=== PATIENT | female | born 1960 | race Caucasian/White ===

== ENCOUNTER 2019-04-18 20:03 | Inpatient (IN) | payer OTHER ==
[2019-04-18 20:14] LABS: Glucose,Whole Blood 218 mg/dL (75-99)
[2019-04-18] MEDS ORDERED: ACETAMINOPHEN TAB 325 MG TAB PO STA (21:00)
[2019-04-18 21:36] LABS: Glucose,Whole Blood 236 mg/dL (75-99)
[2019-04-18 21:50] LABS: HCT 47.8 % (34.0-46.0); HGB 15.2 gm/dL (11.4-16.0); MCH 30.4 pg (25.0-35.0); MCHC 31.9 g/dL (31.0-37.0); MCV 95.2 fL (80.0-100.0); Mean Platelet Volume 7.7; Platelet Count 240 k/uL (150-450); RBC 5.02 m/uL (3.80-5.40); RDW 13.4 % (11.5-15.5); WBC 28.7 k/uL (3.8-10.6)
[2019-04-18 21:57] LABS: Amorphous Sediment,Urine Rare /hpf; Appearance,Urine Cloudy (Clear); Bacteria,Urine Few /hpf; Bilirubin,Urine Negative (Negative); Blood,Urine Trace (Negative); Color,Urine Light Yellow; Glucose,Urine (UA) 4+ (Negative); Hyaline Casts,Urine 1 /lpf (0-2); Leukocyte Esterase,Urine Moderate (Negative); Mucus,Urine Rare /hpf; Nitrite,Urine Negative (Negative); PH, Urine 5.5 (5.0-8.0); Protein,Urine 1+ (Negative); RBC,Urine 5 /hpf (0-5); Specific Gravity,Urine 1.031 (1.001-1.035); Squamous Epithelial Cell,Urine 14 /hpf (0-4); Urobilinogen,Urine <2.0 mg/dL (<2.0); WBC,Urine 71 /hpf (0-5)
[2019-04-18 22:00] LABS: ALT 18 U/L (9-52); AST 14 U/L (14-36); African American GFR (CKD) >90 (>60 ml/min/1.73 sqM); Albumin 3.7 g/dL (3.5-5.0); Alkaline Phosphatase 78 U/L (38-126); Anion Gap 17 mmol/L; Blood Urea Nitrogen 11 mg/dL (7-17); Calcium 8.4 mg/dL (8.4-10.2); Carbon Dioxide 13 mmol/L (22-30); Chloride 105 mmol/L (98-107); Glucose 257 mg/dL (74-99); Magnesium 1.8 mg/dL (1.6-2.3); Potassium 3.7 mmol/L (3.5-5.1); Sodium 135 mmol/L (137-145)
[2019-04-18 22:03] LABS: Ketones,Urine 4+ (Negative)
[2019-04-18 22:04] LABS: Lymphocytes # (M) 19.52 k/uL (1.0-4.8); Monocytes # (M) 0.86 k/uL (0-1.0); Neutrophils % (M) 29 %; Nucleated Red Blood Cells 0 /100 WBC (0-0); Total Cells Counted 200
[2019-04-18 23:03] LABS: Glucose,Whole Blood 267 mg/dL (75-99)
[2019-04-18] MEDS ORDERED: INSULIN REGULAR 100 UNIT in SODIUM CHLORIDE 0.9% 100 ML IV SCH (23:15)
[2019-04-18] MEDS ORDERED: DEXTROSE 5%-0.9% NACL 1,000 ML IV SCH (23:15)
[2019-04-18] MEDS ORDERED: IBUPROFEN 400 MG TAB PO PRN (23:28)
[2019-04-18] MEDS ORDERED: NALOXONE 0.4 MG/ML 1 ML VIAL IV PRN (23:28)
[2019-04-18] MEDS ORDERED: ACETAMINOPHEN TAB 325 MG TAB PO PRN (23:28)
--- NOTE | 2019-04-18 23:28 | ED ---
General Adult HPI - General Chief complaint: Recheck/Abnormal Lab/Rx Stated complaint: NVD Source: patient, EMS Mode of arrival: EMS Limitations: no limitations - History of Present Illness Initial comments: The patient is a 58 showed female who presents to the emergency department as a transfer from [facility]. The patient went in there because she has been vomiting for the past week. She reports that she is generally fatigued. I'll do her primary care doctor today who recommended that she go into the emergency room for evaluation. [facility], the patient was in DKA. She is a new onset diabetic. They did give her 4 L of fluid and initiated an insulin drip at 3 units per hour. She is transferred to our facility for further evaluation. She arrives and states that he has not had any fevers or chills. No sick contacts or recent travel. Denies any chest pain or shortness of breath. No cardiac history. Does not take any prescribed medications. She denies any changes in her urination to include dysuria, hematuria or difficulty voiding. No changes in her bowel habits to include diarrhea, cuts patient, melanotic stools or hematochezia. There are no other alleviating, Perceptin or modifying factors - Related Data Home Medications Medication Instructions Recorded Confirmed Ondansetron Odt [Zofran Odt] 8 mg PO Q8H PRN 04/18/19 04/18/19 Allergies Allergy/AdvReac Type Severity Reaction Status Date / Time Sulfa (Sulfonamide Allergy Rash/Hives Verified 04/18/19 20:40 Antibiotics) Review of Systems ROS Statement: Those systems with pertinent positive or pertinent negative responses have been documented in the HPI. ROS Other: All systems not noted in ROS Statement are negative. Past Medical History Past Medical History: Osteoarthritis (OA), Syncope Additional Past Medical History / Comment(s): kidney stones, lithotrispies. History of Any Multi-Drug Resistant Organisms: None Reported Past Surgical History: Section Past Psychological History: No Psychological Hx Reported Smoking Status: Never smoker Past Alcohol Use History: Occasional Past Drug Use History: Marijuana - Past Family History Father Family Medical History: Congestive Heart Failure (CHF) Sister(s) Family Medical History: Cancer Additional Family Medical History / Comment(s): cervical cancer General Exam Limitations: no limitations Course Vital Signs 04/18/19 04/18/19 04/18/19 20:06 21:30 22:30 Temperature 100.6 F H Pulse Rate 93 97 77 Respiratory 17 16 20 Rate Blood Pressure 154/76 143/70 O2 Sat by Pulse 99 Oximetry 04/18/19 04/19/19 23:30 00:00 Temperature 98.5 F Pulse Rate 79 89 Respiratory 20 20 Rate Blood Pressure 147/71 148/79 O2 Sat by Pulse 100 100 Oximetry Medical Decision Making - Medical Decision Making Upon arrival the patient is placed into room 3. She is hooked up to continuous pulse ox and cardiac monitoring. Her insulin drip is stopped at this time until I'm able to perform laboratory studies. I did review the patient's results. She denies any nausea or pain at this time. I did recommend laboratory studies and a CT the patient's abdomen and pelvis because of her reported vomiting. Upon review of the results patient does have a leukocytosis 28,000. His anion gap of 17. Glucose is 267. CO2 of 12. 4+ ketones in the urine and signs of an acute urinary tract infection. Because this I did initiate the patient's insulin drip at 2 units per hour. She will have every hour Accu-Cheks. I also complete lites every 4 hours. She is placed on D5 half normal saline. I did obtain blood cultures and initiated the patient on Rocephin because of urinary tract infection. I discussed results with the patient. She agreed to the treatment plan. Patient will be admitted to Dr. Ellsworth. She was then transported to the floor in stable condition - Lab Data Result diagrams: 04/18/19 21:20 04/18/19 23:55 Lab Results 04/18/19 04/18/19 04/18/19 Range/Units 20:13 21:20 21:20 WBC 28.7 H (3.8-10.6) k/uL RBC 5.02 (3.80-5.40) m/uL Hgb 15.2 (11.4-16.0) gm/dL Hct 47.8 H (34.0-46.0) % MCV 95.2 (80.0-100.0) fL MCH 30.4 (25.0-35.0) pg MCHC 31.9 (31.0-37.0) g/dL RDW 13.4 (11.5-15.5) % Plt Count 240 (150-450) k/uL Neutrophils % (Manual) 29 % Lymphocytes % (Manual) 68 % Monocytes % (Manual) 3 % Neutrophils # (Manual) 8.32 H (1.3-7.7) k/uL Lymphocytes # (Manual) 19.52 H (1.0-4.8) k/uL Monocytes # (Manual) 0.86 (0-1.0) k/uL Nucleated RBCs 0 (0-0) /100 WBC Manual Slide Review Performed RBC Morphology Normal Sodium 135 L (137-145) mmol/L Potassium 3.7 (3.5-5.1) mmol/L Chloride 105 (98-107) mmol/L Carbon Dioxide 13 L (22-30) mmol/L Anion Gap 17 mmol/L BUN 11 (7-17) mg/dL Creatinine 0.56 (0.52-1.04) mg/dL Est GFR (CKD-EPI)AfAm >90 (>60 ml/min/1.73 sqM) Est GFR (CKD-EPI)NonAf >90 (>60 ml/min/1.73 sqM) Glucose 257 H (74-99) mg/dL POC Glucose (mg/dL) 218 H (75-99) mg/dL POC Glu Soils Technician ID Yennifer Abdullahi Calcium 8.4 (8.4-10.2) mg/dL Magnesium 1.8 (1.6-2.3) mg/dL Total Bilirubin 1.0 (0.2-1.3) mg/dL AST 14 (14-36) U/L ALT 18 (9-52) U/L Alkaline Phosphatase 78 (38-126) U/L Total Protein 6.0 L (6.3-8.2) g/dL Albumin 3.7 (3.5-5.0) g/dL TSH 2.410 (0.465-4.680) mIU/L Urine Color Urine Appearance (Clear) Urine pH (5.0-8.0) Ur Specific Seth (1.001-1.035) Urine Protein (Negative) Urine Glucose (UA) (Negative) Urine Ketones (Negative) Urine Blood (Negative) Urine Nitrite (Negative) Urine Bilirubin (Negative) Urine Urobilinogen (<2.0) mg/dL Ur Leukocyte Esterase (Negative) Urine RBC (0-5) /hpf Urine WBC (0-5) /hpf Ur Squamous Epith Cells (0-4) /hpf Amorphous Sediment (None) /hpf Urine Bacteria (None) /hpf Hyaline Casts (0-2) /lpf Urine Mucus (None) /hpf Acetone, Qual Positive (Negative) 04/18/19 04/18/19 04/18/19 Range/Units 21:20 21:34 23:01 WBC (3.8-10.6) k/uL RBC (3.80-5.40) m/uL Hgb (11.4-16.0) gm/dL Hct (34.0-46.0) % MCV (80.0-100.0) fL MCH (25.0-35.0) pg MCHC (31.0-37.0) g/dL RDW (11.5-15.5) % Plt Count (150-450) k/uL Neutrophils % (Manual) % Lymphocytes % (Manual) % Monocytes % (Manual) % Neutrophils # (Manual) (1.3-7.7) k/uL Lymphocytes # (Manual) (1.0-4.8) k/uL Monocytes # (Manual) (0-1.0) k/uL Nucleated RBCs (0-0) /100 WBC Manual Slide Review RBC Morphology Sodium (137-145) mmol/L Potassium (3.5-5.1) mmol/L Chloride (98-107) mmol/L Carbon Dioxide (22-30) mmol/L Anion Gap mmol/L BUN (7-17) mg/dL Creatinine (0.52-1.04) mg/dL Est GFR (CKD-EPI)AfAm (>60 ml/min/1.73 sqM) Est GFR (CKD-EPI)NonAf (>60 ml/min/1.73 sqM) Glucose (74-99) mg/dL POC Glucose (mg/dL) 236 H 267 H (75-99) mg/dL POC Glu Soils Technician ID Alok Wilburn Calcium (8.4-10.2) mg/dL Magnesium (1.6-2.3) mg/dL Total Bilirubin (0.2-1.3) mg/dL AST (14-36) U/L ALT (9-52) U/L Alkaline Phosphatase (38-126) U/L Total Protein (6.3-8.2) g/dL Albumin (3.5-5.0) g/dL TSH (0.465-4.680) mIU/L Urine Color Light Yellow Urine Appearance Cloudy H (Clear) Urine pH 5.5 (5.0-8.0) Ur Specific Seth 1.031 (1.001-1.035) Urine Protein 1+ H (Negative) Urine Glucose (UA) 4+ H (Negative) Urine Ketones 4+ H (Negative) Urine Blood Trace H (Negative) Urine Nitrite Negative (Negative) Urine Bilirubin Negative (Negative) Urine Urobilinogen <2.0 (<2.0) mg/dL Ur Leukocyte Esterase Moderate H (Negative) Urine RBC 5 (0-5) /hpf Urine WBC 71 H (0-5) /hpf Ur Squamous Epith Cells 14 H (0-4) /hpf Amorphous Sediment Rare H (None) /hpf Urine Bacteria Few H (None) /hpf Hyaline Casts 1 (0-2) /lpf Urine Mucus Rare H (None) /hpf Acetone, Qual (Negative) Disposition Clinical Impression: Diabetic keto-acidosis, Leukocytosis, Acute UTI, Pyrexia Disposition: ADMITTED IP TO THIS [facility] Condition: Serious Is patient prescribed a controlled substance at d/c from ED?: No Decision to Admit Reason: Admit from EC Decision Date: 04/18/19 Decision Time: 23:28
--- NOTE | 2019-04-18 23:36 | CT ---
EXAM: CT Abdomen and Pelvis With Intravenous Contrast CLINICAL HISTORY: Fever and abdominal pain. Reason: Pain TECHNIQUE: Axial computed tomography images of the abdomen and pelvis with intravenous contrast. CTDI is 20.5 mGy and DLP is 1799.4 mGy-cm. This CT exam was performed using one or more of the following dose reduction techniques: automated exposure control, adjustment of the mA and/or kV according to patient size, and/or use of iterative reconstruction technique. COMPARISON: None. FINDINGS: No pulmonary nodules or pleural effusions are noted. Very minimal subsegmental atelectasis at the lung bases is noted. Mild to moderate degenerative disc disease of the spinal column is noted. Mild osteoarthritic changes about the sacroiliac joints are noted. The heart is normal in size. A 1.3 cm probable simple cyst in the lateral segment of the left lobe of the liver is noted. There is abnormal and concentric thickening of the torres of the duodenum extending to involve the proximal small bowel. Moderate hydronephrosis of the right kidney is noted. Moderate to severe right hydroureter is noted, particularly involving the distal right ureter. No discrete filling defect is noted within the right ureter. The left kidney is unremarkable. No retroperitoneal lymphadenopathy. The appendix is best seen on series 202 image 45 and is unremarkable. The bladder is underdistended and suboptimally visualized. IMPRESSION: Hydronephrosis of the right kidney. Marked right hydroureter. No filling defect of the ureter is noted. The findings are equivocal and of uncertain etiology. Retrograde right urethrography is advised for further workup. Marked concentric wall thickening of the duodenum and proximal small bowel loops within the left upper quadrant of uncertain etiology. Inflammatory and infectious etiology should be considered. Clinical correlation is advised. Probable 1.3 cm simple cyst of the left lobe of the liver.
[2019-04-18] MEDS ORDERED: ONDANSETRON ODT 8 MG TAB.RAPDIS PO PRN (23:39)
[2019-04-18 23:41] LABS: Glucose,Whole Blood 274 mg/dL (75-99)
[2019-04-18] MEDS ORDERED: ONDANSETRON ODT 4 MG TAB PO PRN (23:41)
[2019-04-19 00:36] LABS: Glucose,Whole Blood 254 mg/dL (75-99)
[2019-04-19 00:37] LABS: Potassium 3.6 mmol/L (3.5-5.1)
[2019-04-19 01:12] LABS: Glucose,Whole Blood 249 mg/dL (75-99)
[2019-04-19] MEDS: D5-0.45% NACL WITH KCL 20MEQ/L 1,000 ML IV SCH ×4 (01:32→20:15)
[2019-04-19 01:40] VITALS: BMI 34.0
[2019-04-19 02:03] LABS: Glucose,Whole Blood 245 mg/dL (75-99)
[2019-04-19 03:18] LABS: Glucose,Whole Blood 245 mg/dL (75-99)
[2019-04-19 04:19] LABS: Glucose,Whole Blood 241 mg/dL (75-99)
[2019-04-19 04:46] LABS: ALT 6 U/L (9-52); AST 41 U/L (14-36); African American GFR (CKD) >90 (>60 ml/min/1.73 sqM); Albumin 3.7 g/dL (3.5-5.0); Alkaline Phosphatase 68 U/L (38-126); Anion Gap 17 mmol/L; Blood Urea Nitrogen 10 mg/dL (7-17); Calcium 8.4 mg/dL (8.4-10.2); Carbon Dioxide 10 mmol/L (22-30); Chloride 105 mmol/L (98-107); Glucose 260 mg/dL (74-99); Magnesium 1.9 mg/dL (1.6-2.3); Phosphorus 2.3 mg/dL (2.5-4.5); Sodium 132 mmol/L (137-145); Total Bilirubin 1.2 mg/dL (0.2-1.3); Total Protein 6.4 g/dL (6.3-8.2)
[2019-04-19 04:51] LABS: Potassium 4.7 mmol/L (3.5-5.1)
[2019-04-19 05:00] LABS: HCT 50.6 % (34.0-46.0); Hypochromasia Slight; MCH 31.4 pg (25.0-35.0); MCHC 31.6 g/dL (31.0-37.0); MCV 99.4 fL (80.0-100.0); Mean Platelet Volume 8.7; Platelet Count 188 k/uL (150-450); RBC 5.09 m/uL (3.80-5.40); RDW 14.2 % (11.5-15.5); WBC 28.2 k/uL (3.8-10.6)
[2019-04-19] MEDS ORDERED: Magnesium Replacement Protocol 1 EACH MISC MISCELLANE PRN (05:06)
[2019-04-19] MEDS ORDERED: Phosphorus Replacement Protoco 1 EACH MISC MISCELLANE PRN (05:07)
[2019-04-19 05:25] LABS: Glucose,Whole Blood 255 mg/dL (75-99)
[2019-04-19] MEDS: MAGNESIUM SULFATE-D5W PMX 1 GM in DEXTROSE/WATER 1 100ML.BAG IVPB SCH ×2 (05:34→09:00)
[2019-04-19 05:59] LABS: Glucose,Whole Blood 279 mg/dL (75-99)
[2019-04-19] MEDS ORDERED: SODIUM PHOSPHATE 10 MMOL in SODIUM CHLORIDE 0.9% 250 ML IVPB ONE (06:00)
[2019-04-19 07:01] LABS: Glucose,Whole Blood 218 mg/dL (75-99)
[2019-04-19 08:13] LABS: Glucose,Whole Blood 255 mg/dL (75-99)
[2019-04-19 08:54] LABS: African American GFR (CKD) >90 (>60 ml/min/1.73 sqM); Anion Gap 10 mmol/L; Blood Urea Nitrogen 8 mg/dL (7-17); Calcium 8.4 mg/dL (8.4-10.2); Carbon Dioxide 18 mmol/L (22-30); Chloride 103 mmol/L (98-107); Glucose 273 mg/dL (74-99); Magnesium 1.9 mg/dL (1.6-2.3); Phosphorus 2.4 mg/dL (2.5-4.5); Potassium 3.2 mmol/L (3.5-5.1); Sodium 131 mmol/L (137-145)
[2019-04-19 09:03] LABS: Glucose,Whole Blood 252 mg/dL (75-99)
[2019-04-19] MEDS ORDERED: Potassium Replacement Protocol 1 EACH MISC MISCELLANE PRN (09:14)
[2019-04-19] MEDS: POTASSIUM CHLORIDE ER 20 MEQ TAB.ER PO SCH ×6 (09:34→21:29)
[2019-04-19 10:35] LABS: Eosinophils # (M) 0.28 k/uL (0-0.7); Lymphocytes # (M) 20.87 k/uL (1.0-4.8); Monocytes # (M) 0.56 k/uL (0-1.0); Neutrophils % (M) 25 %; Nucleated Red Blood Cells 0 /100 WBC (0-0); Total Cells Counted 200
[2019-04-19 10:35] LABS: Glucose,Whole Blood 232 mg/dL (75-99)
[2019-04-19 10:38] LABS: Anisocytosis (M) Present; Poikilocytosis (M) Present
[2019-04-19 11:07] LABS: Glucose,Whole Blood 228 mg/dL (75-99)
[2019-04-19] MEDS ORDERED: INSULIN DETEMIR (LEVEMIR) 100 UNIT/ML SYR SQ ONE (11:30)
[2019-04-19 12:15] LABS: Glucose,Whole Blood 237 mg/dL (75-99)
[2019-04-19 16:49] LABS: Glucose,Whole Blood 269 mg/dL (75-99)
[2019-04-19] MEDS: INSULIN ASPART (NovoLOG) 100 UNIT/ML VIAL SQ SCH ×2 (17:15→21:30)
--- NOTE | 2019-04-19 17:18 | P.HPIM ---
History of Present Illness H&P Date: 04/19/19 Chief Complaint: Vomiting History of presenting complaint: This is a pleasant 58-year-old patient of Dr. Victoriano Parmar. Patient for about a week has been having multiple episodes of vomiting. She noticed over the course of last few weeks she's been losing weight and she is just discovered she lost about 25 pounds. Patient is having increased thirst and is having increased fluid intake. Also was noticing increased frequency of urination. Including nocturia. No fever no chills. Did feel tired and rundown. Patient presented to [facility] where she was found to be in diabetic ketoacidosis. Patient was transferred here for further management. Patient was started on IV insulin drip and IV fluids. Admitted to the ICU. Saw the patient does morning. Feeling better. Had been on insulin drip overnight. Patient also had a fever of 100.6 on presentation and was found to have her infected appearing urine. Did get a dose of ceftriaxone in the ER. Review of systems: GEN.: Tired EYES: None HEENT: None NECK: None RESPIRATORY: None CARDIOVASCULAR: None GASTROINTESTINAL: None GENITOURINARY: As above MUSCULOSKELETAL: None LYMPHATICS: None HEMATOLOGICAL: None PSYCHIATRY: None NEUROLOGICAL: None Past medical history: Osteoarthritis, kidney stones, Social history: Does not smoke. Alcohol occasionally. Lives with her daughter. Family history: Congestive heart failure, cervical cancer Physical examination: VITAL SIGNS: 100.6, 93, 17, 154/76, 99% room air GENERAL: BMI 34, laying in bed, tired appearing. EYES: Pupils equal. Conjunctiva normal. HEENT: External appearance of nose and ears normal, oral cavity grossly normal. NECK: JVD not raised; masses not palpable. HEART: First and second heart sounds are normal; no edema. LUNGS: Respiratory rate normal; clear to auscultation. ABDOMEN: Soft, nontender, liver spleen not palpable, no masses palpable. PSYCH: Alert and oriented x3; mood and affect normal. NEUROLOGICAL: Cranial nerves grossly intact; no facial asymmetry, power and sensation grossly intact. LYMPHATICS: No lymph nodes palpable in the axilla and neck INVESTIGATIONS, reviewed in the clinical context: White count 28.7, hemoglobin 15.2, platelets 240, neutrophils increased at 8.3, lymphocytes increased at 19.5 to potassium 3.7 creatinine 0.56 UA positive for leukoesterase WBC and 14 squamous epithelial cells -Serum acetone positive Glycosylated hemoglobin 12 Assessment-: -Acute diabetic ketoacidosis, new diagnosis of diabetes -Acute UTI from cystitis in a patient with known kidney stones -Chronic nephrolithiasis -Leukocytosis with predominant neutrophils and lymphocytosis -Hypokalemia -Obesity BMI 34 Plan: Patient started on IV insulin drip and IV fluids upon presentation. This morning and and Was closing well. Down to 10 from 17. I Ji the patient from insulin drip to Levemir 20 units. We'll keep the patient on a sliding scale with her meals. Depending on her sugars with a chest insulin accordingly. Later in the afternoon I was informed by the geriatric case manager that the patient does not have prescription coverage. In view of the same we'll switch the patient over to 7030 insulin. In the morning. Also add LACY inhibitor and Lipitor. Diabetic education was requested. Also metformin will be added. Care was discussed at length with the patient. Questions were answered. Past Medical History Past Medical History: Osteoarthritis (OA), Syncope Additional Past Medical History / Comment(s): kidney stones, lithotrispies. History of Any Multi-Drug Resistant Organisms: None Reported Past Surgical History: Section Past Anesthesia/Blood Transfusion Reactions: No Reported Reaction Past Psychological History: No Psychological Hx Reported Smoking Status: Never smoker Past Alcohol Use History: Occasional Past Drug Use History: Marijuana - Past Family History Father Family Medical History: Congestive Heart Failure (CHF) Sister(s) Family Medical History: Cancer Additional Family Medical History / Comment(s): cervical cancer Medications and Allergies Home Medications Medication Instructions Recorded Confirmed Type Ondansetron Odt [Zofran Odt] 8 mg PO Q8H PRN 04/18/19 04/18/19 History Allergies Allergy/AdvReac Type Severity Reaction Status Date / Time Sulfa (Sulfonamide Allergy Rash/Hives Verified 04/18/19 20:40 Antibiotics) Physical Exam Vitals: Vital Signs Temp Pulse Resp BP Pulse Ox 04/19/19 16:00 98.8 F 67 18 154/84 99 04/19/19 15:00 70 138/70 04/19/19 14:00 86 18 124/63 04/19/19 13:00 86 146/64 04/19/19 12:00 98.5 F 84 16 136/71 96 04/19/19 11:00 70 17 04/19/19 10:00 74 17 04/19/19 09:00 76 16 04/19/19 08:00 98.3 F 76 20 144/66 96 04/19/19 07:00 75 23 04/19/19 06:00 71 17 123/68 04/19/19 05:00 72 15 160/81 04/19/19 04:00 98.3 F 58 L 25 H 160/81 97 04/19/19 03:00 77 15 134/63 04/19/19 02:00 67 18 146/67 04/19/19 01:30 99.4 F 92 14 130/79 96 04/19/19 01:01 82 14 04/19/19 00:00 98.5 F 89 20 148/79 100 04/18/19 23:30 79 20 147/71 100 04/18/19 22:30 77 20 143/70 04/18/19 21:30 97 16 154/76 99 04/18/19 20:06 100.6 F H 93 17 Intake and Output 04/19/19 04/19/19 04/19/19 06:59 14:59 22:59 Intake Total 2065.484 4056.962 Balance 5537.807 4504.962 Intake: IV 1100 1150 D5-0.45% NaCl with KCl 750 1050 20Meq/l 1,000 ml @ 50 mls /hr IV .Q20H [facility] Rx#: [id number] Magnesium Sulfate-D5w Pmx 100 100 1 gm In Dextrose/Water 1 100ml.bag @ 100 mls/hr IVPB Q1H [facility] Rx#: [id number] Sodium Phosphate 10 mmol 250 In Sodium Chloride 0.9% 250 ml @ 125 mls/hr IVPB ONCE ONE Rx#:[id number] Intake, IV Titration 13.568 12.962 Amount Insulin Regular 100 unit 13.568 12.962 In Sodium Chloride 0.9% 100 ml @ Titrate IV .Q0M [facility] Rx#:[id number] Other: Voiding Method Toilet Toilet # Voids 1 3 Weight 104.5 kg 104.5 kg Results CBC & Chem 7: 04/19/19 04:11 04/19/19 12:20 Labs: Abnormal Lab Results - Last 24 Hours (Table) 04/18/19 04/18/19 04/18/19 Range/Units 20:13 21:20 21:20 WBC (3.8-10.6) k/uL Hct (34.0-46.0) % Neutrophils # (Manual) (1.3-7.7) k/uL Lymphocytes # (Manual) (1.0-4.8) k/uL Sodium 135 L (137-145) mmol/L Potassium (3.5-5.1) mmol/L Carbon Dioxide 13 L (22-30) mmol/L Creatinine (0.52-1.04) mg/dL Glucose 257 H (74-99) mg/dL POC Glucose (mg/dL) 218 H (75-99) mg/dL Hemoglobin A1c 12.0 H (4.0-6.0) % Phosphorus (2.5-4.5) mg/dL AST (14-36) U/L ALT (9-52) U/L Total Protein 6.0 L (6.3-8.2) g/dL Urine Appearance (Clear) Urine Protein (Negative) Urine Glucose (UA) (Negative) Urine Ketones (Negative) Urine Blood (Negative) Ur Leukocyte Esterase (Negative) Urine WBC (0-5) /hpf Ur Squamous Epith Cells (0-4) /hpf Amorphous Sediment (None) /hpf Urine Bacteria (None) /hpf Urine Mucus (None) /hpf 04/18/19 04/18/19 04/18/19 Range/Units 21:20 21:20 21:34 WBC 28.7 H (3.8-10.6) k/uL Hct 47.8 H (34.0-46.0) % Neutrophils # (Manual) 8.32 H (1.3-7.7) k/uL Lymphocytes # (Manual) 19.52 H (1.0-4.8) k/uL Sodium (137-145) mmol/L Potassium (3.5-5.1) mmol/L Carbon Dioxide (22-30) mmol/L Creatinine (0.52-1.04) mg/dL Glucose (74-99) mg/dL POC Glucose (mg/dL) 236 H (75-99) mg/dL Hemoglobin A1c (4.0-6.0) % Phosphorus (2.5-4.5) mg/dL AST (14-36) U/L ALT (9-52) U/L Total Protein (6.3-8.2) g/dL Urine Appearance Cloudy H (Clear) Urine Protein 1+ H (Negative) Urine Glucose (UA) 4+ H (Negative) Urine Ketones 4+ H (Negative) Urine Blood Trace H (Negative) Ur Leukocyte Esterase Moderate H (Negative) Urine WBC 71 H (0-5) /hpf Ur Squamous Epith Cells 14 H (0-4) /hpf Amorphous Sediment Rare H (None) /hpf Urine Bacteria Few H (None) /hpf Urine Mucus Rare H (None) /hpf 04/18/19 04/18/19 04/18/19 Range/Units 23:01 23:39 23:55 WBC (3.8-10.6) k/uL Hct (34.0-46.0) % Neutrophils # (Manual) (1.3-7.7) k/uL Lymphocytes # (Manual) (1.0-4.8) k/uL Sodium 133 L (137-145) mmol/L Potassium (3.5-5.1) mmol/L Carbon Dioxide 10 L (22-30) mmol/L Creatinine (0.52-1.04) mg/dL Glucose (74-99) mg/dL POC Glucose (mg/dL) 267 H 274 H (75-99) mg/dL Hemoglobin A1c (4.0-6.0) % Phosphorus (2.5-4.5) mg/dL AST (14-36) U/L ALT (9-52) U/L Total Protein (6.3-8.2) g/dL Urine Appearance (Clear) Urine Protein (Negative) Urine Glucose (UA) (Negative) Urine Ketones (Negative) Urine Blood (Negative) Ur Leukocyte Esterase (Negative) Urine WBC (0-5) /hpf Ur Squamous Epith Cells (0-4) /hpf Amorphous Sediment (None) /hpf Urine Bacteria (None) /hpf Urine Mucus (None) /hpf 04/19/19 04/19/19 04/19/19 Range/Units 00:35 00:59 02:01 WBC (3.8-10.6) k/uL Hct (34.0-46.0) % Neutrophils # (Manual) (1.3-7.7) k/uL Lymphocytes # (Manual) (1.0-4.8) k/uL Sodium (137-145) mmol/L Potassium (3.5-5.1) mmol/L Carbon Dioxide (22-30) mmol/L Creatinine (0.52-1.04) mg/dL Glucose (74-99) mg/dL POC Glucose (mg/dL) 254 H 249 H 245 H (75-99) mg/dL Hemoglobin A1c (4.0-6.0) % Phosphorus (2.5-4.5) mg/dL AST (14-36) U/L ALT (9-52) U/L Total Protein (6.3-8.2) g/dL Urine Appearance (Clear) Urine Protein (Negative) Urine Glucose (UA) (Negative) Urine Ketones (Negative) Urine Blood (Negative) Ur Leukocyte Esterase (Negative) Urine WBC (0-5) /hpf Ur Squamous Epith Cells (0-4) /hpf Amorphous Sediment (None) /hpf Urine Bacteria (None) /hpf Urine Mucus (None) /hpf 04/19/19 04/19/19 04/19/19 Range/Units 03:05 03:54 04:11 WBC 28.2 H (3.8-10.6) k/uL Hct 50.6 H (34.0-46.0) % Neutrophils # (Manual) (1.3-7.7) k/uL Lymphocytes # (Manual) 20.87 H (1.0-4.8) k/uL Sodium (137-145) mmol/L Potassium (3.5-5.1) mmol/L Carbon Dioxide (22-30) mmol/L Creatinine (0.52-1.04) mg/dL Glucose (74-99) mg/dL POC Glucose (mg/dL) 245 H 241 H (75-99) mg/dL Hemoglobin A1c (4.0-6.0) % Phosphorus (2.5-4.5) mg/dL AST (14-36) U/L ALT (9-52) U/L Total Protein (6.3-8.2) g/dL Urine Appearance (Clear) Urine Protein (Negative) Urine Glucose (UA) (Negative) Urine Ketones (Negative) Urine Blood (Negative) Ur Leukocyte Esterase (Negative) Urine WBC (0-5) /hpf Ur Squamous Epith Cells (0-4) /hpf Amorphous Sediment (None) /hpf Urine Bacteria (None) /hpf Urine Mucus (None) /hpf 04/19/19 04/19/19 04/19/19 Range/Units 04:11 05:11 05:57 WBC (3.8-10.6) k/uL Hct (34.0-46.0) % Neutrophils # (Manual) (1.3-7.7) k/uL Lymphocytes # (Manual) (1.0-4.8) k/uL Sodium 132 L (137-145) mmol/L Potassium (3.5-5.1) mmol/L Carbon Dioxide 10 L (22-30) mmol/L Creatinine 0.48 L (0.52-1.04) mg/dL Glucose 260 H (74-99) mg/dL POC Glucose (mg/dL) 255 H 279 H (75-99) mg/dL Hemoglobin A1c (4.0-6.0) % Phosphorus 2.3 L (2.5-4.5) mg/dL AST 41 H (14-36) U/L ALT 6 L (9-52) U/L Total Protein (6.3-8.2) g/dL Urine Appearance (Clear) Urine Protein (Negative) Urine Glucose (UA) (Negative) Urine Ketones (Negative) Urine Blood (Negative) Ur Leukocyte Esterase (Negative) Urine WBC (0-5) /hpf Ur Squamous Epith Cells (0-4) /hpf Amorphous Sediment (None) /hpf Urine Bacteria (None) /hpf Urine Mucus (None) /hpf 04/19/19 04/19/19 04/19/19 Range/Units 06:59 08:00 08:07 WBC (3.8-10.6) k/uL Hct (34.0-46.0) % Neutrophils # (Manual) (1.3-7.7) k/uL Lymphocytes # (Manual) (1.0-4.8) k/uL Sodium 131 L (137-145) mmol/L Potassium 3.2 L (3.5-5.1) mmol/L Carbon Dioxide 18 L (22-30) mmol/L Creatinine 0.42 L (0.52-1.04) mg/dL Glucose 273 H (74-99) mg/dL POC Glucose (mg/dL) 218 H 255 H (75-99) mg/dL Hemoglobin A1c (4.0-6.0) % Phosphorus 2.4 L (2.5-4.5) mg/dL AST (14-36) U/L ALT (9-52) U/L Total Protein (6.3-8.2) g/dL Urine Appearance (Clear) Urine Protein (Negative) Urine Glucose (UA) (Negative) Urine Ketones (Negative) Urine Blood (Negative) Ur Leukocyte Esterase (Negative) Urine WBC (0-5) /hpf Ur Squamous Epith Cells (0-4) /hpf Amorphous Sediment (None) /hpf Urine Bacteria (None) /hpf Urine Mucus (None) /hpf 04/19/19 04/19/19 04/19/19 Range/Units 08:59 10:00 11:04 WBC (3.8-10.6) k/uL Hct (34.0-46.0) % Neutrophils # (Manual) (1.3-7.7) k/uL Lymphocytes # (Manual) (1.0-4.8) k/uL Sodium (137-145) mmol/L Potassium (3.5-5.1) mmol/L Carbon Dioxide (22-30) mmol/L Creatinine (0.52-1.04) mg/dL Glucose (74-99) mg/dL POC Glucose (mg/dL) 252 H 232 H 228 H (75-99) mg/dL Hemoglobin A1c (4.0-6.0) % Phosphorus (2.5-4.5) mg/dL AST (14-36) U/L ALT (9-52) U/L Total Protein (6.3-8.2) g/dL Urine Appearance (Clear) Urine Protein (Negative) Urine Glucose (UA) (Negative) Urine Ketones (Negative) Urine Blood (Negative) Ur Leukocyte Esterase (Negative) Urine WBC (0-5) /hpf Ur Squamous Epith Cells (0-4) /hpf Amorphous Sediment (None) /hpf Urine Bacteria (None) /hpf Urine Mucus (None) /hpf 04/19/19 04/19/19 Range/Units 12:02 16:46 WBC (3.8-10.6) k/uL Hct (34.0-46.0) % Neutrophils # (Manual) (1.3-7.7) k/uL Lymphocytes # (Manual) (1.0-4.8) k/uL Sodium (137-145) mmol/L Potassium (3.5-5.1) mmol/L Carbon Dioxide (22-30) mmol/L Creatinine (0.52-1.04) mg/dL Glucose (74-99) mg/dL POC Glucose (mg/dL) 237 H 269 H (75-99) mg/dL Hemoglobin A1c (4.0-6.0) % Phosphorus (2.5-4.5) mg/dL AST (14-36) U/L ALT (9-52) U/L Total Protein (6.3-8.2) g/dL Urine Appearance (Clear) Urine Protein (Negative) Urine Glucose (UA) (Negative) Urine Ketones (Negative) Urine Blood (Negative) Ur Leukocyte Esterase (Negative) Urine WBC (0-5) /hpf Ur Squamous Epith Cells (0-4) /hpf Amorphous Sediment (None) /hpf Urine Bacteria (None) /hpf Urine Mucus (None) /hpf Microbiology - Last 24 Hours (Table) 04/19/19 10:33 Urine Culture - Preliminary Urine,Voided Thrombosis Risk Factor Assmnt - Choose All That Apply Any of the Below Risk Factors Present?: Yes Each Factor Represents 1 point: Age 41-60 years, Obesity (BMI >25) Other Risk Factors: No Other congenital or acquired thrombophilia - If yes, enter type in comment: No Thrombosis Risk Factor Assessment Total Risk Factor Score: 2 Thrombosis Risk Factor Assessment Level: Low Risk
[2019-04-19] MEDS: metFORMIN 500 MG TAB PO SCH (18:50)
[2019-04-19 19:05] LABS: Potassium 3.5 mmol/L (3.5-5.1)
[2019-04-19] MEDS: LISINOPRIL 5 MG TAB PO SCH (20:09)
[2019-04-19] MEDS ORDERED: ATORVASTATIN 20 MG TAB PO SCH (21:00)
[2019-04-19 21:23] LABS: ALT 24 U/L (9-52); AST 14 U/L (14-36); African American GFR (CKD) >90 (>60 ml/min/1.73 sqM); Albumin 3.3 g/dL (3.5-5.0); Alkaline Phosphatase 78 U/L (38-126); Anion Gap 7 mmol/L; Blood Urea Nitrogen 6 mg/dL (7-17); Calcium 8.8 mg/dL (8.4-10.2); Carbon Dioxide 24 mmol/L (22-30); Chloride 103 mmol/L (98-107); Glucose 248 mg/dL (74-99); Phosphorus 1.4 mg/dL (2.5-4.5); Potassium 3.5 mmol/L (3.5-5.1); Sodium 134 mmol/L (137-145); Total Bilirubin 0.6 mg/dL (0.2-1.3); Total Protein 5.5 g/dL (6.3-8.2)
[2019-04-19 21:23] LABS: Glucose,Whole Blood 237 mg/dL (75-99)
[2019-04-20 01:50] LABS: Glucose,Whole Blood 173 mg/dL (75-99)
[2019-04-20 06:24] VITALS: BP 142/73; PULSE 64; RESP 20; TEMP 97.9
[2019-04-20 07:04] LABS: Glucose,Whole Blood 246 mg/dL (75-99)
[2019-04-20] MEDS ORDERED: INSULN ASP PRT/INSULIN ASPART 100 UNIT/ML 10 ML VIAL SQ SCH ×2 (07:30→12:30)
[2019-04-20 07:45] LABS: Basophils # (A) 0.1 k/uL (0-0.2); Basophils % (A) 1 %; Eosinophils # (A) 0.1 k/uL (0-0.7); Eosinophils % (A) 1 %; HCT 45.9 % (34.0-46.0); HGB 14.8 gm/dL (11.4-16.0); Lymphocytes # (A) 10.7 k/uL (1.0-4.8); Lymphocytes % (A) 66 %; MCH 30.7 pg (25.0-35.0); MCHC 32.3 g/dL (31.0-37.0); Monocytes # (A) 0.5 k/uL (0-1.0); Monocytes % (A) 3 %; Neutrophils # (A) 4.5 k/uL (1.3-7.7); Neutrophils % (A) 28 %; Platelet Count 214 k/uL (150-450); RBC 4.83 m/uL (3.80-5.40); RDW 13.6 % (11.5-15.5); WBC 16.4 k/uL (3.8-10.6)
[2019-04-20] MEDS: INSULIN ASPART (NovoLOG) 100 UNIT/ML VIAL SQ SCH ×2 (07:47→12:28)
[2019-04-20] MEDS: metFORMIN 500 MG TAB PO SCH (07:48)
[2019-04-20] MEDS: LISINOPRIL 5 MG TAB PO SCH (07:48)
[2019-04-20 09:39] LABS: African American GFR (CKD) >90 (>60 ml/min/1.73 sqM); Anion Gap 6 mmol/L; Blood Urea Nitrogen 5 mg/dL (7-17); Carbon Dioxide 25 mmol/L (22-30); Chloride 106 mmol/L (98-107); Glucose 255 mg/dL (74-99); Potassium 4.1 mmol/L (3.5-5.1); Sodium 137 mmol/L (137-145)
[2019-04-20 12:23] LABS: Glucose,Whole Blood 241 mg/dL (75-99)
--- NOTE | 2019-04-21 01:12 | P.DS ---
Providers Date of admission: 04/18/19 23:39 Expected date of discharge: 04/20/19 Attending physician: Elvin Obando Primary care physician: Victoriano Jacob [facility] Course: Hospital course: This is a pleasant 58-year-old patient of Dr. Victoriano Parmar. Patient for about a week has been having multiple episodes of vomiting. She noticed over the course of last few weeks she's been losing weight and she is just discovered she lost about 25 pounds. Patient is having increased thirst and is having increased fluid intake. Also was noticing increased frequency of urination. Including nocturia. No fever no chills. Did feel tired and rundown. Patient presented to [facility] where she was found to be in diabetic ketoacidosis. Patient was transferred here for further management. Patient was started on IV insulin drip and IV fluids. Admitted to the ICU. Saw the patient does morning. Feeling better. Had been on insulin drip overnight. Patient also had a fever of 100.6 on presentation and was found to have her infected appearing urine. Did get a dose of ceftriaxone in the ER. Patient is treated for diabetic ketoacidosis. She was a much better. Patient does not have insurance coverage for prescription. Hence 70/30 insulin prescriptions been done. Care was discussed in detail with the patient. Questions were answered. Including lifestyle changes. Discussion and discharge planning more than 35 minutes Physical examination: VITAL SIGNS: 97.9, 64, 20, 142/73, 100% room air GENERAL: Sitting up, comfortable. EYES: Pupils equal. Conjunctiva normal. HEENT: External appearance of nose and ears normal, oral cavity grossly normal. NECK: JVD not raised; masses not palpable. HEART: First and second heart sounds are normal; no edema. LUNGS: Respiratory rate normal; clear to auscultation. ABDOMEN: Soft, nontender, liver spleen not palpable, no masses palpable. PSYCH: Alert and oriented x3; mood and affect normal. INVESTIGATIONS, reviewed in the clinical context: White count 6.4 creatinine 0.5 UA positive for leukoesterase WBC and 14 squamous epithelial cells -Serum acetone positive Glycosylated hemoglobin 12 -LDL 136 Discharge diagnosis: -Acute diabetic ketoacidosis, new diagnosis of diabetes -Acute UTI from cystitis in a patient with known kidney stones -Chronic nephrolithiasis -Leukocytosis with predominant neutrophils and lymphocytosis -Hypokalemia -Obesity BMI 34 -New diagnosis of diabetes mellitus type 2 -Hyperlipidemia Disposition: Home Patient Condition at Discharge: Stable Plan - Discharge Summary Discharge Rx Participant: No New Discharge Prescriptions: New metFORMIN HCL [Glucophage] 500 mg PO BID-W/MEALS #60 tab Cephalexin [Keflex] 250 mg PO Q6HR #20 cap Atorvastatin [Lipitor] 20 mg PO HS #30 tab Insuln Asp Prt/Insulin Aspart [NovoLOG MIX 70-30 VIAL] 12 unit SQ AC-BID #1 vial Insuln Asp Prt/Insulin Aspart [NovoLOG MIX 70-30 VIAL] 5 unit SQ AC-LUNCH #1 vial Lisinopril [Zestril] 5 mg PO BID #60 tab Continue Ondansetron Odt [Zofran ODT] 8 mg PO Q8H PRN PRN Reason: Nausea Discharge Medication List Ondansetron Odt [Zofran ODT] 8 mg PO Q8H PRN 04/18/19 [History] Atorvastatin [Lipitor] 20 mg PO HS #30 tab 04/20/19 [Rx] Cephalexin [Keflex] 250 mg PO Q6HR #20 cap 04/20/19 [Rx] Insuln Asp Prt/Insulin Aspart [NovoLOG MIX 70-30 VIAL] 5 unit SQ AC-LUNCH #1 vial 04/20/19 [Rx] Insuln Asp Prt/Insulin Aspart [NovoLOG MIX 70-30 VIAL] 12 unit SQ AC-BID #1 vial 04/20/19 [Rx] Lisinopril [Zestril] 5 mg PO BID #60 tab 04/20/19 [Rx] metFORMIN HCL [Glucophage] 500 mg PO BID-W/MEALS #60 tab 04/20/19 [Rx] Follow up Appointment(s)/Referral(s): Victoriano Jacob DO [Primary Care Provider] - 3 Days (office closed, please call to make appointment) Patient Instructions/Handouts: Hypoglycemia in a Person with Diabetes (DC), Type 2 Diabetes in Adults: New Diagnosis (GEN), Basic Carbohydrate Counting (DC), Meal Planning with the Plate Method (DC) Activity/Diet/Wound Care/Special Instructions: [employer] can be reached at , they are supplying your glucometer supplies with . Glucometer for home Accu-Cheks every before meals at bedtime keep a log Discharge Disposition: HOME SELF-CARE
== END 2019-04-20 14:40 | disposition home or self-care (01) | DRG 638 ==
LOC: EC 20:03 → 2SICU 23:39 → 4MS4W 04-20 02:30 → 2SICU 04-20 04:48
PROVIDERS: ADMIT Hospitalist; ATTEND Hospitalist
DX: E11.10 Type 2 diabetes mellitus with ketoacidosis without coma (principal); N30.00 Acute cystitis without hematuria; E66.9 Obesity, unspecified; E78.5 Hyperlipidemia, unspecified; E87.6 Hypokalemia; N20.0 Calculus of kidney; Z68.34 Body mass index [BMI] 34.0-34.9, adult; Z80.49 Family history of malignant neoplasm of other genital organs; Z82.49 Family history of ischemic heart disease and other diseases of the circulatory system; Z87.442 Personal history of urinary calculi; M19.90 Unspecified osteoarthritis, unspecified site; Z88.2 Allergy status to sulfonamides; D72.820 Lymphocytosis (symptomatic)
CPT/HCPCS: 36415; 74177; 80048; 80051; 80053; 80061; 81001; 82009; 83036; 83735; 84100; 84132; 84443; 85025; 87040; 87086; 96360; 96365; 99285

== ENCOUNTER 2019-05-03 13:22 | Inpatient (IN) | payer OTHER ==
[2019-05-03 13:43] LABS: Glucose,Whole Blood 254 mg/dL (75-99)
[2019-05-03] MEDS ORDERED: KETOROLAC 30 MG/ML 1 ML VIAL IVP STA (13:44)
[2019-05-03] MEDS ORDERED: SODIUM CHLORIDE 0.9% 2,000 ML IV STA (13:44)
[2019-05-03] MEDS ORDERED: ONDANSETRON 4 MG/2 ML VIAL IVP STA (13:44)
--- NOTE | 2019-05-03 13:48 | ED ---
Abdominal Pain HPI - General Source: patient, RN notes reviewed Mode of arrival: ambulatory Limitations: no limitations <Francois Bangura - Last Filed: 05/03/19 15:31> <Martinez Alegre - Last Filed: 05/03/19 15:56> - General Chief Complaint: Abdominal Pain Stated Complaint: Vomiting, Diabetic, poss kidney stones Time Seen by Provider: 05/03/19 13:31 - History of Present Illness Initial Comments: This a 58 year old female presents emergency Department chief complaint of nausea vomiting abdominal discomfort. Patient states that she developed she's had some urinary symptoms last couple days but states that she developed nausea vomiting this morning and more right-sided abdominal discomfort. Patient states that she was recently admitted for new-onset diabetes with DKA. Patient states that she has not taken any insulin today. Denies any known fever at home. Denies chest pain or shortness breath. Patient states she had no sick contacts no diarrhea. (Francois Bangura) - Related Data Home Medications Medication Instructions Recorded Confirmed Ondansetron Odt [Zofran ODT] 8 mg PO Q8H PRN 04/18/19 05/03/19 L.acidoph,Paracasei, B.lactis 1 cap PO DAILY 05/03/19 05/03/19 [Probiotic] Previous Rx's Medication Instructions Recorded Atorvastatin [Lipitor] 20 mg PO HS #30 tab 04/20/19 Insuln Asp Prt/Insulin Aspart 5 unit SQ AC-LUNCH #1 vial 04/20/19 [NovoLOG MIX 70-30 VIAL] Insuln Asp Prt/Insulin Aspart 12 unit SQ AC-BID #1 vial 04/20/19 [NovoLOG MIX 70-30 VIAL] Lisinopril [Zestril] 5 mg PO BID #60 tab 04/20/19 metFORMIN HCL [Glucophage] 500 mg PO BID-W/MEALS #60 tab 04/20/19 Allergies Allergy/AdvReac Type Severity Reaction Status Date / Time Sulfa (Sulfonamide Allergy Rash/Hives Verified 05/03/19 13:57 Antibiotics) Review of Systems ROS Other: All systems not noted in ROS Statement are negative. <Francois Bangura - Last Filed: 05/03/19 15:31> ROS Other: All systems not noted in ROS Statement are negative. <Martinez Alegre - Last Filed: 05/03/19 15:56> ROS Statement: Those systems with pertinent positive or pertinent negative responses have been documented in the HPI. Past Medical History Past Medical History: Diabetes Mellitus, Osteoarthritis (OA), Syncope Additional Past Medical History / Comment(s): kidney stones, lithotrispies. History of Any Multi-Drug Resistant Organisms: None Reported Past Surgical History: Section Past Anesthesia/Blood Transfusion Reactions: No Reported Reaction Past Psychological History: No Psychological Hx Reported Smoking Status: Never smoker Past Alcohol Use History: Occasional Past Drug Use History: Marijuana - Past Family History Father Family Medical History: Congestive Heart Failure (CHF) Sister(s) Family Medical History: Cancer Additional Family Medical History / Comment(s): cervical cancer <Francois Bangura - Last Filed: 05/03/19 15:31> General Exam Limitations: no limitations General appearance: alert, in no apparent distress Head exam: Present: atraumatic, normocephalic, normal inspection Eye exam: Present: normal appearance, PERRL, EOMI. Absent: scleral icterus, conjunctival injection, periorbital swelling ENT exam: Present: normal exam, normal oropharynx, mucous membranes moist Neck exam: Present: normal inspection, full ROM. Absent: tenderness, meningismus, lymphadenopathy Respiratory exam: Present: normal lung sounds bilaterally. Absent: respiratory distress, wheezes, rales, rhonchi, stridor Cardiovascular Exam: Present: normal rhythm, tachycardia, normal heart sounds. Absent: systolic murmur, diastolic murmur, rubs, gallop, clicks GI/Abdominal exam: Present: soft, tenderness (Minimal lower abdominal tendernes s), normal bowel sounds. Absent: distended, guarding, rebound, rigid Back exam: Absent: CVA tenderness (R), CVA tenderness (L) Neurological exam: Present: alert Skin exam: Present: warm, dry, intact, normal color. Absent: rash <Francois Bangura - Last Filed: 05/03/19 15:31> Course <Martinez Alegre - Last Filed: 05/03/19 15:56> Vital Signs 05/03/19 05/03/19 13:36 14:52 Temperature 100.3 F H 99.8 F H Pulse Rate 107 H 105 H Respiratory 18 16 Rate Blood Pressure 155/87 152/73 O2 Sat by Pulse 99 96 Oximetry - Consultations Consultation #1: Spoke with Dr. Faria regarding hospital admission and consult (Martinez Alegre) Consultation #2: Spoke with Dr. Topher giang, patient is okay for admission (Michael Alegre) Medical Decision Making - Lab Data Result diagrams: 05/03/19 13:42 05/03/19 13:42 <Francois Bangura - Last Filed: 05/03/19 15:31> - Lab Data Result diagrams: 05/03/19 13:42 05/03/19 13:42 <Martinez Alegre - Last Filed: 05/03/19 15:56> - Medical Decision Making 58 show female presented from it for abdominal pain nausea vomiting. Patient's found to be in DKA, persistent hydroureter hydronephrosis on the right. Patient has evidence of urinary tract infection. Patient will be admitted for further workup including urology, IV antibiotics, insulin drip. (Francois Bangura) - Lab Data Lab Results 05/03/19 05/03/19 05/03/19 Range/Units 13:42 13:42 13:42 WBC 19.5 H (3.8-10.6) k/uL RBC 4.67 (3.80-5.40) m/uL Hgb 15.0 (11.4-16.0) gm/dL Hct 45.1 (34.0-46.0) % MCV 96.4 (80.0-100.0) fL MCH 32.0 (25.0-35.0) pg MCHC 33.2 (31.0-37.0) g/dL RDW 15.3 (11.5-15.5) % Plt Count 199 (150-450) k/uL Neutrophils % 52 % Lymphocytes % 44 % Monocytes % 1 % Eosinophils % 0 % Basophils % 1 % Neutrophils # 10.2 H (1.3-7.7) k/uL Lymphocytes # 8.5 H (1.0-4.8) k/uL Monocytes # 0.2 (0-1.0) k/uL Eosinophils # 0.1 (0-0.7) k/uL Basophils # 0.2 (0-0.2) k/uL Manual Slide Review Performed Toxic Granulation Present RBC Morphology Normal Sodium 142 (137-145) mmol/L Potassium 4.4 (3.5-5.1) mmol/L Chloride 105 (98-107) mmol/L Carbon Dioxide 22 (22-30) mmol/L Anion Gap 15 mmol/L BUN 18 H (7-17) mg/dL Creatinine 0.54 (0.52-1.04) mg/dL Est GFR (CKD-EPI)AfAm >90 (>60 ml/min/1.73 sqM) Est GFR (CKD-EPI)NonAf >90 (>60 ml/min/1.73 sqM) Glucose 284 H (74-99) mg/dL POC Glucose (mg/dL) 254 H (75-99) mg/dL POC Glu Elevator Runner VIN Baughlitzy Chelsie Plasma Lactic Acid Bertram (0.7-2.0) mmol/L Calcium 9.4 (8.4-10.2) mg/dL Total Bilirubin 0.7 (0.2-1.3) mg/dL AST 21 (14-36) U/L ALT 30 (9-52) U/L Alkaline Phosphatase 84 (38-126) U/L Total Protein 6.7 (6.3-8.2) g/dL Albumin 4.3 (3.5-5.0) g/dL Amylase 58 (30-110) U/L Lipase 57 (23-300) U/L Urine Color Urine Appearance (Clear) Urine pH (5.0-8.0) Ur Specific [place] (1.001-1.035) Urine Protein (Negative) Urine Glucose (UA) (Negative) Urine Ketones (Negative) Urine Blood (Negative) Urine Nitrite (Negative) Urine Bilirubin (Negative) Urine Urobilinogen (<2.0) mg/dL Ur Leukocyte Esterase (Negative) Urine RBC (0-5) /hpf Urine WBC (0-5) /hpf Ur Squamous Epith Cells (0-4) /hpf Hyaline Casts (0-2) /lpf Urine Mucus (None) /hpf Acetone, Qual Positive (Negative) 05/03/19 05/03/19 Range/Units 13:42 13:42 WBC (3.8-10.6) k/uL RBC (3.80-5.40) m/uL Hgb (11.4-16.0) gm/dL Hct (34.0-46.0) % MCV (80.0-100.0) fL MCH (25.0-35.0) pg MCHC (31.0-37.0) g/dL RDW (11.5-15.5) % Plt Count (150-450) k/uL Neutrophils % % Lymphocytes % % Monocytes % % Eosinophils % % Basophils % % Neutrophils # (1.3-7.7) k/uL Lymphocytes # (1.0-4.8) k/uL Monocytes # (0-1.0) k/uL Eosinophils # (0-0.7) k/uL Basophils # (0-0.2) k/uL Manual Slide Review Toxic Granulation RBC Morphology Sodium (137-145) mmol/L Potassium (3.5-5.1) mmol/L Chloride (98-107) mmol/L Carbon Dioxide (22-30) mmol/L Anion Gap mmol/L BUN (7-17) mg/dL Creatinine (0.52-1.04) mg/dL Est GFR (CKD-EPI)AfAm (>60 ml/min/1.73 sqM) Est GFR (CKD-EPI)NonAf (>60 ml/min/1.73 sqM) Glucose (74-99) mg/dL POC Glucose (mg/dL) (75-99) mg/dL POC Glu Elevator Runner ID Plasma Lactic Acid Bertram 1.4 (0.7-2.0) mmol/L Calcium (8.4-10.2) mg/dL Total Bilirubin (0.2-1.3) mg/dL AST (14-36) U/L ALT (9-52) U/L Alkaline Phosphatase (38-126) U/L Total Protein (6.3-8.2) g/dL Albumin (3.5-5.0) g/dL Amylase (30-110) U/L Lipase (23-300) U/L Urine Color Light Red Urine Appearance Cloudy H (Clear) Urine pH 5.5 (5.0-8.0) Ur Specific [place] 1.025 (1.001-1.035) Urine Protein 2+ H (Negative) Urine Glucose (UA) 4+ H (Negative) Urine Ketones 4+ H (Negative) Urine Blood Large H (Negative) Urine Nitrite Positive H (Negative) Urine Bilirubin Negative (Negative) Urine Urobilinogen <2.0 (<2.0) mg/dL Ur Leukocyte Esterase Moderate H (Negative) Urine RBC >182 H (0-5) /hpf Urine WBC 58 H (0-5) /hpf Ur Squamous Epith Cells 1 (0-4) /hpf Hyaline Casts 4 H (0-2) /lpf Urine Mucus Rare H (None) /hpf Acetone, Qual (Negative) Critical Care Time Critical Care Time: Yes Total Critical Care Time: 35 <Francois Bangura - Last Filed: 05/03/19 15:31> Critical Care Time: Total 35 minutes of critical care time were used initially evaluated patient, reviewed past medical history, review vitals and ordered labs including CBC, CMP, acetone, lactic acid, urinalysis. Patient did have repeat CT which shows persistent hydro-ureter and hydronephrosis on the right without identified cau se. Patient was given 2 g Rocephin secondary to leukocytosis, fever, or evidence urinary tract infection. Patient was started on insulin drip with no bolus at this time, IV fluids were ordered. Repeat labs, admissions was discussed with of hospitalist. (Francois Bangura) Disposition <Francois Bangura - Last Filed: 05/03/19 15:31> <Martinez Alegre - Last Filed: 05/03/19 15:56> Clinical Impression: Diabetic keto-acidosis, Leukocytosis, Acute UTI, Hydroureter, Hydronephrosis Disposition: ADMITTED IP TO THIS HOSP Condition: Fair Referrals: Victoriano Jacob DO [Primary Care Provider] - 1-2 days
[2019-05-03 13:59] LABS: Basophils # (A) 0.2 k/uL (0-0.2); Basophils % (A) 1 %; Eosinophils # (A) 0.1 k/uL (0-0.7); Eosinophils % (A) 0 %; HCT 45.1 % (34.0-46.0); Lymphocytes # (A) 8.5 k/uL (1.0-4.8); Lymphocytes % (A) 44 %; MCHC 33.2 g/dL (31.0-37.0); MCV 96.4 fL (80.0-100.0); Monocytes # (A) 0.2 k/uL (0-1.0); Monocytes % (A) 1 %; Neutrophils # (A) 10.2 k/uL (1.3-7.7); Neutrophils % (A) 52 %; Platelet Count 199 k/uL (150-450); RBC 4.67 m/uL (3.80-5.40); RDW 15.3 % (11.5-15.5); WBC 19.5 k/uL (3.8-10.6)
[2019-05-03 14:17] LABS: Appearance,Urine Cloudy (Clear); Bilirubin,Urine Negative (Negative); Blood,Urine Large (Negative); Color,Urine Light Red; Glucose,Urine (UA) 4+ (Negative); Hyaline Casts,Urine 4 /lpf (0-2); Leukocyte Esterase,Urine Moderate (Negative); Mucus,Urine Rare /hpf; Nitrite,Urine Positive (Negative); PH, Urine 5.5 (5.0-8.0); Protein,Urine 2+ (Negative); RBC,Urine >182 /hpf (0-5); Specific Gravity,Urine 1.025 (1.001-1.035); Squamous Epithelial Cell,Urine 1 /hpf (0-4); Urobilinogen,Urine <2.0 mg/dL (<2.0)
[2019-05-03 14:35] LABS: ALT 30 U/L (9-52); AST 21 U/L (14-36); African American GFR (CKD) >90 (>60 ml/min/1.73 sqM); Albumin 4.3 g/dL (3.5-5.0); Alkaline Phosphatase 84 U/L (38-126); Amylase 58 U/L (30-110); Anion Gap 15 mmol/L; Blood Urea Nitrogen 18 mg/dL (7-17); Calcium 9.4 mg/dL (8.4-10.2); Carbon Dioxide 22 mmol/L (22-30); Chloride 105 mmol/L (98-107); Glucose 284 mg/dL (74-99); Ketones,Urine 4+ (Negative); Potassium 4.4 mmol/L (3.5-5.1); Sodium 142 mmol/L (137-145); Total Bilirubin 0.7 mg/dL (0.2-1.3); Total Protein 6.7 g/dL (6.3-8.2)
[2019-05-03] MEDS ORDERED: diphenhydrAMINE 50 MG/ML 1 ML VIAL IVP STA (14:42)
[2019-05-03] MEDS ORDERED: METOCLOPRAMIDE 5 MG/ML 2 ML VIAL IVP STA (14:42)
[2019-05-03 14:46] LABS: Toxic Granulation Present
--- NOTE | 2019-05-03 15:30 | CT ---
EXAMINATION TYPE: CT abdomen pelvis wo con DATE OF EXAM: 05/03/2019 HISTORY: Right lower quadrant pain with nausea and vomiting CT DLP: 1199.4 mGycm. Automated Exposure Control for Dose Reduction was Utilized. TECHNIQUE: CT scan of the abdomen and pelvis is performed without oral or IV contrast. COMPARISON: CT abdomen and pelvis 2 weeks ago. FINDINGS: Within the limitations of a non-contrast study, the following observations are made. LUNG BASES: Stable tiny pericardial effusion. Dependent atelectasis. LIVER/GB: Liver diffusely low dense consistent with fatty infiltration. PANCREAS: No significant abnormality is seen. SPLEEN: No significant abnormality is seen. ADRENALS: No significant abnormality is seen. KIDNEYS: Persistent right-sided hydronephrosis and hydroureter without obstructing calculus. No renal calculi identified bilaterally the left-sided hydronephrosis. BOWEL: Appendix within normal limits ascending from cecum. No suspicious small or large bowel dilatat ion. A few scattered colonic diverticula. No CT evidence for acute diverticulitis. GENITAL ORGANS: Anteverted uterus. Scattered pelvic phleboliths. LYMPH NODES: No greater than 1cm abdominal or pelvic lymph nodes are appreciated. OSSEOUS STRUCTURES: Slight levoconvex scoliotic curvature centered at L2 level. Moderate disc space n arrowing L2-L3 level. Mild disc space narrowing L5-S1 level. OTHER: Mild fat stranding right lower quadrant mesentery coronal image 42 noted. Etiology uncertain. IMPRESSION: Persistent right-sided hydronephrosis without source identified. Mild right lower quadrant mesenteric inflammatory change of uncertain etiology. No CT evidence for ac radha appendicitis.
[2019-05-03] MEDS ORDERED: ACETAMINOPHEN TAB 500 MG TAB PO PRN (15:36)
[2019-05-03] MEDS ORDERED: D5-0.45% NACL WITH KCL 20MEQ/L 1,000 ML IV SCH (15:45)
[2019-05-03] MEDS ORDERED: INSULIN REGULAR 100 UNIT in SODIUM CHLORIDE 0.9% 100 ML IV SCH (15:45)
[2019-05-03 16:01] LABS: Glucose,Whole Blood 251 mg/dL (75-99)
[2019-05-03 16:05] LABS: VBG PH 7.35 (7.31-7.41)
[2019-05-03] MEDS: SODIUM CHLORIDE 0.9% 1,000 ML IV SCH ×2 (16:12→22:27)
[2019-05-03 17:13] LABS: Glucose,Whole Blood 263 mg/dL (75-99)
[2019-05-03 17:20] LABS: African American GFR (CKD) >90 (>60 ml/min/1.73 sqM); Anion Gap 11 mmol/L; Blood Urea Nitrogen 19 mg/dL (7-17); Carbon Dioxide 22 mmol/L (22-30); Chloride 108 mmol/L (98-107); Glucose 271 mg/dL (74-99); Sodium 141 mmol/L (137-145)
[2019-05-03 18:09] LABS: Glucose,Whole Blood 294 mg/dL (75-99)
[2019-05-03 19:00] LABS: Glucose,Whole Blood 272 mg/dL (75-99)
[2019-05-03 19:59] LABS: Glucose,Whole Blood 254 mg/dL (75-99)
[2019-05-03 21:01] LABS: Glucose,Whole Blood 256 mg/dL (75-99)
[2019-05-03 21:41] LABS: African American GFR (CKD) >90 (>60 ml/min/1.73 sqM); Anion Gap 8 mmol/L; Blood Urea Nitrogen 20 mg/dL (7-17); Carbon Dioxide 28 mmol/L (22-30); Chloride 103 mmol/L (98-107); Glucose 235 mg/dL (74-99); Potassium 3.6 mmol/L (3.5-5.1); Sodium 139 mmol/L (137-145)
[2019-05-03 22:00] LABS: Glucose,Whole Blood 195 mg/dL (75-99)
--- NOTE | 2019-05-03 22:18 | P.HPIM ---
History of Present Illness H&P Date: 05/03/19 Chief Complaint: Nausea vomiting History of presenting complaint: This is a pleasant 58-year-old patient of Dr. Victoriano Parmar. Patient was just in the hospital from April 18 through April 20. And then presented with a new onset of diabetic ketoacidosis. Patient was discharged on Novolin 70/30. Patient states she she left from patient's sugars are running at about 200s. And she has been traveling. Patient loss admission to have a UTI and cystitis was discharged and antibiotics. Had no further symptoms when she was discharged. Doing well. Patient now presents 1 day of right flank pain. Patient having 2 days of dysuria. Started having some chills and had several bouts of nausea vomiting today. And finally decided to come to the ER. Patient's urine was found to be infected. Patient also did complain of pain in the right flank area. Patient is found to be in diabetic ketoacidosis and r put on insulin drip and admitted for the same.. Review of systems: GEN.: Tired EYES: None HEENT: None NECK: None RESPIRATORY: None CARDIOVASCULAR: None GASTROINTESTINAL: As above GENITOURINARY: As above MUSCULOSKELETAL: None LYMPHATICS: None HEMATOLOGICAL: None PSYCHIATRY: None NEUROLOGICAL: None Past medical history: Osteoarthritis, kidney stones, new diagnosis of diabetes versus type II Social history: Does not smoke. Alcohol occasionally. Lives with her daughter. Family history: Congestive heart failure, cervical cancer Physical examination: VITAL SIGNS: 100.3, 107, 18, 155/87, 99% room air GENERAL: BMI 32, laying in bed, but tired appearing. EYES: Pupils equal. Conjunctiva normal. HEENT: External appearance of nose and ears normal, oral cavity grossly normal. NECK: JVD not raised; masses not palpable. HEART: First and second heart sounds are normal; no edema. LUNGS: Respiratory rate normal; clear to auscultation. ABDOMEN: Soft, minimal right flank tenderness, liver spleen not palpable, no masses palpable. PSYCH: Alert and oriented x3; mood and affect normal. NEUROLOGICAL: Cranial nerves grossly intact; no facial asymmetry, power and sensation grossly intact. LYMPHATICS: No lymph nodes palpable in the axilla and neck INVESTIGATIONS, reviewed in the clinical context: White count 19.5 hemoglobin 15 pressure 4.4 bun 18 creatinine 0.54 blood glucose 284 UA positive Assessment-: -Acute diabetic ketoacidosis, with a recent diagnosis of diabetes mellitus type 2 requiring insulin -Acute UTI from cystitis in a patient with known kidney stones -Chronic nephrolithiasis -Leukocytosis with predominant neutrophils and lymphocytosis -Obesity BMI 32 Plan: Patient is put on insulin drip. IV fluids. Electrolytes will be followed closely. Lovenox for DVT prophylaxis. Related to his evening patient is feeling better. Follow anion gap. We'll set the patient and IV ceftriaxone. Urine cultures pending. We'll get a urology opinion. Past Medical History Past Medical History: Diabetes Mellitus, Osteoarthritis (OA), Syncope Additional Past Medical History / Comment(s): kidney stones, lithotrispies. History of Any Multi-Drug Resistant Organisms: None Reported Past Surgical History: Section Past Anesthesia/Blood Transfusion Reactions: No Reported Reaction Past Psychological History: No Psychological Hx Reported Smoking Status: Never smoker Past Alcohol Use History: Occasional Past Drug Use History: Marijuana - Past Family History Father Family Medical History: Congestive Heart Failure (CHF) Sister(s) Family Medical History: Cancer Additional Family Medical History / Comment(s): cervical cancer Medications and Allergies Home Medications Medication Instructions Recorded Confirmed Type Ondansetron Odt [Zofran ODT] 8 mg PO Q8H PRN 04/18/19 05/03/19 History Atorvastatin [Lipitor] 20 mg PO HS #30 tab 04/20/19 05/03/19 Rx Insuln Asp Prt/Insulin Aspart 5 unit SQ AC-LUNCH #1 vial 04/20/19 05/03/19 Rx [NovoLOG MIX 70-30 VIAL] Insuln Asp Prt/Insulin Aspart 12 unit SQ AC-BID #1 vial 04/20/19 05/03/19 Rx [NovoLOG MIX 70-30 VIAL] Lisinopril [Zestril] 5 mg PO BID #60 tab 04/20/19 05/03/19 Rx metFORMIN HCL [Glucophage] 500 mg PO BID-W/MEALS #60 tab 04/20/19 05/03/19 Rx L.acidoph,Paracasei, B.lactis 1 cap PO DAILY 05/03/19 05/03/19 History [Probiotic] Allergies Allergy/AdvReac Type Severity Reaction Status Date / Time Sulfa (Sulfonamide Allergy Rash/Hives Verified 05/03/19 13:57 Antibiotics) Physical Exam Vitals: Vital Signs Temp Pulse Pulse Resp BP BP Pulse Ox 05/03/19 21:00 98.4 F 95 16 107/52 96 05/03/19 16:35 98.0 F 120 H 18 148/70 96 05/03/19 15:55 100.5 F H 105 H 18 141/62 97 05/03/19 14:52 99.8 F H 105 H 16 152/73 96 05/03/19 13:36 100.3 F H 107 H 18 155/87 99 Intake and Output 05/03/19 05/03/19 05/03/19 06:59 14:59 22:59 Intake Total 274.845 Output Total 400 Balance -125.155 Intake: Intake, IV Titration 34.845 Amount Insulin Regular 100 unit 34.845 In Sodium Chloride 0.9% 100 ml @ 0.05 UNITS/KG/HR 5.039 mls/hr IV .Q20H3M [facility] Rx#:[id number] Oral 240 Output: Urine 200 Emesis 200 Other: Voiding Method Toilet # Voids 1 Weight 99.79 kg Results CBC & Chem 7: 05/03/19 13:42 05/03/19 21:12 Labs: Abnormal Lab Results - Last 24 Hours (Table) 05/03/19 05/03/19 05/03/19 Range/Units 13:42 13:42 13:42 WBC 19.5 H (3.8-10.6) k/uL Neutrophils # 10.2 H (1.3-7.7) k/uL Lymphocytes # 8.5 H (1.0-4.8) k/uL VBG HCO3 (24-28) mmol/L Chloride (98-107) mmol/L BUN 18 H (7-17) mg/dL Creatinine (0.52-1.04) mg/dL Glucose 284 H (74-99) mg/dL POC Glucose (mg/dL) 254 H (75-99) mg/dL Phosphorus (2.5-4.5) mg/dL Urine Appearance (Clear) Urine Protein (Negative) Urine Glucose (UA) (Negative) Urine Ketones (Negative) Urine Blood (Negative) Urine Nitrite (Negative) Ur Leukocyte Esterase (Negative) Urine RBC (0-5) /hpf Urine WBC (0-5) /hpf Hyaline Casts (0-2) /lpf Urine Mucus (None) /hpf 05/03/19 05/03/19 05/03/19 Range/Units 13:42 15:52 15:58 WBC (3.8-10.6) k/uL Neutrophils # (1.3-7.7) k/uL Lymphocytes # (1.0-4.8) k/uL VBG HCO3 22 L (24-28) mmol/L Chloride (98-107) mmol/L BUN (7-17) mg/dL Creatinine (0.52-1.04) mg/dL Glucose (74-99) mg/dL POC Glucose (mg/dL) 251 H (75-99) mg/dL Phosphorus (2.5-4.5) mg/dL Urine Appearance Cloudy H (Clear) Urine Protein 2+ H (Negative) Urine Glucose (UA) 4+ H (Negative) Urine Ketones 4+ H (Negative) Urine Blood Large H (Negative) Urine Nitrite Positive H (Negative) Ur Leukocyte Esterase Moderate H (Negative) Urine RBC >182 H (0-5) /hpf Urine WBC 58 H (0-5) /hpf Hyaline Casts 4 H (0-2) /lpf Urine Mucus Rare H (None) /hpf 05/03/19 05/03/19 05/03/19 Range/Units 16:52 16:52 17:10 WBC (3.8-10.6) k/uL Neutrophils # (1.3-7.7) k/uL Lymphocytes # (1.0-4.8) k/uL VBG HCO3 (24-28) mmol/L Chloride 108 H (98-107) mmol/L BUN 19 H (7-17) mg/dL Creatinine 0.49 L (0.52-1.04) mg/dL Glucose 271 H (74-99) mg/dL POC Glucose (mg/dL) 263 H (75-99) mg/dL Phosphorus 4.6 H (2.5-4.5) mg/dL Urine Appearance (Clear) Urine Protein (Negative) Urine Glucose (UA) (Negative) Urine Ketones (Negative) Urine Blood (Negative) Urine Nitrite (Negative) Ur Leukocyte Esterase (Negative) Urine RBC (0-5) /hpf Urine WBC (0-5) /hpf Hyaline Casts (0-2) /lpf Urine Mucus (None) /hpf 05/03/19 05/03/19 05/03/19 Range/Units 17:59 18:59 19:58 WBC (3.8-10.6) k/uL Neutrophils # (1.3-7.7) k/uL Lymphocytes # (1.0-4.8) k/uL VBG HCO3 (24-28) mmol/L Chloride (98-107) mmol/L BUN (7-17) mg/dL Creatinine (0.52-1.04) mg/dL Glucose (74-99) mg/dL POC Glucose (mg/dL) 294 H 272 H 254 H (75-99) mg/dL Phosphorus (2.5-4.5) mg/dL Urine Appearance (Clear) Urine Protein (Negative) Urine Glucose (UA) (Negative) Urine Ketones (Negative) Urine Blood (Negative) Urine Nitrite (Negative) Ur Leukocyte Esterase (Negative) Urine RBC (0-5) /hpf Urine WBC (0-5) /hpf Hyaline Casts (0-2) /lpf Urine Mucus (None) /hpf 05/03/19 05/03/19 05/03/19 Range/Units 21:00 21:12 21:59 WBC (3.8-10.6) k/uL Neutrophils # (1.3-7.7) k/uL Lymphocytes # (1.0-4.8) k/uL VBG HCO3 (24-28) mmol/L Chloride (98-107) mmol/L BUN 20 H (7-17) mg/dL Creatinine (0.52-1.04) mg/dL Glucose 235 H (74-99) mg/dL POC Glucose (mg/dL) 256 H 195 H (75-99) mg/dL Phosphorus (2.5-4.5) mg/dL Urine Appearance (Clear) Urine Protein (Negative) Urine Glucose (UA) (Negative) Urine Ketones (Negative) Urine Blood (Negative) Urine Nitrite (Negative) Ur Leukocyte Esterase (Negative) Urine RBC (0-5) /hpf Urine WBC (0-5) /hpf Hyaline Casts (0-2) /lpf Urine Mucus (None) /hpf Microbiology - Last 24 Hours (Table) 05/03/19 13:42 Urine Culture - Preliminary Urine,Voided Thrombosis Risk Factor Assmnt - Choose All That Apply Each Factor Represents 1 point: Age 41-60 years, Obesity (BMI >25) Thrombosis Risk Factor Assessment Total Risk Factor Score: 2 Thrombosis Risk Factor Assessment Level: Low Risk
[2019-05-03] MEDS: ENOXAPARIN 40 MG/0.4 ML SYRINGE SQ SCH (22:56)
[2019-05-03] MEDS: ATORVASTATIN 20 MG TAB PO SCH (22:56)
[2019-05-04 06:38] LABS: Glucose,Whole Blood 180 mg/dL (75-99)
[2019-05-04] MEDS: metFORMIN 500 MG TAB PO SCH ×2 (06:58→17:21)
[2019-05-04] MEDS: INSULIN ASPART (NovoLOG) 100 UNIT/ML VIAL SQ SCH ×4 (06:58→20:41)
[2019-05-04] MEDS: INSULN ASP PRT/INSULIN ASPART 100 UNIT/ML 10 ML VIAL SQ SCH ×2 (06:59→17:20)
[2019-05-04] MEDS: LISINOPRIL 5 MG TAB PO SCH ×2 (08:51→20:41)
[2019-05-04 11:05] VITALS: BMI 34.2
--- NOTE | 2019-05-04 11:05 | P.GSCN ---
History of Present Illness Consult date: 05/04/19 History of present illness: The patient is a pleasant 58-year-old female who presented to the hospital yesterday with right flank pain fever or chills nausea and vomiting. She was also found to have her glycemia. The patient was in the hospital recently for a urinary tract infection. Apparently she had a CAT scan at that point time that showed some hydronephrosis. She has a history of a stone having been treated with shockwave lithotripsy several years ago. She has not had any ureteroscopic manipulation. Her only pelvic surgeries out of the CAT scan. She had a computed tomography scan done yesterday that showed right-sided hydronephrosis to the ureterovesical junction but no obvious stone. 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 She had a fever and elevated white count yesterday. She is feeling much better today and looks normal. Her vital signs are stable and she is afebrile. Her white count is pending. Review of Systems All systems: negative Past Medical History Past Medical History: Diabetes Mellitus, Osteoarthritis (OA), Syncope Additional Past Medical History / Comment(s): kidney stones, lithotrispies. History of Any Multi-Drug Resistant Organisms: None Reported Past Surgical History: Section Past Anesthesia/Blood Transfusion Reactions: No Reported Reaction Past Psychological History: No Psychological Hx Reported Smoking Status: Never smoker Past Alcohol Use History: Occasional Past Drug Use History: Marijuana - Past Family History Father Family Medical History: Congestive Heart Failure (CHF) Sister(s) Family Medical History: Cancer Additional Family Medical History / Comment(s): cervical cancer Medications and Allergies Home Medications Medication Instructions Recorded Confirmed Type Ondansetron Odt [Zofran ODT] 8 mg PO Q8H PRN 04/18/19 05/03/19 History Atorvastatin [Lipitor] 20 mg PO HS #30 tab 04/20/19 05/03/19 Rx Insuln Asp Prt/Insulin Aspart 5 unit SQ AC-LUNCH #1 vial 04/20/19 05/03/19 Rx [NovoLOG MIX 70-30 VIAL] Insuln Asp Prt/Insulin Aspart 12 unit SQ AC-BID #1 vial 04/20/19 05/03/19 Rx [NovoLOG MIX 70-30 VIAL] Lisinopril [Zestril] 5 mg PO BID #60 tab 04/20/19 05/03/19 Rx metFORMIN HCL [Glucophage] 500 mg PO BID-W/MEALS #60 tab 04/20/19 05/03/19 Rx L.acidoph,Paracasei, B.lactis 1 cap PO DAILY 05/03/19 05/03/19 History [Probiotic] Allergies Allergy/AdvReac Type Severity Reaction Status Date / Time Sulfa (Sulfonamide Allergy Rash/Hives Verified 05/03/19 13:57 Antibiotics) Surgical - Exam Vital Signs Temp Pulse Resp BP Pulse Ox 100.3 F H 107 H 18 155/87 99 05/03/19 13:36 05/03/19 13:36 05/03/19 13:36 05/03/19 13:36 05/03/19 13:36 - General well developed, no distress - Eyes PERRL - ENT no hearing loss - Neck trachea midline - Respiratory normal expansion, normal respiratory effort - Cardiovascular Rhythm: regular - Abdomen Abdomen: soft, non tender - Integumentary no rash, no growths - Neurologic normal coordination, normal sensation - Musculoskeletal normal gait, normal posture - Psychiatric oriented to time, oriented to place, speech is normal, memory intact Results - Labs 05/03/19 13:42 05/03/19 21:12 Abnormal Lab Results - Last 24 Hours (Table) 05/03/19 05/03/19 05/03/19 Range/Units 13:42 13:42 13:42 WBC 19.5 H (3.8-10.6) k/uL Neutrophils # 10.2 H (1.3-7.7) k/uL Lymphocytes # 8.5 H (1.0-4.8) k/uL VBG HCO3 (24-28) mmol/L Chloride (98-107) mmol/L BUN 18 H (7-17) mg/dL Creatinine (0.52-1.04) mg/dL Glucose 284 H (74-99) mg/dL POC Glucose (mg/dL) 254 H (75-99) mg/dL Phosphorus (2.5-4.5) mg/dL Urine Appearance (Clear) Urine Protein (Negative) Urine Glucose (UA) (Negative) Urine Ketones (Negative) Urine Blood (Negative) Urine Nitrite (Negative) Ur Leukocyte Esterase (Negative) Urine RBC (0-5) /hpf Urine WBC (0-5) /hpf Hyaline Casts (0-2) /lpf Urine Mucus (None) /hpf 05/03/19 05/03/19 05/03/19 Range/Units 13:42 15:52 15:58 WBC (3.8-10.6) k/uL Neutrophils # (1.3-7.7) k/uL Lymphocytes # (1.0-4.8) k/uL VBG HCO3 22 L (24-28) mmol/L Chloride (98-107) mmol/L BUN (7-17) mg/dL Creatinine (0.52-1.04) mg/dL Glucose (74-99) mg/dL POC Glucose (mg/dL) 251 H (75-99) mg/dL Phosphorus (2.5-4.5) mg/dL Urine Appearance Cloudy H (Clear) Urine Protein 2+ H (Negative) Urine Glucose (UA) 4+ H (Negative) Urine Ketones 4+ H (Negative) Urine Blood Large H (Negative) Urine Nitrite Positive H (Negative) Ur Leukocyte Esterase Moderate H (Negative) Urine RBC >182 H (0-5) /hpf Urine WBC 58 H (0-5) /hpf Hyaline Casts 4 H (0-2) /lpf Urine Mucus Rare H (None) /hpf 05/03/19 05/03/19 05/03/19 Range/Units 16:52 16:52 17:10 WBC (3.8-10.6) k/uL Neutrophils # (1.3-7.7) k/uL Lymphocytes # (1.0-4.8) k/uL VBG HCO3 (24-28) mmol/L Chloride 108 H (98-107) mmol/L BUN 19 H (7-17) mg/dL Creatinine 0.49 L (0.52-1.04) mg/dL Glucose 271 H (74-99) mg/dL POC Glucose (mg/dL) 263 H (75-99) mg/dL Phosphorus 4.6 H (2.5-4.5) mg/dL Urine Appearance (Clear) Urine Protein (Negative) Urine Glucose (UA) (Negative) Urine Ketones (Negative) Urine Blood (Negative) Urine Nitrite (Negative) Ur Leukocyte Esterase (Negative) Urine RBC (0-5) /hpf Urine WBC (0-5) /hpf Hyaline Casts (0-2) /lpf Urine Mucus (None) /hpf 05/03/19 05/03/19 05/03/19 Range/Units 17:59 18:59 19:58 WBC (3.8-10.6) k/uL Neutrophils # (1.3-7.7) k/uL Lymphocytes # (1.0-4.8) k/uL VBG HCO3 (24-28) mmol/L Chloride (98-107) mmol/L BUN (7-17) mg/dL Creatinine (0.52-1.04) mg/dL Glucose (74-99) mg/dL POC Glucose (mg/dL) 294 H 272 H 254 H (75-99) mg/dL Phosphorus (2.5-4.5) mg/dL Urine Appearance (Clear) Urine Protein (Negative) Urine Glucose (UA) (Negative) Urine Ketones (Negative) Urine Blood (Negative) Urine Nitrite (Negative) Ur Leukocyte Esterase (Negative) Urine RBC (0-5) /hpf Urine WBC (0-5) /hpf Hyaline Casts (0-2) /lpf Urine Mucus (None) /hpf 05/03/19 05/03/19 05/03/19 Range/Units 21:00 21:12 21:59 WBC (3.8-10.6) k/uL Neutrophils # (1.3-7.7) k/uL Lymphocytes # (1.0-4.8) k/uL VBG HCO3 (24-28) mmol/L Chloride (98-107) mmol/L BUN 20 H (7-17) mg/dL Creatinine (0.52-1.04) mg/dL Glucose 235 H (74-99) mg/dL POC Glucose (mg/dL) 256 H 195 H (75-99) mg/dL Phosphorus (2.5-4.5) mg/dL Urine Appearance (Clear) Urine Protein (Negative) Urine Glucose (UA) (Negative) Urine Ketones (Negative) Urine Blood (Negative) Urine Nitrite (Negative) Ur Leukocyte Esterase (Negative) Urine RBC (0-5) /hpf Urine WBC (0-5) /hpf Hyaline Casts (0-2) /lpf Urine Mucus (None) /hpf 05/04/19 Range/Units 06:37 WBC (3.8-10.6) k/uL Neutrophils # (1.3-7.7) k/uL Lymphocytes # (1.0-4.8) k/uL VBG HCO3 (24-28) mmol/L Chloride (98-107) mmol/L BUN (7-17) mg/dL Creatinine (0.52-1.04) mg/dL Glucose (74-99) mg/dL POC Glucose (mg/dL) 180 H (75-99) mg/dL Phosphorus (2.5-4.5) mg/dL Urine Appearance (Clear) Urine Protein (Negative) Urine Glucose (UA) (Negative) Urine Ketones (Negative) Urine Blood (Negative) Urine Nitrite (Negative) Ur Leukocyte Esterase (Negative) Urine RBC (0-5) /hpf Urine WBC (0-5) /hpf Hyaline Casts (0-2) /lpf Urine Mucus (None) /hpf Microbiology - Last 24 Hours (Table) 05/03/19 13:42 Urine Culture - Preliminary Urine,Voided Diabetes panel 05/03/19 05/03/19 05/03/19 Range/Units 13:42 16:52 21:12 Sodium 142 141 139 (137-145) mmol/L Potassium 4.4 4.0 3.6 (3.5-5.1) mmol/L Chloride 105 108 H 103 (98-107) mmol/L Carbon Dioxide 22 22 28 (22-30) mmol/L BUN 18 H 19 H 20 H (7-17) mg/dL Creatinine 0.54 0.49 L 0.59 (0.52-1.04) mg/dL Glucose 284 H 271 H 235 H (74-99) mg/dL Calcium 9.4 (8.4-10.2) mg/dL AST 21 (14-36) U/L ALT 30 (9-52) U/L Alkaline Phosphatase 84 (38-126) U/L Total Protein 6.7 (6.3-8.2) g/dL Albumin 4.3 (3.5-5.0) g/dL Calcium panel 05/03/19 05/03/19 05/03/19 Range/Units 13:42 16:52 21:12 Calcium 9.4 (8.4-10.2) mg/dL Phosphorus 4.6 H 3.0 (2.5-4.5) mg/dL Albumin 4.3 (3.5-5.0) g/dL Pituitary panel 05/03/19 05/03/19 05/03/19 Range/Units 13:42 16:52 21:12 Sodium 142 141 139 (137-145) mmol/L Potassium 4.4 4.0 3.6 (3.5-5.1) mmol/L Chloride 105 108 H 103 (98-107) mmol/L Carbon Dioxide 22 22 28 (22-30) mmol/L BUN 18 H 19 H 20 H (7-17) mg/dL Creatinine 0.54 0.49 L 0.59 (0.52-1.04) mg/dL Glucose 284 H 271 H 235 H (74-99) mg/dL Calcium 9.4 (8.4-10.2) mg/dL Adrenal panel 05/03/19 05/03/19 05/03/19 Range/Units 13:42 16:52 21:12 Sodium 142 141 139 (137-145) mmol/L Potassium 4.4 4.0 3.6 (3.5-5.1) mmol/L Chloride 105 108 H 103 (98-107) mmol/L Carbon Dioxide 22 22 28 (22-30) mmol/L BUN 18 H 19 H 20 H (7-17) mg/dL Creatinine 0.54 0.49 L 0.59 (0.52-1.04) mg/dL Glucose 284 H 271 H 235 H (74-99) mg/dL Calcium 9.4 (8.4-10.2) mg/dL Total Bilirubin 0.7 (0.2-1.3) mg/dL AST 21 (14-36) U/L ALT 30 (9-52) U/L Alkaline Phosphatase 84 (38-126) U/L Total Protein 6.7 (6.3-8.2) g/dL Albumin 4.3 (3.5-5.0) g/dL - Imaging CT scan - abdomen: report reviewed, image reviewed CT scan - pelvis: report reviewed, image reviewed Assessment and Plan Assessment: Impression: Febrile urinary tract infection with sepsis. Right-sided hydronephrosis indeterminate etiology, possible chronic. History kidney stones. Recommendations since the patient is feeling much better, her vital signs are stable and she is afebrile I will hold off and doing any manipulation of this point in time. At some point in time she'll need a cystoscopy and retrograde pyelogram probably as an outpatient in the future to see if we can assess why she has hydronephrotic chronically on the right side. Whether this is congenital or scarring due to stone is indeterminate. Follow this patient with you.
[2019-05-04 11:55] LABS: Glucose,Whole Blood 198 mg/dL (75-99)
[2019-05-04] MEDS ORDERED: INSULN ASP PRT/INSULIN ASPART 100 UNIT/ML 10 ML VIAL SQ SCH (12:30)
[2019-05-04 16:39] LABS: Glucose,Whole Blood 179 mg/dL (75-99)
[2019-05-04 20:37] LABS: Glucose,Whole Blood 226 mg/dL (75-99)
[2019-05-04] MEDS: ATORVASTATIN 20 MG TAB PO SCH (20:41)
[2019-05-04] MEDS: ENOXAPARIN 40 MG/0.4 ML SYRINGE SQ SCH (20:41)
--- NOTE | 2019-05-04 22:02 | P.PN ---
Progress Note - Text Progress Note Date: 05/04/19 History of presenting complaint: This is a pleasant 58-year-old patient of Dr. Victoriano Parmar. Patient was just in the hospital from April 18 through April 20. And then presented with a new onset of diabetic ketoacidosis. Patient was discharged on Novolin 70/30. Patient states she she left from patient's sugars are running at about 200s. And she has been traveling. Patient loss admission to have a UTI and cystitis was discharged and antibiotics. Had no further symptoms when she was dis charged. Doing well. Patient now presents 1 day of right flank pain. Patient having 2 days of dysuria. Started having some chills and had several bouts of nausea vomiting today. And finally decided to come to the ER. Patient's urine was found to be infected. Patient also did complain of pain in the right flank area. Patient is found to be in diabetic ketoacidosis and r put on insulin drip and admitted for the same.. Today-feeling much better. Sugars are running about 200s eating better. Has been out of bed. No abdominal pain. Eating better Review of systems: Was done for constitutional, cardiovascular, GI, pulmonary. relevant finding as above Active Medications Acetaminophen (Tylenol Tab) 500 mg PO Q6HR PRN PRN Reason: Fever and/ or Pain Last Admin: 05/03/19 16:01 Dose: 500 mg Documented by: Atorvastatin Calcium (Lipitor) 20 mg PO HS [facility] Last Admin: 05/04/19 20:41 Dose: 20 mg Documented by: Enoxaparin Sodium (Lovenox) 40 mg SQ Q24H [facility] Last Admin: 05/04/19 20:41 Dose: 40 mg Documented by: Ceftriaxone Sodium 1 gm/ (Sodium Chloride) 50 mls @ 100 mls/hr IVPB Q24HR [facility] Last Admin: 05/04/19 08:51 Dose: 100 mls/hr Documented by: Insulin Aspart (Novolog) 0 unit SQ ACHS [facility]; Protocol Last Admin: 05/04/19 20:41 Dose: 3 unit Documented by: Insulin Aspart (Novolog Mix 70-30 Vial) 22 unit SQ AC-BID [facility] Insulin Aspart (Novolog Mix 70-30 Vial) 8 unit SQ AC-LUNCH [facility] Lisinopril (Zestril) 5 mg PO BID [facility] Last Admin: 05/04/19 20:41 Dose: 5 mg Documented by: Metformin HCl (Glucophage) 500 mg PO BID-W/MEALS [facility] Last Admin: 05/04/19 17:21 Dose: 500 mg Documented by: Ondansetron HCl (Zofran) 4 mg IVP Q6HR PRN PRN Reason: Nausea And Vomiting Physical examination: VITAL SIGNS: 98.4, 86, 16, 125-74, 96% room air GENERAL: Sitting up in the bed. Appearing better. EYES: Pupils equal. Conjunctiva normal. HEENT: External appearance of nose and ears normal, oral cavity grossly normal. NECK: JVD not raised; masses not palpable. HEART: First and second heart sounds are normal; no edema. LUNGS: Respiratory rate normal; clear to auscultation. ABDOMEN: Soft, minimal right flank tenderness, liver spleen not palpable, no masses palpable. PSYCH: Alert and oriented x3; mood and affect normal. INVESTIGATIONS, reviewed in the clinical context: Accu-Cheks 198, 179, 226 Urine culture pending Admission testing White count 19.5 hemoglobin 15 pressure 4.4 bun 18 creatinine 0.54 blood glucose 284 UA positive Assessment-: -Acute diabetic ketoacidosis, with a recent diagnosis of diabetes mellitus type 2 requiring insulin, improved -Acute UTI from cystitis in a patient with known kidney stones -Chronic nephrolithiasis -Leukocytosis with predominant neutrophils and lymphocytosis -Obesity BMI 32 Plan: We will increase patient is insulin to 22 units before breakfast and supper and 8 units before lunch starting tomorrow morning. Also waiting for culture results to come back. Hopefully patient will be discharged tomorrow.
[2019-05-05 06:38] LABS: Glucose,Whole Blood 138 mg/dL (75-99)
--- NOTE | 2019-05-05 06:38 | P.PN ---
Subjective Progress Note Date: 05/05/19 The patient remained stable clinically. She is feeling well this morning. She did have a little pain last night. Her vital signs are stable. She is growing a gram-negative fely in the urine. From a urologic standpoint she can be discharged at any time once the culture is back. I would like to see her in the office in one week. We'll need to do something to assess the cause of the ureteral obstruction which appears to be chronic on the right side. This has been discussed with the patient. Objective - Vital Signs Vital signs: Vital Signs Temp 98.6 F 05/05/19 06:01 Pulse 82 05/05/19 06:01 Resp 16 05/05/19 06:01 BP 143/77 05/05/19 06:01 Pulse Ox 97 05/05/19 06:01 Intake & Output 05/04/19 05/04/19 05/05/19 06:59 18:59 06:59 Intake Total 24.472 862 600 Output Total 700 775 600 Balance -675.528 87 0 Weight 106.6 kg 106.6 kg Intake: Intake, IV Titration 24.472 100 Amount Insulin Regular 100 unit 24.472 In Sodium Chloride 0.9% 100 ml @ 0.05 UNITS/KG/HR 5.039 mls/hr IV .Q20H3M [facility] Rx#:[id number] cefTRIAXone 1 gm In 100 Sodium Chloride 0.9% 50 ml @ 100 mls/hr IVPB Q24HR [facility] Rx#:[id number] Oral 762 600 Output: Urine 700 775 600 Other: Voiding Method Toilet Toilet # Voids 2 3 1 - Labs CBC & Chem 7: 05/03/19 13:42 05/03/19 21:12 Labs: Abnormal Lab Results - Last 24 Hours (Table) 05/04/19 05/04/19 05/04/19 Range/Units 06:37 11:54 16:38 POC Glucose (mg/dL) 180 H 198 H 179 H (75-99) mg/dL 05/04/19 Range/Units 20:35 POC Glucose (mg/dL) 226 H (75-99) mg/dL Microbiology - Last 24 Hours (Table) 05/03/19 13:42 Urine Culture - Preliminary Urine,Voided Gram Neg Bacilli 09/10/19 14:34 Blood Culture - Preliminary Blood No Growth after 24 hours
[2019-05-05] MEDS: INSULIN ASPART (NovoLOG) 100 UNIT/ML VIAL SQ SCH ×4 (06:55→21:58)
[2019-05-05] MEDS: metFORMIN 500 MG TAB PO SCH ×2 (06:55→17:40)
[2019-05-05] MEDS: INSULN ASP PRT/INSULIN ASPART 100 UNIT/ML 10 ML VIAL SQ SCH ×3 (06:56→17:40)
[2019-05-05 07:28] LABS: Glucose,Whole Blood 165 mg/dL (75-99)
[2019-05-05] MEDS: ONDANSETRON 4 MG/2 ML VIAL IVP PRN ×2 (08:18→15:18)
[2019-05-05] MEDS: LISINOPRIL 5 MG TAB PO SCH ×2 (08:19→21:49)
[2019-05-05 11:41] LABS: Glucose,Whole Blood 182 mg/dL (75-99)
[2019-05-05] MEDS: METOCLOPRAMIDE 10 MG TAB PO SCH ×2 (12:22→18:11)
[2019-05-05] MEDS ORDERED: METOCLOPRAMIDE 5 MG/ML 2 ML VIAL IVP PRN (12:36)
[2019-05-05 17:21] LABS: Glucose,Whole Blood 192 mg/dL (75-99)
--- NOTE | 2019-05-05 19:40 | P.PN ---
Progress Note - Text Progress Note Date: 05/05/19 Interval history: This is a pleasant 58-year-old patient of Dr. Victoriano Parmar. Patient was just in the hospital from April 18 through April 20. And then presented with a new onset of diabetic ketoacidosis. Patient was discharged on Novolin 70/30. Patient states she she left from patient's sugars are running at about 200s. And she has been traveling. Patient loss admission to have a UTI and cystitis was discharged and antibiotics. Had no further symptoms when she was discharged. Doing well. Patient now presents 1 day of right flank pain. Patient having 2 days of dysuria. Started having some chills and had several bouts of nausea vomiting today. And finally decided to come to the ER. Patient's urine was found to be infected. Patient also did complain of pain in the right flank area. Patient is found to be in diabetic ketoacidosis and r put on insulin drip and admitted for the same.. Today-patient had done well overnight. This morning patient vomited twice. Still nauseous when I see was this morning. Reglan was ordered. Discharge is been held. Her nausea vomiting. No doll pain. Review of systems: Was done for constitutional, cardiovascular, GI, pulmonary. relevant finding as above Active Medications Acetaminophen (Tylenol Tab) 500 mg PO Q6HR PRN PRN Reason: Fever and/ or Pain Last Admin: 05/03/19 16:01 Dose: 500 mg Documented by: Atorvastatin Calcium (Lipitor) 20 mg PO HS [facility] Last Admin: 05/04/19 20:41 Dose: 20 mg Documented by: Enoxaparin Sodium (Lovenox) 40 mg SQ Q24H [facility] Last Admin: 05/04/19 20:41 Dose: 40 mg Documented by: Ceftriaxone Sodium 1 gm/ (Sodium Chloride) 50 mls @ 100 mls/hr IVPB Q24HR [facility] Last Admin: 05/05/19 08:19 Dose: 100 mls/hr Documented by: Insulin Aspart (Novolog) 0 unit SQ ACHS [facility]; Protocol Last Admin: 05/05/19 17:36 Dose: 2 unit Documented by: Insulin Aspart (Novolog Mix 70-30 Vial) 22 unit SQ AC-BID [facility] Last Admin: 05/05/19 17:40 Dose: 22 unit Documented by: Insulin Aspart (Novolog Mix 70-30 Vial) 8 unit SQ AC-LUNCH [facility] Last Admin: 05/05/19 12:22 Dose: 8 unit Documented by: Lisinopril (Zestril) 5 mg PO BID [facility] Last Admin: 05/05/19 08:19 Dose: 5 mg Documented by: Metformin HCl (Glucophage) 500 mg PO BID-W/MEALS [facility] Last Admin: 05/05/19 17:40 Dose: 500 mg Documented by: Metoclopramide HCl (Reglan) 10 mg PO AC-TID [facility] Last Admin: 05/05/19 18:11 Dose: 10 mg Documented by: Metoclopramide HCl (Reglan) 10 mg IVP Q6HR PRN PRN Reason: Vomiting Ondansetron HCl (Zofran) 4 mg IVP Q6HR PRN PRN Reason: Nausea And Vomiting Last Admin: 05/05/19 15:18 Dose: 4 mg Documented by: Physical examination: VITAL SIGNS: 98.9, 82, 16, 168/84, 96% room air GENERAL: Sitting up in the bed. Tired appearing EYES: Pupils equal. Conjunctiva normal. HEENT: External appearance of nose and ears normal, oral cavity grossly normal. NECK: JVD not raised; masses not palpable. HEART: First and second heart sounds are normal; no edema. LUNGS: Respiratory rate normal; clear to auscultation. ABDOMEN: Soft, minimal right flank tenderness, liver spleen not palpable, no masses palpable. PSYCH: Alert and oriented x3; mood and affect normal. INVESTIGATIONS, reviewed in the clinical context: Accu-Cheks 165, 182, 192 Urine culture-E. coli Admission testing White count 19.5 hemoglobin 15 pressure 4.4 bun 18 creatinine 0.54 blood glucose 284 UA positive Assessment-: -Acute diabetic ketoacidosis, with a recent diagnosis of diabetes mellitus type 2 requiring insulin, improved -2 episodes of vomiting this morning. No fever no chills. -acute UTI from cystitis in a patient with known kidney stones -Chronic nephrolithiasis -Leukocytosis with predominant neutrophils and lymphocytosis -Obesity BMI 32 Plan: Patient discharge was held. Put on some Reglan. Keep a close and the sugars. We will switch the ceftriaxone over to Keflex.
[2019-05-05 20:33] LABS: Glucose,Whole Blood 201 mg/dL (75-99)
[2019-05-05] MEDS: CEPHALEXIN 250 MG CAP PO SCH (21:49)
[2019-05-05] MEDS: ENOXAPARIN 40 MG/0.4 ML SYRINGE SQ SCH (21:49)
[2019-05-05] MEDS: ATORVASTATIN 20 MG TAB PO SCH (21:49)
[2019-05-06 02:31] VITALS: RESP 20
[2019-05-06 05:33] VITALS: BP 108/65; PULSE 64; TEMP 98.1
[2019-05-06 07:34] LABS: Glucose,Whole Blood 120 mg/dL (75-99)
[2019-05-06] MEDS: INSULIN ASPART (NovoLOG) 100 UNIT/ML VIAL SQ SCH ×2 (07:34→12:17)
[2019-05-06] MEDS: CEPHALEXIN 250 MG CAP PO SCH (07:41)
[2019-05-06] MEDS: METOCLOPRAMIDE 10 MG TAB PO SCH ×2 (07:42→12:18)
[2019-05-06] MEDS: LISINOPRIL 5 MG TAB PO SCH (07:42)
[2019-05-06] MEDS: metFORMIN 500 MG TAB PO SCH (07:42)
[2019-05-06] MEDS: INSULN ASP PRT/INSULIN ASPART 100 UNIT/ML 10 ML VIAL SQ SCH ×2 (07:43→12:17)
[2019-05-06 08:13] LABS: HCT 37.5 % (34.0-46.0); HGB 12.6 gm/dL (11.4-16.0); MCH 31.6 pg (25.0-35.0); MCHC 33.5 g/dL (31.0-37.0); MCV 94.5 fL (80.0-100.0); Mean Platelet Volume 7.7; Platelet Count 193 k/uL (150-450); RBC 3.97 m/uL (3.80-5.40); RDW 15.1 % (11.5-15.5); WBC 10.9 k/uL (3.8-10.6)
[2019-05-06 08:26] LABS: African American GFR (CKD) >90 (>60 ml/min/1.73 sqM); Anion Gap 4 mmol/L; Blood Urea Nitrogen 9 mg/dL (7-17); Calcium 8.8 mg/dL (8.4-10.2); Carbon Dioxide 32 mmol/L (22-30); Chloride 105 mmol/L (98-107); Glucose 133 mg/dL (74-99); Potassium 3.6 mmol/L (3.5-5.1); Sodium 141 mmol/L (137-145)
[2019-05-06 10:30] LABS: Lymphocytes # (M) 6.32 k/uL (1.0-4.8); Monocytes # (M) 0.65 k/uL (0-1.0); Neutrophils % (M) 36 %; Nucleated Red Blood Cells 0 /100 WBC (0-0); Total Cells Counted 100
[2019-05-06 12:03] LABS: Glucose,Whole Blood 160 mg/dL (75-99)
--- NOTE | 2019-05-06 21:02 | P.DS ---
Providers Date of admission: 05/03/19 15:16 Attending physician: Elvin Obando Consults: 05/03/19 15:55 Consult Physician Routine Consulting Provider: Glen Nguyen Consult Reason/Comments: uti,ho stones Do you want consulting provider notified?: Yes Primary care physician: Victoriano Jacob [facility] Course: Diagnoses: -Acute urinary tract infections with E. coli, sensitive to many antibiotics -Right sided hydronephrosis and hydroureter with no obvious obstructive lesion. Patient is aware patient has been evaluated by urology with plan to follow up as an outpatient -History of kidney stones -diabetes mellitus -Primary osteoarthritis Hospital course: This is a pleasant 58 years old female with no medical problems presents with signs and symptoms of UTI and imaging with CT of the abdomen and pelvis showed right hydronephrosis and hydroureter without obstructing calculus identified. Patient has been treated with antibiotics and she showed interval improvement. Patient has been seen by Dr. Webster the urologist found her clinically stable and cleared her for discharge and follow-up in his office in one week to try to assess the cause of her ureteral obstruction which appears to be chronic on the right side. Patient herself she has minimal occasional discomfort on the right flank area, patient currently with no pain. No nausea vomiting. No urinary symptoms and patient is back to her baseline. Patient is going to be discharged on antibiotics based on her culture results. Her leukocytosis on admission at 19.5 came back close to normal at 10.9 K. Fever subsiding. pt is discharged on keflex for 7 days , based on culture sensitivity . Patient was taken insulin 70:30 at 12 units twice a day and 5 units at lunch, this was increased during hospitalization to 22 units twice a day and 8 units at lunch, mostly related to her sepsis stress. Patient was instructed to recheck her glucose 4 times a days and at bedtime and to call 911 on come to emergency room of her sugars less than 70 or more than 350 and she agrees. pt was cleared by urology team for discharge Pt was instructed about the problems and management plan and Pt verbalized understanding and acceptance Pt is found stable and can be discharged to the community but needs follow up as outpt. pt was instructed to follow up with her PCP in one week and pt agrees pt agrees with appointment with PCP and its timing and stated he will follow up. pt told me she is going to call and make appointment with urologist " he gave me his card" Discharge exam Gen.: Patient alert awake and oriented X 3, NOT IN DISTRESS CVS: s1-s2, RRR, no murmur CHEST:bilateral CTA, no wheezing or crepitation Abdomen: Soft, no tenderness, no distention, positive bowel sounds Extremities: No leg edema or induration time spent : more than 35 min Patient Condition at Discharge: Fair Plan - Discharge Summary Discharge Rx Participant: No New Discharge Prescriptions: New Cephalexin [Keflex] 500 mg PO Q8HR 7 Days #21 cap Insuln Asp Prt/Insulin Aspart [NovoLOG MIX 70-30 VIAL] 8 unit SQ AC-LUNCH #1 vial Insuln Asp Prt/Insulin Aspart [NovoLOG MIX 70-30 VIAL] 22 unit SQ AC-BID #1 vial Acetaminophen Tab [Tylenol] 500 mg PO Q6HR PRN #20 tab PRN Reason: Fever And/ Or Pain Continue Ondansetron Odt [Zofran ODT] 8 mg PO Q8H PRN PRN Reason: Nausea metFORMIN HCL [Glucophage] 500 mg PO BID-W/MEALS #60 tab Atorvastatin [Lipitor] 20 mg PO HS #30 tab Lisinopril [Zestril] 5 mg PO BID #60 tab L.acidoph,Paracasei, B.lactis [Probiotic] 1 cap PO DAILY Discontinued Insuln Asp Prt/Insulin Aspart [NovoLOG MIX 70-30 VIAL] 12 unit SQ AC-BID #1 vial Insuln Asp Prt/Insulin Aspart [NovoLOG MIX 70-30 VIAL] 5 unit SQ AC-LUNCH #1 vial Discharge Medication List Ondansetron Odt [Zofran ODT] 8 mg PO Q8H PRN 04/18/19 [History] Atorvastatin [Lipitor] 20 mg PO HS #30 tab 04/20/19 [Rx] Lisinopril [Zestril] 5 mg PO BID #60 tab 04/20/19 [Rx] metFORMIN HCL [Glucophage] 500 mg PO BID-W/MEALS #60 tab 04/20/19 [Rx] L.acidoph,Paracasei, B.lactis [Probiotic] 1 cap PO DAILY 05/03/19 [History] Acetaminophen Tab [Tylenol] 500 mg PO Q6HR PRN #20 tab 05/06/19 [Rx] Cephalexin [Keflex] 500 mg PO Q8HR 7 Days #21 cap 05/06/19 [Rx] Insuln Asp Prt/Insulin Aspart [NovoLOG MIX 70-30 VIAL] 8 unit SQ AC-LUNCH #1 vial 05/06/19 [Rx] Insuln Asp Prt/Insulin Aspart [NovoLOG MIX 70-30 VIAL] 22 unit SQ AC-BID #1 vial 05/06/19 [Rx] Follow up Appointment(s)/Referral(s): Victoriano Jacob DO [Primary Care Provider] - 05/10/19 3:00 pm David Webster MD [STAFF PHYSICIAN] - 1 Week (office to call you with appt. time and date.) Patient Instructions/Handouts: Urinary Tract Infection in Children (DC), Hydronephrosis (DC) Activity/Diet/Wound Care/Special Instructions: Diabetic diet Activity is limited till you see your doctor We recommend to recheck her glucose 4 times a days and at bedtime. call 911 and come to emergency room of her sugars less than 70 or more than 350 Discharge Disposition: HOME SELF-CARE
--- NOTE | 2019-05-09 17:50 | CDI ---
Documentation Clarification Form Date: 05/09/2019 5:31:24 PM From: JIMMIE Nelson; Jenise Saenz [employer] Installation Technician Phone: If you have a question about this query, please contact Jenise Saenz [employer] Installation Technician, at [phone] between 8 am and 5 pm. Admit Date: 05/03/2019 3:16:00 PM Patient Name: Amarilis Chaidez Visit Number: [id number] Discharge Date: 05/06/2019 1:41:00 PM ATTENTION: The Clinical Documentation Specialists (CDI) and [facility] Coding Staff appreciate your assistance in clarifying documentation. Please respond to the clarification below the line at the bottom and electronically sign. The CDI & [facility] Coding staff will review the response and follow-up if needed. Please note: Queries are made part of the Legal Health Record. If you have any questions, please contact the author of this message via ITS. Dr. Richardson Sheet The patient presented with DKA, nausea, vomiting and right flank pain. History/Risk Factors: DM, past admission for cystitis and hydronephrosis. Clinical Indicators: abdominal pain, persistent hydroureter, hydronephrosis and UTI WBC 19.5 Vitals signs on admission: Temp 100.3, pulse 107, resp 18 BP 155/87 Treatment: Rocephin, Keflex and insulin. ID Consult: Urology consultation states UTI with sepsis right sided hydronephrosis In your professional opinion, please clarify if these findings signify one of the following conditions, whether the condition is POA, and cause, if known: Condition Sepsis ruled out SIRS, without underlying infectious process Sepsis Severe Sepsis Septic Shock Other, please specify Unable to determine Present on Admission Yes No Identify the (suspected) organism Link or clarify if there is associated (due to/with): Organ failure Shock SIRS Criteria (2 or more of the following may indicate SIRS): -Temperature < 96.8F (36C) or > 101.0F (38.3C) -Heart Rate > 90 bpm -Respiratory Rate > 20 breaths/min or PaCO2 < 32 mmHg -White Blood Cell Count > 12,000 or < 4,000 cells/mm3 or > 10% bands -Lactate >2.0 mmol/L (>4.0 is equivalent to septic shock) pt sirs with leukocytosis and fever. also had sepsis present on admission MTDD
== END 2019-05-06 13:41 | disposition home or self-care (01) | DRG 871 ==
LOC: EC 13:22 → 3SCARD 15:16 → 4MS4W 05-05 14:38
PROVIDERS: ADMIT Hospitalist; ATTEND Hospitalist
DX: A41.9 Sepsis, unspecified organism (principal); E11.10 Type 2 diabetes mellitus with ketoacidosis without coma; N13.30 Unspecified hydronephrosis; N30.90 Cystitis, unspecified without hematuria; B96.20 Unspecified Escherichia coli [E. coli] as the cause of diseases classified elsewhere; M19.91 Primary osteoarthritis, unspecified site; Z79.4 Long term (current) use of insulin; Z79.899 Other long term (current) drug therapy; Z80.49 Family history of malignant neoplasm of other genital organs; Z82.49 Family history of ischemic heart disease and other diseases of the circulatory system; Z87.442 Personal history of urinary calculi; Z88.2 Allergy status to sulfonamides; E66.9 Obesity, unspecified; Z68.32 Body mass index [BMI] 32.0-32.9, adult
CPT/HCPCS: 36415; 74176; 80048; 80051; 80053; 81001; 82009; 82150; 82565; 82803; 82947; 83605; 83690; 84100; 84520; 85025; 87040; 87077; 87086; 87186; 96361; 96365; 96375; 99285

== ENCOUNTER 2019-05-16 12:08 | Inpatient (IN) | payer OTHER ==
[2019-05-16 12:54] LABS: Glucose,Whole Blood 248 mg/dL (75-99)
[2019-05-16 13:12] LABS: Appearance,Urine Turbid (Clear); Bacteria,Urine Rare /hpf; Bilirubin,Urine Negative (Negative); Blood,Urine Large (Negative); Color,Urine Light Red; Glucose,Urine (UA) 4+ (Negative); Leukocyte Esterase,Urine Large (Negative); Mucus,Urine Occasional /hpf; Nitrite,Urine Positive (Negative); Protein,Urine 2+ (Negative); RBC,Urine >182 /hpf (0-5); Specific Gravity,Urine 1.017 (1.001-1.035); Urobilinogen,Urine <2.0 mg/dL (<2.0); WBC,Urine >182 /hpf (0-5)
[2019-05-16 13:24] LABS: Ketones,Urine 4+ (Negative)
[2019-05-16] MEDS ORDERED: SODIUM CHLORIDE 0.9% 2,000 ML IV STA (13:31)
[2019-05-16] MEDS ORDERED: KETOROLAC 30 MG/ML 1 ML VIAL IVP STA (13:31)
[2019-05-16] MEDS ORDERED: MORPHINE SULFATE 4 MG/ML SYRINGE IV STA (13:31)
[2019-05-16] MEDS ORDERED: ONDANSETRON 4 MG/2 ML VIAL IVP STA (13:31)
[2019-05-16 13:47] LABS: Basophils # (A) 0.1 k/uL (0-0.2); Basophils % (A) 1 %; Eosinophils % (A) 0 %; HGB 14.9 gm/dL (11.4-16.0); Lymphocytes # (A) 10.6 k/uL (1.0-4.8); Lymphocytes % (A) 37 %; MCH 30.8 pg (25.0-35.0); MCHC 31.8 g/dL (31.0-37.0); MCV 96.9 fL (80.0-100.0); Mean Platelet Volume 7.9; Monocytes # (A) 0.5 k/uL (0-1.0); Monocytes % (A) 2 %; Neutrophils % (A) 59 %; Platelet Count 296 k/uL (150-450); RBC 4.84 m/uL (3.80-5.40); RDW 13.8 % (11.5-15.5); WBC 28.8 k/uL (3.8-10.6)
[2019-05-16] MEDS ORDERED: SODIUM CHLORIDE 0.9% 1,000 ML IV ONE (14:03)
[2019-05-16 14:04] LABS: ALT 30 U/L (9-52); AST 22 U/L (14-36); African American GFR (CKD) >90 (>60 ml/min/1.73 sqM); Albumin 4.7 g/dL (3.5-5.0); Alkaline Phosphatase 76 U/L (38-126); Amylase 39 U/L (30-110); Anion Gap 16 mmol/L; Blood Urea Nitrogen 15 mg/dL (7-17); Calcium 9.6 mg/dL (8.4-10.2); Carbon Dioxide 21 mmol/L (22-30); Chloride 103 mmol/L (98-107); Glucose 286 mg/dL (74-99); Potassium 4.4 mmol/L (3.5-5.1); Sodium 140 mmol/L (137-145); Total Protein 7.4 g/dL (6.3-8.2)
[2019-05-16] MEDS ORDERED: cefTRIAXone IN SWFI 1,000 MG/10 ML SYRINGE IVP STA (14:05)
--- NOTE | 2019-05-16 14:30 | ED ---
Back Pain HPI <Boo Jackson - Last Filed: 05/16/19 15:05> - General Source: patient, RN notes reviewed, old records reviewed Limitations: no limitations <Janeen Faria - Last Filed: 05/16/19 15:52> - General Chief Complaint: Back Pain/Injury Stated Complaint: vomiting/chills/kidney stones Time Seen by Provider: 05/16/19 13:31 - History of Present Illness Initial Comments: Patient is a 38 rolled female presents emergency department today for evaluation for right flank pain. She reports that she's been having a history of right flank pain off-and-on for the past 2 weeks. Patient reports she was discharged on 913 with similar complaints. At that time she is in DKA and diagnosed with urosepsis. Patient's last urine culture grew E. coli. She continues to report that over the past 24 hours she started having increased right flank pain and her blood sugars have been out of control. Patient states that she's had chills but denies a specific fever at this time. Patient reports less and she was here she was seen by Dr. Faria for urology. (Janeen Faria) - Related Data Home Medications Medication Instructions Recorded Confirmed Ondansetron Odt [Zofran ODT] 8 mg PO Q8H PRN 04/18/19 05/16/19 L.acidoph,Paracasei, B.lactis 1 cap PO DAILY 05/03/19 05/16/19 [Probiotic] Previous Rx's Medication Instructions Recorded Atorvastatin [Lipitor] 20 mg PO HS #30 tab 04/20/19 Lisinopril [Zestril] 5 mg PO BID #60 tab 04/20/19 metFORMIN HCL [Glucophage] 500 mg PO BID-W/MEALS #60 tab 04/20/19 Acetaminophen Tab [Tylenol] 500 mg PO Q6HR PRN #20 tab 05/06/19 Insuln Asp Prt/Insulin Aspart 8 unit SQ AC-LUNCH #1 vial 05/06/19 [NovoLOG MIX 70-30 VIAL] Insuln Asp Prt/Insulin Aspart 22 unit SQ AC-BID #1 vial 05/06/19 [NovoLOG MIX 70-30 VIAL] Allergies Allergy/AdvReac Type Severity Reaction Status Date / Time Sulfa (Sulfonamide Allergy Rash/Hives Verified 05/16/19 14:18 Antibiotics) Review of Systems ROS Other: All systems not noted in ROS Statement are negative. <Boo Jackson - Last Filed: 05/16/19 15:05> ROS Other: All systems not noted in ROS Statement are negative. <Janeen Faria - Last Filed: 05/16/19 15:52> ROS Statement: Those systems with pertinent positive or pertinent negative responses have been documented in the HPI. Past Medical History Past Medical History: Diabetes Mellitus, Osteoarthritis (OA), Syncope Additional Past Medical History / Comment(s): kidney stones, lithotrispies. History of Any Multi-Drug Resistant Organisms: None Reported Past Surgical History: Section Past Anesthesia/Blood Transfusion Reactions: No Reported Reaction Past Psychological History: No Psychological Hx Reported Smoking Status: Never smoker Past Alcohol Use History: Occasional Past Drug Use History: Marijuana - Past Family History Father Family Medical History: Congestive Heart Failure (CHF) Sister(s) Family Medical History: Cancer Additional Family Medical History / Comment(s): cervical cancer <Janeen Faria - Last Filed: 05/16/19 15:52> General Exam Limitations: no limitations Head exam: Present: atraumatic, normocephalic, normal inspection Eye exam: Present: normal appearance, PERRL, EOMI. Absent: scleral icterus, conjunctival injection, periorbital swelling ENT exam: Present: normal exam, mucous membranes moist Neck exam: Present: normal inspection. Absent: tenderness, meningismus, lymphadenopathy Respiratory exam: Present: normal lung sounds bilaterally. Absent: respiratory distress, wheezes, rales, rhonchi, stridor Cardiovascular Exam: Present: regular rate GI/Abdominal exam: Present: soft, tenderness (RLQ and R cva tenderness), normal bowel sounds. Absent: distended, guarding, rebound, rigid Back exam: Present: normal inspection Neurological exam: Present: alert, oriented X3, CN II-XII intact <Janeen Faria - Last Filed: 05/16/19 15:52> - General Exam Comments Initial Comments: 58-year-old female. Alert and oriented 3. Moderate distress. (Janeen Faria) Course <Boo Jackson - Last Filed: 05/16/19 15:05> Vital Signs 05/16/19 12:47 Temperature 98.9 F Pulse Rate 107 H Respiratory 18 Rate Blood Pressure 165/88 O2 Sat by Pulse 97 Oximetry - Reevaluation(s) Reevaluation #1: 05/16/19 15:01 Patient reevaluated by myself, Dr. Jackson. Patient resting comfortably in bed. Patient states she has been having some nausea vomiting and abdominal disc omfort. Abdomen soft and nontender at this time. Patient had recent admission with UTI and sepsis. Culture report reviewed. Case was discussed in detail with Dr. Padgett, covering with urology, who agrees with Rocephin and will consult. (Boo Jackson) Medical Decision Making - Lab Data Result diagrams: 05/16/19 13:25 05/16/19 13:25 <Boo Jackson - Last Filed: 05/16/19 15:05> - Lab Data Result diagrams: 05/16/19 13:25 05/16/19 13:25 - Radiology Data Radiology results: report reviewed <Janeen Faria - Last Filed: 05/16/19 15:52> - Medical Decision Making Case was discussed in detail with Dr. Obando, who will admit covering for Dr. Parmar. (Boo Jackson) 58-year-old female with recurrent urosepsis. An history of diabetes presents emergency department today with nausea vomiting and really current right flank pain. She's had multiple CT scans which shows no stones but persistent hydronephrosis on the right side. Patient was given IV fluids, pain medicine and lab work was reviewed. She is evidence of sepsis with white blood cell count of 28,000. Lactic acid blood culture obtained. Urine samples positive for infection, ketones. Patient is found the acetone positive in DKA. Patient's case was discussed with Dr. Jackson. With recent CTs and no stones I discussed that we can just do an ultrasound and patiently. Patient was started on IV Rocephin. She did have a sensitivity or step-off her last urine culture for E. coli. And she did finish Keflex on Thursday. I discussed the case with Dr. Jackson from discussed the case with Dr. Archer as well as Urologist. (Janeen Faria) - Lab Data Lab Results 05/16/19 05/16/19 05/16/19 Range/Units 12:53 12:53 13:25 WBC (3.8-10.6) k/uL RBC (3.80-5.40) m/uL Hgb (11.4-16.0) gm/dL Hct (34.0-46.0) % MCV (80.0-100.0) fL MCH (25.0-35.0) pg MCHC (31.0-37.0) g/dL RDW (11.5-15.5) % Plt Count (150-450) k/uL Neutrophils % % Lymphocytes % % Monocytes % % Eosinophils % % Basophils % % Neutrophils # (1.3-7.7) k/uL Lymphocytes # (1.0-4.8) k/uL Monocytes # (0-1.0) k/uL Eosinophils # (0-0.7) k/uL Basophils # (0-0.2) k/uL Manual Slide Review Sodium 140 (137-145) mmol/L Potassium 4.4 (3.5-5.1) mmol/L Chloride 103 (98-107) mmol/L Carbon Dioxide 21 L (22-30) mmol/L Anion Gap 16 mmol/L BUN 15 (7-17) mg/dL Creatinine 0.54 (0.52-1.04) mg/dL Est GFR (CKD-EPI)AfAm >90 (>60 ml/min/1.73 sqM) Est GFR (CKD-EPI)NonAf >90 (>60 ml/min/1.73 sqM) Glucose 286 H (74-99) mg/dL POC Glucose (mg/dL) 248 H (75-99) mg/dL POC Glu Assistant Brand Manager ID Enrique, Neelima Plasma Lactic Acid Bertram (0.7-2.0) mmol/L Calcium 9.6 (8.4-10.2) mg/dL Total Bilirubin 1.0 (0.2-1.3) mg/dL AST 22 (14-36) U/L ALT 30 (9-52) U/L Alkaline Phosphatase 76 (38-126) U/L Total Protein 7.4 (6.3-8.2) g/dL Albumin 4.7 (3.5-5.0) g/dL Amylase 39 (30-110) U/L Lipase 22 L (23-300) U/L Urine Color Light Red Urine Appearance Turbid H (Clear) Urine pH 6.0 (5.0-8.0) Ur Specific [place] 1.017 (1.001-1.035) Urine Protein 2+ H (Negative) Urine Glucose (UA) 4+ H (Negative) Urine Ketones 4+ H (Negative) Urine Blood Large H (Negative) Urine Nitrite Positive H (Negative) Urine Bilirubin Negative (Negative) Urine Urobilinogen <2.0 (<2.0) mg/dL Ur Leukocyte Esterase Large H (Negative) Urine RBC >182 H (0-5) /hpf Urine WBC >182 H (0-5) /hpf Urine WBC Clumps Few H (None) /hpf Urine Bacteria Rare H (None) /hpf Urine Mucus Occasional H (None) /hpf Acetone, Qual (Negative) 05/16/19 05/16/19 05/16/19 Range/Units 13:25 14:30 14:55 WBC 28.8 H (3.8-10.6) k/uL RBC 4.84 (3.80-5.40) m/uL Hgb 14.9 (11.4-16.0) gm/dL Hct 47.0 H (34.0-46.0) % MCV 96.9 (80.0-100.0) fL MCH 30.8 (25.0-35.0) pg MCHC 31.8 (31.0-37.0) g/dL RDW 13.8 (11.5-15.5) % Plt Count 296 (150-450) k/uL Neutrophils % 59 % Lymphocytes % 37 % Monocytes % 2 % Eosinophils % 0 % Basophils % 1 % Neutrophils # 17.0 H (1.3-7.7) k/uL Lymphocytes # 10.6 H (1.0-4.8) k/uL Monocytes # 0.5 (0-1.0) k/uL Eosinophils # 0.0 (0-0.7) k/uL Basophils # 0.1 (0-0.2) k/uL Manual Slide Review Performed Sodium (137-145) mmol/L Potassium (3.5-5.1) mmol/L Chloride (98-107) mmol/L Carbon Dioxide (22-30) mmol/L Anion Gap mmol/L BUN (7-17) mg/dL Creatinine (0.52-1.04) mg/dL Est GFR (CKD-EPI)AfAm (>60 ml/min/1.73 sqM) Est GFR (CKD-EPI)NonAf (>60 ml/min/1.73 sqM) Glucose (74-99) mg/dL POC Glucose (mg/dL) (75-99) mg/dL POC Glu Assistant Brand Manager ID Plasma Lactic Acid Bertram 1.2 (0.7-2.0) mmol/L Calcium (8.4-10.2) mg/dL Total Bilirubin (0.2-1.3) mg/dL AST (14-36) U/L ALT (9-52) U/L Alkaline Phosphatase (38-126) U/L Total Protein (6.3-8.2) g/dL Albumin (3.5-5.0) g/dL Amylase (30-110) U/L Lipase (23-300) U/L Urine Color Urine Appearance (Clear) Urine pH (5.0-8.0) Ur Specific [place] (1.001-1.035) Urine Protein (Negative) Urine Glucose (UA) (Negative) Urine Ketones (Negative) Urine Blood (Negative) Urine Nitrite (Negative) Urine Bilirubin (Negative) Urine Urobilinogen (<2.0) mg/dL Ur Leukocyte Esterase (Negative) Urine RBC (0-5) /hpf Urine WBC (0-5) /hpf Urine WBC Clumps (None) /hpf Urine Bacteria (None) /hpf Urine Mucus (None) /hpf Acetone, Qual Positive (Negative) Critical Care Time Critical Care Time: Yes Total Critical Care Time: 30 <Janeen Faria - Last Filed: 05/16/19 15:52> Critical Care Time: 30 minutes of care time was completed with reviewed patient's previous studies, and labs. Critical care was use with managing patient's diagnosis of DKA, and urosepsis with consults to urologist. (Janeen Faria) Disposition <Boo Jackson - Last Filed: 05/16/19 15:05> Is patient prescribed a controlled substance at d/c from ED?: No Time of Disposition: 15:52 <Janeen Faria - Last Filed: 05/16/19 15:52> Clinical Impression: DKA (diabetic ketoacidoses), Sepsis, Pyrexia Disposition: ADMITTED IP TO THIS HOSP Condition: Stable Referrals: Vitcoriano Jacob DO [Primary Care Provider] - 1-2 days
[2019-05-16] MEDS ORDERED: INSULIN REGULAR BOLUS (FROM DRIP BAG) IV ONE (15:12)
[2019-05-16] MEDS ORDERED: MORPHINE SULFATE 4 MG/ML SYRINGE IV PRN (15:53)
[2019-05-16] MEDS ORDERED: IBUPROFEN 400 MG TAB PO PRN (15:53)
[2019-05-16] MEDS ORDERED: NALOXONE 0.4 MG/ML 1 ML VIAL IV PRN (15:53)
[2019-05-16] MEDS: INSULIN REGULAR 100 UNIT in SODIUM CHLORIDE 0.9% 100 ML IV SCH ×2 (15:53→17:46)
[2019-05-16] MEDS ORDERED: ONDANSETRON ODT 8 MG TAB.RAPDIS PO PRN (15:54)
[2019-05-16] MEDS ORDERED: ACETAMINOPHEN TAB 500 MG TAB PO PRN (15:54)
[2019-05-16] MEDS: SODIUM CHLORIDE 0.9% 1,000 ML IV SCH ×2 (17:16→21:59)
[2019-05-16 17:25] LABS: Glucose,Whole Blood 188 mg/dL (75-99)
[2019-05-16] MEDS: D5-0.45% NACL WITH KCL 20MEQ/L 1,000 ML IV SCH ×2 (17:47→20:27)
[2019-05-16] MEDS: metFORMIN 500 MG TAB PO SCH (17:48)
[2019-05-16 18:13] LABS: African American GFR (CKD) >90 (>60 ml/min/1.73 sqM); Anion Gap 10 mmol/L; Blood Urea Nitrogen 14 mg/dL (7-17); Carbon Dioxide 26 mmol/L (22-30); Chloride 108 mmol/L (98-107); Glucose 181 mg/dL (74-99); Phosphorus 3.8 mg/dL (2.5-4.5); Potassium 3.8 mmol/L (3.5-5.1); Sodium 144 mmol/L (137-145)
[2019-05-16 19:31] LABS: Glucose,Whole Blood 204 mg/dL (75-99)
[2019-05-16] MEDS: ATORVASTATIN 20 MG TAB PO SCH (20:27)
[2019-05-16] MEDS: LISINOPRIL 5 MG TAB PO SCH (20:27)
[2019-05-16 20:36] LABS: Glucose,Whole Blood 186 mg/dL (75-99)
[2019-05-16 21:12] LABS: African American GFR (CKD) >90 (>60 ml/min/1.73 sqM); Anion Gap 7 mmol/L; Blood Urea Nitrogen 15 mg/dL (7-17); Carbon Dioxide 25 mmol/L (22-30); Chloride 108 mmol/L (98-107); Glucose 180 mg/dL (74-99); Phosphorus 3.2 mg/dL (2.5-4.5); Potassium 3.7 mmol/L (3.5-5.1); Sodium 140 mmol/L (137-145)
[2019-05-16 21:37] LABS: Glucose,Whole Blood 152 mg/dL (75-99)
[2019-05-16] MEDS ORDERED: INSULIN NPH 300 UNIT/3 ML VIAL SQ STA (21:53)
--- NOTE | 2019-05-16 21:59 | P.GSCN ---
History of Present Illness Consult date: 05/16/19 Reason for Consult: Right hydronephrosis Requesting physician: Elvin Obando History of present illness: The patient is a pleasant 58-year-old female who presented to the hospital earlier this month with right flank pain, fever, nausea and vomiting. She was also found to have hyperglycemia. She had been recently hospitalized for a urinary tract infection. She has a history of a urolithiasis, having undergone right ESWL twice several years ago. A CT scan showed right hydroureteronephrosis to the ureterovesical junction but no obvious stone. 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 She was scheduled to undergo cystoscopy, right retrograde pyelogram, possible ureteroscopy by Dr. Webster. However, she presented back today with persistent right flank pain associated with nausea and vomiting. She was found to have leukocytosis and was subsequently admitted. Urinalysis is consistent with a UTI. A urine culture earlier this month showed an E. coli UTI, sensitive to ceftriaxone. Review of Systems - Constitutional Reports chills, Reports fever - Gastrointestinal Reports nausea, Reports vomiting - Genitourinary Genitourinary: Reports dysuria, Reports flank pain, Reports hematuria Past Medical History Past Medical History: Diabetes Mellitus, Osteoarthritis (OA), Syncope Additional Past Medical History / Comment(s): kidney stones, lithotrispies. History of Any Multi-Drug Resistant Organisms: None Reported Past Surgical History: Section Past Anesthesia/Blood Transfusion Reactions: No Reported Reaction Past Psychological History: No Psychological Hx Reported Smoking Status: Never smoker Past Alcohol Use History: Occasional Past Drug Use History: Marijuana - Past Family History Father Family Medical History: Congestive Heart Failure (CHF) Sister(s) Family Medical History: Cancer Additional Family Medical History / Comment(s): cervical cancer Medications and Allergies Home Medications Medication Instructions Recorded Confirmed Type Ondansetron Odt [Zofran ODT] 8 mg PO Q8H PRN 04/18/19 05/16/19 History Atorvastatin [Lipitor] 20 mg PO HS #30 tab 04/20/19 05/16/19 Rx Lisinopril [Zestril] 5 mg PO BID #60 tab 04/20/19 05/16/19 Rx metFORMIN HCL [Glucophage] 500 mg PO BID-W/MEALS #60 tab 04/20/19 05/16/19 Rx L.acidoph,Paracasei, B.lactis 1 cap PO DAILY 05/03/19 05/16/19 History [Probiotic] Acetaminophen Tab [Tylenol] 500 mg PO Q6HR PRN #20 tab 05/06/19 05/16/19 Rx Insuln Asp Prt/Insulin Aspart 8 unit SQ AC-LUNCH #1 vial 05/06/19 05/16/19 Rx [NovoLOG MIX 70-30 VIAL] Insuln Asp Prt/Insulin Aspart 22 unit SQ AC-BID #1 vial 05/06/19 05/16/19 Rx [NovoLOG MIX 70-30 VIAL] Allergies Allergy/AdvReac Type Severity Reaction Status Date / Time Sulfa (Sulfonamide Allergy Rash/Hives Verified 05/16/19 14:18 Antibiotics) Surgical - Exam Vital Signs Temp Pulse Resp BP Pulse Ox 98.9 F 107 H 18 165/88 97 05/16/19 12:47 05/16/19 12:47 05/16/19 12:47 05/16/19 12:47 05/16/19 12:47 - General well developed, well nourished, no distress - Respiratory normal respiratory effort - Abdomen Abdomen: soft, non tender, no guarding, no rigid, no rebound - Psychiatric oriented to time, oriented to person, oriented to place, speech is normal, memory intact Results - Labs 05/16/19 13:25 05/16/19 20:48 Abnormal Lab Results - Last 24 Hours (Table) 05/16/19 05/16/19 05/16/19 Range/Units 12:53 12:53 13:25 WBC (3.8-10.6) k/uL Hct (34.0-46.0) % Neutrophils # (1.3-7.7) k/uL Lymphocytes # (1.0-4.8) k/uL Chloride (98-107) mmol/L Carbon Dioxide 21 L (22-30) mmol/L Glucose 286 H (74-99) mg/dL POC Glucose (mg/dL) 248 H (75-99) mg/dL Lipase 22 L (23-300) U/L Urine Appearance Turbid H (Clear) Urine Protein 2+ H (Negative) Urine Glucose (UA) 4+ H (Negative) Urine Ketones 4+ H (Negative) Urine Blood Large H (Negative) Urine Nitrite Positive H (Negative) Ur Leukocyte Esterase Large H (Negative) Urine RBC >182 H (0-5) /hpf Urine WBC >182 H (0-5) /hpf Urine WBC Clumps Few H (None) /hpf Urine Bacteria Rare H (None) /hpf Urine Mucus Occasional H (None) /hpf 05/16/19 05/16/19 05/16/19 Range/Units 13:25 17:22 17:47 WBC 28.8 H (3.8-10.6) k/uL Hct 47.0 H (34.0-46.0) % Neutrophils # 17.0 H (1.3-7.7) k/uL Lymphocytes # 10.6 H (1.0-4.8) k/uL Chloride 108 H (98-107) mmol/L Carbon Dioxide (22-30) mmol/L Glucose 181 H (74-99) mg/dL POC Glucose (mg/dL) 188 H (75-99) mg/dL Lipase (23-300) U/L Urine Appearance (Clear) Urine Protein (Negative) Urine Glucose (UA) (Negative) Urine Ketones (Negative) Urine Blood (Negative) Urine Nitrite (Negative) Ur Leukocyte Esterase (Negative) Urine RBC (0-5) /hpf Urine WBC (0-5) /hpf Urine WBC Clumps (None) /hpf Urine Bacteria (None) /hpf Urine Mucus (None) /hpf 05/16/19 05/16/19 05/16/19 Range/Units 19:30 20:35 20:48 WBC (3.8-10.6) k/uL Hct (34.0-46.0) % Neutrophils # (1.3-7.7) k/uL Lymphocytes # (1.0-4.8) k/uL Chloride 108 H (98-107) mmol/L Carbon Dioxide (22-30) mmol/L Glucose 180 H (74-99) mg/dL POC Glucose (mg/dL) 204 H 186 H (75-99) mg/dL Lipase (23-300) U/L Urine Appearance (Clear) Urine Protein (Negative) Urine Glucose (UA) (Negative) Urine Ketones (Negative) Urine Blood (Negative) Urine Nitrite (Negative) Ur Leukocyte Esterase (Negative) Urine RBC (0-5) /hpf Urine WBC (0-5) /hpf Urine WBC Clumps (None) /hpf Urine Bacteria (None) /hpf Urine Mucus (None) /hpf Diabetes panel 05/16/19 05/16/19 05/16/19 Range/Units 13:25 17:47 20:48 Sodium 140 144 140 (137-145) mmol/L Potassium 4.4 3.8 3.7 (3.5-5.1) mmol/L Chloride 103 108 H 108 H (98-107) mmol/L Carbon Dioxide 21 L 26 25 (22-30) mmol/L BUN 15 14 15 (7-17) mg/dL Creatinine 0.54 0.53 0.55 (0.52-1.04) mg/dL Glucose 286 H 181 H 180 H (74-99) mg/dL Calcium 9.6 (8.4-10.2) mg/dL AST 22 (14-36) U/L ALT 30 (9-52) U/L Alkaline Phosphatase 76 (38-126) U/L Total Protein 7.4 (6.3-8.2) g/dL Albumin 4.7 (3.5-5.0) g/dL Calcium panel 05/16/19 05/16/19 05/16/19 Range/Units 13:25 17:47 20:48 Calcium 9.6 (8.4-10.2) mg/dL Phosphorus 3.8 3.2 (2.5-4.5) mg/dL Albumin 4.7 (3.5-5.0) g/dL Pituitary panel 05/16/19 05/16/19 05/16/19 Range/Units 13:25 17:47 20:48 Sodium 140 144 140 (137-145) mmol/L Potassium 4.4 3.8 3.7 (3.5-5.1) mmol/L Chloride 103 108 H 108 H (98-107) mmol/L Carbon Dioxide 21 L 26 25 (22-30) mmol/L BUN 15 14 15 (7-17) mg/dL Creatinine 0.54 0.53 0.55 (0.52-1.04) mg/dL Glucose 286 H 181 H 180 H (74-99) mg/dL Calcium 9.6 (8.4-10.2) mg/dL Adrenal panel 09/23/19 09/23/19 09/23/19 Range/Units 13:25 17:47 20:48 Sodium 140 144 140 (137-145) mmol/L Potassium 4.4 3.8 3.7 (3.5-5.1) mmol/L Chloride 103 108 H 108 H (98-107) mmol/L Carbon Dioxide 21 L 26 25 (22-30) mmol/L BUN 15 14 15 (7-17) mg/dL Creatinine 0.54 0.53 0.55 (0.52-1.04) mg/dL Glucose 286 H 181 H 180 H (74-99) mg/dL Calcium 9.6 (8.4-10.2) mg/dL Total Bilirubin 1.0 (0.2-1.3) mg/dL AST 22 (14-36) U/L ALT 30 (9-52) U/L Alkaline Phosphatase 76 (38-126) U/L Total Protein 7.4 (6.3-8.2) g/dL Albumin 4.7 (3.5-5.0) g/dL Assessment and Plan (1) Acute pyelonephritis Current Visit: Yes Status: Acute Code(s): N10 - ACUTE PYELONEPHRITIS SNOMED Code(s): 92895930 Plan: The patient likely has a recurrent E. coli UTI. She will receive ceftriaxone, pending the urine culture result. She is already feeling much better, and if she continues to improve she will likely undergo the planned cystoscopy, right retrograde pyelogram, possible right ureteroscopy after her UTI clears. However, if her condition fails to improve, she may require placement of a right ureteral stent. Time with Patient: Greater than 30
[2019-05-16] MEDS: KETOROLAC 30 MG/ML 1 ML VIAL IVP PRN (23:02)
[2019-05-17 01:56] LABS: Glucose,Whole Blood 133 mg/dL (75-99)
[2019-05-17 06:31] LABS: Glucose,Whole Blood 143 mg/dL (75-99)
[2019-05-17] MEDS: D5-0.45% NACL WITH KCL 20MEQ/L 1,000 ML IV SCH (06:38)
[2019-05-17] MEDS: metFORMIN 500 MG TAB PO SCH ×3 (07:37→17:23)
[2019-05-17] MEDS: INSULN ASP PRT/INSULIN ASPART 100 UNIT/ML 10 ML VIAL SQ SCH ×3 (07:37→17:23)
[2019-05-17 08:12] LABS: HCT 36.9 % (34.0-46.0); HGB 12.1 gm/dL (11.4-16.0); MCH 31.7 pg (25.0-35.0); MCHC 32.8 g/dL (31.0-37.0); MCV 96.6 fL (80.0-100.0); Mean Platelet Volume 7.6; Platelet Count 223 k/uL (150-450); RBC 3.83 m/uL (3.80-5.40); WBC 15.2 k/uL (3.8-10.6)
[2019-05-17 08:37] LABS: ALT 23 U/L (9-52); AST 12 U/L (14-36); African American GFR (CKD) >90 (>60 ml/min/1.73 sqM); Albumin 2.8 g/dL (3.5-5.0); Alkaline Phosphatase 47 U/L (38-126); Anion Gap 4 mmol/L; Blood Urea Nitrogen 12 mg/dL (7-17); Calcium 8.2 mg/dL (8.4-10.2); Carbon Dioxide 27 mmol/L (22-30); Chloride 109 mmol/L (98-107); Glucose 191 mg/dL (74-99); Potassium 4.2 mmol/L (3.5-5.1); Sodium 140 mmol/L (137-145); Total Bilirubin 0.7 mg/dL (0.2-1.3); Total Protein 4.9 g/dL (6.3-8.2)
[2019-05-17] MEDS ORDERED: PANTOPRAZOLE 40 MG/10 ML VIAL IV SCH (09:00)
[2019-05-17] MEDS: KETOROLAC 30 MG/ML 1 ML VIAL IVP PRN (09:17)
[2019-05-17] MEDS: LISINOPRIL 5 MG TAB PO SCH ×2 (09:18→19:51)
[2019-05-17] MEDS: LACTOBACILLUS ACIDOPH & BULGAR 1 EACH PACKET PO SCH (09:18)
[2019-05-17 11:22] VITALS: BMI 35.7
[2019-05-17 11:30] LABS: Glucose,Whole Blood 202 mg/dL (75-99)
[2019-05-17] MEDS ORDERED: INSULN ASP PRT/INSULIN ASPART 100 UNIT/ML 10 ML VIAL SQ SCH (12:30)
[2019-05-17 16:30] LABS: Glucose,Whole Blood 153 mg/dL (75-99)
--- NOTE | 2019-05-17 19:02 | P.PN ---
Subjective Progress Note Date: 05/17/19 The patient is known to me. She has right-sided hydronephrosis of indeterminate etiology. She was in recently with a urinary tract infection and probable pyelonephritis. She was to be set up for a right ureteroscopy and retrograde pyelogram but ended up back in the hospital yesterday with another urine infection. Her white count has gone from 28,000 and 15,000. She feels much better with antibiotics. Patient the sequence of evaluation. We could place a stent followed by a secondary ureteroscopy however she seems to be responding appropriately to antibiotics. I believe that she would be better served by treating her with antibiotics and leaving her on antibiotics until I do cystoscopy right retrograde pyelogram and right ureteroscopy which I will schedule for next week. She consents and understands this. Objective - Vital Signs Vital signs: Vital Signs Temp 98.4 F 05/17/19 15:27 Pulse 78 05/17/19 15:27 Resp 18 05/17/19 15:27 BP 117/65 05/17/19 15:27 Pulse Ox 96 05/17/19 15:27 Intake & Output 05/17/19 05/17/19 05/18/19 06:59 18:59 06:59 Intake Total 240 1202 Output Total 375 Balance 240 827 Weight 109.8 kg 109.8 kg Intake: Oral 240 1202 Output: Urine 375 Other: Voiding Method Toilet Toilet # Voids 3 1 - Labs CBC & Chem 7: 05/17/19 07:55 05/17/19 07:55 Labs: Abnormal Lab Results - Last 24 Hours (Table) 05/16/19 05/16/19 05/16/19 Range/Units 19:30 20:35 20:48 WBC (3.8-10.6) k/uL Chloride 108 H (98-107) mmol/L Glucose 180 H (74-99) mg/dL POC Glucose (mg/dL) 204 H 186 H (75-99) mg/dL Calcium (8.4-10.2) mg/dL AST (14-36) U/L Total Protein (6.3-8.2) g/dL Albumin (3.5-5.0) g/dL 05/16/19 05/17/19 05/17/19 Range/Units 21:36 01:54 06:31 WBC (3.8-10.6) k/uL Chloride (98-107) mmol/L Glucose (74-99) mg/dL POC Glucose (mg/dL) 152 H 133 H 143 H (75-99) mg/dL Calcium (8.4-10.2) mg/dL AST (14-36) U/L Total Protein (6.3-8.2) g/dL Albumin (3.5-5.0) g/dL 05/17/19 05/17/19 05/17/19 Range/Units 07:55 07:55 11:29 WBC 15.2 H (3.8-10.6) k/uL Chloride 109 H (98-107) mmol/L Glucose 191 H (74-99) mg/dL POC Glucose (mg/dL) 202 H (75-99) mg/dL Calcium 8.2 L (8.4-10.2) mg/dL AST 12 L (14-36) U/L Total Protein 4.9 L (6.3-8.2) g/dL Albumin 2.8 L (3.5-5.0) g/dL 05/17/19 Range/Units 16:28 WBC (3.8-10.6) k/uL Chloride (98-107) mmol/L Glucose (74-99) mg/dL POC Glucose (mg/dL) 153 H (75-99) mg/dL Calcium (8.4-10.2) mg/dL AST (14-36) U/L Total Protein (6.3-8.2) g/dL Albumin (3.5-5.0) g/dL Microbiology - Last 24 Hours (Table) 05/16/19 14:55 Blood Culture - Preliminary Blood No Growth after 24 hours 05/16/19 12:53 Urine Culture - Preliminary Urine,Voided
--- NOTE | 2019-05-17 19:49 | P.HPIM ---
History of Present Illness H&P Date: 05/17/19 Chief Complaint: Abdominal pain nausea vomiting History of presenting complaint: This is a pleasant 58-year-old patient of Dr. Victoriano Parmar. Recently in the hospital diagnosed with diabetic ketoacidosis. Was discharged on insulin 70/30. Patient also had UTI with known chronic nephrolithiasis. Patient 4 years ago had gone to see Dr. Faria the urologist. Her UA was found to be negative. 2 days ago patient started having nausea vomiting chills right flank pain. And pr esented to the ER. Patient's found to be in diabetic ketoacidosis. Was given fluids and insulin started feeling better. In fact last night she was able to tolerate a little bit of a supper and had breakfast this morning. Does feel tired and rundown. Review of systems: GEN.: Tired, which chills EYES: None HEENT: None NECK: None RESPIRATORY: None CARDIOVASCULAR: None GASTROINTESTINAL: As above GENITOURINARY: As above MUSCULOSKELETAL: None LYMPHATICS: None HEMATOLOGICAL: None PSYCHIATRY: None NEUROLOGICAL: None Past medical history: Osteoarthritis, kidney stones, diabetes mellitus type 2 Social history: Does not smoke. Alcohol occasionally. Lives with her daughter. Not employed Family history: Congestive heart failure, cervical cancer Physical examination: VITAL SIGNS: 98.9, 107, 18, 165/88, 97% room air upon presentation GENERAL: BMI 35.7, laying in bed to a bit tired. EYES: Pupils equal. Conjunctiva normal. HEENT: External appearance of nose and ears normal, oral cavity grossly normal. NECK: JVD not raised; masses not palpable. HEART: First and second heart sounds are normal; no edema. LUNGS: Respiratory rate normal; clear to auscultation. ABDOMEN: Soft, nontender, liver spleen not palpable, no masses palpable. PSYCH: Alert and oriented x3; mood and affect tired. NEUROLOGICAL: Cranial nerves grossly intact; no facial asymmetry, power and sensation grossly intact. LYMPHATICS: No lymph nodes palpable in the axilla and neck INVESTIGATIONS, reviewed in the clinical context: White count 28.8, hemoglobin 14.9, platelets 296, potassium 4.4, creatinine 0.54 Blood glucose 286 UA positive for leukoesterase WBC RBC Serum acetone positive Assessment-: -Acute diabetic ketoacidosis, with a recent new diagnosis of diabetes mellitus type 2 -Acute UTI from pyelonephritis with known underlying nephrolithiasis -Chronic nephrolithiasis -Leukocytosis -Obesity BMI 35.7 Plan: Urology was consulted. Patient is put on IV fluids. Urine and blood cultures are pending. Patient did get insulin and fluids initially and was this morning switched over to her home dose of NovoLog Mix 70/30. Patient did receive a dose of ceftriaxone in the ER. We'll give another dose today. Care was discussed with patient at length. Lovenox for DVT prophylaxis. Past Medical History Past Medical History: Diabetes Mellitus, Osteoarthritis (OA), Syncope Additional Past Medical History / Comment(s): kidney stones, lithotrispies. History of Any Multi-Drug Resistant Organisms: None Reported Past Surgical History: Section Past Anesthesia/Blood Transfusion Reactions: No Reported Reaction Past Psychological History: No Psychological Hx Reported Smoking Status: Never smoker Past Alcohol Use History: Occasional Past Drug Use History: Marijuana - Past Family History Father Family Medical History: Congestive Heart Failure (CHF) Sister(s) Family Medical History: Cancer Additional Family Medical History / Comment(s): cervical cancer Medications and Allergies Home Medications Medication Instructions Recorded Confirmed Type Ondansetron Odt [Zofran ODT] 8 mg PO Q8H PRN 04/18/19 05/16/19 History Atorvastatin [Lipitor] 20 mg PO HS #30 tab 04/20/19 05/16/19 Rx Lisinopril [Zestril] 5 mg PO BID #60 tab 04/20/19 05/16/19 Rx metFORMIN HCL [Glucophage] 500 mg PO BID-W/MEALS #60 tab 04/20/19 05/16/19 Rx L.acidoph,Paracasei, B.lactis 1 cap PO DAILY 05/03/19 05/16/19 History [Probiotic] Acetaminophen Tab [Tylenol] 500 mg PO Q6HR PRN #20 tab 05/06/19 05/16/19 Rx Insuln Asp Prt/Insulin Aspart 8 unit SQ AC-LUNCH #1 vial 05/06/19 05/16/19 Rx [NovoLOG MIX 70-30 VIAL] Insuln Asp Prt/Insulin Aspart 22 unit SQ AC-BID #1 vial 05/06/19 05/16/19 Rx [NovoLOG MIX 70-30 VIAL] Allergies Allergy/AdvReac Type Severity Reaction Status Date / Time Sulfa (Sulfonamide Allergy Rash/Hives Verified 05/16/19 14:18 Antibiotics) Physical Exam Vitals: Vital Signs Temp Pulse Pulse Resp BP BP Pulse Ox 05/17/19 09:12 98.2 F 85 16 126/74 98 05/17/19 09:10 16 05/17/19 04:28 97.6 F 89 16 115/59 96 05/16/19 23:01 98.3 F 85 15 129/71 96 05/16/19 19:53 99.3 F 93 15 112/53 96 05/16/19 17:45 98.4 F 86 128/58 100 05/16/19 17:19 88 16 127/54 95 05/16/19 15:57 85 16 133/57 98 05/16/19 12:47 98.9 F 107 H 18 165/88 97 Intake and Output 05/16/19 05/17/19 05/17/19 22:59 06:59 14:59 Intake Total 704.363 Balance 704.363 Intake: Intake, IV Titration 20.363 Amount Insulin Regular 100 unit 20.363 In Sodium Chloride 0.9% 100 ml @ 0.1 UNITS/KG/HR 10.812 mls/hr IV .[id number] [facility] Rx#:[id number] Oral 684 Other: Voiding Method Toilet Toilet Toilet # Voids 3 Weight 109.8 kg Results CBC & Chem 7: 05/17/19 07:55 05/17/19 07:55 Labs: Abnormal Lab Results - Last 24 Hours (Table) 05/16/19 05/16/19 05/16/19 Range/Units 12:53 12:53 13:25 WBC (3.8-10.6) k/uL Hct (34.0-46.0) % Neutrophils # (1.3-7.7) k/uL Lymphocytes # (1.0-4.8) k/uL Chloride (98-107) mmol/L Carbon Dioxide 21 L (22-30) mmol/L Glucose 286 H (74-99) mg/dL POC Glucose (mg/dL) 248 H (75-99) mg/dL Calcium (8.4-10.2) mg/dL AST (14-36) U/L Total Protein (6.3-8.2) g/dL Albumin (3.5-5.0) g/dL Lipase 22 L (23-300) U/L Urine Appearance Turbid H (Clear) Urine Protein 2+ H (Negative) Urine Glucose (UA) 4+ H (Negative) Urine Ketones 4+ H (Negative) Urine Blood Large H (Negative) Urine Nitrite Positive H (Negative) Ur Leukocyte Esterase Large H (Negative) Urine RBC >182 H (0-5) /hpf Urine WBC >182 H (0-5) /hpf Urine WBC Clumps Few H (None) /hpf Urine Bacteria Rare H (None) /hpf Urine Mucus Occasional H (None) /hpf 05/16/19 05/16/19 05/16/19 Range/Units 13:25 17:22 17:47 WBC 28.8 H (3.8-10.6) k/uL Hct 47.0 H (34.0-46.0) % Neutrophils # 17.0 H (1.3-7.7) k/uL Lymphocytes # 10.6 H (1.0-4.8) k/uL Chloride 108 H (98-107) mmol/L Carbon Dioxide (22-30) mmol/L Glucose 181 H (74-99) mg/dL POC Glucose (mg/dL) 188 H (75-99) mg/dL Calcium (8.4-10.2) mg/dL AST (14-36) U/L Total Protein (6.3-8.2) g/dL Albumin (3.5-5.0) g/dL Lipase (23-300) U/L Urine Appearance (Clear) Urine Protein (Negative) Urine Glucose (UA) (Negative) Urine Ketones (Negative) Urine Blood (Negative) Urine Nitrite (Negative) Ur Leukocyte Esterase (Negative) Urine RBC (0-5) /hpf Urine WBC (0-5) /hpf Urine WBC Clumps (None) /hpf Urine Bacteria (None) /hpf Urine Mucus (None) /hpf 05/16/19 05/16/19 05/16/19 Range/Units 19:30 20:35 20:48 WBC (3.8-10.6) k/uL Hct (34.0-46.0) % Neutrophils # (1.3-7.7) k/uL Lymphocytes # (1.0-4.8) k/uL Chloride 108 H (98-107) mmol/L Carbon Dioxide (22-30) mmol/L Glucose 180 H (74-99) mg/dL POC Glucose (mg/dL) 204 H 186 H (75-99) mg/dL Calcium (8.4-10.2) mg/dL AST (14-36) U/L Total Protein (6.3-8.2) g/dL Albumin (3.5-5.0) g/dL Lipase (23-300) U/L Urine Appearance (Clear) Urine Protein (Negative) Urine Glucose (UA) (Negative) Urine Ketones (Negative) Urine Blood (Negative) Urine Nitrite (Negative) Ur Leukocyte Esterase (Negative) Urine RBC (0-5) /hpf Urine WBC (0-5) /hpf Urine WBC Clumps (None) /hpf Urine Bacteria (None) /hpf Urine Mucus (None) /hpf 05/16/19 05/17/19 05/17/19 Range/Units 21:36 01:54 06:31 WBC (3.8-10.6) k/uL Hct (34.0-46.0) % Neutrophils # (1.3-7.7) k/uL Lymphocytes # (1.0-4.8) k/uL Chloride (98-107) mmol/L Carbon Dioxide (22-30) mmol/L Glucose (74-99) mg/dL POC Glucose (mg/dL) 152 H 133 H 143 H (75-99) mg/dL Calcium (8.4-10.2) mg/dL AST (14-36) U/L Total Protein (6.3-8.2) g/dL Albumin (3.5-5.0) g/dL Lipase (23-300) U/L Urine Appearance (Clear) Urine Protein (Negative) Urine Glucose (UA) (Negative) Urine Ketones (Negative) Urine Blood (Negative) Urine Nitrite (Negative) Ur Leukocyte Esterase (Negative) Urine RBC (0-5) /hpf Urine WBC (0-5) /hpf Urine WBC Clumps (None) /hpf Urine Bacteria (None) /hpf Urine Mucus (None) /hpf 05/17/19 05/17/19 Range/Units 07:55 07:55 WBC 15.2 H (3.8-10.6) k/uL Hct (34.0-46.0) % Neutrophils # (1.3-7.7) k/uL Lymphocytes # (1.0-4.8) k/uL Chloride 109 H (98-107) mmol/L Carbon Dioxide (22-30) mmol/L Glucose 191 H (74-99) mg/dL POC Glucose (mg/dL) (75-99) mg/dL Calcium 8.2 L (8.4-10.2) mg/dL AST 12 L (14-36) U/L Total Protein 4.9 L (6.3-8.2) g/dL Albumin 2.8 L (3.5-5.0) g/dL Lipase (23-300) U/L Urine Appearance (Clear) Urine Protein (Negative) Urine Glucose (UA) (Negative) Urine Ketones (Negative) Urine Blood (Negative) Urine Nitrite (Negative) Ur Leukocyte Esterase (Negative) Urine RBC (0-5) /hpf Urine WBC (0-5) /hpf Urine WBC Clumps (None) /hpf Urine Bacteria (None) /hpf Urine Mucus (None) /hpf Microbiology - Last 24 Hours (Table) 05/16/19 12:53 Urine Culture - Preliminary Urine,Voided Thrombosis Risk Factor Assmnt - Choose All That Apply Each Factor Represents 1 point: Age 41-60 years Thrombosis Risk Factor Assessment Total Risk Factor Score: 1 Thrombosis Risk Factor Assessment Level: Low Risk
[2019-05-17] MEDS: ATORVASTATIN 20 MG TAB PO SCH (19:50)
[2019-05-17] MEDS: ENOXAPARIN 40 MG/0.4 ML SYRINGE SQ SCH (20:03)
[2019-05-17 20:29] LABS: Glucose,Whole Blood 131 mg/dL (75-99)
[2019-05-18] MEDS: KETOROLAC 30 MG/ML 1 ML VIAL IVP PRN ×2 (04:11→21:54)
[2019-05-18 06:36] LABS: African American GFR (CKD) >90 (>60 ml/min/1.73 sqM); Anion Gap 5 mmol/L; Blood Urea Nitrogen 10 mg/dL (7-17); Calcium 8.7 mg/dL (8.4-10.2); Carbon Dioxide 29 mmol/L (22-30); Chloride 108 mmol/L (98-107); Glucose 119 mg/dL (74-99); Potassium 4.4 mmol/L (3.5-5.1); Sodium 142 mmol/L (137-145)
[2019-05-18 06:42] LABS: Basophils # (A) 0.1 k/uL (0-0.2); Basophils % (A) 1 %; Eosinophils # (A) 0.1 k/uL (0-0.7); Eosinophils % (A) 1 %; HCT 36.1 % (34.0-46.0); HGB 11.7 gm/dL (11.4-16.0); Lymphocytes # (A) 4.6 k/uL (1.0-4.8); Lymphocytes % (A) 49 %; MCH 31.1 pg (25.0-35.0); MCHC 32.5 g/dL (31.0-37.0); MCV 95.7 fL (80.0-100.0); Mean Platelet Volume 7.4; Monocytes # (A) 0.4 k/uL (0-1.0); Monocytes % (A) 4 %; Neutrophils # (A) 4.1 k/uL (1.3-7.7); Neutrophils % (A) 43 %; Platelet Count 222 k/uL (150-450); RBC 3.77 m/uL (3.80-5.40); RDW 13.9 % (11.5-15.5); WBC 9.5 k/uL (3.8-10.6)
[2019-05-18 07:52] LABS: Glucose,Whole Blood 118 mg/dL (75-99)
[2019-05-18] MEDS: LISINOPRIL 5 MG TAB PO SCH ×2 (07:54→21:04)
[2019-05-18] MEDS: LACTOBACILLUS ACIDOPH & BULGAR 1 EACH PACKET PO SCH (07:54)
[2019-05-18] MEDS: ENOXAPARIN 40 MG/0.4 ML SYRINGE SQ SCH (07:54)
[2019-05-18] MEDS: metFORMIN 500 MG TAB PO SCH ×2 (07:54→17:40)
[2019-05-18] MEDS: PANTOPRAZOLE 40 MG TABLET PO SCH (07:55)
[2019-05-18] MEDS: INSULN ASP PRT/INSULIN ASPART 100 UNIT/ML 10 ML VIAL SQ SCH ×3 (08:13→17:41)
[2019-05-18 09:40] LABS: Glucose,Whole Blood 132 mg/dL (75-99)
[2019-05-18] MEDS: ONDANSETRON 4 MG/2 ML VIAL IVP PRN ×2 (09:42→14:55)
[2019-05-18 12:31] LABS: Glucose,Whole Blood 146 mg/dL (75-99)
[2019-05-18] MEDS ORDERED: METOCLOPRAMIDE 5 MG/ML 2 ML VIAL IVP PRN (15:37)
[2019-05-18 17:37] LABS: Glucose,Whole Blood 151 mg/dL (75-99)
[2019-05-18] MEDS ORDERED: METOCLOPRAMIDE 5 MG/ML 2 ML VIAL IVP SCH (18:00)
[2019-05-18 20:44] LABS: Glucose,Whole Blood 151 mg/dL (75-99)
[2019-05-18] MEDS: ATORVASTATIN 20 MG TAB PO SCH (21:04)
--- NOTE | 2019-05-18 21:31 | P.PN ---
Progress Note - Text Progress Note Date: 05/18/19 History of presenting complaint: This is a pleasant 58-year-old patient of Dr. Victoriano Parmar. Recently in the hospital diagnosed with diabetic ketoacidosis. Was discharged on insulin 70/30. Patient also had UTI with known chronic nephrolithiasis. Patient 4 years ago had gone to see Dr. Faria the urologist. Her UA was found to be negative. 2 days ago patient started having nausea vomiting chills right flank pain. And presented to the ER. Patient's found to be in diabetic ketoacidosis. Was given fluids and insulin started feeling better. In fact last night she was able to tolerate a little bit of a supper and had breakfast this morning. Does feel tired and rundown. admitted with diabetic ketoacidosis and right-sided pyelonephritis Today-patient had been doing well up to yesterday evening. This morning started having nausea. Not much help with Zofran. Didn't feel like eating. I did order Reglan. No fever no chills. Just tired and rundown. Review of systems: Was done for constitutional, cardiovascular, GI, pulmonary. relevant finding as above Active Medications Acetaminophen (Tylenol Tab) 650 mg PO Q6HR PRN PRN Reason: Mild Pain or Fever > 100.5 Atorvastatin Calcium (Lipitor) 20 mg PO HS [facility] Last Admin: 05/18/19 21:04 Dose: 20 mg Documented by: Enoxaparin Sodium (Lovenox) 40 mg SQ DAILY [facility] Last Admin: 05/18/19 07:54 Dose: 40 mg Documented by: Ceftriaxone Sodium 1 gm/ (Sodium Chloride) 50 mls @ 100 mls/hr IVPB Q24HR [facility] Last Admin: 05/18/19 07:55 Dose: 100 mls/hr Documented by: Ibuprofen (Motrin) 400 mg PO Q6HR PRN PRN Reason: Mild Pain or Fever > 100.5 Insulin Aspart (Novolog Mix 70-30 Vial) 26 unit SQ AC-BID [facility] Last Admin: 05/18/19 17:41 Dose: Not Given Documented by: Insulin Aspart (Novolog Mix 70-30 Vial) 14 unit SQ AC-LUNCH [facility] Last Admin: 05/18/19 12:43 Dose: Not Given Documented by: Ketorolac Tromethamine (Toradol) 30 mg IVP Q6HR PRN PRN Reason: Moderate Pain Stop: 05/21/19 15:54 Last Admin: 05/18/19 04:11 Dose: 30 mg Documented by: Lactobacillus Acidoph/Bulgaricus (Lactinex) 1 each PO DAILY [facility] Last Admin: 05/18/19 07:54 Dose: 1 each Documented by: Lisinopril (Zestril) 5 mg PO BID [facility] Last Admin: 05/18/19 21:04 Dose: 5 mg Documented by: Metformin HCl (Glucophage) 500 mg PO BID-W/MEALS [facility] Last Admin: 05/18/19 17:40 Dose: 500 mg Documented by: Metoclopramide HCl (Reglan) 10 mg IVP Q6HR PRN PRN Reason: Nausea Last Admin: 05/18/19 15:43 Dose: 10 mg Documented by: Morphine Sulfate (Morphine Sulfate (Inj)) 4 mg IV Q4HR PRN PRN Reason: Severe Pain Naloxone HCl (Narcan) 0.2 mg IV Q2M PRN PRN Reason: Opioid Reversal Ondansetron HCl (Zofran) 4 mg IVP Q8HR PRN PRN Reason: Nausea And Vomiting Last Admin: 05/18/19 14:55 Dose: 4 mg Documented by: Ondansetron HCl (Zofran Odt) 8 mg PO Q8H PRN PRN Reason: Nausea Pantoprazole Sodium (Protonix) 40 mg PO DAILY [facility] Last Admin: 05/18/19 07:55 Dose: 40 mg Documented by: Physical examination: VITAL SIGNS: 98.1, 89, 18, 152/88, 97% room air GENERAL: integument bed, tired appearing EYES: Pupils equal. Conjunctiva normal. HEENT: External appearance of nose and ears normal, oral cavity grossly normal. NECK: JVD not raised; masses not palpable. HEART: First and second heart sounds are normal; no edema. LUNGS: Respiratory rate normal; clear to auscultation. ABDOMEN: Soft, nontender, liver spleen not palpable, no masses palpable. PSYCH: Alert and oriented x3; mood and affect tired. INVESTIGATIONS, reviewed in the clinical context: [id number], 146, 151 Admission labs White count 28.8, hemoglobin 14.9, platelets 296, potassium 4.4, creatinine 0.54 Blood glucose 286 UA positive for leukoesterase WBC RBC Serum acetone positive Assessment-: -Acute diabetic ketoacidosis, with a recent new diagnosis of diabetes mellitus type 2 -Acute UTI from pyelonephritis with known underlying nephrolithiasis -Chronic nephrolithiasis -Leukocytosis -Obesity BMI 35.7 Plan: patient is having more nausea today. Want to give this is a component of diabetic gastroparesis. Reglan is being added. Care was discussed with the patient. encouragedbe out of bed in the hallway. Repeat labs in the morning.
[2019-05-18] MEDS: METOCLOPRAMIDE 10 MG TAB PO SCH (21:55)
[2019-05-19 06:23] LABS: HCT 37.1 % (34.0-46.0); HGB 12.2 gm/dL (11.4-16.0); MCV 93.8 fL (80.0-100.0); Mean Platelet Volume 7.7; Platelet Count 248 k/uL (150-450); RBC 3.95 m/uL (3.80-5.40); RDW 15.4 % (11.5-15.5); WBC 13.9 k/uL (3.8-10.6)
[2019-05-19 06:28] LABS: African American GFR (CKD) >90 (>60 ml/min/1.73 sqM); Anion Gap 6 mmol/L; Blood Urea Nitrogen 12 mg/dL (7-17); Calcium 8.9 mg/dL (8.4-10.2); Carbon Dioxide 30 mmol/L (22-30); Chloride 105 mmol/L (98-107); Glucose 142 mg/dL (74-99); Potassium 3.6 mmol/L (3.5-5.1); Sodium 141 mmol/L (137-145)
--- NOTE | 2019-05-19 06:44 | P.PN ---
Subjective Progress Note Date: 05/19/19 The patient is in with pyelonephritis. She has chronic right hydro-. She is growing E. coli. She can be switched to oral medications at any time. The E. coli is resistant to sulfa, penicillin and tetracycline. I'm setting up cystoscopy retrograde pyelogram and evaluation of the hydronephrotic system which appears to be chronic next week. She should stay on oral antibiotics until this is done. Objective - Vital Signs Vital signs: Vital Signs Temp 97.9 F 05/18/19 23:55 Pulse 54 L 05/18/19 23:55 Resp 16 05/19/19 05:12 BP 122/78 05/18/19 23:55 Pulse Ox 95 05/18/19 23:55 Intake & Output 05/18/19 05/18/19 05/19/19 06:59 18:59 06:59 Intake Total 410 Output Total 650 Balance -240 Weight 109.5 kg 103.9 kg Intake: Intake, IV Titration 50 Amount cefTRIAXone 1 gm In 50 Sodium Chloride 0.9% 50 ml @ 100 mls/hr IVPB Q24HR [facility] Rx#:[id number] Oral 360 Output: Urine 600 Emesis 50 Other: Voiding Method Toilet Toilet Toilet # Voids 1 1 1 - Labs CBC & Chem 7: 05/19/19 06:01 05/19/19 06:01 Labs: Abnormal Lab Results - Last 24 Hours (Table) 05/18/19 05/18/19 05/18/19 Range/Units 05:54 07:50 09:37 WBC (3.8-10.6) k/uL RBC 3.77 L (3.80-5.40) m/uL Creatinine (0.52-1.04) mg/dL Glucose (74-99) mg/dL POC Glucose (mg/dL) 118 H 132 H (75-99) mg/dL 05/18/19 05/18/19 05/18/19 Range/Units 12:29 17:35 20:43 WBC (3.8-10.6) k/uL RBC (3.80-5.40) m/uL Creatinine (0.52-1.04) mg/dL Glucose (74-99) mg/dL POC Glucose (mg/dL) 146 H 151 H 151 H (75-99) mg/dL 05/19/19 05/19/19 Range/Units 06:01 06:01 WBC 13.9 H (3.8-10.6) k/uL RBC (3.80-5.40) m/uL Creatinine 0.51 L (0.52-1.04) mg/dL Glucose 142 H (74-99) mg/dL POC Glucose (mg/dL) (75-99) mg/dL Microbiology - Last 24 Hours (Table) 05/16/19 12:53 Urine Culture - Final Urine,Voided Escherichia coli 05/16/19 14:55 Blood Culture - Preliminary Blood No Growth after 48 hours
[2019-05-19 06:54] LABS: Eosinophils # (M) 0.14 k/uL (0-0.7); Lymphocytes # (M) 6.39 k/uL (1.0-4.8); Monocytes # (M) 0.42 k/uL (0-1.0); Neutrophils % (M) 50 %; Nucleated Red Blood Cells 0 /100 WBC (0-0); Total Cells Counted 100
[2019-05-19 07:05] LABS: Glucose,Whole Blood 166 mg/dL (75-99)
[2019-05-19] MEDS: INSULN ASP PRT/INSULIN ASPART 100 UNIT/ML 10 ML VIAL SQ SCH ×3 (07:20→18:26)
[2019-05-19] MEDS: LACTOBACILLUS ACIDOPH & BULGAR 1 EACH PACKET PO SCH (07:29)
[2019-05-19] MEDS: METOCLOPRAMIDE 10 MG TAB PO SCH ×3 (07:31→18:26)
[2019-05-19] MEDS: metFORMIN 500 MG TAB PO SCH ×2 (07:31→18:26)
[2019-05-19] MEDS: LISINOPRIL 5 MG TAB PO SCH (08:15)
[2019-05-19] MEDS: PANTOPRAZOLE 40 MG TABLET PO SCH (08:15)
[2019-05-19] MEDS: ENOXAPARIN 40 MG/0.4 ML SYRINGE SQ SCH (09:00)
[2019-05-19 12:18] LABS: Glucose,Whole Blood 158 mg/dL (75-99)
[2019-05-19 15:06] LABS: Glucose,Whole Blood 140 mg/dL (75-99)
[2019-05-19] MEDS: ONDANSETRON 4 MG/2 ML VIAL IVP PRN (15:39)
[2019-05-19 16:48] LABS: Glucose,Whole Blood 122 mg/dL (75-99)
--- NOTE | 2019-05-19 19:40 | P.PN ---
Progress Note - Text Progress Note Date: 05/19/19 History of presenting complaint: This is a pleasant 58-year-old patient of Dr. Victoriano Parmar. Recently in the hospital diagnosed with diabetic ketoacidosis. Was discharged on insulin 70/30. Patient also had UTI with known chronic nephrolithiasis. Patient 4 years ago had gone to see Dr. Faria the urologist. Her UA was found to be negative. 2 days ago patient started having nausea vomiting chills right flank pain. And presented to the ER. Patient's found to be in diabetic ketoacidosis. Was given fluids and insulin started feeling better. In fact last night she was able to tolerate a little bit of a supper and had breakfast this morning. Does feel tired and rundown. admitted with diabetic ketoacidosis and right-sided pyelonephritis Today-saw the patient earlier today. She is feeling really good. Plan was to let the patient be discharged this evening. Nurse call me in the evening that the patient again had vomited twice. Patient already been on oral Reglan. Review of systems: Was done for constitutional, cardiovascular, GI, pulmonary. relevant finding as above Active Medications Acetaminophen (Tylenol Tab) 650 mg PO Q6HR PRN PRN Reason: Mild Pain or Fever > 100.5 Atorvastatin Calcium (Lipitor) 20 mg PO HS [facility] Last Admin: 05/18/19 21:04 Dose: 20 mg Documented by: Enoxaparin Sodium (Lovenox) 40 mg SQ DAILY [facility] Last Admin: 05/19/19 09:00 Dose: 40 mg Documented by: Ceftriaxone Sodium 1 gm/ (Sodium Chloride) 50 mls @ 100 mls/hr IVPB Q24HR [facility] Last Admin: 05/19/19 08:46 Dose: 100 mls/hr Documented by: Ibuprofen (Motrin) 400 mg PO Q6HR PRN PRN Reason: Mild Pain or Fever > 100.5 Insulin Aspart (Novolog Mix 70-30 Vial) 14 unit SQ AC-LUNCH [facility] Last Admin: 05/19/19 13:00 Dose: 14 unit Documented by: Insulin Aspart (Novolog Mix 70-30 Vial) 28 unit SQ AC-BID [facility] Last Admin: 05/19/19 18:26 Dose: Not Given Documented by: Ketorolac Tromethamine (Toradol) 30 mg IVP Q6HR PRN PRN Reason: Moderate Pain Stop: 05/21/19 15:54 Last Admin: 05/18/19 21:54 Dose: 30 mg Documented by: Lactobacillus Acidoph/Bulgaricus (Lactinex) 1 each PO DAILY [facility] Last Admin: 05/19/19 07:29 Dose: 1 each Documented by: Lisinopril (Zestril) 5 mg PO BID [facility] Last Admin: 05/19/19 08:15 Dose: 5 mg Documented by: Metformin HCl (Glucophage) 1,000 mg PO BID-W/MEALS [facility] Last Admin: 05/19/19 18:26 Dose: Not Given Documented by: Metoclopramide HCl (Reglan) 10 mg PO ACHS [facility] Last Admin: 05/19/19 18:26 Dose: Not Given Documented by: Morphine Sulfate (Morphine Sulfate (Inj)) 4 mg IV Q4HR PRN PRN Reason: Severe Pain Naloxone HCl (Narcan) 0.2 mg IV Q2M PRN PRN Reason: Opioid Reversal Ondansetron HCl (Zofran) 4 mg IVP Q8HR PRN PRN Reason: Nausea And Vomiting Last Admin: 05/19/19 15:39 Dose: 4 mg Documented by: Ondansetron HCl (Zofran Odt) 8 mg PO Q8H PRN PRN Reason: Nausea Pantoprazole Sodium (Protonix) 40 mg PO DAILY [facility] Last Admin: 05/19/19 08:15 Dose: 40 mg Documented by: Physical examination: VITAL SIGNS: 98.2, 76, 16, 140/76, 97% room air GENERAL: Laying in bed, comfortable EYES: Pupils equal. Conjunctiva normal. HEENT: External appearance of nose and ears normal, oral cavity grossly normal. NECK: JVD not raised; masses not palpable. HEART: First and second heart sounds are normal; no edema. LUNGS: Respiratory rate normal; clear to auscultation. ABDOMEN: Soft, nontender, liver spleen not palpable, no masses palpable. PSYCH: Alert and oriented x3; mood and affect tired. INVESTIGATIONS, reviewed in the clinical context: Accu-Cheks 158, 166, 140 White count 20.19 lm 12.2 Admission labs White count 28.8, hemoglobin 14.9, platelets 296, potassium 4.4, creatinine 0.54 Blood glucose 286 UA positive for leukoesterase WBC RBC Serum acetone positive Assessment-: -Acute diabetic ketoacidosis, with a recent new diagnosis of diabetes mellitus type 2 -Acute UTI from pyelonephritis with known underlying nephrolithiasis -Chronic nephrolithiasis -Leukocytosis -Obesity BMI 35.7 -Recurrent nausea vomiting. Did to rule out underlying diabetic gastroparesis. In any of the local cause. Plan: Patient discharge was canceled. We'll consult GI for endoscopy. We'll also order a gastric emptying test in the morning.
[2019-05-19] MEDS ORDERED: ACETAMINOPHEN IV (For NPO) 1,000 MG in EMPTY BAG 1 BAG IVPB STA (20:09)
[2019-05-19 20:20] LABS: Glucose,Whole Blood 164 mg/dL (75-99)
[2019-05-19] MEDS: METOCLOPRAMIDE 5 MG/ML 2 ML VIAL IVP PRN (22:10)
[2019-05-20] MEDS: ATORVASTATIN 20 MG TAB PO SCH ×2 (03:53→23:23)
[2019-05-20] MEDS: LISINOPRIL 5 MG TAB PO SCH ×3 (03:54→23:23)
[2019-05-20] MEDS: METOCLOPRAMIDE 10 MG TAB PO SCH (03:54)
[2019-05-20 06:06] LABS: Glucose,Whole Blood 107 mg/dL (75-99)
[2019-05-20 06:20] LABS: African American GFR (CKD) >90 (>60 ml/min/1.73 sqM); Anion Gap 8 mmol/L; Blood Urea Nitrogen 9 mg/dL (7-17); Calcium 8.7 mg/dL (8.4-10.2); Carbon Dioxide 30 mmol/L (22-30); Chloride 104 mmol/L (98-107); Glucose 119 mg/dL (74-99); Potassium 3.5 mmol/L (3.5-5.1); Sodium 142 mmol/L (137-145)
[2019-05-20] MEDS: ONDANSETRON 4 MG/2 ML VIAL IVP PRN ×2 (07:58→14:58)
[2019-05-20] MEDS: ENOXAPARIN 40 MG/0.4 ML SYRINGE SQ SCH (07:58)
[2019-05-20] MEDS: PANTOPRAZOLE 40 MG TABLET PO SCH (07:58)
[2019-05-20] MEDS: LACTOBACILLUS ACIDOPH & BULGAR 1 EACH PACKET PO SCH (07:59)
[2019-05-20] MEDS: ACETAMINOPHEN TAB 325 MG TAB PO PRN ×2 (08:01→23:23)
[2019-05-20] MEDS: metFORMIN 500 MG TAB PO SCH ×2 (08:01→17:13)
[2019-05-20] MEDS: INSULN ASP PRT/INSULIN ASPART 100 UNIT/ML 10 ML VIAL SQ SCH ×3 (08:01→17:12)
--- NOTE | 2019-05-20 09:19 | P.PN ---
Subjective Progress Note Date: 05/20/19 THe patient feels better today I suspect the nausea is related to the infection HEr vss SHe is scheduled for a cysto with retrograde and ureteroscoy next thursday SHe should stay on ab until then Objective - Vital Signs Vital signs: Vital Signs Temp 98.4 F 05/20/19 03:55 Pulse 90 05/20/19 03:55 Resp 18 05/20/19 03:55 BP 151/79 05/20/19 03:55 Pulse Ox 98 05/20/19 03:55 Intake & Output 05/19/19 05/20/19 05/20/19 18:59 06:59 18:59 Intake Total 720 Output Total 400 200 Balance 320 -200 Weight 105.5 kg Intake: Oral 720 Output: Urine 400 200 Other: Voiding Method Toilet Toilet # Voids 2 1 - Labs CBC & Chem 7: 05/19/19 06:01 05/20/19 05:31 Labs: Abnormal Lab Results - Last 24 Hours (Table) 05/19/19 05/19/19 05/19/19 Range/Units 11:51 15:03 16:45 Creatinine (0.52-1.04) mg/dL Glucose (74-99) mg/dL POC Glucose (mg/dL) 158 H 140 H 122 H (75-99) mg/dL 05/19/19 05/20/19 05/20/19 Range/Units 20:18 05:31 06:04 Creatinine 0.50 L (0.52-1.04) mg/dL Glucose 119 H (74-99) mg/dL POC Glucose (mg/dL) 164 H 107 H (75-99) mg/dL Microbiology - Last 24 Hours (Table) 05/16/19 14:55 Blood Culture - Preliminary Blood No Growth after 72 hours
--- NOTE | 2019-05-20 11:07 | P.CONS ---
History of Present Illness - Reason for Consult Consult date: 05/20/19 Nausea vomiting Requesting physician: Elvin Obando - Chief Complaint Nausea vomiting - History of Present Illness 58 year old female recently diagnosed with acute diabetes mellitus about 6 weeks ago with fluctuations of hyperglycemia compounded with intractable nonbloody nausea vomiting admitted with acute intractable nausea vomiting acute pyelonephritis E. coli UTI. Recently hospitalized for acute diabetic acidosis. Additional history of UTI with known chronic urolithiasis previously requiring ESWL she is scheduled for ureteroscopy next Thursday. Computed tomography 05/03/2019 scan from previous admission reported right hydroureteronephrosis. Receiving antibiotics. Denies hematemesis and he's or melena. No history of EGD. Consult request for EGD evaluation. No emesis since yesterday evening very small amount. Gastric emptying study advised presently on hold secondary to medications she received within the past 24 hours. Review of Systems Constitutional: Denies fever, chills, sweats, weight gain, or loss. HEENT: Negative for migraines, blurred vision or loss, earaches, drainage, tinnitus, oral mucosal lesions, dysphagia, or odynophagia. CARDIAC: Negative for chest pain, arrhythmias, or palpitation. RESPIRATORY: Negative for shortness of breath, hemoptysis, cough, or sputum production. GI: See HPI for pertinent findings. : Negative for hematuria, urgency, frequency, polyuria, or dysuria. GYNc: Denies possibility of . Negative vaginal discharge. MUSCULOSKELETAL: Negative for muscle aches, swelling, arthritis, and arthralgias. NEUROLOGIC: Negative for stroke or TIA. ENDOCRINE: Negative for thyroid problems. SKIN: Negative for rash or itching. PSYCHIATRIC: Negative history for depression and anxiety Past Medical History Past Medical History: Diabetes Mellitus, Osteoarthritis (OA), Syncope Additional Past Medical History / Comment(s): kidney stones, lithotrispies. History of Any Multi-Drug Resistant Organisms: None Reported Past Surgical History: Section Past Anesthesia/Blood Transfusion Reactions: No Reported Reaction Past Psychological History: No Psychological Hx Reported Smoking Status: Never smoker Past Alcohol Use History: Occasional Past Drug Use History: Marijuana - Past Family History Father Family Medical History: Congestive Heart Failure (CHF) Sister(s) Family Medical History: Cancer Additional Family Medical History / Comment(s): cervical cancer Medications and Allergies Home Medications Medication Instructions Recorded Confirmed Type Ondansetron Odt [Zofran ODT] 8 mg PO Q8H PRN 04/18/19 05/16/19 History Atorvastatin [Lipitor] 20 mg PO HS #30 tab 04/20/19 05/16/19 Rx Lisinopril [Zestril] 5 mg PO BID #60 tab 04/20/19 05/16/19 Rx L.acidoph,Paracasei, B.lactis 1 cap PO DAILY 05/03/19 05/16/19 History [Probiotic] Acetaminophen Tab [Tylenol] 500 mg PO Q6HR PRN #20 tab 05/06/19 05/16/19 Rx Cephalexin [Keflex] 250 mg PO Q6HR #28 cap 05/19/19 Rx Insuln Asp Prt/Insulin Aspart 14 unit SQ AC-LUNCH #1 vial 05/19/19 05/16/19 Rx [NovoLOG MIX 70-30 VIAL] Insuln Asp Prt/Insulin Aspart 28 unit SQ AC-BID #1 vial 05/19/19 05/16/19 Rx [NovoLOG MIX 70-30 VIAL] Metoclopramide [Reglan] 10 mg PO ACHS #10 tab 05/19/19 Rx metFORMIN HCL 1,000 mg PO BID #60 tab 05/19/19 Rx Allergies Allergy/AdvReac Type Severity Reaction Status Date / Time Sulfa (Sulfonamide Allergy Rash/Hives Verified 05/16/19 14:18 Antibiotics) Physical Exam Vitals: Vital Signs Temp Pulse Resp BP Pulse Ox 05/20/19 08:50 82 16 05/20/19 07:56 99 F 82 16 158/69 96 05/20/19 03:55 98.4 F 90 18 151/79 98 05/20/19 00:00 99.1 F 84 18 114/62 95 05/19/19 20:00 100.5 F H 94 18 184/84 96 05/19/19 16:00 99.2 F 88 19 185/84 97 05/19/19 12:00 98.2 F 76 16 140/76 97 Intake and Output 05/19/19 05/20/19 05/20/19 22:59 06:59 14:59 Output Total 400 200 Balance -400 -200 Output: Urine 400 200 Other: Voiding Method Toilet Toilet Toilet # Voids 1 3 Weight 105.5 kg General appearance: The patient is alert, oriented, in no acute distress. HET: Head is normocephalic and atraumatic. Pupils are equal and reactive. O ropharynx is clear without lesions. Neck: Supple without lymphadenopathy. Trachea midline. Heart: S1 S2. Regular rate and rhythm. Lungs: No crackles or wheezes are heard. Abdomen: Soft, nontender, nondistended with bowel sounds. No peritoneal signs. No palpable organomegaly or masses. Extremities: Normal skin color and turgor. No cyanosis, rash, ulceration, clubbing, or edema. Radial and pedal pulses are 2/4 bilaterally. Neurological: No focal deficits. Strength and sensation are grossly intact. Results CBC & Chem 7: 05/19/19 06:01 05/20/19 05:31 Labs: Abnormal Lab Results - Last 24 Hours (Table) 05/19/19 05/19/19 05/19/19 Range/Units 11:51 15:03 16:45 Creatinine (0.52-1.04) mg/dL Glucose (74-99) mg/dL POC Glucose (mg/dL) 158 H 140 H 122 H (75-99) mg/dL 05/19/19 05/20/19 05/20/19 Range/Units 20:18 05:31 06:04 Creatinine 0.50 L (0.52-1.04) mg/dL Glucose 119 H (74-99) mg/dL POC Glucose (mg/dL) 164 H 107 H (75-99) mg/dL Microbiology - Last 24 Hours (Table) 05/16/19 14:55 Blood Culture - Preliminary Blood No Growth after [address] scan - abdomen: report reviewed (05/03/[address] Sánchez) Assessment and Plan (1) Nausea & vomiting Narrative/Plan: 58 year old female medical with acute on chronic nonbloody nausea vomiting 6 week duration with new diagnosis of diabetes mellitus fluctuating hyperglycemia with underlying chronic urolithiasis previous ESWL and known right hydroureteronephrosis scheduled next week for ureteroscopy. Nausea vomiting most likely symptomatic secondary to hyperglycemia as well as E. coli UTI. Current Visit: Yes Status: Acute Code(s): R11.2 - NAUSEA WITH VOMITING, UNSPECIFIED SNOMED Code(s): 30275815 (2) Acute pyelonephritis Current Visit: Yes Status: Acute Code(s): N10 - ACUTE PYELONEPHRITIS SNOMED Code(s): 60660218 (3) Acute UTI Current Visit: No Status: Acute Code(s): N39.0 - URINARY TRACT INFECTION, SITE NOT SPECIFIED SNOMED Code(s): 132330558 (4) Diabetes Current Visit: Yes Status: Acute Code(s): E11.9 - TYPE 2 DIABETES MELLITUS WITHOUT COMPLICATIONS SNOMED Code(s): 83021731 Plan: 1. We'll proceed with EGD today. Gastric imaging study not advised at this time. Symptomatic supportive measures. The aircraft electronics technical officer has discussed the risks, benefits and alternative therapies for the above-mentioned procedure and for both sedation/analgesia as well as necessary blood product administration, if indicated, as they pertain to this patient. The patient has indicated understanding and acceptance of the risks and procedures discussed. Thank you for this kind referral and the opportunity to participate in the care of your patient. This consultation was discussed with Dr. Sánchez. The impression and plan of care have been directed as dictated.
[2019-05-20] MEDS: METOCLOPRAMIDE 5 MG/ML 2 ML VIAL IVP PRN ×2 (12:00→17:14)
[2019-05-20 12:08] LABS: Glucose,Whole Blood 150 mg/dL (75-99)
[2019-05-20] MEDS ORDERED: PROPOFOL 10 MG/ML 20 ML VIAL IV ONE (14:20)
[2019-05-20] MEDS ORDERED: LIDOCAINE 1% INJ 10MG/ML (20 ML MDV) ONE (14:20)
[2019-05-20] MEDS ORDERED: SODIUM CHLORIDE 0.9% 1,000 ML IV ONE ×2 (14:24)
--- NOTE | 2019-05-20 14:39 | P.PCN ---
Date of Procedure: 05/20/19 Procedure(s) Performed: BRIEF HISTORY: Patient is a 58-year-old, pleasant,-year-old female, admitted hospital with nausea vomiting for the last 6 weeks duration as well as hyperglycemia. She is been having intermittent episodes of nausea vomiting at least 3-4 times a week. She has some right-sided abdominal pain. In view of this and she is scheduled for an upper endoscopy to evaluate further. PROCEDURE PERFORMED: Esophagogastroduodenoscopy with biopsy. PREOPERATIVE DIAGNOSIS: Chronic nausea vomiting of 6 weeks duration. IV sedation per anesthesia. PROCEDURE: After informed consent was obtained, the patient was brought into the endoscopy unit. IV sedation was administered by Anesthesia under continuous monitoring. Initially the Olympus GIF-140 video endoscope was inserted into the mouth. Esophagus intubated without any difficulty. It was gradually advanced into the stomach and duodenum and carefully examined. The bulb and the second part of the duodenum appeared normal. Biopsies were done from the duodenum to rule out celiac disease The scope at this time was withdrawn to the stomach, adequately insufflated with air, and upon careful examination, mucosa of the antrum, had scattered erosions and biopsies were done from this area. The body, cardia and the fundus appeared normal. The scope was then withdrawn into the esophagus. The GE junction was located at 341cm from the incisors. The esophagus appeared normal. There were no erosions or ulcerations seen and the patient kelly erated the procedure well. IMPRESSION: 1. Mild antral erosive gastritis. 2. No evidence of esophagitis or peptic ulcer disease. RECOMMENDATIONS: The findings of this examination were discussed with the patient. At this time will await the biopsy results. Diet will be advanced as tolerated. Continue with Protonix 40 mg daily and small frequent
[2019-05-20 16:46] LABS: Glucose,Whole Blood 143 mg/dL (75-99)
[2019-05-20] MEDS: PIPERACILLIN-TAZOBACTAM 3.375 GM in SODIUM CHLORIDE 0.9% 100 ML IVPB SCH (20:03)
[2019-05-20 20:16] LABS: Glucose,Whole Blood 193 mg/dL (75-99)
--- NOTE | 2019-05-20 22:19 | P.PN ---
Progress Note - Text Progress Note Date: 05/20/19 History of presenting complaint: This is a pleasant 58-year-old patient of Dr. Victoriano Parmar. Recently in the hospital diagnosed with diabetic ketoacidosis. Was discharged on insulin 70/30. Patient also had UTI with known chronic nephrolithiasis. Patient 4 years ago had gone to see Dr. Faria the urologist. Her UA was found to be negative. 2 days ago patient started having nausea vomiting chills right flank pain. And presented to the ER. Patient's found to be in diabetic ketoacidosis. Was given fluids and insulin started feeling better. In fact last night she was able to tolerate a little bit of a supper and had breakfast this morning. Does feel tired and rundown. admitted with diabetic ketoacidosis and right-sided pyelonephritis Today-now for 2 days and O patient's felt much better during the daytime then again developed nausea vomiting. Also developed low-grade fever last night. n. Review of systems: Was done for constitutional, cardiovascular, GI, pulmonary. relevant finding as above Physical examination: VITAL SIGNS: 98.6, 95, 18, 140 of breast 57, 94% room air GENERAL: Laying in bed, tired EYES: Pupils equal. Conjunctiva normal. HEENT: External appearance of nose and ears normal, oral cavity grossly normal. NECK: JVD not raised; masses not palpable. HEART: First and second heart sounds are normal; no edema. LUNGS: Respiratory rate normal; clear to auscultation. ABDOMEN: Soft, nontender, liver spleen not palpable, no masses palpable. PSYCH: Alert and oriented x3; mood and affect tired. INVESTIGATIONS, reviewed in the clinical context: Accu-Cheks 107, 150, 143 White count 20.19 lm 12.2 Admission labs White count 28.8, hemoglobin 14.9, platelets 296, potassium 4.4, creatinine 0.54 Blood glucose 286 UA positive for leukoesterase WBC RBC Serum acetone positive Assessment-: -Acute diabetic ketoacidosis, with a recent new diagnosis of diabetes mellitus type 2 -Acute UTI from pyelonephritis with known underlying nephrolithiasis -Chronic nephrolithiasis -Leukocytosis -Obesity BMI 35.7 -Recurrent nausea vomiting. EGD done today was unremarkable -Is entirely possible the patient has probably underlying autonomic dysfunction secondary to diabetes possibly nausea vomiting coming from gastroparesis clostridial blood pressure from the same Plan: Patient did undergo EGD today. Was also unremarkable. Continue with IV Zosyn. Keep and and patient sees 24 hours. Care was discussed with the patient. Encouraged to ambulate. Gastric emptying study can be done as an outpatient.
[2019-05-21] MEDS: METOCLOPRAMIDE 5 MG/ML 2 ML VIAL IVP PRN ×2 (00:27→07:43)
[2019-05-21] MEDS: PIPERACILLIN-TAZOBACTAM 3.375 GM in SODIUM CHLORIDE 0.9% 100 ML IVPB SCH ×2 (05:30→12:40)
[2019-05-21] MEDS: ONDANSETRON 4 MG/2 ML VIAL IVP PRN ×2 (05:35→12:39)
[2019-05-21 06:46] LABS: African American GFR (CKD) >90 (>60 ml/min/1.73 sqM); Anion Gap 9 mmol/L; Blood Urea Nitrogen 10 mg/dL (7-17); Calcium 8.4 mg/dL (8.4-10.2); Carbon Dioxide 28 mmol/L (22-30); Chloride 103 mmol/L (98-107); Glucose 132 mg/dL (74-99); Potassium 3.6 mmol/L (3.5-5.1); Sodium 140 mmol/L (137-145)
[2019-05-21 07:33] LABS: Glucose,Whole Blood 120 mg/dL (75-99)
[2019-05-21] MEDS: INSULN ASP PRT/INSULIN ASPART 100 UNIT/ML 10 ML VIAL SQ SCH ×3 (07:38→17:21)
[2019-05-21] MEDS: LISINOPRIL 5 MG TAB PO SCH (07:42)
[2019-05-21] MEDS: ENOXAPARIN 40 MG/0.4 ML SYRINGE SQ SCH (07:42)
[2019-05-21] MEDS: metFORMIN 500 MG TAB PO SCH ×2 (07:42→17:21)
[2019-05-21] MEDS: PANTOPRAZOLE 40 MG TABLET PO SCH (07:42)
[2019-05-21] MEDS: LACTOBACILLUS ACIDOPH & BULGAR 1 EACH PACKET PO SCH (07:42)
--- NOTE | 2019-05-21 10:34 | PN ---
PROGRESS NOTE DATE OF DICTATION: 05/21/2019 Patient is a 58-year-old pleasant white female admitted to the hospital with uncontrolled blood sugars, intermittent nausea, vomiting for the last 6 weeks' duration. The patient underwent an upper endoscopy yesterday that showed evidence of mild gastritis and a small hiatal hernia. Following the upper endoscopy she had an episode of coffee-ground emesis and she also had severe nausea yesterday. She is presently on Protonix 40 mg twice daily as well as Zofran and Reglan and this morning is feeling much better. She had a regular breakfast and no further episodes. PHYSICAL EXAMINATION: She appears comfortable. No acute distress. Vital signs are stable. Blood pressure is 162/82, pulse rate 71, temperature 97.4. HEENT examination unremarkable. Conjunctivae pink. Sclerae anicteric. Oral cavity no lesions. She appears comfortable. No apparent distress. VITAL SIGNS: Stable. Blood pressure is 138/82, pulse rate 70, temperature 98.2. HEENT examination unremarkable. Conjunctivae pink. Sclerae anicteric. Oral cavity no lesions. NECK: No JVD or lymph node enlargement. CHEST: Clear to auscultation. HEART: Regular rate and rhythm. ABDOMEN: Soft. Bowel sounds are positive. It was non-tender, non-distended. EXTREMITIES: No pedal edema. SKIN: No rashes. NEUROLOGIC: She is alert and oriented x3. No focal deficits. LABS FROM TODAY: Basic metabolic panel is within normal limits. Blood sugars are 132. IMPRESSION: 1. Chronic nausea, vomiting of 6 weeks' duration, status post upper endoscopy yesterday that showed evidence of mild gastritis but no evidence of peptic ulcer disease or gastric outlet obstruction. 2. Newly diagnosed diabetes mellitus 6 weeks ago. 3. Diabetic ketoacidosis, resolved. RECOMMENDATIONS: 1. Advance diet as tolerated. 2. Small frequent meals. 3. Continue with Protonix 40 mg daily. 4. Anti-emetics as needed. Thank you for this consultation. MMODL / IJN: [id number] /
[2019-05-21 12:39] LABS: Glucose,Whole Blood 164 mg/dL (75-99)
[2019-05-21 13:33] VITALS: RESP 18
[2019-05-21 16:08] VITALS: BP 169/64; PULSE 75; TEMP 98.1
[2019-05-21 17:21] LABS: Glucose,Whole Blood 141 mg/dL (75-99)
--- NOTE | 2019-05-21 21:59 | P.DS ---
Providers Date of admission: 05/18/19 16:12 Expected date of discharge: 05/21/19 Attending physician: Elvin Obando Consults: 05/16/19 15:53 Consult Physician Stat Consulting Provider: David Webster Consult Reason/Comments: Urosepsis, Recurrent UTI, Hydroureter Do you want consulting provider notified?: Yes 05/19/19 16:01 Consult Physician Urgent Consulting Provider: Vlad Serrano Consult Reason/Comments: N\V; please sched. EGD for tomorrow per Dr. Obando Do you want consulting provider notified?: Yes Primary care physician: Victoriano Jacob [facility] Course: Hospital course: This is a pleasant 58-year-old patient of Dr. Victoriano Parmar. Recently in the hospital diagnosed with diabetic ketoacidosis. Was discharged on insulin 70/30. Patient also had UTI with known chronic nephrolithiasis. Patient 4 years ago had gone to see Dr. Faria the urologist. Her UA was found to be negative. 2 days ago patient started having nausea vomiting chills right flank pain. And p resented to the ER. Patient's found to be in diabetic ketoacidosis. Was given fluids and insulin started feeling better. In fact last night she was able to tolerate a little bit of a supper and had breakfast this morning. Does feel tired and rundown. admitted with diabetic ketoacidosis and right-sided pyelonephritis. Patient is getting better but kept having repeated nausea. EGD showed show. Of gastritis. Patient is put on PPI. Today patient did much better. Care was discussed in length with the patient. Patient is is due to get a surgery for kidney stones this coming Thursday. Consultation: Dr. Faria from neurology Dr. Sujatha Sánchez from GI Procedure: EGD Physical examination: VITAL SIGNS: 97.4, 71, 16, 140 with 78, 95% on room air GENERAL: Sitting up comfortable EYES: Pupils equal. Conjunctiva normal. HEENT: External appearance of nose and ears normal, oral cavity grossly normal. NECK: JVD not raised; masses not palpable. HEART: First and second heart sounds are normal; no edema. LUNGS: Respiratory rate normal; clear to auscultation. ABDOMEN: Soft, nontender, liver spleen not palpable, no masses palpable. PSYCH: Alert and oriented x3; mood and affect tired. INVESTIGATIONS, reviewed in the clinical context: Accu-Cheks 120, 164, 141 White count 20.19 lm 12.2 EGD-mild erosive gastritis Admission labs White count 28.8, hemoglobin 14.9, platelets 296, potassium 4.4, creatinine 0.54 Blood glucose 286 UA positive for leukoesterase WBC RBC Serum acetone positive Discharge diagnosis: -Acute diabetic ketoacidosis, with a recent new diagnosis of diabetes mellitus type 2 -Acute UTI from pyelonephritis with known underlying nephrolithiasis -Chronic nephrolithiasis -Leukocytosis -Obesity BMI 35.7 -Gastritis Disposition: Home Patient Condition at Discharge: Stable Plan - Discharge Summary Discharge Rx Participant: No New Discharge Prescriptions: New metFORMIN HCL 1,000 mg PO BID #60 tab Ciprofloxacin HCl [Cipro] 500 mg PO Q12HR #14 tablet Omeprazole [PriLOSEC] 20 mg PO AC-BID #60 cap Continue Ondansetron Odt [Zofran ODT] 8 mg PO Q8H PRN PRN Reason: Nausea Atorvastatin [Lipitor] 20 mg PO HS #30 tab Lisinopril [Zestril] 5 mg PO BID #60 tab L.acidoph,Paracasei, B.lactis [Probiotic] 1 cap PO DAILY Acetaminophen Tab [Tylenol] 500 mg PO Q6HR PRN #20 tab PRN Reason: Fever And/ Or Pain Changed Insuln Asp Prt/Insulin Aspart [NovoLOG MIX 70-30 VIAL] 14 unit SQ AC-LUNCH #1 vial Insuln Asp Prt/Insulin Aspart [NovoLOG MIX 70-30 VIAL] 28 unit SQ AC-BID #1 vial Discontinued metFORMIN HCL [Glucophage] 500 mg PO BID-W/MEALS #60 tab Discharge Medication List Ondansetron Odt [Zofran ODT] 8 mg PO Q8H PRN 04/18/19 [History] Atorvastatin [Lipitor] 20 mg PO HS #30 tab 04/20/19 [Rx] Lisinopril [Zestril] 5 mg PO BID #60 tab 04/20/19 [Rx] L.acidoph,Paracasei, B.lactis [Probiotic] 1 cap PO DAILY 05/03/19 [History] Acetaminophen Tab [Tylenol] 500 mg PO Q6HR PRN #20 tab 05/06/19 [Rx] Insuln Asp Prt/Insulin Aspart [NovoLOG MIX 70-30 VIAL] 14 unit SQ AC-LUNCH #1 vial 05/19/19 [Rx] Insuln Asp Prt/Insulin Aspart [NovoLOG MIX 70-30 VIAL] 28 unit SQ AC-BID #1 vial 05/19/19 [Rx] metFORMIN HCL 1,000 mg PO BID #60 tab 05/19/19 [Rx] Ciprofloxacin HCl [Cipro] 500 mg PO Q12HR #14 tablet 05/21/19 [Rx] Omeprazole [PriLOSEC] 20 mg PO AC-BID #60 cap 05/21/19 [Rx] Follow up Appointment(s)/Referral(s): Marii Sánchez MD [STAFF PHYSICIAN] - 2 Weeks (Please call and make appointment Thursday) Victoriano Jacob DO [Primary Care Provider] - 05/24/19 9:30 am David Webster MD [STAFF PHYSICIAN] - 05/25/19 12:30 pm (Surgery scheduled for May 25 at 12:30 PM. The hospital will call you with pre-op instructions. ) Patient Instructions/Handouts: Diet for Stomach Ulcers and Gastritis (ED), Kidney Infection (DC), Sepsis (GEN), Diabetic Hyperglycemia (DC) Discharge Disposition: HOME SELF-CARE
--- NOTE | 2019-05-23 16:09 | CDI ---
Documentation Clarification Form Date: 05/23/19 From: Chelsie Alcaraz Phone: If you have a question regardint this query, please contact Jenise Saenz at [phone] between 8am and 5pm. Admit Date: 05/18/2019 4:12:00 PM Patient Name: Amarilis Chaidez Visit Number: [id number] Discharge Date: 05/21/2019 5:50:00 PM ATTENTION: The Clinical Documentation Specialists (CDI) and [facility] Coding Staff appreciate your assistance in clarifying documentation. Please respond to the clarification below the line at the bottom and electronically sign. The CDI & [facility] Coding staff will review the response and follow-up if needed. Please note: Queries are made part of the Legal Health Record. If you have any questions, please contact the author of this message via ITS. Dr. Elvin Obando The patient presented with the following E.coli acute pyelonephritis with hydronephrosis. Sepsis was documented in the ED note but not carried through the rest of the chart. History/Risk Factors: Recurrent UTI. Clinical Indicators: Elevated WBC WBC: 28,000 Lactic acid: 1.2 Blood cultures: No growth Vitals signs on admission: T. 98.9, Pulse 107, R. 18, BP 165/88 Treatment: Antibiotics: IV Rocephin, IV Zosyn, IV Bolus: 1 liter then at 200 mls/hr In your professional opinion, please clarify if these findings signify one of the following conditions, whether the condition is POA, and cause, if known: Condition Sepsis ruled out SIRS, without underlying infectious process Sepsis Severe Sepsis Septic Shock Other, please specify Unable to determine Present on Admission Yes No Identify the (suspected) organism Link or clarify if there is associated (due to/with): Organ failure Shock Possible sepsis from pyelonephritis, from E. coli, POA MTDD
== END 2019-05-21 17:50 | disposition home or self-care (01) | DRG 871 ==
LOC: EC 12:08 → 3SCARD 15:03 → OBSVTOIN 05-18 16:12
PROVIDERS: ADMIT Hospitalist; ATTEND Hospitalist
PROC: 0DB78ZX Excision of Stomach, Pylorus, Via Natural or Artificial Opening Endoscopic, Diagnostic (ICD-10-PCS; 2019-05-20)
PROC: 0DB98ZX Excision of Duodenum, Via Natural or Artificial Opening Endoscopic, Diagnostic (ICD-10-PCS; principal; 2019-05-20 08:05)
DX: A41.51 Sepsis due to Escherichia coli [E. coli] (principal); E11.10 Type 2 diabetes mellitus with ketoacidosis without coma; N13.6 Pyonephrosis; E66.9 Obesity, unspecified; K29.60 Other gastritis without bleeding; K44.9 Diaphragmatic hernia without obstruction or gangrene; M19.90 Unspecified osteoarthritis, unspecified site; G43.909 Migraine, unspecified, not intractable, without status migrainosus; Z68.35 Body mass index [BMI] 35.0-35.9, adult; Z79.4 Long term (current) use of insulin; Z79.899 Other long term (current) drug therapy; Z87.440 Personal history of urinary (tract) infections; Z87.442 Personal history of urinary calculi; Z88.7 Allergy status to serum and vaccine; Z80.49 Family history of malignant neoplasm of other genital organs; Z82.49 Family history of ischemic heart disease and other diseases of the circulatory system
CPT/HCPCS: 36415; 43239; 80048; 80051; 80053; 81001; 81025; 82009; 82150; 82565; 82947; 83605; 83690; 84100; 84520; 85025; 85027; 87040; 87077; 87086; 87186; 88305; 96361; 96374; 96375; 99291

== ENCOUNTER 2019-05-22 11:33 | Emergency (ER) | payer OTHER ==
[2019-05-22 12:05] VITALS: RESP 18; TEMP 98.9
--- NOTE | 2019-05-22 13:15 | ED ---
General Adult HPI - General Chief complaint: Recheck/Abnormal Lab/Rx Stated complaint: Vomiting/facial swelling Time Seen by Provider: 05/22/19 12:51 Source: patient, RN notes reviewed Mode of arrival: ambulatory Limitations: no limitations - History of Present Illness Initial comments: Patient is a 58-year-old female who presents for chief complaint of chills and nausea vomiting. Patient states she was recently admitted for infection and urine as well as possible kidney stone. Also noted to be in DKA at that time. She states this has been ongoing for a few weeks. She was released last night and then today started have chills nausea vomiting. Patient has no other complaints at this time including shortness of breath, chest pain, abdominal p ain, nausea or vomiting, headache, or visual changes. - Related Data Home Medications Medication Instructions Recorded Confirmed Ondansetron Odt [Zofran ODT] 8 mg PO Q8H PRN 04/18/19 05/22/19 L.acidoph,Paracasei, B.lactis 1 cap PO DAILY 05/03/19 05/22/19 [Probiotic] Previous Rx's Medication Instructions Recorded Atorvastatin [Lipitor] 20 mg PO HS #30 tab 04/20/19 Lisinopril [Zestril] 5 mg PO BID #60 tab 04/20/19 Acetaminophen Tab [Tylenol] 500 mg PO Q6HR PRN #20 tab 05/06/19 Insuln Asp Prt/Insulin Aspart 14 unit SQ AC-LUNCH #1 vial 05/19/19 [NovoLOG MIX 70-30 VIAL] Insuln Asp Prt/Insulin Aspart 28 unit SQ AC-BID #1 vial 05/19/19 [NovoLOG MIX 70-30 VIAL] metFORMIN HCL 1,000 mg PO BID #60 tab 05/19/19 Ciprofloxacin HCl [Cipro] 500 mg PO Q12HR #14 tablet 05/21/19 Omeprazole [PriLOSEC] 20 mg PO AC-BID #60 cap 05/21/19 Allergies Allergy/AdvReac Type Severity Reaction Status Date / Time Sulfa (Sulfonamide Allergy Rash/Hives Verified 05/22/19 12:42 Antibiotics) Review of Systems ROS Statement: Those systems with pertinent positive or pertinent negative responses have been documented in the HPI. ROS Other: All systems not noted in ROS Statement are negative. Past Medical History Past Medical History: Diabetes Mellitus, Osteoarthritis (OA), Syncope Additional Past Medical History / Comment(s): kidney stones, lithotrispies. History of Any Multi-Drug Resistant Organisms: None Reported Past Surgical History: Section Past Anesthesia/Blood Transfusion Reactions: No Reported Reaction Past Psychological History: No Psychological Hx Reported Smoking Status: Never smoker Past Alcohol Use History: Occasional Past Drug Use History: Marijuana - Past Family History Father Family Medical History: Congestive Heart Failure (CHF) Sister(s) Family Medical History: Cancer Additional Family Medical History / Comment(s): cervical cancer General Exam Limitations: no limitations General appearance: alert, in no apparent distress Head exam: Present: atraumatic, normocephalic, normal inspection Eye exam: Present: normal appearance, PERRL, EOMI. Absent: scleral icterus, conjunctival injection, periorbital swelling ENT exam: Present: normal exam, mucous membranes moist Neck exam: Present: normal inspection, full ROM, lymphadenopathy (submandibular lymphadenopathy noted). Absent: tenderness, meningismus Respiratory exam: Present: normal lung sounds bilaterally. Absent: respiratory distress, wheezes, rales, rhonchi, stridor Cardiovascular Exam: Present: regular rate, normal rhythm, normal heart sounds. Absent: systolic murmur, diastolic murmur, rubs, gallop, clicks Neurological exam: Present: alert Course Vital Signs 05/22/19 05/22/19 12:01 14:57 Temperature 98.9 F Pulse Rate 89 Respiratory 18 Rate Blood Pressure 204/96 179/102 O2 Sat by Pulse 96 Oximetry Medical Decision Making - Medical Decision Making Reports from both recent admissions were reviewed. Patient was seen in the hospital and diagnosed with diabetic ketoacidosis, discharged home on insulin. She also had UTI with a possible chronic nephrolithiasis. CT was done and it showed persistent right-sided hydronephrosis. 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 She also had EGD which showed gastritis and patient was put on a PPI. Patient was not able to use her medications yesterday or today because the pharmacy was not open and apparently. Patient is scheduled for cystoscopy on Thursday and was told to stay on antibiotics until done. 58-year-old female presents for chief, and chills with nausea and vomiting. Patient recently admitted for urinary tract infection as well as hydronephrosis of the right kidney that is persistent in nature. Scheduled for a cystogram on Thursday. Patient released last night and then started to have chills and nausea again today. Upon presentation since vitals are stable. She is hypertensive however did not take her medications today. This will be ordered for her. CBC today shows a leukocytosis of 15.9 which is consistent with past CBCs and does correlate with vomiting. CMP is unremarkable. Glucose is 201 rechecked. Patient was given 2 L of fluids. Urine does show 4+ ketones as could be secondary to hydration with moderate leukocyte Estrace. No evidence of infection at this time. Acetone is positive but anion gap is normal. Dr. Jackson discussed patient with Dr. Obando. At this point it was decided patient will be discharged home to follow up with her urologist on Thursday at her appointment. Discussed returning if she has any worsening symptoms. She will get her prescriptions filled as she has not yet done so from her discharge yesterday. - Lab Data Result diagrams: 05/22/19 13:20 05/22/19 13:20 Lab Results 05/22/19 05/22/19 05/22/19 Range/Units 13:20 13:20 13:20 WBC 15.9 H (3.8-10.6) k/uL RBC 4.43 (3.80-5.40) m/uL Hgb 13.9 (11.4-16.0) gm/dL Hct 40.5 (34.0-46.0) % MCV 91.4 (80.0-100.0) fL MCH 31.3 (25.0-35.0) pg MCHC 34.3 (31.0-37.0) g/dL RDW 13.4 (11.5-15.5) % Plt Count 281 (150-450) k/uL Neutrophils % 54 % Lymphocytes % 42 % Monocytes % 2 % Eosinophils % 0 % Basophils % 0 % Neutrophils # 8.6 H (1.3-7.7) k/uL Lymphocytes # 6.6 H (1.0-4.8) k/uL Monocytes # 0.3 (0-1.0) k/uL Eosinophils # 0.0 (0-0.7) k/uL Basophils # 0.0 (0-0.2) k/uL Manual Slide Review Performed RBC Morphology Normal Sodium 140 (137-145) mmol/L Potassium 3.9 (3.5-5.1) mmol/L Chloride 103 (98-107) mmol/L Carbon Dioxide 24 (22-30) mmol/L Anion Gap 13 mmol/L BUN 9 (7-17) mg/dL Creatinine 0.51 L (0.52-1.04) mg/dL Est GFR (CKD-EPI)AfAm >90 (>60 ml/min/1.73 sqM) Est GFR (CKD-EPI)NonAf >90 (>60 ml/min/1.73 sqM) Glucose 230 H (74-99) mg/dL POC Glucose (mg/dL) (75-99) mg/dL POC Glu Ward Maid ID Plasma Lactic Acid Bertram 0.8 (0.7-2.0) mmol/L Calcium 9.1 (8.4-10.2) mg/dL Total Bilirubin 0.7 (0.2-1.3) mg/dL AST 25 (14-36) U/L ALT 30 (9-52) U/L Alkaline Phosphatase 61 (38-126) U/L Total Protein 6.4 (6.3-8.2) g/dL Albumin 4.1 (3.5-5.0) g/dL Urine Color Urine Appearance (Clear) Urine pH (5.0-8.0) Ur Specific Bradford (1.001-1.035) Urine Protein (Negative) Urine Glucose (UA) (Negative) Urine Ketones (Negative) Urine Blood (Negative) Urine Nitrite (Negative) Urine Bilirubin (Negative) Urine Urobilinogen (<2.0) mg/dL Ur Leukocyte Esterase (Negative) Urine RBC (0-5) /hpf Urine WBC (0-5) /hpf Ur Squamous Epith Cells (0-4) /hpf Amorphous Sediment (None) /hpf Hyaline Casts (0-2) /lpf Urine Mucus (None) /hpf Acetone, Qual Positive (Negative) Heterophile Antibody (Negative) 05/22/19 05/22/19 05/22/19 Range/Units 13:20 13:30 13:44 WBC (3.8-10.6) k/uL RBC (3.80-5.40) m/uL Hgb (11.4-16.0) gm/dL Hct (34.0-46.0) % MCV (80.0-100.0) fL MCH (25.0-35.0) pg MCHC (31.0-37.0) g/dL RDW (11.5-15.5) % Plt Count (150-450) k/uL Neutrophils % % Lymphocytes % % Monocytes % % Eosinophils % % Basophils % % Neutrophils # (1.3-7.7) k/uL Lymphocytes # (1.0-4.8) k/uL Monocytes # (0-1.0) k/uL Eosinophils # (0-0.7) k/uL Basophils # (0-0.2) k/uL Manual Slide Review RBC Morphology Sodium (137-145) mmol/L Potassium (3.5-5.1) mmol/L Chloride (98-107) mmol/L Carbon Dioxide (22-30) mmol/L Anion Gap mmol/L BUN (7-17) mg/dL Creatinine (0.52-1.04) mg/dL Est GFR (CKD-EPI)AfAm (>60 ml/min/1.73 sqM) Est GFR (CKD-EPI)NonAf (>60 ml/min/1.73 sqM) Glucose (74-99) mg/dL POC Glucose (mg/dL) 213 H (75-99) mg/dL POC Glu Ward Maid ID Spike Gill Plasma Lactic Acid Bertram (0.7-2.0) mmol/L Calcium (8.4-10.2) mg/dL Total Bilirubin (0.2-1.3) mg/dL AST (14-36) U/L ALT (9-52) U/L Alkaline Phosphatase (38-126) U/L Total Protein (6.3-8.2) g/dL Albumin (3.5-5.0) g/dL Urine Color Light Yellow Urine Appearance Clear (Clear) Urine pH 5.5 (5.0-8.0) Ur Specific Bradford 1.014 (1.001-1.035) Urine Protein Trace H (Negative) Urine Glucose (UA) 3+ H (Negative) Urine Ketones 4+ H (Negative) Urine Blood Negative (Negative) Urine Nitrite Negative (Negative) Urine Bilirubin Negative (Negative) Urine Urobilinogen <2.0 (<2.0) mg/dL Ur Leukocyte Esterase Moderate H (Negative) Urine RBC 1 (0-5) /hpf Urine WBC 3 (0-5) /hpf Ur Squamous Epith Cells 9 H (0-4) /hpf Amorphous Sediment Rare H (None) /hpf Hyaline Casts 3 H (0-2) /lpf Urine Mucus Occasional H (None) /hpf Acetone, Qual (Negative) Heterophile Antibody Negative (Negative) 05/22/19 Range/Units 15:13 WBC (3.8-10.6) k/uL RBC (3.80-5.40) m/uL Hgb (11.4-16.0) gm/dL Hct (34.0-46.0) % MCV (80.0-100.0) fL MCH (25.0-35.0) pg MCHC (31.0-37.0) g/dL RDW (11.5-15.5) % Plt Count (150-450) k/uL Neutrophils % % Lymphocytes % % Monocytes % % Eosinophils % % Basophils % % Neutrophils # (1.3-7.7) k/uL Lymphocytes # (1.0-4.8) k/uL Monocytes # (0-1.0) k/uL Eosinophils # (0-0.7) k/uL Basophils # (0-0.2) k/uL Manual Slide Review RBC Morphology Sodium (137-145) mmol/L Potassium (3.5-5.1) mmol/L Chloride (98-107) mmol/L Carbon Dioxide (22-30) mmol/L Anion Gap mmol/L BUN (7-17) mg/dL Creatinine (0.52-1.04) mg/dL Est GFR (CKD-EPI)AfAm (>60 ml/min/1.73 sqM) Est GFR (CKD-EPI)NonAf (>60 ml/min/1.73 sqM) Glucose (74-99) mg/dL POC Glucose (mg/dL) 200 H (75-99) mg/dL POC Glu Ward Maid ID Stephanie, Latoya Plasma Lactic Acid Bertram (0.7-2.0) mmol/L Calcium (8.4-10.2) mg/dL Total Bilirubin (0.2-1.3) mg/dL AST (14-36) U/L ALT (9-52) U/L Alkaline Phosphatase (38-126) U/L Total Protein (6.3-8.2) g/dL Albumin (3.5-5.0) g/dL Urine Color Urine Appearance (Clear) Urine pH (5.0-8.0) Ur Specific Bradford (1.001-1.035) Urine Protein (Negative) Urine Glucose (UA) (Negative) Urine Ketones (Negative) Urine Blood (Negative) Urine Nitrite (Negative) Urine Bilirubin (Negative) Urine Urobilinogen (<2.0) mg/dL Ur Leukocyte Esterase (Negative) Urine RBC (0-5) /hpf Urine WBC (0-5) /hpf Ur Squamous Epith Cells (0-4) /hpf Amorphous Sediment (None) /hpf Hyaline Casts (0-2) /lpf Urine Mucus (None) /hpf Acetone, Qual (Negative) Heterophile Antibody (Negative) Disposition Clinical Impression: Lymphadenopathy, Leukocytosis, Diabetes Disposition: HOME SELF-CARE Condition: Fair Instructions (If sedation given, give patient instructions): Fever in Adults (ED) Additional Instructions: Please follow up with primary care and urology in 1-2 days. Please return to the emergency department if you have any worsening symptoms. Is patient prescribed a controlled substance at d/c from ED?: No Referrals: Victoriano Jacob DO [Primary Care Provider] - 1-2 days Time of Disposition: 16:16
[2019-05-22 13:32] LABS: Glucose,Whole Blood 213 mg/dL (75-99)
[2019-05-22] MEDS: SODIUM CHLORIDE 0.9% 500 ML 500 ML IV SCH (13:44)
[2019-05-22 13:45] LABS: ALT 30 U/L (9-52); AST 25 U/L (14-36); African American GFR (CKD) >90 (>60 ml/min/1.73 sqM); Albumin 4.1 g/dL (3.5-5.0); Alkaline Phosphatase 61 U/L (38-126); Anion Gap 13 mmol/L; Blood Urea Nitrogen 9 mg/dL (7-17); Calcium 9.1 mg/dL (8.4-10.2); Carbon Dioxide 24 mmol/L (22-30); Chloride 103 mmol/L (98-107); Glucose 230 mg/dL (74-99); Potassium 3.9 mmol/L (3.5-5.1); Sodium 140 mmol/L (137-145); Total Bilirubin 0.7 mg/dL (0.2-1.3); Total Protein 6.4 g/dL (6.3-8.2)
[2019-05-22 13:47] LABS: Amorphous Sediment,Urine Rare /hpf; Appearance,Urine Clear (Clear); Bilirubin,Urine Negative (Negative); Blood,Urine Negative (Negative); Color,Urine Light Yellow; Glucose,Urine (UA) 3+ (Negative); Hyaline Casts,Urine 3 /lpf (0-2); Ketones,Urine 4+ (Negative); Leukocyte Esterase,Urine Moderate (Negative); Mucus,Urine Occasional /hpf; Nitrite,Urine Negative (Negative); PH, Urine 5.5 (5.0-8.0); Protein,Urine Trace (Negative); RBC,Urine 1 /hpf (0-5); Specific Gravity,Urine 1.014 (1.001-1.035); Squamous Epithelial Cell,Urine 9 /hpf (0-4); Urobilinogen,Urine <2.0 mg/dL (<2.0); WBC,Urine 3 /hpf (0-5)
[2019-05-22] MEDS ORDERED: SODIUM CHLORIDE 0.9% 1,000 ML IV STA (13:49)
[2019-05-22 14:05] LABS: Basophils % (A) 0 %; Eosinophils % (A) 0 %; HCT 40.5 % (34.0-46.0); HGB 13.9 gm/dL (11.4-16.0); Lymphocytes # (A) 6.6 k/uL (1.0-4.8); Lymphocytes % (A) 42 %; MCH 31.3 pg (25.0-35.0); MCHC 34.3 g/dL (31.0-37.0); MCV 91.4 fL (80.0-100.0); Mean Platelet Volume 6.6; Monocytes # (A) 0.3 k/uL (0-1.0); Monocytes % (A) 2 %; Neutrophils # (A) 8.6 k/uL (1.3-7.7); Neutrophils % (A) 54 %; Platelet Count 281 k/uL (150-450); RBC 4.43 m/uL (3.80-5.40); RDW 13.4 % (11.5-15.5); WBC 15.9 k/uL (3.8-10.6)
[2019-05-22] MEDS ORDERED: METOCLOPRAMIDE 5 MG/ML 2 ML VIAL IVP STA (15:14)
[2019-05-22 15:17] LABS: Glucose,Whole Blood 200 mg/dL (75-99)
[2019-05-22] MEDS ORDERED: LISINOPRIL 5 MG TAB PO STA (16:12)
[2019-05-22] MEDS ORDERED: ONDANSETRON 4 MG/2 ML VIAL IVP STA (17:25)
[2019-05-22 18:28] VITALS: BP 187/88; PULSE 89
== END 2019-05-22 18:28 | disposition home or self-care (01) ==
LOC: EC 11:33
DX: E11.9 Type 2 diabetes mellitus without complications (principal); D72.829 Elevated white blood cell count, unspecified; R59.0 Localized enlarged lymph nodes; R11.2 Nausea with vomiting, unspecified; R68.83 Chills (without fever); Z88.2 Allergy status to sulfonamides; Z87.440 Personal history of urinary (tract) infections; Z87.442 Personal history of urinary calculi; Z98.890 Other specified postprocedural states
CPT/HCPCS: 36415; 80053; 82009; 83605; 85025; 86308; 81001; 87040; 99284; 96374; 96375; 96361 ×2; J2765; J2405

== ENCOUNTER 2019-05-25 09:14 | Day surgery (SDC) | payer OTHER ==
[2019-05-24 08:26] VITALS: BMI 33.9
[~2019-05-25 09:14] MED LIST: AMPICILLIN 1,000 MG in SODIUM CHLORIDE 0.9% 50 ML IVPB ONE; DEXAMETHASONE SOD PHOSPHATE 10 MG/ML 1 ML VIAL IV ONE; GENTAMICIN 120 MG in SODIUM CHLORIDE 0.9% 100 ML IVPB ONE; LACTATED RINGERS 1,000 ML IV SCH; LIDOCAINE 1% 20 ML VIAL (10MG/ML) FOR IV START INTRADERMA PRN; MIDAZOLAM 2 MG/2 ML VIAL IV PRN; fentaNYL (PF) 50 MCG/ML 2 ML AMP IV PRN
--- NOTE | 2019-05-25 09:56 | XR ---
EXAMINATION TYPE: XR KUB DATE OF EXAM: 05/25/2019 9:49 AM CLINICAL HISTORY: Kidney stone. Presurgical study. TECHNIQUE: Two supine KUB images of the abdomen are obtained. COMPARISON: CT abdomen and pelvis May 03, 2019. FINDINGS: No definitive nephrolithiasis. Occasional scattered pelvic phleboliths redemonstrated. Scattered gas is seen in non-distended stomach and small bowel loops. Gas and fecal material is seen in non-distended colon. The osseous structures are intact. IMPRESSION: No definitive nephrolithiasis.
[2019-05-25] MEDS ORDERED: ONDANSETRON 4 MG/2 ML VIAL IVP ONE (09:59)
[2019-05-25 10:02] LABS: Glucose,Whole Blood 196 mg/dL (75-99)
[2019-05-25] MEDS ORDERED: SCOPOLAMINE 1.5MG/72HR PATCH TRANSDERM ONE (10:02)
[2019-05-25] MEDS ORDERED: SUCCINYLCHOLINE CHLORIDE 100 MG/5 ML SYR IV ONE (10:47)
[2019-05-25] MEDS ORDERED: fentaNYL (PF) 50 MCG/ML 2 ML AMP ONE (10:47)
[2019-05-25] MEDS ORDERED: ePHEDrine SULFATE/0.9% NACL/PF 50 MG/5 ML SYRINGE IV ONE (10:47)
[2019-05-25] MEDS ORDERED: MIDAZOLAM 2 MG/2 ML VIAL ONE (10:47)
[2019-05-25] MEDS ORDERED: PROPOFOL 10 MG/ML 20 ML VIAL IV ONE (10:47)
[2019-05-25] MEDS ORDERED: LIDOCAINE 1% INJ 10MG/ML (20 ML MDV) ONE (10:47)
[2019-05-25] MEDS ORDERED: IOPAMIDOL-370 50ML BTL IRRIGATION ONE (11:23)
--- NOTE | 2019-05-25 11:50 | P.OP ---
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 She presented recently with a febrile urinary tract infection. Evaluation identified right hydroureteronephrosis to the ureteral vesicle junction without evidence of the kidney stone. She was treated antibiotic successfully and cleared quickly. She is to be set up for cystoscopy right retrograde pyelogram. The patient gave a history of hydronephrosis since a child. 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 She ended up back in the hospital with another infection. This is treated she now comes for retrograde pyelogram. Description of Procedure: Patient is brought to the operating suite. She is given a successful general endotracheal anesthesia. She's placed lithotomy position with a sterile prep and drape. Cystoscopy Foroblique lens and 22-Kyrgyz sheath identifies a normal urethra. The bladder is inspected and is completely normal. With regards sees her visually normal. Within a cone-tipped catheter right retrograde pyelograms performed. The intramural tunnel is normal and then there is significant hydroureteronephrosis on the right side all the way to the the kidney. There is no significant tortuosity of the ureter. The calyces are blunted. I then used the same 8 cone-tipped catheter into the left retrograde pyelogram the ureters of normal course and caliber, delicate without obstruction. I then do ureteroscopy. The intramural tunnel is normal. There is a distinct narrowing of the ureter just proximal to the ureteral vesicle hiatus. Then proximal to this the ureters dilated. I passed the scope up into the collecting system. I see no abnormality of the ureter other than dilation. I then pass an 035 wire through the cystoscope into the right ureter. Over the wires passed a 6 x 26 double-J catheter that coils in the renal pelvis and the bladder. 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 Impression right hydroureteronephrosis probably secondary to a megaureter. Recommendations. The patient has a double-J catheter. We'll leave this in and then discussed treatment option which may be a surgical reimplantation and tapering of the ureter.
[2019-05-25 12:01] VITALS: TEMP 97.5
[2019-05-25 12:08] LABS: Glucose,Whole Blood 191 mg/dL (75-99)
[2019-05-25] MEDS ORDERED: LACTATED RINGERS 1,000 ML IV ONE ×2 (12:15)
[2019-05-25 13:12] VITALS: BP 142/67; PULSE 78; RESP 18
--- NOTE | 2019-05-25 13:24 | FL ---
EXAMINATION TYPE: FL urography retrograde DATE OF EXAM: 05/25/2019 COMPARISON: NONE HISTORY: Cystoscopy TECHNIQUE: Fluoroscopy. FINDINGS: one minute and 22 seconds of fluoroscopy provided IMPRESSION: As Above.
== END 2019-05-25 13:14 | disposition home or self-care (01) ==
LOC: OR 09:14
PROVIDERS: ATTEND Urology
DX: N13.30 Unspecified hydronephrosis (principal); N39.0 Urinary tract infection, site not specified; E11.9 Type 2 diabetes mellitus without complications; M19.90 Unspecified osteoarthritis, unspecified site; Z87.442 Personal history of urinary calculi; Z82.49 Family history of ischemic heart disease and other diseases of the circulatory system; Z80.49 Family history of malignant neoplasm of other genital organs; Z79.4 Long term (current) use of insulin; Z79.899 Other long term (current) drug therapy; Z88.2 Allergy status to sulfonamides
CPT/HCPCS: 74420; 74018; 52332; C2625; C1758; C1769; J2250; J1100; J2405; J2001; J3010; J1580; J0290; J0330; J2704; Q9967

== ENCOUNTER → 2019-06-08 | Outpatient (CLI) | payer OTHER ==
[2019-06-08 09:22] LABS: African American GFR (CKD) >90 (>60 ml/min/1.73 sqM); Anion Gap 12 mmol/L; Blood Urea Nitrogen 12 mg/dL (7-17); Calcium 9.5 mg/dL (8.4-10.2); Carbon Dioxide 29 mmol/L (22-30); Chloride 100 mmol/L (98-107); Glucose 157 mg/dL (74-99); Potassium 3.7 mmol/L (3.5-5.1); Sodium 141 mmol/L (137-145)
[2019-06-08 09:52] LABS: HCT 43.5 % (34.0-46.0); HGB 14.1 gm/dL (11.4-16.0); MCH 31.5 pg (25.0-35.0); MCHC 32.5 g/dL (31.0-37.0); Mean Platelet Volume 7.1; Platelet Count 257 k/uL (150-450); RBC 4.48 m/uL (3.80-5.40); RDW 13.1 % (11.5-15.5); WBC 16.6 k/uL (3.8-10.6)
[2019-06-08 09:54] LABS: MCV 97.1 fL (80.0-100.0)
[2019-06-08 10:17] LABS: Amorphous Sediment,Urine Rare /hpf; Appearance,Urine Turbid (Clear); Bacteria,Urine Occasional /hpf; Bilirubin,Urine Negative (Negative); Blood,Urine Large (Negative); Color,Urine Red; Glucose,Urine (UA) Trace (Negative); Ketones,Urine 2+ (Negative); Leukocyte Esterase,Urine Moderate (Negative); Mucus,Urine Many /hpf; Nitrite,Urine Negative (Negative); Protein,Urine 2+ (Negative); RBC,Urine >182 /hpf (0-5); Specific Gravity,Urine 1.022 (1.001-1.035); Squamous Epithelial Cell,Urine 3 /hpf (0-4); Urobilinogen,Urine <2.0 mg/dL (<2.0); WBC,Urine 126 /hpf (0-5)
[2019-06-08 12:47] LABS: Eosinophils # (M) 0.17 k/uL (0-0.7); Lymphocytes # (M) 11.95 k/uL (1.0-4.8); Monocytes # (M) 0.17 k/uL (0-1.0); Neutrophils % (M) 26 %; Nucleated Red Blood Cells 0 /100 WBC (0-0); Total Cells Counted 100
== END | disposition home or self-care (01) ==
LOC: LABPAT 08:21
PROVIDERS: ATTEND Urology
DX: Z01.812 Encounter for preprocedural laboratory examination (principal); N13.30 Unspecified hydronephrosis; N28.82 Megaloureter; R31.29 Other microscopic hematuria
CPT/HCPCS: 80048; 81001; 85025; 87086

== ENCOUNTER 2019-06-15 06:31 | Inpatient (IN) | payer OTHER ==
[2019-06-14 09:13] VITALS: BMI 32.0
--- NOTE | 2019-06-14 18:54 | P.GSHP ---
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 It was treated with ab. It returned,requiring more ab She eventually underwent a right retrograde pyelogram and ureteroscopy The distal ureter right was non functional A stent was placed. She was given treatment options and has chosen for a rigth ureteral reimplant with ureteral tapering - Constitutional Constitutional: Denies chills, Denies fever - EENT Eyes: denies blurred vision, denies pain Ears, nose, mouth and throat: Denies headache, Denies sore throat - Cardiovascular Cardiovascular: Denies chest pain, Denies shortness of breath - Respiratory Respiratory: Denies cough, Denies 7 - Gastrointestinal Gastrointestinal: Denies abdominal pain, Denies diarrhea, Denies nausea, Denies vomiting - Genitourinary (Female) Genitourinary: Denies dysuria, Denies hematuria - Genitourinary (Male) Genitourinary: Denies dysuria, Denies hematuria - Musculoskeletal Musculoskeletal: Denies myalgias - Integumentary Integumentary: Denies pruritus, Denies rash - Neurological Neurological: Denies numbness, Denies weakness - Psychiatric Psychiatric: Denies anxiety, Denies depression - Endocrine Endocrine: Denies fatigue, Denies weight change Past Medical History Past Medical History: Diabetes Mellitus, Osteoarthritis (OA), Syncope Additional Past Medical History / Comment(s): Kidney stones. History of Any Multi-Drug Resistant Organisms: None Reported Past Surgical History: Section Additional Past Surgical History / Comment(s): Right kidney stent and cystoscopy, lithotripsies. Past Anesthesia/Blood Transfusion Reactions: No Reported Reaction Past Psychological History: No Psychological Hx Reported Smoking Status: Former smoker Past Alcohol Use History: Occasional Additional Past Alcohol Use History / Comment(s): Quit smoking many yrs ago. Past Drug Use History: Marijuana Additional Drug Use History / Comment(s): "Use Marijuana once in a great while." - Past Family History Father Family Medical History: Congestive Heart Failure (CHF) Sister(s) Family Medical History: Cancer Additional Family Medical History / Comment(s): cervical cancer. Medications and Allergies Home Medications Medication Instructions Recorded Confirmed Type Ondansetron Odt [Zofran ODT] 8 mg PO Q8H PRN 04/18/19 06/14/19 History Atorvastatin [Lipitor] 20 mg PO HS #30 tab 04/20/19 06/14/19 Rx Lisinopril [Zestril] 5 mg PO BID #60 tab 04/20/19 06/14/19 Rx Acetaminophen Tab [Tylenol] 500 mg PO Q6HR PRN #20 tab 05/06/19 06/14/19 Rx Insuln Asp Prt/Insulin Aspart 14 unit SQ AC-LUNCH #1 vial 05/19/19 06/14/19 Rx [NovoLOG MIX 70-30 VIAL] Insuln Asp Prt/Insulin Aspart 28 unit SQ AC-BID #1 vial 05/19/19 06/14/19 Rx [NovoLOG MIX 70-30 VIAL] metFORMIN HCL 1,000 mg PO BID #60 tab 05/19/19 06/14/19 Rx Omeprazole [PriLOSEC] 20 mg PO AC-BID #60 cap 05/21/19 06/14/19 Rx Allergies Allergy/AdvReac Type Severity Reaction Status Date / Time Sulfa (Sulfonamide Allergy Rash/Hives Verified 06/14/19 09:13 Antibiotics) Surgical - Exam - General well developed, well nourished, no distress - Eyes PERRL - ENT no hearing loss - Neck trachea midline - Respiratory normal expansion, normal respiratory effort - Cardiovascular Rhythm: regular - Abdomen Abdomen: soft, non tender - Integumentary no rash, no growths - Neurologic normal coordination, normal sensation - Musculoskeletal normal gait, normal posture - Psychiatric oriented to time, oriented to person, oriented to place, speech is normal, memory intact Assessment and Plan Assessment: Impression: Right hydronephrosis secondary to congenital megaureter. Plan RIght ureteral reimplantation with tapering
[~2019-06-15 06:31] MED LIST changes: -LACTATED RINGERS 1,000 ML IV SCH; +ONDANSETRON 4 MG/2 ML VIAL IVP ONE; +SCOPOLAMINE 1.5MG/72HR PATCH TRANSDERM ONE; -fentaNYL (PF) 50 MCG/ML 2 ML AMP IV PRN
[2019-06-15 07:05] LABS: Glucose,Whole Blood 107 mg/dL (75-99)
[2019-06-15] MEDS: LACTATED RINGERS 1,000 ML IV SCH (07:05)
[2019-06-15] MEDS ORDERED: NEOSTIGMINE 1 MG/ML 10 ML VIAL ONE (07:20)
[2019-06-15] MEDS ORDERED: GLYCOPYRROLATE 0.2 MG/ML 2 ML VIAL ONE (07:20)
[2019-06-15] MEDS ORDERED: fentaNYL (PF) 50 MCG/ML 2 ML AMP ONE (07:20)
[2019-06-15] MEDS ORDERED: MIDAZOLAM 2 MG/2 ML VIAL ONE (07:20)
[2019-06-15] MEDS ORDERED: HYDROmorphone (PF) 1 MG/ML ONE (07:20)
[2019-06-15] MEDS ORDERED: ePHEDrine SULFATE/0.9% NACL/PF 50 MG/5 ML SYRINGE IV ONE (07:20)
[2019-06-15] MEDS ORDERED: KETAMINE 10 MG/ML 20 ML VIAL ONE (07:20)
[2019-06-15] MEDS ORDERED: LIDOCAINE 1% INJ 10MG/ML (20 ML MDV) ONE (07:20)
[2019-06-15] MEDS ORDERED: PROPOFOL 10 MG/ML 20 ML VIAL IV ONE (07:20)
[2019-06-15] MEDS ORDERED: ROCURONIUM BROMIDE 10 MG/ML 10 ML VIAL IV ONE (07:20)
[2019-06-15] MEDS ORDERED: LACTATED RINGERS 1,000 ML IV ONE (09:16)
[2019-06-15] MEDS ORDERED: ACETAMINOPHEN TAB 500 MG TAB PO PRN (09:46)
[2019-06-15] MEDS ORDERED: ONDANSETRON ODT 8 MG TAB.RAPDIS PO PRN (09:46)
[2019-06-15] MEDS ORDERED: ONDANSETRON 4 MG/2 ML VIAL IVP PRN (09:49)
[2019-06-15] MEDS ORDERED: KETOROLAC 30 MG/ML 1 ML VIAL IVP PRN (09:49)
[2019-06-15] MEDS ORDERED: NALOXONE 0.4 MG/ML 1 ML VIAL IV PRN (09:49)
--- NOTE | 2019-06-15 09:55 | P.OP ---
Date of Procedure: 06/15/19 Preoperative Diagnosis: Right ureteral obstruction, right megaureter Postoperative Diagnosis: Same Procedure(s) Performed: Cystoscopy, right ureteral neocystostomy, excision of nonfunctioning ureter segment. Anesthesia: GEE Surgeon: David Webster Cager Operator #1: Dennis Rocha Estimated Blood Loss (ml): 100 Pathology: other (Distal ureter) Condition: stable Disposition: PACU Indications for Procedure: The patient is 58. She presented with a right pyelonephritis and hydronephrosis. By history this hydronephrosis is been chronic. The evaluation identified a congenital megaureter with a nonfunctioning distal right ureteral segment. She comes for excision of this segment and reimplantation of right the ureter. Description of Procedure: Patient is brought to the operating suite. She is given a general endotracheal anesthesia. She is prepped and draped sterilely. A midline suprapubic incision is made. The rectus fascia was opened in the midline. The prevesical space is identified. The bladder is identified and opened in the midline. The Ruiz catheter is moved out of the way. The bladder was retracted. The double-J catheter in the right ureteral orifice is identified. I couldn't circumferentially incised the mucosa around the right ureteral orifice. A 3-0 Vicryl stitches placed through the segment and through the catheter. I tediously dissect the right ureter out of its intramural tunnel back into the extravesical space. An advance the ureter and look and examined the diseased segment. I excised the diseased segment. It does not appear that the ureter needs to be tapering is a double-J catheter has reduced the size of the ureter. Perform her right ureteroneocystostomy using interrupted 4-0 Vicryl from mucosa of the ureter into the muscle and mucosa of the bladder. I bring mucosa then o lianna the exposed ureter w 4-0 vicryl. I then replaced a 6 x 24 double-J catheter. I closed the bladder in 2 layers of 3 and 2-0 Vicryl. Mir-Encinas drains brought through separate stab incision. The rectus fascias closed with double-stranded 0 PDS. The skin is stapled. The patient awake and returned recovery in good condition with clear urine. She tolerated procedure well. Blood loss is approximately 100 mL.
[2019-06-15 10:00] LABS: Glucose,Whole Blood 130 mg/dL (75-99)
[2019-06-15] MEDS: HYDROmorphone 0.5 MG/0.5 ML SYRINGE IVP PRN ×2 (10:05→11:12)
[2019-06-15] MEDS: INSULN ASP PRT/INSULIN ASPART 100 UNIT/ML 10 ML VIAL SQ SCH ×2 (12:52→17:36)
[2019-06-15] MEDS: HYDROmorphone PCA 10 MG/50 ML BAG IV PRN (13:31)
[2019-06-15 14:41] LABS: Glucose,Whole Blood 177 mg/dL (75-99)
[2019-06-15 16:48] LABS: Glucose,Whole Blood 199 mg/dL (75-99)
[2019-06-15] MEDS: SODIUM CHLORIDE 0.45% 1,000 ML IV SCH (17:25)
[2019-06-15] MEDS: PANTOPRAZOLE 40 MG TABLET PO SCH (17:36)
[2019-06-15] MEDS: metFORMIN 500 MG TAB PO SCH (17:36)
[2019-06-15 20:33] LABS: Glucose,Whole Blood 155 mg/dL (75-99)
[2019-06-15] MEDS: LISINOPRIL 5 MG TAB PO SCH ×2 (22:09→22:10)
[2019-06-15] MEDS: ATORVASTATIN 20 MG TAB PO SCH (22:10)
[2019-06-16] MEDS: SODIUM CHLORIDE 0.45% 1,000 ML IV SCH ×2 (02:37→17:03)
[2019-06-16] MEDS: LACTATED RINGERS 1,000 ML IV SCH (05:51)
[2019-06-16 06:48] LABS: Glucose,Whole Blood 137 mg/dL (75-99)
[2019-06-16] MEDS: metFORMIN 500 MG TAB PO SCH ×2 (07:35→20:52)
[2019-06-16] MEDS: PANTOPRAZOLE 40 MG TABLET PO SCH ×2 (07:35→17:02)
[2019-06-16] MEDS: INSULN ASP PRT/INSULIN ASPART 100 UNIT/ML 10 ML VIAL SQ SCH ×3 (07:36→17:03)
--- NOTE | 2019-06-16 11:13 | P.PN ---
Subjective Progress Note Date: 06/16/19 The patient is in her first postoperative day from a right ureteral reimplant. The urinary drainage is minimal. The urine is clearing nicely. The pain is controlled with COOKER SULFATE. She is tolerating a regular diet. Her wound looks good. She will ambulate. Hopefully the drain will come out tomorrow. She'll be discharged home hopefully in the next 48 hours. Objective - Vital Signs Vital signs: Vital Signs Temp 97.8 F 06/16/19 07:00 Pulse 76 06/16/19 07:00 Resp 16 06/16/19 07:00 BP 96/61 06/16/19 07:00 Pulse Ox 97 06/16/19 07:00 Intake & Output 06/15/19 06/16/19 06/16/19 18:59 06:59 18:59 Intake Total 1853 Output Total 160 755 Balance 1693 -755 Weight 101.605 kg Intake: IV 1853 Output: Drainage 55 Lower Anterior Abdomen 55 Urine 700 Uretheral (Ruiz) 200 Estimated Blood Loss 160 Other: Voiding Method Indwelling Catheter Indwelling Catheter Indwelling Catheter - Labs Labs: Abnormal Lab Results - Last 24 Hours (Table) 06/15/19 06/15/19 06/15/19 Range/Units 14:29 16:35 20:22 POC Glucose (mg/dL) 177 H 199 H 155 H (75-99) mg/dL 06/16/19 Range/Units 06:44 POC Glucose (mg/dL) 137 H (75-99) mg/dL
[2019-06-16 11:31] LABS: Glucose,Whole Blood 82 mg/dL (75-99)
[2019-06-16] MEDS: HYDROmorphone PCA 10 MG/50 ML BAG IV PRN (16:38)
[2019-06-16 16:49] LABS: Glucose,Whole Blood 174 mg/dL (75-99)
[2019-06-16 20:14] LABS: Glucose,Whole Blood 102 mg/dL (75-99)
[2019-06-16] MEDS: LISINOPRIL 5 MG TAB PO SCH (20:52)
[2019-06-16] MEDS: ATORVASTATIN 20 MG TAB PO SCH (20:52)
[2019-06-17] MEDS: SODIUM CHLORIDE 0.45% 1,000 ML IV SCH ×2 (03:15→17:08)
[2019-06-17] MEDS: LACTATED RINGERS 1,000 ML IV SCH (05:30)
[2019-06-17 07:07] LABS: Glucose,Whole Blood 109 mg/dL (75-99)
--- NOTE | 2019-06-17 07:34 | P.PN ---
Subjective Progress Note Date: 06/17/19 The patient is in her second postoperative day from a right ureteral reimplantation. She continues to improve. Her drainage is about 30 mL per shift. Her urine output is good. Her urine is clearing. Vital signs are stable. Her abdomen is soft. The wound looks good. The dressing has been removed. She is ambulating. 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 I'll place on oral pain medicines. If she tolerates that she'll be discharged home tomorrow. The drain can be removed tomorrow. She'll follow-up in the office next Thursday. Objective - Vital Signs Vital signs: Vital Signs Temp 98.4 F 06/17/19 01:33 Pulse 89 06/16/19 19:06 Resp 18 06/17/19 01:33 BP 113/70 06/17/19 01:33 Pulse Ox 91 L 06/17/19 01:33 Intake & Output 06/16/19 06/17/19 06/17/19 18:59 06:59 18:59 Output Total 725 1865 Balance -725 -1865 Output: Drainage 25 15 Lower Anterior Abdomen 25 15 Urine 700 1850 Other: Voiding Method Indwelling Catheter Indwelling Catheter # Voids 475 - Labs Labs: Abnormal Lab Results - Last 24 Hours (Table) 06/16/19 06/16/19 06/17/19 Range/Units 16:44 20:03 06:56 POC Glucose (mg/dL) 174 H 102 H 109 H (75-99) mg/dL
[2019-06-17] MEDS: INSULN ASP PRT/INSULIN ASPART 100 UNIT/ML 10 ML VIAL SQ SCH ×3 (07:48→17:07)
[2019-06-17] MEDS: metFORMIN 500 MG TAB PO SCH ×2 (07:50→20:13)
[2019-06-17] MEDS: LISINOPRIL 5 MG TAB PO SCH ×2 (07:51→20:13)
[2019-06-17] MEDS: PANTOPRAZOLE 40 MG TABLET PO SCH ×2 (07:51→17:07)
[2019-06-17] MEDS: HYDROcodone/APAP 5-325MG 1 EACH TAB PO PRN ×3 (07:58→17:07)
[2019-06-17 11:50] LABS: Glucose,Whole Blood 119 mg/dL (75-99)
[2019-06-17 16:55] LABS: Glucose,Whole Blood 110 mg/dL (75-99)
[2019-06-17] MEDS: ATORVASTATIN 20 MG TAB PO SCH (20:13)
[2019-06-17 20:42] LABS: Glucose,Whole Blood 170 mg/dL (75-99)
[2019-06-18] MEDS: HYDROcodone/APAP 5-325MG 1 EACH TAB PO PRN ×3 (00:14→13:31)
[2019-06-18] MEDS: LACTATED RINGERS 1,000 ML IV SCH (01:32)
[2019-06-18] MEDS: SODIUM CHLORIDE 0.45% 1,000 ML IV SCH (01:32)
[2019-06-18 04:46] VITALS: RESP 16
[2019-06-18 07:06] LABS: Glucose,Whole Blood 130 mg/dL (75-99)
[2019-06-18] MEDS: INSULN ASP PRT/INSULIN ASPART 100 UNIT/ML 10 ML VIAL SQ SCH (07:19)
[2019-06-18] MEDS: PANTOPRAZOLE 40 MG TABLET PO SCH (07:24)
[2019-06-18 08:28] VITALS: BP 149/82; PULSE 84; TEMP 97.9
[2019-06-18] MEDS: metFORMIN 500 MG TAB PO SCH (09:07)
[2019-06-18] MEDS: LISINOPRIL 5 MG TAB PO SCH (09:07)
--- NOTE | 2019-06-18 11:24 | P.DS ---
Providers Date of admission: 06/17/19 09:06 Expected date of discharge: 06/18/19 Attending physician: David Webster Primary care physician: Victoriano Jacob Hospital Course: On the day of admission, the patient underwent an uncomplicated right ur eteroneocystostomy. A nonfunctioning ureteral segment was also excised. The perioperative course was unremarkable. Her pain was initially controlled with a ASSISTANT PUBLIC DEFENDER, and subsequently with [place]. At the time of discharge, she was tolerating diet and ambulating without difficulty. ISIDORO drainage was minimal, and the drain was removed prior to discharge. She had not yet had a bowel movement, but was passing flatus. Procedures: Right ureteroneocystostomy on 06/15/2019 Patient Condition at Discharge: Good Plan - Discharge Summary Discharge Rx Participant: Yes New Discharge Prescriptions: New HYDROcodone/APAP 5-325MG [[place] 5-325] 1 tab PO Q4HR PRN #14 tab PRN Reason: Pain Ciprofloxacin HCl [Cipro] 250 mg PO Q12HR #6 tablet No Action Ondansetron Odt [Zofran ODT] 8 mg PO Q8H PRN PRN Reason: Nausea Atorvastatin [Lipitor] 20 mg PO HS #30 tab Lisinopril [Zestril] 5 mg PO BID #60 tab Acetaminophen Tab [Tylenol] 500 mg PO Q6HR PRN #20 tab PRN Reason: Fever And/ Or Pain metFORMIN HCL 1,000 mg PO BID #60 tab Insuln Asp Prt/Insulin Aspart [NovoLOG MIX 70-30 VIAL] 14 unit SQ AC-LUNCH #1 vial Insuln Asp Prt/Insulin Aspart [NovoLOG MIX 70-30 VIAL] 28 unit SQ AC-BID #1 vial Omeprazole [PriLOSEC] 20 mg PO AC-BID #60 cap Discharge Medication List Ondansetron Odt [Zofran ODT] 8 mg PO Q8H PRN 04/18/19 [History] Atorvastatin [Lipitor] 20 mg PO HS #30 tab 04/20/19 [Rx] Lisinopril [Zestril] 5 mg PO BID #60 tab 04/20/19 [Rx] Acetaminophen Tab [Tylenol] 500 mg PO Q6HR PRN #20 tab 05/06/19 [Rx] Insuln Asp Prt/Insulin Aspart [NovoLOG MIX 70-30 VIAL] 14 unit SQ AC-LUNCH #1 vial 05/19/19 [Rx] Insuln Asp Prt/Insulin Aspart [NovoLOG MIX 70-30 VIAL] 28 unit SQ AC-BID #1 vial 05/19/19 [Rx] metFORMIN HCL 1,000 mg PO BID #60 tab 05/19/19 [Rx] Omeprazole [PriLOSEC] 20 mg PO AC-BID #60 cap 05/21/19 [Rx] HYDROcodone/APAP 5-325MG [[place] 5-325] 1 tab PO Q4HR PRN #14 tab 06/17/19 [Rx] Ciprofloxacin HCl [Cipro] 250 mg PO Q12HR #6 tablet 06/18/19 [Rx] Follow up Appointment(s)/Referral(s): David Webster MD [STAFF PHYSICIAN] - 06/24/19 10:20 am Activity/Diet/Wound Care/Special Instructions: Discharge home with Ruiz catheter. Diet as tolerated. No lifting, driving, or strenuous activity. Okay to shower on 06/19/2019. Begin taking ciprofloxacin on 06/23/2019. Discharge Disposition: HOME SELF-CARE
== END 2019-06-18 13:45 | disposition home or self-care (01) | DRG 660 ==
LOC: OR 06:31 → 4SSUR 12:11 → OR 23:56 → 4SSUR 23:57 → OR 06-16 00:33 → 4SSUR 06-16 00:33 → OBSVTOIN 06-17 09:06
PROVIDERS: ADMIT Urology; ATTEND Urology
PROC: 0T760DZ Dilation of Right Ureter with Intraluminal Device, Open Approach (ICD-10-PCS; principal; 2019-06-15 07:30)
PROC: 0TP90DZ Removal of Intraluminal Device from Ureter, Open Approach (ICD-10-PCS; principal; 2019-06-15 07:30)
PROC: 0T160ZB Bypass Right Ureter to Bladder, Open Approach (ICD-10-PCS; principal; 2019-06-15 07:30)
DX: Q62.2 Congenital megaureter (principal); N13.6 Pyonephrosis; E11.9 Type 2 diabetes mellitus without complications; Z79.4 Long term (current) use of insulin; Z79.899 Other long term (current) drug therapy; Z80.49 Family history of malignant neoplasm of other genital organs; Z82.49 Family history of ischemic heart disease and other diseases of the circulatory system; Z87.442 Personal history of urinary calculi; Z87.891 Personal history of nicotine dependence
CPT/HCPCS: 88307; 94760

== ENCOUNTER 2019-06-19 00:43 | Emergency (ER) | payer OTHER ==
[2019-06-19 00:50] VITALS: TEMP 98.7
--- NOTE | 2019-06-19 02:35 | ED ---
General Adult HPI - General Source: patient, RN notes reviewed, old records reviewed Mode of arrival: ambulatory Limitations: no limitations <Guy Francis - Last Filed: 06/19/19 02:41> <Chandler Shelley - Last Filed: 06/19/19 21:39> - General Chief complaint: Urogenital Stated complaint: Catheter Issues post op Time Seen by Provider: 06/19/19 01:05 - History of Present Illness Initial comments: 58-year-old female patient past history significant for near cystectomy performed on 06/[address] Webster presents to ED for chief complaint of catheter dysfunction. Patient reports that catheter is not draining. Reports it is leaking around the insertion site. Patient reports that she has had some mild suprapubic pain since surgery. Denies any other complaints. Systemic: Pt denies fatigue, fever/chills, rash. Pt denies weakness, night sweats, weight loss. Neuro: Pt denies headache, visual disturbances, syncope or pre-syncope. HEENT: Pt denies ocular discharge or irritation, otalgia, rhinorrhea, pharyngitis or notable lymphadenopathy. Cardiopulmonary: Pt denies chest pain, SOB, heart palpitations, dyspnea on exertion. Abdominal/GI: Pt denies abdominal pain, n/v/d. : Pt denies dysuria, burning w/ urination, frequency/urgency. Denies new onset urinary or bowel incontinence. MSK: Pt denies myalgia, loss of strength or function in extremities. Neuro: Pt denies new onset weakness, paresthesias. (Guy Francis) - Related Data Home Medications Medication Instructions Recorded Confirmed Insuln Asp Prt/Insulin Aspart 10 - 14 unit SQ AC-LUNCH 06/19/19 06/19/19 [NovoLOG MIX 70-30 VIAL] Insuln Asp Prt/Insulin Aspart 20 - 28 unit SQ AC-BID 06/19/19 06/19/19 [NovoLOG MIX 70-30 VIAL] Previous Rx's Medication Instructions Recorded Atorvastatin [Lipitor] 20 mg PO HS #30 tab 04/20/19 Lisinopril [Zestril] 5 mg PO BID #60 tab 04/20/19 Acetaminophen Tab [Tylenol] 500 mg PO Q6HR PRN #20 tab 05/06/19 metFORMIN HCL 1,000 mg PO BID #60 tab 05/19/19 Omeprazole [PriLOSEC] 20 mg PO AC-BID #60 cap 05/21/19 HYDROcodone/APAP 5-325MG [[place] 1 tab PO Q4HR PRN #14 tab 06/17/19 5-325] Oxybutynin Chloride [Ditropan] 5 mg PO BID #20 tab 06/19/19 Allergies Allergy/AdvReac Type Severity Reaction Status Date / Time Sulfa (Sulfonamide Allergy Rash/Hives Verified 06/19/19 14:06 Antibiotics) Review of Systems ROS Other: All systems not noted in ROS Statement are negative. <Guy Francis - Last Filed: 06/19/19 02:41> ROS Other: All systems not noted in ROS Statement are negative. <Chandler Shelley - Last Filed: 06/19/19 21:39> ROS Statement: Those systems with pertinent positive or pertinent negative responses have been documented in the HPI. Past Medical History Past Medical History: Diabetes Mellitus Additional Past Medical History / Comment(s): kidney stones, lithotrispies. History of Any Multi-Drug Resistant Organisms: None Reported Past Surgical History: Section Past Anesthesia/Blood Transfusion Reactions: No Reported Reaction Past Psychological History: No Psychological Hx Reported Smoking Status: Never smoker Past Alcohol Use History: Occasional Past Drug Use History: Marijuana - Past Family History Sister(s) Family Medical History: Cancer <Guy Francis - Last Filed: 06/19/19 02:41> General Exam Limitations: no limitations <Guy Francis - Last Filed: 06/19/19 02:41> - General Exam Comments Initial Comments: Constitutional: NAD, AOX3, Pt has pleasant affect. HEENT: NC/AT, trachea midline, neck supple, no lymphadenopathy. Posterior pharynx non erythematous, without exudates. External ears appear normal, without discharge. Mucous membranes moist. Eyes PERRLA, EOM intact. There is no scleral icterus. No pallor noted. Cardiopulmonary: RRR, no murmurs, rubs or gallops, no JVD noted. Lungs CTAB in anterior and posterior gooden. No peripheral edema. Abdominal exam: Abdomen soft and non-distended. Abdomen mildly tender suprapubic, left lower quadrant region. Incision site dry, non-erythematous, no drainage. Bowel sounds active in LLQ. No hepatosplenomegaly. No ecchymosis Neuro: CN II-XII grossly intact. No nuchal rigidity. No raccon eyes, no brown sign, no hemotympanum. No cervical spinal tenderness. MSK: No posterior calf tenderness bilaterally, homans sign negative bilaterally. Posterior tibialis and radial pulse +2 bilaterally. Sensation intact in upper and lower extremities. Full active ROM in upper and lower extremities, 5/5 stregnth. (Guy Francis) Course Vital Signs 06/19/19 06/19/19 00:47 02:51 Temperature 98.7 F Pulse Rate 105 H 90 Respiratory 20 18 Rate Blood Pressure 111/69 123/90 O2 Sat by Pulse 97 94 L Oximetry Medical Decision Making <Guy Francis - Last Filed: 06/19/19 02:41> <Chandler Shelley - Last Filed: 06/19/19 21:39> - Medical Decision Making 58 year old female patient presents to ED for chief complaint of howe catheter dysfunction. Patient vital signs are stable, afebrile. Physical exam displayed mild amount of suprapubic, left lower quadrant tenderness which has been present since surgery. Incision site clean. Catheter was flushed, approximately 150mL drainage. It is now actively draining. Patient was discharged, will follow up with Dr. Faria tomorrow. Return to ER if condition worsens. Case discussed and pt seen by Dr. Trevino. (Guy Francis) I saw this patient in conjunction with the physician assistant principal. I performed independent history and physical exam. Agree with case management. (Chandler Shelley) Disposition Is patient prescribed a controlled substance at d/c from ED?: No <Guy Francis - Last Filed: 06/19/19 02:41> <Chandler Shelley - Last Filed: 06/19/19 21:39> Clinical Impression: Howe catheter problem Disposition: HOME SELF-CARE Condition: Stable Instructions (If sedation given, give patient instructions): Howe Catheter Placement and Care (ED) Additional Instructions: Patient to adhere to previously discussed treatment plan and will take medication(s) as directed. Patient to follow up with PCP in 1-2 days. Patient to return to ED if symptoms do not improve. Follow-up with Dr. Webster tomorrow. Return to ER if condition worsens. Referrals: Jacob,Victoriano, DO [Primary Care Provider] - 1-2 days David Webster MD [STAFF PHYSICIAN] - 1-2 days
--- NOTE | 2019-06-19 02:41 | ED ---
General Adult HPI - General Source: patient, RN notes reviewed, old records reviewed Mode of arrival: ambulatory Limitations: no limitations <Guy Francis - Last Filed: 06/19/19 02:39> <Chandler Shelley - Last Filed: 06/19/19 21:40> - General Chief complaint: Urogenital Stated complaint: Catheter Issues post op Time Seen by Provider: 06/19/19 01:05 - History of Present Illness Initial comments: 58-year-old female patient past history significant for near cystectomy performed on 06/[address] Webster presents to ED for chief complaint of catheter dysfunction. Patient reports that catheter is not draining. Reports it is leaking around the insertion site. Patient reports that she has had some mild suprapubic pain since surgery. Denies any other complaints. Systemic: Pt denies fatigue, fever/chills, rash. Pt denies weakness, night sweats, weight loss. Neuro: Pt denies headache, visual disturbances, syncope or pre-syncope. HEENT: Pt denies ocular discharge or irritation, otalgia, rhinorrhea, pharyngitis or notable lymphadenopathy. Cardiopulmonary: Pt denies chest pain, SOB, heart palpitations, dyspnea on exertion. Abdominal/GI: Pt denies abdominal pain, n/v/d. : Pt denies dysuria, burning w/ urination, frequency/urgency. Denies new onset urinary or bowel incontinence. MSK: Pt denies myalgia, loss of strength or function in extremities. Neuro: Pt denies new onset weakness, paresthesias. (Guy Francis) - Related Data Home Medications Medication Instructions Recorded Confirmed Insuln Asp Prt/Insulin Aspart 10 - 14 unit SQ AC-LUNCH 06/19/19 06/19/19 [NovoLOG MIX 70-30 VIAL] Insuln Asp Prt/Insulin Aspart 20 - 28 unit SQ AC-BID 06/19/19 06/19/19 [NovoLOG MIX 70-30 VIAL] Previous Rx's Medication Instructions Recorded Atorvastatin [Lipitor] 20 mg PO HS #30 tab 04/20/19 Lisinopril [Zestril] 5 mg PO BID #60 tab 04/20/19 Acetaminophen Tab [Tylenol] 500 mg PO Q6HR PRN #20 tab 05/06/19 metFORMIN HCL 1,000 mg PO BID #60 tab 05/19/19 Omeprazole [PriLOSEC] 20 mg PO AC-BID #60 cap 05/21/19 HYDROcodone/APAP 5-325MG [[place] 1 tab PO Q4HR PRN #14 tab 06/17/19 5-325] Oxybutynin Chloride [Ditropan] 5 mg PO BID #20 tab 06/19/19 Allergies Allergy/AdvReac Type Severity Reaction Status Date / Time Sulfa (Sulfonamide Allergy Rash/Hives Verified 06/19/19 14:06 Antibiotics) Review of Systems ROS Other: All systems not noted in ROS Statement are negative. <Guy Francis - Last Filed: 06/19/19 02:39> ROS Other: All systems not noted in ROS Statement are negative. <Chandler Shelley - Last Filed: 06/19/19 21:40> ROS Statement: Those systems with pertinent positive or pertinent negative responses have been documented in the HPI. Past Medical History Past Medical History: Diabetes Mellitus Additional Past Medical History / Comment(s): kidney stones, lithotrispies. History of Any Multi-Drug Resistant Organisms: None Reported Past Surgical History: Section Past Anesthesia/Blood Transfusion Reactions: No Reported Reaction Past Psychological History: No Psychological Hx Reported Smoking Status: Never smoker Past Alcohol Use History: Occasional Past Drug Use History: Marijuana - Past Family History Sister(s) Family Medical History: Cancer <Guy Francis - Last Filed: 06/19/19 02:39> General Exam Limitations: no limitations <Guy Francis - Last Filed: 06/19/19 02:39> - General Exam Comments Initial Comments: Constitutional: NAD, AOX3, Pt has pleasant affect. HEENT: NC/AT, trachea midline, neck supple, no lymphadenopathy. Posterior pharynx non erythematous, without exudates. External ears appear normal, without discharge. Mucous membranes moist. Eyes PERRLA, EOM intact. There is no scleral icterus. No pallor noted. Cardiopulmonary: RRR, no murmurs, rubs or gallops, no JVD noted. Lungs CTAB in anterior and posterior gooden. No peripheral edema. Abdominal exam: Abdomen soft and non-distended. Abdomen mildly tender suprapubic, left lower quadrant region. Incision site dry, non-erythematous, no drainage. Bowel sounds active in LLQ. No hepatosplenomegaly. No ecchymosis Neuro: CN II-XII grossly intact. No nuchal rigidity. No raccon eyes, no brown sign, no hemotympanum. No cervical spinal tenderness. MSK: No posterior calf tenderness bilaterally, homans sign negative bilaterally. Posterior tibialis and radial pulse +2 bilaterally. Sensation intact in upper and lower extremities. Full active ROM in upper and lower extremities, 5/5 stregnth. (Guy Francis) Course Vital Signs 06/19/19 06/19/19 00:47 02:51 Temperature 98.7 F Pulse Rate 105 H 90 Respiratory 20 18 Rate Blood Pressure 111/69 123/90 O2 Sat by Pulse 97 94 L Oximetry Medical Decision Making <Guy Francis - Last Filed: 06/19/19 02:39> <Chandler Shelley - Last Filed: 06/19/19 21:40> - Medical Decision Making 58 year old female patient presents to ED for chief complaint of howe catheter dysfunction. Patient vital signs are stable, afebrile. Physical exam displayed mild amount of suprapubic, left lower quadrant tenderness which has been present since surgery. Incision site clean. Catheter was flushed, approximately 150mL drainage. It is now actively draining. Patient was discharged, will follow up with Dr. Faria tomorrow. Return to ER if condition worsens. Case discussed and pt seen by Dr. Trevino. (Guy Francis) I saw this patient in conjunction with the physician drilling assistant. I performed independent history and physical exam. Agree with case management. (Chandler Shelley) Disposition Is patient prescribed a controlled substance at d/c from ED?: No <Guy Francis - Last Filed: 06/19/19 02:39> <Chandler Shelley - Last Filed: 06/19/19 21:40> Clinical Impression: Howe catheter problem Disposition: HOME SELF-CARE Condition: Stable Instructions (If sedation given, give patient instructions): Howe Catheter Placement and Care (ED) Additional Instructions: Patient to adhere to previously discussed treatment plan and will take medication(s) as directed. Patient to follow up with PCP in 1-2 days. Patient to return to ED if symptoms do not improve. Follow-up with Dr. Webster tomorrow. Return to ER if condition worsens. Referrals: Jacob,Victoriano, DO [Primary Care Provider] - 1-2 days David Webster MD [STAFF PHYSICIAN] - 1-2 days
[2019-06-19 02:52] VITALS: BP 123/90; PULSE 90; RESP 18
== END 2019-06-19 02:51 | disposition home or self-care (01) ==
LOC: EC 00:43
DX: T83.098A Other mechanical complication of other urinary catheter, initial encounter (principal); E11.9 Type 2 diabetes mellitus without complications; Z79.4 Long term (current) use of insulin; Z88.2 Allergy status to sulfonamides
CPT/HCPCS: 99283

== ENCOUNTER 2019-06-19 13:11 | Emergency (ER) | payer OTHER ==
--- NOTE | 2019-06-19 13:57 | ED ---
General Adult HPI <Boo Jackson - Last Filed: 06/19/19 16:37> - General Source: patient, RN notes reviewed Mode of arrival: wheelchair Limitations: physical limitation <Markos Gonzalez - Last Filed: 06/19/19 19:40> - General Chief complaint: Urogenital Stated complaint: catheter problem Time Seen by Provider: 06/19/19 13:33 - History of Present Illness Initial comments: 58-year-old female presents for catheter dysfunction. Patient had a Howe catheter placed on Thursday after a ureter repair. States that last night it started to leak. States she came to the ER and Dr. Bates consulted. He recommended flushing the catheter which did allow the catheter to drain. States that she went home and when she woke up today she had an urge to urinate and urinated in her bed. States that it is continuing to leak.Patient has no other complaints at this time including shortness of breath, chest pain, abdominal pain, nausea or vomiting, fevers, headache, or visual changes. (Markos Gonzalez) - Related Data Home Medications Medication Instructions Recorded Confirmed Insuln Asp Prt/Insulin Aspart 10 - 14 unit SQ AC-LUNCH 06/19/19 06/19/19 [NovoLOG MIX 70-30 VIAL] Insuln Asp Prt/Insulin Aspart 20 - 28 unit SQ AC-BID 06/19/19 06/19/19 [NovoLOG MIX 70-30 VIAL] Previous Rx's Medication Instructions Recorded Atorvastatin [Lipitor] 20 mg PO HS #30 tab 04/20/19 Lisinopril [Zestril] 5 mg PO BID #60 tab 04/20/19 Acetaminophen Tab [Tylenol] 500 mg PO Q6HR PRN #20 tab 05/06/19 metFORMIN HCL 1,000 mg PO BID #60 tab 05/19/19 Omeprazole [PriLOSEC] 20 mg PO AC-BID #60 cap 05/21/19 HYDROcodone/APAP 5-325MG [Glade 1 tab PO Q4HR PRN #14 tab 06/17/19 5-325] Oxybutynin Chloride [Ditropan] 5 mg PO BID #20 tab 06/19/19 Allergies Allergy/AdvReac Type Severity Reaction Status Date / Time Sulfa (Sulfonamide Allergy Rash/Hives Verified 06/19/19 14:06 Antibiotics) Review of Systems ROS Other: All systems not noted in ROS Statement are negative. <Boo Jackson - Last Filed: 06/19/19 16:37> ROS Other: All systems not noted in ROS Statement are negative. <Markos Gonzalez - Last Filed: 06/19/19 19:40> ROS Statement: Those systems with pertinent positive or pertinent negative responses have been documented in the HPI. Past Medical History Past Medical History: Diabetes Mellitus Additional Past Medical History / Comment(s): kidney stones, lithotrispies. History of Any Multi-Drug Resistant Organisms: None Reported Past Surgical History: Section Additional Past Surgical History / Comment(s): ureter surgery Past Anesthesia/Blood Transfusion Reactions: No Reported Reaction Past Psychological History: No Psychological Hx Reported Smoking Status: Never smoker Past Alcohol Use History: Occasional Past Drug Use History: Marijuana - Past Family History Sister(s) Family Medical History: Cancer Additional Family Medical History / Comment(s): cervical cancer. <Markos Gonzalez - Last Filed: 06/19/19 19:40> General Exam Limitations: physical limitation General appearance: alert, in no apparent distress Head exam: Present: atraumatic, normocephalic, normal inspection Eye exam: Present: normal appearance, PERRL, EOMI. Absent: scleral icterus, conjunctival injection, periorbital swelling ENT exam: Present: normal exam, mucous membranes moist Neck exam: Present: normal inspection. Absent: tenderness, meningismus, lymphadenopathy Respiratory exam: Present: normal lung sounds bilaterally. Absent: respiratory distress, wheezes, rales, rhonchi, stridor Cardiovascular Exam: Present: regular rate, normal rhythm, normal heart sounds. Absent: systolic murmur, diastolic murmur, rubs, gallop, clicks GI/Abdominal exam: Present: soft, normal bowel sounds, other (well appearing incision without erythema or drainage is noted on the lower abdomen). Absent: distended, tenderness (no significant tenderness noted of the abdomen), guarding, rebound, rigid External exam: Present: other (howe catheter is placed) Neurological exam: Present: alert <Markos Gonzalez - Last Filed: 06/19/19 19:40> Course Vital Signs 06/19/19 06/19/19 06/19/19 13:22 16:16 17:35 Temperature 98.6 F 100.1 F H Pulse Rate 98 77 68 Respiratory 18 16 18 Rate Blood Pressure 115/72 121/78 132/74 O2 Sat by Pulse 99 98 97 Oximetry Medical Decision Making <Boo Jackson - Last Filed: 06/19/19 16:37> <Markos Gonzalez - Last Filed: 06/19/19 19:40> - Medical Decision Making Patient reevaluated by myself, Dr. Jackson. Patient resting comfortably in bed. Abdominal incisions clean and dry and intact. Patient states she is having leaking around her Howe. Patient is frustrated regarding this. Patient states she was here yesterday with similar problems. Howe was flushed by nursing staff with good output. Case was discussed with Dr. Padgett was familiar with this patient. He recommends changing Howe and providing either Ditropan or Detrol for possible bladder spasms. He states following this patient can be discharged. (Boo Jackson) We did a bladder scan patient and she had a 112 mL in her bladder. However immediately afterwards she did have one episode of urination outside of the catheter. We flushed the catheter and clots were expelled. This did appear to help somewhat with drainage. Dr. Jackson spoke with Dr. Nguyen who does recommend removing and reinserting a Howe catheter and starting her on Ditropan which was completed here in the ER. She was directed to follow up with Dr Websetr tomorrow in the office. She will return if she has any worsening symptoms. (Markos Gonzalez) Disposition <Boo Jackson - Last Filed: 06/19/19 16:37> Is patient prescribed a controlled substance at d/c from ED?: No Time of Disposition: 16:52 <Markos Gonzalez - Last Filed: 06/19/19 19:40> Clinical Impression: Howe catheter problem Disposition: HOME SELF-CARE Condition: Good Instructions (If sedation given, give patient instructions): Howe Catheter Placement and Care (ED) Additional Instructions: Please follow up with Dr. Webster tomorrow. Return to the emergency department if you have any worsening symptoms. Prescriptions: Oxybutynin Chloride [Ditropan] 5 mg PO BID #20 tab Referrals: Jacob,Victoriano, DO [Primary Care Provider] - 1-2 days
[2019-06-19] MEDS ORDERED: HYDROcodone/APAP 5-325MG 1 EACH TAB PO STA (16:51)
[2019-06-19 17:36] VITALS: BP 132/74; PULSE 68; RESP 18; TEMP 100.1
== END 2019-06-19 17:35 | disposition home or self-care (01) ==
LOC: EC 13:11
DX: T83.031A Leakage of indwelling urethral catheter, initial encounter (principal); E11.9 Type 2 diabetes mellitus without complications; Z79.4 Long term (current) use of insulin; Z88.2 Allergy status to sulfonamides; Z87.442 Personal history of urinary calculi; Z98.890 Other specified postprocedural states
CPT/HCPCS: 51702; 51798; 99283

== ENCOUNTER 2019-07-18 09:22 | Inpatient (IN) | payer OTHER ==
[2019-07-18] MEDS ORDERED: SODIUM CHLORIDE 0.9% 2,000 ML IV STA (09:47)
[2019-07-18] MEDS ORDERED: ACETAMINOPHEN TAB 325 MG TAB PO STA (09:57)
[2019-07-18] MEDS ORDERED: KETOROLAC 30 MG/ML 1 ML VIAL IVP STA (09:57)
[2019-07-18 10:26] LABS: HCT 39.5 % (34.0-46.0); HGB 12.7 gm/dL (11.4-16.0); MCH 30.9 pg (25.0-35.0); MCHC 32.1 g/dL (31.0-37.0); MCV 96.1 fL (80.0-100.0); Mean Platelet Volume 8.4; Platelet Count 224 k/uL (150-450); RBC 4.11 m/uL (3.80-5.40); RDW 12.7 % (11.5-15.5); WBC 25.1 k/uL (3.8-10.6)
[2019-07-18 10:34] LABS: ALT 94 U/L (9-52); AST 109 U/L (14-36); African American GFR (CKD) >90 (>60 ml/min/1.73 sqM); Albumin 3.9 g/dL (3.5-5.0); Alkaline Phosphatase 81 U/L (38-126); Amylase <30 U/L (30-110); Anion Gap 18 mmol/L; Blood Urea Nitrogen 15 mg/dL (7-17); Calcium 8.9 mg/dL (8.4-10.2); Carbon Dioxide 16 mmol/L (22-30); Chloride 99 mmol/L (98-107); Glucose 233 mg/dL (74-99); Non-African American GFR(CKD) 90 (>60 ml/min/1.73 sqM); Sodium 133 mmol/L (137-145); Total Bilirubin 1.5 mg/dL (0.2-1.3); Total Protein 6.7 g/dL (6.3-8.2)
[2019-07-18 10:38] LABS: Appearance,Urine Turbid (Clear); Bacteria,Urine Moderate /hpf; Bilirubin,Urine Negative (Negative); Blood,Urine Small (Negative); Color,Urine Yellow; Glucose,Urine (UA) 2+ (Negative); Hyaline Casts,Urine 4 /lpf (0-2); Leukocyte Esterase,Urine Large (Negative); Mucus,Urine Few /hpf; Nitrite,Urine Positive (Negative); Protein,Urine 2+ (Negative); RBC,Urine 27 /hpf (0-5); Specific Gravity,Urine 1.021 (1.001-1.035); Squamous Epithelial Cell,Urine 2 /hpf (0-4); Urobilinogen,Urine <2.0 mg/dL (<2.0)
[2019-07-18 10:52] LABS: Ketones,Urine 4+ (Negative)
[2019-07-18 10:54] LABS: Band Neutrophils % 3 %; Basophils # (M) 0.25 k/uL (0-0.2); Lymphocytes # (M) 5.52 k/uL (1.0-4.8); Monocytes # (M) 1.26 k/uL (0-1.0); Neutrophils % (M) 69 %; Nucleated Red Blood Cells 0 /100 WBC (0-0); Total Cells Counted 100
[2019-07-18 10:57] LABS: Potassium 4.6 mmol/L (3.5-5.1)
--- NOTE | 2019-07-18 11:11 | ED ---
Abdominal Pain HPI - General Chief Complaint: Abdominal Pain Stated Complaint: fever/kidney pain Time Seen by Provider: 07/18/19 09:31 Source: patient, RN notes reviewed Mode of arrival: ambulatory Limitations: no limitations - History of Present Illness Initial Comments: 58-year-old female presents emergency Department chief complaint right flank pain, fever. Patient states she has not felt well over the last few days. She's had it fever Tmax 104. Patient has not taken any recent Tylenol Motrin. Patient states that she had surgery one month ago by Dr. 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 She reports right flank pain, generalized not feeling well. She's had some nausea no vomiting, diarrhea constipation she states she does have pain when she urinates. Patient did contact her urologist advised to go to the emergency department. - Related Data Home Medications Medication Instructions Recorded Confirmed Insuln Asp Prt/Insulin Aspart 14 unit SQ AC-LUNCH 06/19/19 07/18/19 [NovoLOG MIX 70-30 VIAL] Insuln Asp Prt/Insulin Aspart 24 unit SQ AC-BID 06/19/19 07/18/19 [NovoLOG MIX 70-30 VIAL] Lisinopril [Zestril] 5 mg PO DAILY 07/18/19 07/18/19 Previous Rx's Medication Instructions Recorded Atorvastatin [Lipitor] 20 mg PO HS #30 tab 04/20/19 metFORMIN HCL 1,000 mg PO BID #60 tab 05/19/19 Allergies Allergy/AdvReac Type Severity Reaction Status Date / Time Sulfa (Sulfonamide Allergy Rash/Hives Verified 07/18/19 10:21 Antibiotics) Review of Systems ROS Statement: Those systems with pertinent positive or pertinent negative responses have been documented in the HPI. ROS Other: All systems not noted in ROS Statement are negative. Past Medical History Past Medical History: Diabetes Mellitus Additional Past Medical History / Comment(s): kidney stones, lithotrispies. History of Any Multi-Drug Resistant Organisms: None Reported Past Surgical History: Section Additional Past Surgical History / Comment(s): ureter surgery 06/11 Past Anesthesia/Blood Transfusion Reactions: No Reported Reaction Past Psychological History: No Psychological Hx Reported Smoking Status: Never smoker Past Drug Use History: None Reported - Past Family History Sister(s) Family Medical History: Cancer Additional Family Medical History / Comment(s): cervical cancer. General Exam Limitations: no limitations General appearance: alert, in no apparent distress Head exam: Present: atraumatic, normocephalic, normal inspection Eye exam: Present: normal appearance, PERRL, EOMI. Absent: scleral icterus, conjunctival injection, periorbital swelling ENT exam: Present: normal exam, normal oropharynx, mucous membranes moist, TM's normal bilaterally Neck exam: Present: normal inspection, full ROM. Absent: tenderness, meningismus, lymphadenopathy Respiratory exam: Present: normal lung sounds bilaterally. Absent: respiratory distress, wheezes, rales, rhonchi, stridor Cardiovascular Exam: Present: normal rhythm, tachycardia, normal heart sounds. Absent: systolic murmur, diastolic murmur, rubs, gallop, clicks GI/Abdominal exam: Present: soft, tenderness (Minimal right), normal bowel so unds. Absent: distended, guarding, rebound, rigid Back exam: Present: CVA tenderness (R). Absent: CVA tenderness (L) Neurological exam: Present: alert Skin exam: Present: warm, dry, intact, normal color. Absent: rash Course Vital Signs 07/18/19 07/18/19 07/18/19 09:26 10:42 11:34 Temperature 100.9 F H 102.0 F H 99.6 F Pulse Rate 132 H 99 Respiratory 18 16 Rate Blood Pressure 94/51 132/78 O2 Sat by Pulse 98 99 Oximetry Procedures - Reading Protocol (Time Out) Nurse: Rosa Bangura Medical Decision Making - Medical Decision Making Patient's found to have leukocytosis with shift of 25,000, evidence of urinary tract infection concerning for pyelonephritis with right flank pain, fever. Patient was given 2 g Rocephin fluid bolus of 2 L given for ideal body weight of 65 kilograms. Patient will be admitted for IV antibiotics and further treatment. - Lab Data Result diagrams: 07/18/19 09:50 07/18/19 09:50 Lab Results 07/18/19 07/18/19 07/18/19 Range/Units 09:50 09:50 09:50 WBC 25.1 H (3.8-10.6) k/uL RBC 4.11 (3.80-5.40) m/uL Hgb 12.7 (11.4-16.0) gm/dL Hct 39.5 (34.0-46.0) % MCV 96.1 (80.0-100.0) fL MCH 30.9 (25.0-35.0) pg MCHC 32.1 (31.0-37.0) g/dL RDW 12.7 (11.5-15.5) % Plt Count 224 (150-450) k/uL Neutrophils % (Manual) 69 % Band Neutrophils % 3 % Lymphocytes % (Manual) 22 % Monocytes % (Manual) 5 % Basophils % (Manual) 1 % Neutrophils # (Manual) 18.00 H (1.3-7.7) k/uL Lymphocytes # (Manual) 5.52 H (1.0-4.8) k/uL Monocytes # (Manual) 1.26 H (0-1.0) k/uL Basophils # (Manual) 0.25 H (0-0.2) k/uL Nucleated RBCs 0 (0-0) /100 WBC Manual Slide Review Performed RBC Morphology Normal Sodium 133 L (137-145) mmol/L Potassium 4.6 (3.5-5.1) mmol/L Chloride 99 (98-107) mmol/L Carbon Dioxide 16 L (22-30) mmol/L Anion Gap 18 mmol/L BUN 15 (7-17) mg/dL Creatinine 0.75 (0.52-1.04) mg/dL Est GFR (CKD-EPI)AfAm >90 (>60 ml/min/1.73 sqM) Est GFR (CKD-EPI)NonAf 90 (>60 ml/min/1.73 sqM) Glucose 233 H (74-99) mg/dL Plasma Lactic Acid Bertram 1.3 (0.7-2.0) mmol/L Calcium 8.9 (8.4-10.2) mg/dL Total Bilirubin 1.5 H (0.2-1.3) mg/dL AST 109 H (14-36) U/L ALT 94 H (9-52) U/L Alkaline Phosphatase 81 (38-126) U/L Total Protein 6.7 (6.3-8.2) g/dL Albumin 3.9 (3.5-5.0) g/dL Amylase <30 L (30-110) U/L Lipase <10 L (23-300) U/L Urine Color Urine Appearance (Clear) Urine pH (5.0-8.0) Ur Specific [place] (1.001-1.035) Urine Protein (Negative) Urine Glucose (UA) (Negative) Urine Ketones (Negative) Urine Blood (Negative) Urine Nitrite (Negative) Urine Bilirubin (Negative) Urine Urobilinogen (<2.0) mg/dL Ur Leukocyte Esterase (Negative) Urine RBC (0-5) /hpf Urine WBC (0-5) /hpf Urine WBC Clumps (None) /hpf Ur Squamous Epith Cells (0-4) /hpf Urine Bacteria (None) /hpf Hyaline Casts (0-2) /lpf Urine Mucus (None) /hpf 07/18/19 Range/Units 09:50 WBC (3.8-10.6) k/uL RBC (3.80-5.40) m/uL Hgb (11.4-16.0) gm/dL Hct (34.0-46.0) % MCV (80.0-100.0) fL MCH (25.0-35.0) pg MCHC (31.0-37.0) g/dL RDW (11.5-15.5) % Plt Count (150-450) k/uL Neutrophils % (Manual) % Band Neutrophils % % Lymphocytes % (Manual) % Monocytes % (Manual) % Basophils % (Manual) % Neutrophils # (Manual) (1.3-7.7) k/uL Lymphocytes # (Manual) (1.0-4.8) k/uL Monocytes # (Manual) (0-1.0) k/uL Basophils # (Manual) (0-0.2) k/uL Nucleated RBCs (0-0) /100 WBC Manual Slide Review RBC Morphology Sodium (137-145) mmol/L Potassium (3.5-5.1) mmol/L Chloride (98-107) mmol/L Carbon Dioxide (22-30) mmol/L Anion Gap mmol/L BUN (7-17) mg/dL Creatinine (0.52-1.04) mg/dL Est GFR (CKD-EPI)AfAm (>60 ml/min/1.73 sqM) Est GFR (CKD-EPI)NonAf (>60 ml/min/1.73 sqM) Glucose (74-99) mg/dL Plasma Lactic Acid Bertram (0.7-2.0) mmol/L Calcium (8.4-10.2) mg/dL Total Bilirubin (0.2-1.3) mg/dL AST (14-36) U/L ALT (9-52) U/L Alkaline Phosphatase (38-126) U/L Total Protein (6.3-8.2) g/dL Albumin (3.5-5.0) g/dL Amylase (30-110) U/L Lipase (23-300) U/L Urine Color Yellow Urine Appearance Turbid H (Clear) Urine pH 6.0 (5.0-8.0) Ur Specific [place] 1.021 (1.001-1.035) Urine Protein 2+ H (Negative) Urine Glucose (UA) 2+ H (Negative) Urine Ketones 4+ H (Negative) Urine Blood Small H (Negative) Urine Nitrite Positive H (Negative) Urine Bilirubin Negative (Negative) Urine Urobilinogen <2.0 (<2.0) mg/dL Ur Leukocyte Esterase Large H (Negative) Urine RBC 27 H (0-5) /hpf Urine WBC >182 H (0-5) /hpf Urine WBC Clumps Moderate H (None) /hpf Ur Squamous Epith Cells 2 (0-4) /hpf Urine Bacteria Moderate H (None) /hpf Hyaline Casts 4 H (0-2) /lpf Urine Mucus Few H (None) /hpf Disposition Clinical Impression: Acute pyelonephritis, Metabolic acidosis Disposition: ADMITTED IP TO THIS [facility] Condition: Fair Referrals: Victoriano Jacob DO [Primary Care Provider] - 1-2 days
[2019-07-18] MEDS ORDERED: KETOROLAC 30 MG/ML 1 ML VIAL IVP PRN (11:37)
[2019-07-18] MEDS ORDERED: NALOXONE 0.4 MG/ML 1 ML VIAL IV PRN (11:37)
[2019-07-18] MEDS ORDERED: HYDROcodone/APAP 5-325MG 1 EACH TAB PO PRN (11:57)
[2019-07-18] MEDS: SODIUM CHLORIDE 0.9% 1,000 ML IV SCH ×2 (11:59→20:58)
--- NOTE | 2019-07-18 12:03 | P.HPIM ---
History of Present Illness This is a pleasant 58 years old female with past medical history of diabetes mellitus, kidney stone, right hydronephrosis and hydroureter status post right ureteral stent removal recently. She was in the emergency room recently about once a month ago for nonfunctioning Ruiz catheter that's needs to be replaced. This time she presents because of discomfort in the right flank area about 2 days ago, yesterday she started having fever so she decided to come to the hospital. She felt uncomfortable when she is urinating like squeezing sensation however she denies chest pain or dyspnea. No vomiting. No abdominal pain. No dizziness. Her Ruiz catheter and right ureteral stent stent were taken out She has a fever of 102, rest of Vitas looks stable. Leukocytosis of 20 5.1K, sodium 133, creatinine is 0.7. Total bilirubin and liver enzymes slightly elevated, patient received 1 dose of Rocephin, and started on normal saline at 75 L/h after 2 L Amvisc Plus. Neurologist has been consulted from emergency room Review of Systems CONSTITUTIONAL: No fever, no malaise, no fatigue. HEENT: No recent visual problems or hearing problems. Denied any sore throat. CARDIOVASCULAR: No orthopnea, PND, no palpitations, no syncope. PULMONARY: No shortness of breath, no cough, no hemoptysis. GASTROINTESTINAL: No diarrhea, no nausea, no vomiting, no abdominal pain. Normoactive bowel sounds. NEUROLOGICAL: No headaches, no weakness, no numbness. HEMATOLOGICAL: Denies any bleeding or petechiae. -GENITOURINARY: As above MUSCULOSKELETAL/RHEUMATOLOGICAL: Denies any joint pain, swelling, or any muscle pain. ENDOCRINE: Denies any polyuria or polydipsia. Past Medical History Past Medical History: Diabetes Mellitus Additional Past Medical History / Comment(s): kidney stones, lithotrispies. History of Any Multi-Drug Resistant Organisms: None Reported Past Surgical History: Section Additional Past Surgical History / Comment(s): ureter surgery 06/11 Past Anesthesia/Blood Transfusion Reactions: No Reported Reaction Past Psychological History: No Psychological Hx Reported Smoking Status: Never smoker Past Drug Use History: None Reported - Past Family History Sister(s) Family Medical History: Cancer Additional Family Medical History / Comment(s): cervical cancer. Medications and Allergies Home Medications Medication Instructions Recorded Confirmed Type Atorvastatin [Lipitor] 20 mg PO HS #30 tab 04/20/19 07/18/19 Rx metFORMIN HCL 1,000 mg PO BID #60 tab 05/19/19 07/18/19 Rx Insuln Asp Prt/Insulin Aspart 14 unit SQ AC-LUNCH 06/19/19 07/18/19 History [NovoLOG MIX 70-30 VIAL] Insuln Asp Prt/Insulin Aspart 24 unit SQ AC-BID 06/19/19 07/18/19 History [NovoLOG MIX 70-30 VIAL] Lisinopril [Zestril] 5 mg PO DAILY 07/18/19 07/18/19 History Allergies Allergy/AdvReac Type Severity Reaction Status Date / Time Sulfa (Sulfonamide Allergy Rash/Hives Verified 07/18/19 10:21 Antibiotics) Physical Exam Vitals: Vital Signs Temp Pulse Resp BP Pulse Ox 07/18/19 11:34 99.6 F 07/18/19 10:42 102.0 F H 99 16 132/78 99 07/18/19 09:26 100.9 F H 132 H 18 94/51 98 Intake and Output 07/17/19 07/18/19 07/18/19 22:59 06:59 14:59 Other: Weight 95.254 kg GENERAL: The patient is alert and oriented x3, not in any acute distress. Well developed, well nourished. HEENT: Pupils are round and equally reacting to light. EOMI. No scleral icterus. No conjunctival pallor. Normocephalic, atraumatic. No pharyngeal erythema. No thyromegaly. CARDIOVASCULAR: S1 and S2 present. No murmurs, rubs, or gallops. PULMONARY: Chest is clear to auscultation, no wheezing or crackles. -ABDOMEN: Soft, suprapubic tenderness, nondistended, normoactive bowel sounds. No palpable organomegaly. No costovertebral tenderness MUSCULOSKELETAL: No joint swelling or deformity. EXTREMITIES: No cyanosis, clubbing, or pedal edema. NEUROLOGICAL: Gross neurological examination did not reveal any focal deficits. SKIN: No rashes. No petechiae Results CBC & Chem 7: 07/18/19 09:50 07/18/19 09:50 Labs: Abnormal Lab Results - Last 24 Hours (Table) 07/18/19 07/18/19 07/18/19 Range/Units 09:50 09:50 09:50 WBC 25.1 H (3.8-10.6) k/uL Neutrophils # (Manual) 18.00 H (1.3-7.7) k/uL Lymphocytes # (Manual) 5.52 H (1.0-4.8) k/uL Monocytes # (Manual) 1.26 H (0-1.0) k/uL Basophils # (Manual) 0.25 H (0-0.2) k/uL Sodium 133 L (137-145) mmol/L Carbon Dioxide 16 L (22-30) mmol/L Glucose 233 H (74-99) mg/dL Total Bilirubin 1.5 H (0.2-1.3) mg/dL AST 109 H (14-36) U/L ALT 94 H (9-52) U/L Amylase <30 L (30-110) U/L Lipase <10 L (23-300) U/L Urine Appearance Turbid H (Clear) Urine Protein 2+ H (Negative) Urine Glucose (UA) 2+ H (Negative) Urine Ketones 4+ H (Negative) Urine Blood Small H (Negative) Urine Nitrite Positive H (Negative) Ur Leukocyte Esterase Large H (Negative) Urine RBC 27 H (0-5) /hpf Urine WBC >182 H (0-5) /hpf Urine WBC Clumps Moderate H (None) /hpf Urine Bacteria Moderate H (None) /hpf Hyaline Casts 4 H (0-2) /lpf Urine Mucus Few H (None) /hpf Assessment and Plan Assessment: Acute pyelonephritis in view of her recurrent pyelonephritis kidney stone status post right ESWL many years ago Diabetes mellitus Recent history of right hydronephrosis and right hydroureter, status post stent placement and removal in the right ureter Plan: This is a pleasant 58 years old female who presents with recurrent pyeloneph ritis while she has a right ureteral stent. Continue with antibiotics, follow- up urine culture, follow-up recommendation by urologist. Consult ID team. Continue with insulin and metformin. Pain management Labs and medication were reviewed.. Continue same treatment. Continue with symptomatic treatment. Resume home medication. Monitor lytes and vitals. DVT and GI prophylaxis. Further recommendations of the clinical course of the patient DVT prophylaxis: Subcutaneous heparin GI Prophylaxis: Pepcid Prognosis is guarded
[2019-07-18] MEDS: INSULN ASP PRT/INSULIN ASPART 100 UNIT/ML 10 ML VIAL SQ SCH ×2 (14:23→18:07)
--- NOTE | 2019-07-18 14:51 | P.GSCN ---
History of Present Illness Consult date: 07/18/19 History of present illness: The patient is a 58-year-old female well known to me for recurrent urinary infection. 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 It was felt that she had a peristaltic segment of the very distal ureter. She recently underwent resection of this distal ureter and a right ureteral reimplantation by myself on 06/15/2019. She had a stent that was just removed recently. She has developed right-sided pyelonephritis. She is in the hospital for IV antibiotics. Her creatinine is normal. Cultures have been obtained. She is voiding without difficulty. 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 Other hx: kidney stones, lithotrispies, IDDM type II, bronchitis. History of Any Multi-Drug Resistant Organisms: None Reported Past Surgical History: Section Additional Past Surgical History / Comment(s): 05/25/19 cystoscopy retrograde pyelogram R ureteroscopy, 06/15/19 cystoscopy r ureteral neocystostomy excision nonfunctioning ureteral segment, lithotripsy. Past Anesthesia/Blood Transfusion Reactions: No Reported Reaction Smoking Status: Former smoker - Past Family History Sister(s) Family Medical History: Cancer Additional Family Medical History / Comment(s): cervical cancer. Mother Family Medical History: No Reported History Additional Family Medical History / Comment(s): Mother is healthy Father Family Medical History: Congestive Heart Failure (CHF) Medications and Allergies Home Medications Medication Instructions Recorded Confirmed Type Atorvastatin [Lipitor] 20 mg PO HS #30 tab 04/20/19 07/18/19 Rx metFORMIN HCL 1,000 mg PO BID #60 tab 05/19/19 07/18/19 Rx Insuln Asp Prt/Insulin Aspart 14 unit SQ AC-LUNCH 06/19/19 07/18/19 History [NovoLOG MIX 70-30 VIAL] Insuln Asp Prt/Insulin Aspart 24 unit SQ AC-BID 06/19/19 07/18/19 History [NovoLOG MIX 70-30 VIAL] Lisinopril [Zestril] 5 mg PO DAILY 07/18/19 07/18/19 History Allergies Allergy/AdvReac Type Severity Reaction Status Date / Time Sulfa (Sulfonamide Allergy Rash/Hives Verified 07/18/19 10:21 Antibiotics) Surgical - Exam Vital Signs Temp Pulse Resp BP Pulse Ox 100.9 F H 132 H 18 94/51 98 07/18/19 09:26 07/18/19 09:26 07/18/19 09:26 07/18/19 09:26 07/18/19 09:26 - General well developed, well nourished, moderate distress - Eyes PERRL - ENT no hearing loss - Neck trachea midline - Respiratory normal expansion, normal respiratory effort - Cardiovascular Rhythm: regular - Abdomen Abdomen: soft, non tender - Neurologic normal coordination, normal sensation - Musculoskeletal normal posture - Psychiatric oriented to time, oriented to person, oriented to place, speech is normal, memory intact Results - Labs 07/18/19 09:50 07/18/19 09:50 Abnormal Lab Results - Last 24 Hours (Table) 07/18/19 07/18/19 07/18/19 Range/Units 09:50 09:50 09:50 WBC 25.1 H (3.8-10.6) k/uL Neutrophils # (Manual) 18.00 H (1.3-7.7) k/uL Lymphocytes # (Manual) 5.52 H (1.0-4.8) k/uL Monocytes # (Manual) 1.26 H (0-1.0) k/uL Basophils # (Manual) 0.25 H (0-0.2) k/uL Sodium 133 L (137-145) mmol/L Carbon Dioxide 16 L (22-30) mmol/L Glucose 233 H (74-99) mg/dL Total Bilirubin 1.5 H (0.2-1.3) mg/dL AST 109 H (14-36) U/L ALT 94 H (9-52) U/L Amylase <30 L (30-110) U/L Lipase <10 L (23-300) U/L Urine Appearance Turbid H (Clear) Urine Protein 2+ H (Negative) Urine Glucose (UA) 2+ H (Negative) Urine Ketones 4+ H (Negative) Urine Blood Small H (Negative) Urine Nitrite Positive H (Negative) Ur Leukocyte Esterase Large H (Negative) Urine RBC 27 H (0-5) /hpf Urine WBC >182 H (0-5) /hpf Urine WBC Clumps Moderate H (None) /hpf Urine Bacteria Moderate H (None) /hpf Hyaline Casts 4 H (0-2) /lpf Urine Mucus Few H (None) /hpf Diabetes panel 07/18/19 Range/Units 09:50 Sodium 133 L (137-145) mmol/L Potassium 4.6 (3.5-5.1) mmol/L Chloride 99 (98-107) mmol/L Carbon Dioxide 16 L (22-30) mmol/L BUN 15 (7-17) mg/dL Creatinine 0.75 (0.52-1.04) mg/dL Glucose 233 H (74-99) mg/dL Calcium 8.9 (8.4-10.2) mg/dL AST 109 H (14-36) U/L ALT 94 H (9-52) U/L Alkaline Phosphatase 81 (38-126) U/L Total Protein 6.7 (6.3-8.2) g/dL Albumin 3.9 (3.5-5.0) g/dL Calcium panel 07/18/19 Range/Units 09:50 Calcium 8.9 (8.4-10.2) mg/dL Albumin 3.9 (3.5-5.0) g/dL Pituitary panel 07/18/19 Range/Units 09:50 Sodium 133 L (137-145) mmol/L Potassium 4.6 (3.5-5.1) mmol/L Chloride 99 (98-107) mmol/L Carbon Dioxide 16 L (22-30) mmol/L BUN 15 (7-17) mg/dL Creatinine 0.75 (0.52-1.04) mg/dL Glucose 233 H (74-99) mg/dL Calcium 8.9 (8.4-10.2) mg/dL Adrenal panel 07/18/19 Range/Units 09:50 Sodium 133 L (137-145) mmol/L Potassium 4.6 (3.5-5.1) mmol/L Chloride 99 (98-107) mmol/L Carbon Dioxide 16 L (22-30) mmol/L BUN 15 (7-17) mg/dL Creatinine 0.75 (0.52-1.04) mg/dL Glucose 233 H (74-99) mg/dL Calcium 8.9 (8.4-10.2) mg/dL Total Bilirubin 1.5 H (0.2-1.3) mg/dL AST 109 H (14-36) U/L ALT 94 H (9-52) U/L Alkaline Phosphatase 81 (38-126) U/L Total Protein 6.7 (6.3-8.2) g/dL Albumin 3.9 (3.5-5.0) g/dL Assessment and Plan Assessment: Impression: Right sided pyelonephritis. Status post right ureteral r eimplantation Recommendations: The patient is on IV antibiotics. Cultures have been obtained. I will order a renal ultrasound to make sure she does not have any progression of hydronephrosis.
--- NOTE | 2019-07-18 16:11 | US ---
EXAMINATION TYPE: US kidneys/renal and bladder DATE OF EXAM: 07/18/2019 COMPARISON: CT 05/03/2019 CLINICAL HISTORY: right hydronephrosis. UTI, rt flank pain with hydronephrosis EXAM MEASUREMENTS: Right Kidney: 12.9 x 6.4 x 7.4 cm Left Kidney: 12.8 x 3.8 x 6.4 cm Right Kidney: hydronephrosis seen Left Kidney: No hydronephrosis or masses seen Bladder: wnl There is no evidence for left hydronephrosis at this point in time. No nephrolithiasis is seen. No masses are identified. The urinary bladder is anechoic. IMPRESSION: Mild right hydronephrosis.
[2019-07-18 16:54] LABS: Glucose,Whole Blood 162 mg/dL (75-99)
[2019-07-18] MEDS: ACETAMINOPHEN TAB 325 MG TAB PO PRN (17:39)
[2019-07-18 17:54] LABS: Glucose,Whole Blood 184 mg/dL (75-99)
[2019-07-18] MEDS: INSULIN ASPART (NovoLOG) 100 UNIT/ML VIAL SQ SCH ×2 (18:04→20:38)
[2019-07-18 20:35] LABS: Glucose,Whole Blood 244 mg/dL (75-99)
[2019-07-18] MEDS: FAMOTIDINE 20 MG/2 ML VIAL IV SCH (20:38)
[2019-07-18] MEDS: HEPARIN SODIUM,PORCINE 5,000 UNIT/ML 1 ML VIAL SQ SCH (20:38)
[2019-07-18] MEDS: ATORVASTATIN 20 MG TAB PO SCH (20:40)
[2019-07-18] MEDS: IBUPROFEN 400 MG TAB PO PRN (20:57)
[2019-07-18] MEDS: metFORMIN 500 MG TAB PO SCH (21:02)
[2019-07-19] MEDS: SODIUM CHLORIDE 0.9% 1,000 ML IV SCH ×2 (06:38→18:15)
[2019-07-19 06:43] LABS: Glucose,Whole Blood 155 mg/dL (75-99)
[2019-07-19] MEDS: INSULIN ASPART (NovoLOG) 100 UNIT/ML VIAL SQ SCH ×4 (06:50→20:45)
[2019-07-19] MEDS: ACETAMINOPHEN TAB 325 MG TAB PO PRN ×3 (06:51→20:44)
[2019-07-19] MEDS: FAMOTIDINE 20 MG/2 ML VIAL IV SCH ×2 (07:37→20:38)
[2019-07-19] MEDS: INSULN ASP PRT/INSULIN ASPART 100 UNIT/ML 10 ML VIAL SQ SCH ×3 (07:48→18:06)
[2019-07-19 07:50] LABS: Basophils # (A) 0.1 k/uL (0-0.2); Basophils % (A) 1 %; Eosinophils % (A) 0 %; HCT 35.6 % (34.0-46.0); HGB 11.4 gm/dL (11.4-16.0); Lymphocytes # (A) 5.5 k/uL (1.0-4.8); Lymphocytes % (A) 34 %; MCH 30.9 pg (25.0-35.0); MCV 96.5 fL (80.0-100.0); Mean Platelet Volume 7.9; Monocytes # (A) 0.7 k/uL (0-1.0); Monocytes % (A) 4 %; Neutrophils # (A) 9.7 k/uL (1.3-7.7); Neutrophils % (A) 59 %; Platelet Count 189 k/uL (150-450); RBC 3.69 m/uL (3.80-5.40); RDW 12.8 % (11.5-15.5); WBC 16.4 k/uL (3.8-10.6)
[2019-07-19 08:00] LABS: African American GFR (CKD) >90 (>60 ml/min/1.73 sqM); Anion Gap 8 mmol/L; Blood Urea Nitrogen 13 mg/dL (7-17); Calcium 8.8 mg/dL (8.4-10.2); Carbon Dioxide 25 mmol/L (22-30); Chloride 106 mmol/L (98-107); Glucose 182 mg/dL (74-99); Non-African American GFR(CKD) >90 (>60 ml/min/1.73 sqM); Potassium 3.9 mmol/L (3.5-5.1); Sodium 139 mmol/L (137-145)
[2019-07-19] MEDS: metFORMIN 500 MG TAB PO SCH ×2 (08:17→20:38)
[2019-07-19] MEDS: HEPARIN SODIUM,PORCINE 5,000 UNIT/ML 1 ML VIAL SQ SCH ×2 (08:18→20:38)
[2019-07-19] MEDS: LISINOPRIL 5 MG TAB PO SCH ×2 (08:23→12:25)
--- NOTE | 2019-07-19 08:26 | P.CONS ---
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 Webster on 06/15/2019, patient did well post surgery however over the weekend the patient started having urinary frequency mild burning and started having pain in her right flank area patient described the pain to be sharp at times dull aching almost 78 out of 10 and no radiation the patient did have associated nausea but no vomiting. Started having a fever with chills for the patient took some Tylenol however with the patient symptom persisted she did presented to [facility] ER with the patient was evaluated by the ER physician on arrival to the ER the patient did have a fever of 104F she did have elevated white count and a positive UA she received a dose of Rocephin and subsequently has been admitted hospital on Rocephin 1 g every 12 hr ,infectious disease was consulted for further recommendation regarding antibiotic therapy Review of Systems Positive point has been mentioned in the HPI rest of the systems are negative Past Medical History Past Medical History: Diabetes Mellitus Additional Past Medical History / Comment(s): kidney stones, lithotrispies. History of Any Multi-Drug Resistant Organisms: None Reported Past Surgical History: Section Additional Past Surgical History / Comment(s): ureter surgery 06/11 Past Anesthesia/Blood Transfusion Reactions: No Reported Reaction Past Psychological History: No Psychological Hx Reported Smoking Status: Never smoker Past Drug Use History: None Reported - Past Family History Sister(s) Family Medical History: Cancer Additional Family Medical History / Comment(s): cervical cancer. Mother Family Medical History: No Reported History Additional Family Medical History / Comment(s): Mother is healthy Father Family Medical History: Congestive Heart Failure (CHF) Medications and Allergies Home Medications Medication Instructions Recorded Confirmed Type Atorvastatin [Lipitor] 20 mg PO HS #30 tab 04/20/19 07/18/19 Rx metFORMIN HCL 1,000 mg PO BID #60 tab 05/19/19 07/18/19 Rx Insuln Asp Prt/Insulin Aspart 14 unit SQ AC-LUNCH 06/19/19 07/18/19 History [NovoLOG MIX 70-30 VIAL] Insuln Asp Prt/Insulin Aspart 24 unit SQ AC-BID 06/19/19 07/18/19 History [NovoLOG MIX 70-30 VIAL] Lisinopril [Zestril] 5 mg PO DAILY 07/18/19 07/18/19 History Allergies Allergy/AdvReac Type Severity Reaction Status Date / Time Sulfa (Sulfonamide Allergy Rash/Hives Verified 07/18/19 10:21 Antibiotics) Physical Exam Vitals: Vital Signs Temp Pulse Resp BP Pulse Ox 07/18/19 11:34 99.6 F 07/18/19 10:42 102.0 F H 99 16 132/78 99 07/18/19 09:26 100.9 F H 132 H 18 94/51 98 Intake and Output 07/17/19 07/18/19 07/18/19 22:59 06:59 14:59 Other: Weight 95.254 kg GENERAL DESCRIPTION: Middle-aged female lying in bed, no distress. No tachypnea or accessory muscle of respiration use. HEENT: Shows Pallor , no scleral icterus. Oral mucous membrane is dry. No pharyngeal erythema or thrush NECK: Trachea central, no thyromegaly. LUNGS: Unlabored breathing. Clear to auscultation anteriorly. No wheeze or crackle. HEART: S1, S2, regular rate and rhythm. No loud murmur ABDOMEN: Soft, no tenderness , guarding or rigidity, no organomegaly EXTREMITIES: No edema of feet. SKIN: No rash, no masses palpable. NEUROLOGICAL: The patient is awake, alert, oriented x3, mood and affect normal. Results CBC & Chem 7: 07/19/19 07:18 07/19/19 07:18 Labs: Abnormal Lab Results - Last 24 Hours (Table) 07/18/19 07/18/19 07/18/19 Range/Units 09:50 09:50 09:50 WBC 25.1 H (3.8-10.6) k/uL Neutrophils # (Manual) 18.00 H (1.3-7.7) k/uL Lymphocytes # (Manual) 5.52 H (1.0-4.8) k/uL Monocytes # (Manual) 1.26 H (0-1.0) k/uL Basophils # (Manual) 0.25 H (0-0.2) k/uL Sodium 133 L (137-145) mmol/L Carbon Dioxide 16 L (22-30) mmol/L Glucose 233 H (74-99) mg/dL Total Bilirubin 1.5 H (0.2-1.3) mg/dL AST 109 H (14-36) U/L ALT 94 H (9-52) U/L Amylase <30 L (30-110) U/L Lipase <10 L (23-300) U/L Urine Appearance Turbid H (Clear) Urine Protein 2+ H (Negative) Urine Glucose (UA) 2+ H (Negative) Urine Ketones 4+ H (Negative) Urine Blood Small H (Negative) Urine Nitrite Positive H (Negative) Ur Leukocyte Esterase Large H (Negative) Urine RBC 27 H (0-5) /hpf Urine WBC >182 H (0-5) /hpf Urine WBC Clumps Moderate H (None) /hpf Urine Bacteria Moderate H (None) /hpf Hyaline Casts 4 H (0-2) /lpf Urine Mucus Few H (None) /hpf Assessment and Plan Assessment: 1-patient presented to hospital with sepsis in this patient who did have a fever tachycardia and elevated white count source is likely right-sided pyelonephritis in this patient who recently did have surgery with distal ureteral resection and ureteral stent placement 2-patient with sulfa ALLERGY that would limit the number of antibiotic safe to use (1) Acute pyelonephritis Current Visit: Yes Status: Acute Code(s): N10 - ACUTE PYELONEPHRITIS SNOMED Code(s): 90057730 (2) Sepsis Current Visit: No Status: Acute Code(s): A41.9 - SEPSIS, UNSPECIFIED ORGANISM SNOMED Code(s): 30615319 Plan: 1- Obatin US of kidneys and bladder area 2-Rocephin 2 g IV piggyback daily 3-gentle IV fluid We will follow on clinical condition and cultures to further adjust medication if needed Thank you for this consultation will follow this patient with you Time with Patient: Greater than 30
[2019-07-19 09:28] LABS: Poikilocytosis (M) Present
--- NOTE | 2019-07-19 11:06 | P.PN ---
Subjective Progress Note Date: 07/19/19 the patient is in the hospital with a pyleonephritis She is feeling better She has a mild right hydro on us as expected Her wbc has gone from 25 to 16k Cultures are pending Objective - Vital Signs Vital signs: Vital Signs Temp 99.2 F 07/19/19 10:38 Pulse 101 H 07/19/19 08:18 Resp 20 07/19/19 08:18 BP 109/69 07/19/19 08:18 Pulse Ox 98 07/19/19 08:18 Intake & Output 07/18/19 07/19/19 07/19/19 18:59 06:59 18:59 Intake Total 930 Output Total 300 150 Balance -300 930 -150 Weight 95.254 kg Intake: Oral 930 Output: Urine 300 150 Other: Voiding Method Toilet Toilet Toilet # Voids 1 1 - Labs CBC & Chem 7: 07/19/19 07:18 07/19/19 07:18 Labs: Abnormal Lab Results - Last 24 Hours (Table) 07/18/19 07/18/19 07/18/19 Range/Units 16:34 17:51 20:34 WBC (3.8-10.6) k/uL RBC (3.80-5.40) m/uL Neutrophils # (1.3-7.7) k/uL Lymphocytes # (1.0-4.8) k/uL Glucose (74-99) mg/dL POC Glucose (mg/dL) 162 H 184 H 244 H (75-99) mg/dL 07/19/19 07/19/19 07/19/19 Range/Units 06:42 07:18 07:18 WBC 16.4 H (3.8-10.6) k/uL RBC 3.69 L (3.80-5.40) m/uL Neutrophils # 9.7 H (1.3-7.7) k/uL Lymphocytes # 5.5 H (1.0-4.8) k/uL Glucose 182 H (74-99) mg/dL POC Glucose (mg/dL) 155 H (75-99) mg/dL Microbiology - Last 24 Hours (Table) 07/18/19 09:50 Blood Culture Gram Stain - Preliminary Blood Blood Culture - Preliminary Gram Neg Bacilli 07/18/19 09:50 Blood Culture - Final Blood 07/18/19 09:50 Urine Culture - Preliminary Urine,Voided
[2019-07-19 12:18] LABS: Glucose,Whole Blood 162 mg/dL (75-99)
[2019-07-19] MEDS ORDERED: ONDANSETRON 4 MG/2 ML VIAL IVP PRN (13:59)
[2019-07-19 14:58] LABS: Glucose,Whole Blood 160 mg/dL (75-99)
[2019-07-19 15:33] VITALS: BMI 31.0
[2019-07-19 17:49] LABS: Glucose,Whole Blood 159 mg/dL (75-99)
--- NOTE | 2019-07-19 18:24 | P.PN ---
Subjective Patient is a 58 year old female with a past medical history significant right-sided hydronephrosis it was felt to be due to a primary eduard ureter for which the patient underwent resection of this distal ureter and a right ureteral reimplantation by Dr. Webster on 06/15/2019, patient did well post surgery however over the weekend the patient started having urinary frequency mild burning and started having pain in her right flank area patient described the pain to be sharp at times dull aching almost 78 out of 10 and no radiation the patient did have associated nausea but no vomiting. Started having a fever with chills for the patient took some Tylenol however with the patient symptom persisted she did presented to [facility] ER with the patient was evaluated by the ER physician on arrival to the ER the patient did have a fever of 104F she did have elevated white count and a positive UA she received a dose of Rocephin and subsequently has been admitted hospital on Rocephin 1 g every 12 hr ,infectious disease was consulted for further recommendation regarding antibiotic therapy 07/19/2019 pt today is somewhat feeling better, no flank pain or back pain , he suprapubic tenderness is less pronounced today. pt is able to eat and drink. vitals are stable. fever 103 today . leukocytosis is improving down to 16.4K, creatinine is WNL, repeat LFT tomorrow. pt is on ceftriaxone and normal saline at 75 ml/h. urology and ID team are on consult. HEENT: No recent visual problems or hearing problems. Denied any sore throat. PULMONARY: no cough, no hemoptysis. GASTROINTESTINAL: No diarrhea, no nausea, no vomiting, no abdominal pain. Normoactive bowel sounds. NEUROLOGICAL: No headaches, no weakness, no numbness. MUSCULOSKELETAL/RHEUMATOLOGICAL: Denies any joint pain, swelling, or any muscle pain. ENDOCRINE: Denies any polyuria or polydipsia. Active Medications Generic Name Dose Route Start Last Admin Trade Name Freq PRN Reason Stop Dose Admin Acetaminophen 650 mg 07/18/19 11:37 07/19/19 14:21 Tylenol Tab PO 650 mg Q6HR PRN Administration Mild Pain or Fever > 100.5 Hydrocodone Bitart/Acetaminophen 1 each 07/18/19 11:57 [place] 5-325 PO Q6HR PRN Pain Atorvastatin Calcium 20 mg 07/18/19 21:00 07/18/19 20:40 Lipitor PO 20 mg HS LEONARDA Administration Famotidine 20 mg 07/18/19 21:00 07/19/19 07:37 Pepcid IV 20 mg Q12HR LEONARDA Administration Heparin Sodium (Porcine) 5,000 unit 07/18/19 21:00 07/19/19 08:18 Heparin SQ 5,000 unit Q12HR LEONARDA Administration Sodium Chloride 1,000 mls @ 75 mls/hr 07/18/19 11:45 07/19/19 18:15 Saline 0.9% IV 75 mls/hr .[id number] LEONARDA Administration Ceftriaxone Sodium 2 gm/ 50 mls @ 100 mls/hr 07/19/19 09:00 07/19/19 08:17 Sodium Chloride IVPB 100 mls/hr Q24HR LEONARDA Administration Ibuprofen 400 mg 07/18/19 18:57 07/18/19 20:57 Motrin PO 400 mg Q6HR PRN Administration Fever Insulin Aspart 14 unit 07/18/19 12:30 07/19/19 12:21 Novolog Mix 70-30 Vial SQ 14 unit AC-LUNCH LEONARDA Administration Insulin Aspart 24 unit 07/18/19 17:30 07/19/19 18:06 Novolog Mix 70-30 Vial SQ 24 unit AC-BID LEONARDA Administration Insulin Aspart 0 unit 07/18/19 17:30 07/19/19 18:05 Novolog SQ 1 unit ACHS LEONARDA Administration Protocol Lisinopril 5 mg 07/19/19 09:00 07/19/19 12:25 Zestril PO 5 mg DAILY LEONARDA Administration Metformin HCl 1,000 mg 07/18/19 21:00 07/19/19 08:17 Glucophage PO Not Given BID LEONARDA Naloxone HCl 0.2 mg 07/18/19 11:37 Narcan IV Q2M PRN Opioid Reversal Ondansetron HCl 4 mg 07/19/19 13:59 07/19/19 14:05 Zofran IVP 4 mg Q6HR PRN Administration Nausea And Vomiting Objective - Vital Signs Vital signs: Vital Signs Temp 99.2 F 07/19/19 17:28 Pulse 95 07/19/19 17:28 Resp 20 07/19/19 15:48 BP 115/74 07/19/19 15:48 Pulse Ox 97 07/19/19 17:28 Intake & Output 11/07/19/19 07/19/19 18:59 06:59 18:59 Intake Total 930 100 Output Total 300 650 Balance -300 930 -550 Weight 95.254 kg 95.254 kg Intake: Oral 930 100 Output: Urine 300 650 Other: Voiding Method Toilet Toilet Toilet # Voids 1 1 # Emeses 1 - Labs CBC & Chem 7: 07/19/19 07:18 07/19/19 07:18 Labs: Abnormal Lab Results - Last 24 Hours (Table) 07/18/19 07/19/19 07/19/19 Range/Units 20:34 06:42 07:18 WBC 16.4 H (3.8-10.6) k/uL RBC 3.69 L (3.80-5.40) m/uL Neutrophils # 9.7 H (1.3-7.7) k/uL Lymphocytes # 5.5 H (1.0-4.8) k/uL Glucose (74-99) mg/dL POC Glucose (mg/dL) 244 H 155 H (75-99) mg/dL 07/19/19 07/19/19 07/19/19 Range/Units 07:18 12:12 14:52 WBC (3.8-10.6) k/uL RBC (3.80-5.40) m/uL Neutrophils # (1.3-7.7) k/uL Lymphocytes # (1.0-4.8) k/uL Glucose 182 H (74-99) mg/dL POC Glucose (mg/dL) 162 H 160 H (75-99) mg/dL 07/19/19 Range/Units 17:45 WBC (3.8-10.6) k/uL RBC (3.80-5.40) m/uL Neutrophils # (1.3-7.7) k/uL Lymphocytes # (1.0-4.8) k/uL Glucose (74-99) mg/dL POC Glucose (mg/dL) 159 H (75-99) mg/dL Microbiology - Last 24 Hours (Table) 07/18/19 09:50 Urine Culture - Preliminary Urine,Voided Gram Neg Bacilli 07/18/19 09:50 Blood Culture Gram Stain - Preliminary Blood Blood Culture - Preliminary Gram Neg Bacilli 07/18/19 09:50 Blood Culture - Final Blood Assessment and Plan Assessment: Acute right pyelonephritis in view of her recurrent pyelonephritis SIRS syndrome with tachycardia, fever and leukocytosis septicemia with positive Blood culture secondary to above kidney stone status post right ESWL many years ago Diabetes mellitus Recent history of right hydronephrosis and right hydroureter, status post stent placement and removal in the right ureter Plan: This is a pleasant 58 years old female who presents with recurrent pyelonephritis while she has a right ureteral stent. Continue with antibiotics ceftriaxone 2 gm, follow-up urine culture and blood culture final results, follow-up recommendation by urologist and ID team. Continue with insulin and metformin. Pain management Labs and medication were reviewed.. Continue same treatment. Continue with symptomatic treatment. Resume home medication. Monitor lytes and vitals. DVT and GI prophylaxis. Further recommendations of the clinical course of the patient DVT prophylaxis: Subcutaneous heparin GI Prophylaxis: Pepcid Prognosis is guarded
[2019-07-19] MEDS: ATORVASTATIN 20 MG TAB PO SCH (20:38)
[2019-07-19 20:43] LABS: Glucose,Whole Blood 135 mg/dL (75-99)
[2019-07-19] MEDS: IBUPROFEN 400 MG TAB PO PRN (21:49)
[2019-07-19] MEDS ORDERED: ERTAPENEM 1 GM in SODIUM CHLORIDE 0.9% 50 ML IVPB SCH (23:00)
--- NOTE | 2019-07-20 00:28 | PN ---
PROGRESS NOTE DATE OF SERVICE: 07/19/2019. REASON FOR FOLLOWUP: Right-sided pyelonephritis. INTERVAL HISTORY: The patient has been spiking fever with 103 this afternoon. I was not notified. The patient denies having any chest pain. No cough or worsening right flank pain. No nausea, vomiting and no diarrhea. PHYSICAL EXAMINATION: Blood pressure 123/74 with a pulse of 90, temperature 101.4, she is 99% on room air. General description is middle-aged female up in the bed in no distress. Respiratory system: Unlabored breathing, decreased breath sounds in the bases. No wheeze. Heart S1, S2. Regular rate and rhythm. Abdomen soft, no tenderness. Extremities: No edema of the feet. LABS: Blood and urine culture with gram-negative bacilli. DIAGNOSTIC IMPRESSION AND PLAN: Patient with gram-negative urinary tract infection with bacteremia and sepsis in this patient who did have persistent fever despite being on Rocephin with concern for possible resistant pathogen. Antibiotic will be adjusted to Invanz to cover for possible ESBL while waiting for the culture to finalize and continue supportive care. MMODL / IJN: [id number] /
[2019-07-20] MEDS: SODIUM CHLORIDE 0.9% 1,000 ML IV SCH (06:04)
[2019-07-20 07:27] LABS: Basophils # (A) 0.1 k/uL (0-0.2); Basophils % (A) 1 %; Eosinophils # (A) 0.1 k/uL (0-0.7); Eosinophils % (A) 1 %; HCT 32.7 % (34.0-46.0); HGB 10.5 gm/dL (11.4-16.0); Lymphocytes # (A) 4.7 k/uL (1.0-4.8); Lymphocytes % (A) 42 %; MCH 30.5 pg (25.0-35.0); MCV 95.2 fL (80.0-100.0); Mean Platelet Volume 7.7; Monocytes # (A) 0.6 k/uL (0-1.0); Monocytes % (A) 5 %; Neutrophils # (A) 5.1 k/uL (1.3-7.7); Neutrophils % (A) 46 %; Platelet Count 181 k/uL (150-450); RBC 3.44 m/uL (3.80-5.40); RDW 12.8 % (11.5-15.5)
[2019-07-20 07:35] LABS: Glucose,Whole Blood 109 mg/dL (75-99)
[2019-07-20] MEDS: INSULIN ASPART (NovoLOG) 100 UNIT/ML VIAL SQ SCH ×4 (07:36→21:09)
[2019-07-20 07:42] LABS: ALT 97 U/L (9-52); AST 84 U/L (14-36); African American GFR (CKD) >90 (>60 ml/min/1.73 sqM); Albumin 2.8 g/dL (3.5-5.0); Alkaline Phosphatase 94 U/L (38-126); Anion Gap 8 mmol/L; Bilirubin, Delta 0.3 mg/dL (0.0-0.2); Bilirubin,Unconjugated 0.3 mg/dL (0.0-1.1); Blood Urea Nitrogen 8 mg/dL (7-17); Calcium 8.4 mg/dL (8.4-10.2); Carbon Dioxide 26 mmol/L (22-30); Chloride 107 mmol/L (98-107); Glucose 102 mg/dL (74-99); Non-African American GFR(CKD) >90 (>60 ml/min/1.73 sqM); Potassium 3.4 mmol/L (3.5-5.1); Sodium 141 mmol/L (137-145); Total Bilirubin 0.6 mg/dL (0.2-1.3); Total Protein 5.3 g/dL (6.3-8.2)
--- NOTE | 2019-07-20 08:02 | P.PN ---
Subjective Progress Note Date: 07/20/19 pt in the hospital for pyelonephritis SHe continues to improve She still has some fever spikes, but this is expected given bacteremia. Wbc continues to normalize[11k] Await cultures. Objective - Vital Signs Vital signs: Vital Signs Temp 98.7 F 07/20/19 04:15 Pulse 85 07/20/19 04:15 Resp 20 07/19/19 23:12 BP 119/7 07/19/19 23:12 Pulse Ox 96 07/19/19 23:12 Intake & Output 07/19/19 07/20/19 07/20/19 18:59 06:59 18:59 Intake Total 100 550 Output Total 650 1375 Balance -550 -825 Weight 95.254 kg Intake: Intake, IV Titration 50 Amount Ertapenem 1 gm In Sodium 50 Chloride 0.9% 50 ml @ 100 mls/hr IVPB Q24H [facility] Rx# :[id number] Oral 100 500 Output: Urine 650 1375 Other: Voiding Method Toilet Toilet # Voids 3 # Emeses 1 - Labs CBC & Chem 7: 07/20/19 06:41 07/20/19 06:41 Labs: Abnormal Lab Results - Last 24 Hours (Table) 07/19/19 07/19/19 07/19/19 Range/Units 07:18 12:12 14:52 WBC 16.4 H (3.8-10.6) k/uL RBC 3.69 L (3.80-5.40) m/uL Hgb (11.4-16.0) gm/dL Hct (34.0-46.0) % Neutrophils # 9.7 H (1.3-7.7) k/uL Lymphocytes # 5.5 H (1.0-4.8) k/uL Potassium (3.5-5.1) mmol/L Glucose (74-99) mg/dL POC Glucose (mg/dL) 162 H 160 H (75-99) mg/dL Delta Bilirubin (0.0-0.2) mg/dL AST (14-36) U/L ALT (9-52) U/L Total Protein (6.3-8.2) g/dL Albumin (3.5-5.0) g/dL 07/19/19 07/19/19 07/20/19 Range/Units 17:45 20:38 06:41 WBC 11.0 H (3.8-10.6) k/uL RBC 3.44 L (3.80-5.40) m/uL Hgb 10.5 L (11.4-16.0) gm/dL Hct 32.7 L (34.0-46.0) % Neutrophils # (1.3-7.7) k/uL Lymphocytes # (1.0-4.8) k/uL Potassium (3.5-5.1) mmol/L Glucose (74-99) mg/dL POC Glucose (mg/dL) 159 H 135 H (75-99) mg/dL Delta Bilirubin (0.0-0.2) mg/dL AST (14-36) U/L ALT (9-52) U/L Total Protein (6.3-8.2) g/dL Albumin (3.5-5.0) g/dL 07/20/19 07/20/19 Range/Units 06:41 07:33 WBC (3.8-10.6) k/uL RBC (3.80-5.40) m/uL Hgb (11.4-16.0) gm/dL Hct (34.0-46.0) % Neutrophils # (1.3-7.7) k/uL Lymphocytes # (1.0-4.8) k/uL Potassium 3.4 L (3.5-5.1) mmol/L Glucose 102 H (74-99) mg/dL POC Glucose (mg/dL) 109 H (75-99) mg/dL Delta Bilirubin 0.3 H (0.0-0.2) mg/dL AST 84 H (14-36) U/L ALT 97 H (9-52) U/L Total Protein 5.3 L (6.3-8.2) g/dL Albumin 2.8 L (3.5-5.0) g/dL Microbiology - Last 24 Hours (Table) 07/18/19 09:50 Urine Culture - Preliminary Urine,Voided Gram Neg Bacilli 07/18/19 09:50 Blood Culture Gram Stain - Preliminary Blood Blood Culture - Preliminary Gram Neg Bacilli 07/18/19 09:50 Blood Culture - Final Blood
[2019-07-20] MEDS: FAMOTIDINE 20 MG/2 ML VIAL IV SCH (08:41)
[2019-07-20] MEDS: HEPARIN SODIUM,PORCINE 5,000 UNIT/ML 1 ML VIAL SQ SCH ×2 (08:41→21:09)
[2019-07-20] MEDS: LISINOPRIL 5 MG TAB PO SCH (08:45)
[2019-07-20] MEDS: metFORMIN 500 MG TAB PO SCH ×2 (08:46→21:10)
[2019-07-20] MEDS: INSULN ASP PRT/INSULIN ASPART 100 UNIT/ML 10 ML VIAL SQ SCH ×3 (08:58→18:27)
[2019-07-20] MEDS: IBUPROFEN 400 MG TAB PO PRN (11:04)
[2019-07-20 12:42] LABS: Glucose,Whole Blood 166 mg/dL (75-99)
--- NOTE | 2019-07-20 17:02 | PN ---
PROGRESS NOTE DATE OF SERVICE: 07/20/2019 REASON FOR FOLLOWUP: Klebsiella pneumoniae UTI and bacteremia. INTERVAL HISTORY: The patient did spike a fever last night of 101.8. The patient has been afebrile since then. The patient is currently feeling better. The right-sided flank pain has improved. No nausea or vomiting. Denies having chest pain, shortness of breath or cough and urinary frequency has improved. PHYSICAL EXAMINATION: Blood pressure 122/78 with a pulse of 81, temperature 98.9. She is 96% on room air. General description is a middle-aged female up in the room in no distress. RESPIRATORY SYSTEM: Unlabored breathing. Clear to auscultation anteriorly. HEART: S1, S2. Regular rate and rhythm. ABDOMEN: Soft. No tenderness. LABS: White count is 11, BUN of 8, creatinine 0.52. DIAGNOSTIC IMPRESSION AND PLAN: Patient with Klebsiella pneumoniae urinary tract infection with secondary bacteremia. This is a sensitive pathogen. Antibiotic was switched back to Rocephin 2 grams daily with a plan to finish therapy with oral Cipro. Prescription has been sent to the pharmacy. MMPARDEEPL / CAROLN: [id number] /
[2019-07-20 17:42] LABS: Glucose,Whole Blood 107 mg/dL (75-99)
[2019-07-20] MEDS ORDERED: POTASSIUM CHLORIDE ER 20 MEQ TAB.ER PO STA (18:07)
--- NOTE | 2019-07-20 20:18 | P.DS ---
Providers Date of admission: 07/18/19 11:34 Expected date of discharge: 07/20/19 Attending physician: Elivn Obando Consults: 07/18/19 11:37 Consult Physician Urgent Consulting Provider: Glen Nguyen Consult Reason/Comments: Pyelonephritis, recent ureteral surgery Do you want consulting provider notified?: Already Contacted 07/18/19 11:57 Consult Physician Urgent Consulting Provider: Madalyn Snell Consult Reason/Comments: pyleonephritis Do you want consulting provider notified?: Yes 07/18/19 21:17 Consult Physician Urgent Consulting Provider: Madalyn Snell Consult Reason/Comments: pyelonephritis Do you want consulting provider notified?: Yes Primary care physician: Victoriano Jacob [facility] Course: Hospital course: This is a pleasant 58-year-old patient of Dr. Victoriano Parmar. 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 Patient also recently had a double-J stent stent removed from the right side. Vision presents with discomfort in the right flank area for 2 days duration with fever not feeling well and some urinary symptoms. Initial fever or 102. She was seen by Dr. Snell from ID and her antibiotics were switched to IV ceftriaxone and as patient is to finish her course with ciprofloxacin. He cleared the patient to go home today. Patient is found to have right-sided pyelonephritis with secondary bacteremia. Today patient is feeling rather well. He much better. In the last 2 months has lost significant amount of weight. 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 Overall feeling much better no fever today. Care was discussed at length with the patient. Questions were answered in detail. Discussion and discharge planning more than 35 minutes Consultants: Dr. Faria from urology Dr. snell from ID Physical examination: VITAL SIGNS: 98.3, 87, 16, 121/77, 98% room air GENERAL: Laying in bed, comfortable EYES: Pupils equal. Conjunctiva normal. HEENT: External appearance of nose and ears normal, oral cavity grossly normal. NECK: JVD not raised; masses not palpable. HEART: First and second heart sounds are normal; no edema. LUNGS: Respiratory rate normal; clear to auscultation. ABDOMEN: Soft, nontender, liver spleen not palpable, no masses palpable. PSYCH: Alert and oriented x3; mood and affect tired. INVESTIGATIONS, reviewed in the clinical context: White count 11 hemoglobin 10.5 impression 3.4 creatinine 0.5 to Accu-Cheks 109, 166, 107 Urine and blood culture growing Klebsiella pneumoniae from July 18. Blood cultures from July 19 have been negative to low Discharge diagnosis: -Acute UTI from pyelonephritis with known underlying nephrolithiasis, with blood and urine culture positive for Klebsiella pneumoniae -History of distal right ureter resection with implantation, removal of double J stent -Diabetes mellitus type 2, requiring insulin -Chronic nephrolithiasis -Leukocytosis -Obesity BMI 31 -Gastritis Disposition: Home Patient Condition at Discharge: Stable Plan - Discharge Summary Discharge Rx Participant: Yes New Discharge Prescriptions: New Ciprofloxacin HCl [Cipro] 500 mg PO Q12HR #24 tablet Continue Atorvastatin [Lipitor] 20 mg PO HS #30 tab metFORMIN HCL 1,000 mg PO BID #60 tab Lisinopril [Zestril] 5 mg PO DAILY Changed Insuln Asp Prt/Insulin Aspart [NovoLOG MIX 70-30 VIAL] 10 unit SQ AC-LUNCH #0 Insuln Asp Prt/Insulin Aspart [NovoLOG MIX 70-30 VIAL] 18 unit SQ AC-BID #0 Discharge Medication List Atorvastatin [Lipitor] 20 mg PO HS #30 tab 04/20/19 [Rx] metFORMIN HCL 1,000 mg PO BID #60 tab 05/19/19 [Rx] Lisinopril [Zestril] 5 mg PO DAILY 07/18/19 [History] Ciprofloxacin HCl [Cipro] 500 mg PO Q12HR #24 tablet 07/20/19 [Rx] Insuln Asp Prt/Insulin Aspart [NovoLOG MIX 70-30 VIAL] 10 unit SQ AC-LUNCH #0 07/20/19 [Rx] Insuln Asp Prt/Insulin Aspart [NovoLOG MIX 70-30 VIAL] 18 unit SQ AC-BID #0 07/20/19 [Rx] Follow up Appointment(s)/Referral(s): Victoriano Jacob DO [Primary Care Provider] - 1-2 days Madalyn Snell MD [STAFF PHYSICIAN] - 1 Week (07-26-19 at 2:15pm) Patient Instructions/Handouts: Urinary Tract Infection in Women (DC) Activity/Diet/Wound Care/Special Instructions: Contact CM at [facility] if indigent funds needed for new rx call doctor coury to schedule a follow up appointment. schedule a diabetic education class go to doctor if you experience any new symptoms or worsening symptoms. If you experience any fever, chills, uncontrolled pain, pain to flank areas, discolored or strong smelling urine or any frequency or urgency. make sure to complete the full course of antibiotics as ordered. take all medications as ordered and discussed with physicians. call with any comments, questions, or concerns. check your blood sugars at least 3 times a day and keep a diary of your food intake, the medications you have taken, and what your blood sugar is. bring to the follow up appointment.
[2019-07-20] MEDS ORDERED: FAMOTIDINE 20 MG TAB PO SCH (21:00)
[2019-07-20 21:08] VITALS: BP 124/80; PULSE 81; RESP 18; TEMP 98.4
[2019-07-20] MEDS: ATORVASTATIN 20 MG TAB PO SCH (21:08)
[2019-07-21 04:34] LABS: Hemoglobin A1C 6.5 % (4.0-6.0)
--- NOTE | 2019-07-26 08:28 | CDI ---
Documentation Clarification Form Date: 07/26/2019 8:16:59 AM From: Sofya Lehman Phone: If you have a question about this query, please contact Jenise Saenz Brine Supervisor at [phone] between 8am and 5pm. Admit Date: 07/18/2019 11:34:00 AM Patient Name: Amarilis Chaidez Visit Number: [id number] Discharge Date: 07/20/2019 8:45:00 PM ATTENTION: The Clinical Documentation Specialists (CDI) and [facility] Coding Staff appreciate your assistance in clarifying documentation. Please respond to the clarification below the line at the bottom and electronically sign. The CDI & [facility] Coding staff will review the response and follow-up if needed. Please note: Queries are made part of the Legal Health Record. If you have any questions, please contact the author of this message via ITS. Dr. Elvin Obando The patient presented with the following eevated WBC, fever, tachycardia postive blood cultures for Klebsiella and acute pyelonephritis. ID documents "presented to the hospital with sepsis". Please clarify if patient had sepsis or was it ruled out. History/Risk Factors: pyonephrosis Acute pyelonephritis. transplanted ureter WBC 25.1 Lactic acid: 1.3 Blood cultures: postiive for Klebsiella Vitals signs on admission: 100.9 F - 102.0 F, 132 bpm, 94/51 98% RA Treatment: Rocephin ID Consult: Sepsis Antibiotics: 2g IV Rocephin In your professional opinion, please clarify if patient had sepsis or was it ruled out. Condition Sepsis ruled out Sepsis Severe Sepsis Other, please specify Unable to determine SIRS Criteria (2 or more of the following may indicate SIRS): -Temperature < 96.8F (36C) or > 101.0F (38.3C) -Heart Rate > 90 bpm -Respiratory Rate > 20 breaths/min or PaCO2 < 32 mmHg -White Blood Cell Count > 12,000 or < 4,000 cells/mm3 or > 10% bands -Lactate >2.0 mmol/L (>4.0 is equivalent to septic shock) Severe sepsis, POA MTDD
== END 2019-07-20 20:45 | disposition home or self-care (01) | DRG 872 ==
LOC: EC 09:22 → 6PED 11:34
PROVIDERS: ADMIT Hospitalist; ATTEND Hospitalist
DX: A41.59 Other Gram-negative sepsis (principal); N10 Acute pyelonephritis; E87.2 Acidosis; N13.6 Pyonephrosis; R65.20 Severe sepsis without septic shock; E66.9 Obesity, unspecified; E11.9 Type 2 diabetes mellitus without complications; E78.5 Hyperlipidemia, unspecified; I10 Essential (primary) hypertension; K29.70 Gastritis, unspecified, without bleeding; Z68.31 Body mass index [BMI] 31.0-31.9, adult; Z79.4 Long term (current) use of insulin; Z79.899 Other long term (current) drug therapy; Z80.49 Family history of malignant neoplasm of other genital organs; Z82.49 Family history of ischemic heart disease and other diseases of the circulatory system; Z87.442 Personal history of urinary calculi; Z87.891 Personal history of nicotine dependence; Z88.2 Allergy status to sulfonamides
CPT/HCPCS: 36415; 76770; 80048; 80053; 80076; 81001; 82150; 83036; 83605; 83690; 85025; 87040; 87077; 87086; 87186; 96361; 96365; 96375; 99285

== ENCOUNTER 2019-10-29 21:32 | Emergency (ER) | payer OTHER ==
[2019-10-29] MEDS ORDERED: SODIUM CHLORIDE 0.9% 500 ML 500 ML IV STA (22:39)
[2019-10-29] MEDS ORDERED: SODIUM CHLORIDE 0.9% 1,000 ML IV STA (22:39)
[2019-10-29] MEDS ORDERED: ONDANSETRON 4 MG/2 ML VIAL IVP STA (22:39)
[2019-10-29] MEDS ORDERED: MORPHINE SULFATE 2 MG/ML SYRINGE IVP STA (22:39)
[2019-10-29 23:27] LABS: HCT 44.5 % (34.0-46.0); HGB 14.7 gm/dL (11.4-16.0); MCH 30.3 pg (25.0-35.0); Mean Platelet Volume 8.4; Platelet Count 248 k/uL (150-450); RBC 4.83 m/uL (3.80-5.40); RDW 14.3 % (11.5-15.5); WBC 15.1 k/uL (3.8-10.6)
[2019-10-29 23:29] LABS: ALT 21 U/L (4-34); AST 23 U/L (14-36); African American GFR (CKD) >90 (>60 ml/min/1.73 sqM); Albumin 4.7 g/dL (3.5-5.0); Alkaline Phosphatase 85 U/L (38-126); Amylase 64 U/L (30-110); Anion Gap 10 mmol/L; Blood Urea Nitrogen 22 mg/dL (7-17); Calcium 9.4 mg/dL (8.4-10.2); Carbon Dioxide 27 mmol/L (22-30); Chloride 103 mmol/L (98-107); Glucose 291 mg/dL (74-99); Non-African American GFR(CKD) >90 (>60 ml/min/1.73 sqM); Potassium 4.2 mmol/L (3.5-5.1); Sodium 140 mmol/L (137-145); Total Bilirubin 0.6 mg/dL (0.2-1.3); Total Protein 7.3 g/dL (6.3-8.2)
[2019-10-29 23:33] LABS: Appearance,Urine Clear (Clear); Bacteria,Urine Rare /hpf; Bilirubin,Urine Negative (Negative); Blood,Urine Negative (Negative); Color,Urine Yellow; Glucose,Urine (UA) 4+ (Negative); Leukocyte Esterase,Urine Moderate (Negative); Mucus,Urine Occasional /hpf; Nitrite,Urine Negative (Negative); Protein,Urine 1+ (Negative); RBC,Urine 2 /hpf (0-5); Specific Gravity,Urine 1.034 (1.001-1.035); Squamous Epithelial Cell,Urine 2 /hpf (0-4); Urobilinogen,Urine <2.0 mg/dL (<2.0); WBC,Urine 25 /hpf (0-5)
--- NOTE | 2019-10-29 23:41 | XR ---
EXAMINATION TYPE: XR KUB DATE OF EXAM: 10/29/2019 COMPARISON: May 25, 2019 HISTORY: Abdominal pain TECHNIQUE: 2 views upright FINDINGS: Bowel gas pattern is normal. There is no sign of intestinal obstruction or pneumoperitoneum . Fecal pattern is normal. I see no pathologic calcifications over the kidneys. Lung bases are clear. There is no evidence of a mass. IMPRESSION: Nonacute abdomen. No change. No evidence of right side urinary tract calculus.
[2019-10-29 23:44] LABS: Ketones,Urine 4+ (Negative)
[2019-10-30 00:18] VITALS: RESP 18
[2019-10-30] MEDS ORDERED: ACETAMINOPHEN TAB 500 MG TAB PO STA (00:56)
[2019-10-30 01:03] LABS: Glucose,Whole Blood 277 mg/dL (75-99)
[2019-10-30] MEDS ORDERED: cefTRIAXone IN SWFI 1,000 MG/10 ML SYRINGE IVP STA (01:07)
[2019-10-30] MEDS ORDERED: ONDANSETRON 4 MG ODT STARTER PACK 2 TAB BTL PO STA (01:07)
[2019-10-30] MEDS ORDERED: INSULN ASP PRT/INSULIN ASPART 100 UNIT/ML 10 ML VIAL SQ ONE (01:15)
[2019-10-30 01:16] LABS: Lymphocytes # (M) 7.85 k/uL (1.0-4.8); Neutrophils # (M) 7.25 k/uL (1.3-7.7); Neutrophils % (M) 48 %; Nucleated Red Blood Cells 0 /100 WBC (0-0); Total Cells Counted 100
--- NOTE | 2019-10-30 01:16 | ED ---
Abdominal Pain HPI - General Chief Complaint: Abdominal Pain Stated Complaint: Vomiting Time Seen by Provider: 10/29/19 21:48 Source: patient Mode of arrival: ambulatory Limitations: no limitations - History of Present Illness Initial Comments: 59-year-old female patient presents to the emergency department today for evaluation of vomiting and diarrhea. Patient states symptoms started last evening and persisted throughout the day today. Patient is have a history of diabetes, states she has not given any insulin today. Patient states she is having some mild abdominal discomfort and mild right flank discomfort. States that she's had low-grade fevers throughout the day. She denies any recent travel or sick contacts. Denies ingestion of questionable foods. Patient reports history of right ureteral surgery and is concerned she may have UTI. Patient denies any recent rash, shortness breath, chest pain, back pain, numbness, tingling, dizziness, weakness, hematuria, dysuria, urinary urgency, urinary frequency, headache, visual changes, or any other complaints. - Related Data Home Medications Medication Instructions Recorded Confirmed Lisinopril [Zestril] 5 mg PO DAILY 07/18/19 07/18/19 Previous Rx's Medication Instructions Recorded Atorvastatin [Lipitor] 20 mg PO HS #30 tab 04/20/19 metFORMIN HCL 1,000 mg PO BID #60 tab 05/19/19 Ciprofloxacin HCl [Cipro] 500 mg PO Q12HR #24 tablet 07/20/19 Insuln Asp Prt/Insulin Aspart 10 unit SQ AC-LUNCH #0 07/20/19 [NovoLOG MIX 70-30 VIAL] Insuln Asp Prt/Insulin Aspart 18 unit SQ AC-BID #0 07/20/19 [NovoLOG MIX 70-30 VIAL] Cephalexin [Keflex] 500 mg PO Q6H #28 cap 10/30/19 Ondansetron [Zofran ODT] 4 mg PO Q8HR PRN #10 tab 10/30/19 Allergies Allergy/AdvReac Type Severity Reaction Status Date / Time Sulfa (Sulfonamide Allergy Rash/Hives Verified 10/29/19 21:39 Antibiotics) Review of Systems ROS Statement: Those systems with pertinent positive or pertinent negative responses have been documented in the HPI. ROS Other: All systems not noted in ROS Statement are negative. Past Medical History Past Medical History: Diabetes Mellitus Additional Past Medical History / Comment(s): kidney stones, lithotrispies. History of Any Multi-Drug Resistant Organisms: None Reported Past Surgical History: Section Additional Past Surgical History / Comment(s): ureter surgery 06/11 Past Anesthesia/Blood Transfusion Reactions: No Reported Reaction Past Psychological History: No Psychological Hx Reported Smoking Status: Never smoker Past Alcohol Use History: Occasional Past Drug Use History: None Reported - Past Family History Sister(s) Family Medical History: Cancer Additional Family Medical History / Comment(s): cervical cancer. Mother Family Medical History: No Reported History Additional Family Medical History / Comment(s): Mother is healthy Father Family Medical History: Congestive Heart Failure (CHF) General Exam Limitations: no limitations General appearance: alert, in no apparent distress, other (This is a well- developed, well-nourished adult female patient in no acute distress. Vital signs upon presentation are temperature 99.6F, pulse 87, respirations 20, blood pressure 167/95, pulse ox 99% on room air.) Eye exam: Present: normal appearance, PERRL, EOMI. Absent: scleral icterus, conjunctival injection, periorbital swelling ENT exam: Present: normal exam, normal oropharynx, mucous membranes moist Respiratory exam: Present: normal lung sounds bilaterally. Absent: respiratory distress, wheezes, rales, rhonchi, stridor Cardiovascular Exam: Present: regular rate, normal rhythm, normal heart sounds. Absent: systolic murmur, diastolic murmur, rubs, gallop, clicks GI/Abdominal exam: Present: soft, normal bowel sounds. Absent: distended, te nderness, guarding, rebound, rigid Neurological exam: Present: alert Psychiatric exam: Present: normal affect, normal mood Skin exam: Present: warm, dry, intact, normal color. Absent: rash Course Vital Signs 10/29/19 10/30/19 10/30/19 21:36 00:00 01:48 Temperature 99.6 F 100.3 F H 98.1 F Pulse Rate 87 84 88 Respiratory 20 18 18 Rate Blood Pressure 167/95 162/79 164/82 O2 Sat by Pulse 99 95 97 Oximetry Medical Decision Making - Medical Decision Making 59-year-old female patient presents to the emergency department today for evaluation of vomiting and diarrhea. Patient is also exhibiting low-grade temperatures. Physical examination reveals a soft nontender abdomen. Labs reviewed and did reveal mildly elevated white blood cell count, most likely reactive from vomiting. X-ray of the abdomen was negative. Patient symptoms are most consistent with viral gastroenteritis. We'll treat with Zofran. She does have evidence for possible early urinary tract infection, will treat with antibiotics. She'll be discharged pop with her primary care physician for recheck in 1-2 days. Return parameters discussed in detail. She verbalizes understanding and agrees with this plan. - Lab Data Result diagrams: 10/29/19 22:43 10/29/19 22:43 Lab Results 10/29/19 10/29/19 10/29/19 Range/Units 22:43 22:43 22:43 WBC 15.1 H (3.8-10.6) k/uL RBC 4.83 (3.80-5.40) m/uL Hgb 14.7 (11.4-16.0) gm/dL Hct 44.5 (34.0-46.0) % MCV 92.0 (80.0-100.0) fL MCH 30.3 (25.0-35.0) pg MCHC 33.0 (31.0-37.0) g/dL RDW 14.3 (11.5-15.5) % Plt Count 248 (150-450) k/uL Neutrophils % Not Reportable Lymphocytes % Not Reportable Monocytes % Not Reportable Eosinophils % Not Reportable Basophils % Not Reportable Neutrophils # Not Reportable Lymphocytes # Not Reportable Monocytes # Not Reportable Eosinophils # Not Reportable Basophils # Not Reportable Sodium 140 (137-145) mmol/L Potassium 4.2 (3.5-5.1) mmol/L Chloride 103 (98-107) mmol/L Carbon Dioxide 27 (22-30) mmol/L Anion Gap 10 mmol/L BUN 22 H (7-17) mg/dL Creatinine 0.49 L (0.52-1.04) mg/dL Est GFR (CKD-EPI)AfAm >90 (>60 ml/min/1.73 sqM) Est GFR (CKD-EPI)NonAf >90 (>60 ml/min/1.73 sqM) Glucose 291 H (74-99) mg/dL POC Glucose (mg/dL) (75-99) mg/dL POC Glu Chef De Partie ID Calcium 9.4 (8.4-10.2) mg/dL Total Bilirubin 0.6 (0.2-1.3) mg/dL AST 23 (14-36) U/L ALT 21 (4-34) U/L Alkaline Phosphatase 85 (38-126) U/L Total Protein 7.3 (6.3-8.2) g/dL Albumin 4.7 (3.5-5.0) g/dL Amylase 64 (30-110) U/L Lipase 29 (23-300) U/L Urine Color Yellow Urine Appearance Clear (Clear) Urine pH 6.0 (5.0-8.0) Ur Specific [place] 1.034 (1.001-1.035) Urine Protein 1+ H (Negative) Urine Glucose (UA) 4+ H (Negative) Urine Ketones 4+ H (Negative) Urine Blood Negative (Negative) Urine Nitrite Negative (Negative) Urine Bilirubin Negative (Negative) Urine Urobilinogen <2.0 (<2.0) mg/dL Ur Leukocyte Esterase Moderate H (Negative) Urine RBC 2 (0-5) /hpf Urine WBC 25 H (0-5) /hpf Ur Squamous Epith Cells 2 (0-4) /hpf Urine Bacteria Rare H (None) /hpf Urine Mucus Occasional H (None) /hpf 10/30/19 Range/Units 01:00 WBC (3.8-10.6) k/uL RBC (3.80-5.40) m/uL Hgb (11.4-16.0) gm/dL Hct (34.0-46.0) % MCV (80.0-100.0) fL MCH (25.0-35.0) pg MCHC (31.0-37.0) g/dL RDW (11.5-15.5) % Plt Count (150-450) k/uL Neutrophils % Lymphocytes % Monocytes % Eosinophils % Basophils % Neutrophils # Lymphocytes # Monocytes # Eosinophils # Basophils # Sodium (137-145) mmol/L Potassium (3.5-5.1) mmol/L Chloride (98-107) mmol/L Carbon Dioxide (22-30) mmol/L Anion Gap mmol/L BUN (7-17) mg/dL Creatinine (0.52-1.04) mg/dL Est GFR (CKD-EPI)AfAm (>60 ml/min/1.73 sqM) Est GFR (CKD-EPI)NonAf (>60 ml/min/1.73 sqM) Glucose (74-99) mg/dL POC Glucose (mg/dL) 277 H (75-99) mg/dL POC Glu Chef De Partie ID Ara Swenson Calcium (8.4-10.2) mg/dL Total Bilirubin (0.2-1.3) mg/dL AST (14-36) U/L ALT (4-34) U/L Alkaline Phosphatase (38-126) U/L Total Protein (6.3-8.2) g/dL Albumin (3.5-5.0) g/dL Amylase (30-110) U/L Lipase (23-300) U/L Urine Color Urine Appearance (Clear) Urine pH (5.0-8.0) Ur Specific [place] (1.001-1.035) Urine Protein (Negative) Urine Glucose (UA) (Negative) Urine Ketones (Negative) Urine Blood (Negative) Urine Nitrite (Negative) Urine Bilirubin (Negative) Urine Urobilinogen (<2.0) mg/dL Ur Leukocyte Esterase (Negative) Urine RBC (0-5) /hpf Urine WBC (0-5) /hpf Ur Squamous Epith Cells (0-4) /hpf Urine Bacteria (None) /hpf Urine Mucus (None) /hpf - Radiology Data Radiology results: report reviewed, image reviewed Two-view x-ray of the abdomen is obtained. Report was reviewed in its entirety. Impression by Dr. Martines shows nonacute abdomen. No change. No evidence of right side urinary tract calculus. Disposition Clinical Impression: Vomiting and diarrhea, Hyperglycemia Disposition: HOME SELF-CARE Condition: Good Instructions (If sedation given, give patient instructions): Acute Nausea and Vomiting (ED), Acute Diarrhea (ED) Additional Instructions: Start with a clear liquid diet and advance as tolerated. Take medications as directed. Follow-up with your primary care physician for recheck in 1-2 days. Return to the emergency department immediately for any new, worsening, or concerning symptoms. Prescriptions: Cephalexin [Keflex] 500 mg PO Q6H #28 cap Ondansetron [Zofran ODT] 4 mg PO Q8HR PRN #10 tab PRN Reason: Nausea Is patient prescribed a controlled substance at d/c from ED?: No Referrals: Victoriano Jacob DO [Primary Care Provider] - 1-2 days Time of Disposition: 01:16
[2019-10-30 01:19] LABS: Large Platelets Present
[2019-10-30 01:50] VITALS: BP 164/82; PULSE 88; TEMP 98.1
== END 2019-10-30 01:50 | disposition home or self-care (01) ==
LOC: EC 21:32
DX: E11.65 Type 2 diabetes mellitus with hyperglycemia (principal); R11.10 Vomiting, unspecified; R19.7 Diarrhea, unspecified; R50.9 Fever, unspecified; D72.829 Elevated white blood cell count, unspecified; Z88.2 Allergy status to sulfonamides; Z79.4 Long term (current) use of insulin; Z87.442 Personal history of urinary calculi; Z98.890 Other specified postprocedural states
CPT/HCPCS: 36415 ×2; 80053; 82150; 83690; 85025; 81001; 87086; 74018; 99284; 96374; 96375 ×2; 96361; J2405; J0696; J2270; S0119

== ENCOUNTER 2019-10-31 12:55 | Inpatient (IN) | payer OTHER ==
[2019-10-31] MEDS ORDERED: METOCLOPRAMIDE 5 MG/ML 2 ML VIAL IVP STA (14:06)
[2019-10-31] MEDS ORDERED: SODIUM CHLORIDE 0.9% 1,000 ML IV STA (14:06)
[2019-10-31] MEDS ORDERED: SODIUM CHLORIDE 0.9% 2,000 ML IV STA (14:06)
[2019-10-31] MEDS ORDERED: ONDANSETRON 4 MG/2 ML VIAL IVP STA ×2 (14:06→17:20)
[2019-10-31 14:50] LABS: Basophils % (A) 0 %; Eosinophils % (A) 0 %; HCT 45.9 % (34.0-46.0); HGB 14.6 gm/dL (11.4-16.0); Lymphocytes # (A) 7.9 k/uL (1.0-4.8); Lymphocytes % (A) 41 %; MCH 29.7 pg (25.0-35.0); MCHC 31.9 g/dL (31.0-37.0); MCV 93.2 fL (80.0-100.0); Mean Platelet Volume 8.4; Monocytes # (A) 0.3 k/uL (0-1.0); Monocytes % (A) 2 %; Neutrophils # (A) 10.8 k/uL (1.3-7.7); Neutrophils % (A) 56 %; Platelet Count 240 k/uL (150-450); RBC 4.92 m/uL (3.80-5.40); RDW 14.3 % (11.5-15.5); WBC 19.4 k/uL (3.8-10.6)
[2019-10-31 14:54] LABS: Appearance,Urine Clear (Clear); Bilirubin,Urine Negative (Negative); Blood,Urine Negative (Negative); Color,Urine Yellow; Glucose,Urine (UA) 3+ (Negative); Hyaline Casts,Urine 1 /lpf (0-2); Leukocyte Esterase,Urine Moderate (Negative); Mucus,Urine Rare /hpf; Nitrite,Urine Negative (Negative); PH, Urine 5.5 (5.0-8.0); Protein,Urine 1+ (Negative); RBC,Urine 1 /hpf (0-5); Specific Gravity,Urine 1.023 (1.001-1.035); Squamous Epithelial Cell,Urine 4 /hpf (0-4); Urobilinogen,Urine <2.0 mg/dL (<2.0); WBC,Urine 7 /hpf (0-5)
[2019-10-31 14:56] LABS: Ketones,Urine 4+ (Negative)
[2019-10-31 15:05] LABS: ALT 20 U/L (4-34); AST 23 U/L (14-36); African American GFR (CKD) >90 (>60 ml/min/1.73 sqM); Albumin 4.7 g/dL (3.5-5.0); Alkaline Phosphatase 69 U/L (38-126); Amylase 51 U/L (30-110); Anion Gap 13 mmol/L; Blood Urea Nitrogen 16 mg/dL (7-17); Calcium 9.4 mg/dL (8.4-10.2); Carbon Dioxide 24 mmol/L (22-30); Chloride 102 mmol/L (98-107); Glucose 254 mg/dL (74-99); Non-African American GFR(CKD) >90 (>60 ml/min/1.73 sqM); Potassium 3.9 mmol/L (3.5-5.1); Sodium 139 mmol/L (137-145); Total Bilirubin 0.7 mg/dL (0.2-1.3); Total Protein 7.4 g/dL (6.3-8.2)
[2019-10-31] MEDS ORDERED: NALOXONE 0.4 MG/ML 1 ML VIAL IV PRN (17:33)
--- NOTE | 2019-10-31 17:33 | ED ---
Nausea/Vomiting/Diarrhea HPI - General Chief complaint: Nausea/Vomiting/Diarrhea Stated complaint: vomiting-revisit Time Seen by Provider: 10/31/19 14:00 Source: patient Mode of arrival: ambulatory Limitations: no limitations - History of Present Illness Initial comments: This 59-year-old white female presents with a complaint of nausea and vomiting. His been present for the past 3 days. She was seen in the emergency department here 2 days ago for similar. She is diagnosed with gastroenteritis and a urinary tract infection. She was also having diarrhea 2 days ago but none since. She denies any actual fevers but has had occasional chills. She denies any abdominal pain or flank pain. She denies any urinary symptoms. She states that she feels dehydrated. She has been unable to keep down any of her medications. She was prescribed Keflex previously 2 days ago but is a 1 on able to keep this down as well. No other identifiable complaints or modifying factors. - Related Data Home Medications Medication Instructions Recorded Confirmed Lisinopril [Zestril] 5 mg PO DAILY 07/18/19 07/18/19 Previous Rx's Medication Instructions Recorded Atorvastatin [Lipitor] 20 mg PO HS #30 tab 04/20/19 metFORMIN HCL 1,000 mg PO BID #60 tab 05/19/19 Ciprofloxacin HCl [Cipro] 500 mg PO Q12HR #24 tablet 07/20/19 Insuln Asp Prt/Insulin Aspart 10 unit SQ AC-LUNCH #0 07/20/19 [NovoLOG MIX 70-30 VIAL] Insuln Asp Prt/Insulin Aspart 18 unit SQ AC-BID #0 07/20/19 [NovoLOG MIX 70-30 VIAL] Cephalexin [Keflex] 500 mg PO Q6H #28 cap 10/30/19 Ondansetron [Zofran ODT] 4 mg PO Q8HR PRN #10 tab 10/30/19 Allergies Allergy/AdvReac Type Severity Reaction Status Date / Time Sulfa (Sulfonamide Allergy Rash/Hives Verified 10/31/19 13:19 Antibiotics) Review of Systems ROS Statement: Those systems with pertinent positive or pertinent negative responses have been documented in the HPI. ROS Other: All systems not noted in ROS Statement are negative. Past Medical History Past Medical History: Diabetes Mellitus Additional Past Medical History / Comment(s): kidney stones, lithotrispies. History of Any Multi-Drug Resistant Organisms: None Reported Past Surgical History: Section Additional Past Surgical History / Comment(s): ureter surgery 06/11 Past Anesthesia/Blood Transfusion Reactions: No Reported Reaction Past Psychological History: No Psychological Hx Reported Smoking Status: Never smoker Past Alcohol Use History: Occasional Past Drug Use History: None Reported - Past Family History Sister(s) Family Medical History: Cancer Additional Family Medical History / Comment(s): cervical cancer. Mother Family Medical History: No Reported History Additional Family Medical History / Comment(s): Mother is healthy Father Family Medical History: Congestive Heart Failure (CHF) General Exam - General Exam Comments Initial Comments: GENERAL: The patient is well nourished and well hydrated. VITAL SIGNS: Heart rate, blood pressure, respiratory rate reviewed as recorded in nurse's notes. EYES: Pupils are round and reactive. Extraocular movements are intact. No conjunctival / lid redness or swelling. ENT: No external evidence of injury, swelling, or ecchymosis. Airway is patent. Throat is clear. Dry mucous membranes noted. NECK: Nontender. No swelling or evidence of injury. No subcutaneous emphysema. Trachea is midline. No thyroid mass. HEART: Regular rate and rhythm. Good peripheral pulses. LUNGS/CHEST: Breath sounds clear and equal bilaterally. No rales, rhonchi, or wheezes. No ecchymosis, subcutaneous emphysema, or tenderness. ABDOMEN: Abdomen soft without tenderness. No palpable masses or organomegaly. No peritoneal signs. No abdominal wall swelling or ecchymosis. EXTREMITIES: No extremity tenderness. Normal muscle tone and function. No thoracolumbar tenderness. NEUROLOGIC: Sensation is grossly intact. Cranial nerve exam reveals face is symmetrical, tongue is midline, speech is clear. SKIN: No abrasions or ecchymosis is noted. No induration or masses noted. PSYCHIATRIC: Alert and oriented. Appropriate behavior and judgment. Limitations: no limitations Course Vital Signs 10/31/19 10/31/19 13:15 17:17 Temperature 99.0 F Pulse Rate 91 99 Respiratory 20 18 Rate Blood Pressure 178/63 171/78 O2 Sat by Pulse 99 97 Oximetry Medical Decision Making - Medical Decision Making The patient was seen and examined. All diagnostics were reviewed. The patient does have some ketones in her urine but no overt evidence of infection currently. Old records were reviewed from 2 days ago and she did have urinary tract infection at that time which appears slightly improved. The patient does have elevation of her white blood cell count on the laboratory as well and this is worse as compared to previous. She was at 15,002 days ago and is currently at 19,000. The remainder of labs are overall unremarkable. She is given 2 L of IV fluids. She is also given Zofran 4 mg IV, Reglan 10 mg IV, and additional Zofran 4 modems IV. It seems as though her nausea and vomiting is intractable in nature. This is also complicated by a urinary tract infection. It appears as though she has failed outpatient treatment. Case is discussed with Dr. Obando and he is agreeable with admission. - Lab Data Result diagrams: 10/31/19 14:35 10/31/19 14:35 Lab Results 10/31/19 10/31/19 10/31/19 Range/Units 14:35 14:35 14:35 WBC 19.4 H (3.8-10.6) k/uL RBC 4.92 (3.80-5.40) m/uL Hgb 14.6 (11.4-16.0) gm/dL Hct 45.9 (34.0-46.0) % MCV 93.2 (80.0-100.0) fL MCH 29.7 (25.0-35.0) pg MCHC 31.9 (31.0-37.0) g/dL RDW 14.3 (11.5-15.5) % Plt Count 240 (150-450) k/uL Neutrophils % 56 % Lymphocytes % 41 % Monocytes % 2 % Eosinophils % 0 % Basophils % 0 % Neutrophils # 10.8 H (1.3-7.7) k/uL Lymphocytes # 7.9 H (1.0-4.8) k/uL Monocytes # 0.3 (0-1.0) k/uL Eosinophils # 0.0 (0-0.7) k/uL Basophils # 0.0 (0-0.2) k/uL Manual Slide Review Performed Sodium 139 (137-145) mmol/L Potassium 3.9 (3.5-5.1) mmol/L Chloride 102 (98-107) mmol/L Carbon Dioxide 24 (22-30) mmol/L Anion Gap 13 mmol/L BUN 16 (7-17) mg/dL Creatinine 0.54 (0.52-1.04) mg/dL Est GFR (CKD-EPI)AfAm >90 (>60 ml/min/1.73 sqM) Est GFR (CKD-EPI)NonAf >90 (>60 ml/min/1.73 sqM) Glucose 254 H (74-99) mg/dL Calcium 9.4 (8.4-10.2) mg/dL Total Bilirubin 0.7 (0.2-1.3) mg/dL AST 23 (14-36) U/L ALT 20 (4-34) U/L Alkaline Phosphatase 69 (38-126) U/L Total Protein 7.4 (6.3-8.2) g/dL Albumin 4.7 (3.5-5.0) g/dL Amylase 51 (30-110) U/L Lipase 39 (23-300) U/L Urine Color Yellow Urine Appearance Clear (Clear) Urine pH 5.5 (5.0-8.0) Ur Specific [place] 1.023 (1.001-1.035) Urine Protein 1+ H (Negative) Urine Glucose (UA) 3+ H (Negative) Urine Ketones 4+ H (Negative) Urine Blood Negative (Negative) Urine Nitrite Negative (Negative) Urine Bilirubin Negative (Negative) Urine Urobilinogen <2.0 (<2.0) mg/dL Ur Leukocyte Esterase Moderate H (Negative) Urine RBC 1 (0-5) /hpf Urine WBC 7 H (0-5) /hpf Ur Squamous Epith Cells 4 (0-4) /hpf Hyaline Casts 1 (0-2) /lpf Urine Mucus Rare H (None) /hpf Disposition Clinical Impression: Nausea & vomiting, Diabetes, Urinary tract infection, Gastroenteritis, Dehydration, Failure of outpatient treatment Disposition: ADMITTED IP TO THIS [facility] Condition: Fair Is patient prescribed a controlled substance at d/c from ED?: No Time of Disposition: 17:33 Decision Date: 10/31/19 Decision Time: 17:33
[2019-10-31] MEDS ORDERED: ACETAMINOPHEN TAB 500 MG TAB PO STA (18:08)
[2019-10-31 21:21] LABS: Glucose,Whole Blood 187 mg/dL (75-99)
[2019-10-31] MEDS: metFORMIN 500 MG TAB PO SCH (21:21)
[2019-10-31] MEDS: METOCLOPRAMIDE 5 MG/ML 2 ML VIAL IVP PRN (21:27)
[2019-10-31] MEDS: ACETAMINOPHEN TAB 325 MG TAB PO PRN (21:27)
[2019-11-01] MEDS: ONDANSETRON 4 MG/2 ML VIAL IVP PRN ×3 (04:36→21:35)
[2019-11-01] MEDS: ACETAMINOPHEN TAB 325 MG TAB PO PRN (05:46)
[2019-11-01] MEDS: METOCLOPRAMIDE 5 MG/ML 2 ML VIAL IVP PRN (05:46)
[2019-11-01 07:24] LABS: Glucose,Whole Blood 214 mg/dL (75-99)
[2019-11-01] MEDS: INSULIN ASPART (NovoLOG) 100 UNIT/ML VIAL SQ SCH ×4 (08:52→21:33)
[2019-11-01] MEDS: ENOXAPARIN 40 MG/0.4 ML SYRINGE SQ SCH (08:52)
[2019-11-01] MEDS: LISINOPRIL 5 MG TAB PO SCH (08:52)
[2019-11-01] MEDS: metFORMIN 500 MG TAB PO SCH ×2 (08:53→21:33)
[2019-11-01] MEDS ORDERED: PANTOPRAZOLE 40 MG/10 ML VIAL IV SCH (09:00)
[2019-11-01 09:23] LABS: HCT 40.9 % (34.0-46.0); HGB 13.3 gm/dL (11.4-16.0); MCH 30.1 pg (25.0-35.0); MCHC 32.6 g/dL (31.0-37.0); MCV 92.3 fL (80.0-100.0); Mean Platelet Volume 8.2; Platelet Count 233 k/uL (150-450); RBC 4.43 m/uL (3.80-5.40); RDW 14.2 % (11.5-15.5); WBC 15.4 k/uL (3.8-10.6)
[2019-11-01 09:45] LABS: African American GFR (CKD) >90 (>60 ml/min/1.73 sqM); Anion Gap 12 mmol/L; Blood Urea Nitrogen 12 mg/dL (7-17); Calcium 8.6 mg/dL (8.4-10.2); Carbon Dioxide 23 mmol/L (22-30); Chloride 102 mmol/L (98-107); Glucose 224 mg/dL (74-99); Non-African American GFR(CKD) >90 (>60 ml/min/1.73 sqM); Potassium 3.6 mmol/L (3.5-5.1); Sodium 137 mmol/L (137-145)
[2019-11-01 11:03] LABS: Lymphocytes # (M) 8.16 k/uL (1.0-4.8); Monocytes # (M) 0.31 k/uL (0-1.0); Neutrophils # (M) 6.93 k/uL (1.3-7.7); Neutrophils % (M) 45 %; Nucleated Red Blood Cells 0 /100 WBC (0-0); Total Cells Counted 100
[2019-11-01 12:06] LABS: Glucose,Whole Blood 192 mg/dL (75-99)
--- NOTE | 2019-11-01 17:09 | P.HPIM ---
History of Present Illness H&P Date: 11/01/19 Chief Complaint: Vomiting History of presenting complaint: This is a pleasant 59-year-old patient of Dr. Victoriano Parmar. Has a history of right distal ureter. Nonfunctioning-that was resected and reimplanted. Patient 4 days ago started of with diarrhea. The next day she started off with vomiting. Had fever and chills. No abdominal cramping. Symptoms continued. She also had some right flank pain. Denies any urinary frequency or dysuria. Had fevers. Patient on the day before going to see her mother in the rehab in [place] and several patients that had diarrhea. Patient started on IV fluids and antibiotics in the ER. Feeling weak tired rundown. No blood in the stool. 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 Alcohol occasionally. Lives with her daughter. Not employed Family history: Congestive heart failure, cervical cancer Physical examination: VITAL SIGNS: 101.5, 97, 20, 161/79, 97% on room air GENERAL: BMI 32.4, laying in bed, tired EYES: Pupils equal. Conjunctiva normal. HEENT: External appearance of nose and ears normal, oral cavity grossly normal. NECK: JVD not raised; masses not palpable. HEART: First and second heart sounds are normal; no edema. LUNGS: Respiratory rate normal; clear to auscultation. ABDOMEN: Soft, nontender, liver spleen not palpable, no masses palpable. PSYCH: Alert and oriented x3; mood and affect tired. NEUROLOGICAL: Cranial nerves grossly intact; no facial asymmetry, power and sensation grossly intact. LYMPHATICS: No lymph nodes palpable in the axilla and neck INVESTIGATIONS, reviewed in the clinical context: White count 90.4, hemoglobin 40.6, platelets 240, potassium 3.9, bun 16, creatinine 0.54 UA positive for 4+ ketone, leukoesterase, WBC Assessment-: -Acute severe gastroenteritis, now present for 3 days, cannot rule out a bacterial cause -Acute UTI from possible pyelonephritis with known underlying nephrolithiasis -Chronic nephrolithiasis -History of right distal ureter resection with reimplantation -Leukocytosis -Obesity BMI 35.7 Plan: Patient put on ceftriaxone in the ER. Home medications resumed. Accu-Cheks are being followed. Patient was given IV fluids and Zofran for nausea. We'll send off stool for ova and parasites. Care was discussed with the patient. Accu- Cheks will be followed. Lovenox for DVT prophylaxis. Past Medical History Past Medical History: Diabetes Mellitus Additional Past Medical History / Comment(s): kidney stones, lithotrispies. History of Any Multi-Drug Resistant Organisms: None Reported Past Surgical History: Section Additional Past Surgical History / Comment(s): ureter surgery 06/11 Past Anesthesia/Blood Transfusion Reactions: No Reported Reaction Past Psychological History: No Psychological Hx Reported Additional Psychological History / Comment(s): Pt resides with her adult brady. She is independent. Smoking Status: Former smoker Past Alcohol Use History: Occasional Additional Past Alcohol Use History / Comment(s): Pt started smoking in 1974 and quit in 1982. Past Drug Use History: None Reported Additional Drug Use History / Comment(s): Pt smokes marijuana occasionally. - Past Family History Sister(s) Family Medical History: Cancer Additional Family Medical History / Comment(s): cervical cancer. Mother Family Medical History: No Reported History Additional Family Medical History / Comment(s): Mother is healthy Father Family Medical History: Congestive Heart Failure (CHF) Medications and Allergies Home Medications Medication Instructions Recorded Confirmed Type Lisinopril [Zestril] 5 mg PO DAILY 07/18/19 10/31/19 History Insulin NPH Hum/Reg Insulin Hm See Protocol SQ AC-TID 10/31/19 10/31/19 History [NovoLIN 70-30 100 UNIT/ML VIAL] metFORMIN HCL ER [Glucophage Xr] 500 mg PO BID 10/31/19 10/31/19 History Allergies Allergy/AdvReac Type Severity Reaction Status Date / Time Sulfa (Sulfonamide Allergy Rash/Hives Verified 10/31/19 17:54 Antibiotics) Physical Exam Vitals: Vital Signs Temp Pulse Pulse Resp BP BP BP 11/01/19 12:00 99.4 F 83 16 172/74 172/81 11/01/19 04:21 99.2 F 95 18 181/78 10/31/19 22:48 99.7 F H 10/31/19 21:20 100.8 F H 90 20 181/73 10/31/19 19:15 101.5 F H 97 20 180/97 10/31/19 19:03 101.0 F H 99 18 161/79 10/31/19 18:50 101.0 F H 99 18 161/79 10/31/19 17:17 99 18 171/78 Pulse Ox 11/01/19 12:00 98 11/01/19 04:21 98 10/31/19 22:48 10/31/19 21:20 99 10/31/19 19:15 97 10/31/19 19:03 97 10/31/19 18:50 97 10/31/19 17:17 97 Intake and Output 11/01/19 11/01/19 11/01/19 06:59 14:59 22:59 Intake Total 500 Balance 500 Intake: Oral 500 Other: Voiding Method Toilet # Voids 1 2 # [place] 2 Results CBC & Chem 7: 11/01/19 08:39 11/01/19 08:39 Labs: Abnormal Lab Results - Last 24 Hours (Table) 10/31/19 11/01/19 11/01/19 Range/Units 21:20 07:21 08:39 WBC 15.4 H (3.8-10.6) k/uL Lymphocytes # (Manual) 8.16 H (1.0-4.8) k/uL Creatinine (0.52-1.04) mg/dL Glucose (74-99) mg/dL POC Glucose (mg/dL) 187 H 214 H (75-99) mg/dL 11/01/19 11/01/19 Range/Units 08:39 11:58 WBC (3.8-10.6) k/uL Lymphocytes # (Manual) (1.0-4.8) k/uL Creatinine 0.48 L (0.52-1.04) mg/dL Glucose 224 H (74-99) mg/dL POC Glucose (mg/dL) 192 H (75-99) mg/dL Thrombosis Risk Factor Assmnt - Choose All That Apply Any of the Below Risk Factors Present?: Yes Each Factor Represents 1 point: Age 41-60 years, Obesity (BMI >25) Other Risk Factors: No Other congenital or acquired thrombophilia - If yes, enter type in comment: No Thrombosis Risk Factor Assessment Total Risk Factor Score: 2 Thrombosis Risk Factor Assessment Level: Low Risk
[2019-11-01 17:11] LABS: Glucose,Whole Blood 154 mg/dL (75-99)
[2019-11-01] MEDS: metroNIDAZOLE 500 MG TAB PO SCH ×2 (17:43→21:33)
[2019-11-01] MEDS: INSULN ASP PRT/INSULIN ASPART 100 UNIT/ML 10 ML VIAL SQ SCH (17:44)
[2019-11-01] MEDS: LACTATED RINGERS 1,000 ML IV SCH (17:44)
[2019-11-01] MEDS: CIPROFLOXACIN HCL 500 MG TAB PO SCH (17:58)
[2019-11-01 20:41] LABS: Glucose,Whole Blood 131 mg/dL (75-99)
[2019-11-02] MEDS: ONDANSETRON 4 MG/2 ML VIAL IVP PRN ×4 (01:27→20:25)
[2019-11-02] MEDS: LACTATED RINGERS 1,000 ML IV SCH ×3 (01:48→15:18)
[2019-11-02 07:09] LABS: Glucose,Whole Blood 173 mg/dL (75-99)
[2019-11-02] MEDS: CIPROFLOXACIN HCL 500 MG TAB PO SCH (07:35)
[2019-11-02] MEDS: INSULN ASP PRT/INSULIN ASPART 100 UNIT/ML 10 ML VIAL SQ SCH ×3 (07:36→17:20)
[2019-11-02] MEDS: metFORMIN 500 MG TAB PO SCH ×2 (07:36→21:57)
[2019-11-02] MEDS: LISINOPRIL 5 MG TAB PO SCH (07:36)
[2019-11-02] MEDS: metroNIDAZOLE 500 MG TAB PO SCH ×3 (07:36→21:56)
[2019-11-02] MEDS: INSULIN ASPART (NovoLOG) 100 UNIT/ML VIAL SQ SCH ×4 (07:36→22:12)
[2019-11-02] MEDS: ENOXAPARIN 40 MG/0.4 ML SYRINGE SQ SCH (07:37)
[2019-11-02 10:01] LABS: HCT 40.6 % (34.0-46.0); HGB 13.6 gm/dL (11.4-16.0); MCH 30.3 pg (25.0-35.0); MCHC 33.5 g/dL (31.0-37.0); MCV 90.4 fL (80.0-100.0); Mean Platelet Volume 7.9; Platelet Count 244 k/uL (150-450); RBC 4.48 m/uL (3.80-5.40); RDW 13.9 % (11.5-15.5)
[2019-11-02 10:57] LABS: African American GFR (CKD) >90 (>60 ml/min/1.73 sqM); Anion Gap 8 mmol/L; Blood Urea Nitrogen 8 mg/dL (7-17); Calcium 8.9 mg/dL (8.4-10.2); Carbon Dioxide 31 mmol/L (22-30); Chloride 95 mmol/L (98-107); Glucose 163 mg/dL (74-99); Non-African American GFR(CKD) >90 (>60 ml/min/1.73 sqM); Potassium 3.2 mmol/L (3.5-5.1); Sodium 134 mmol/L (137-145)
[2019-11-02 11:50] LABS: Glucose,Whole Blood 132 mg/dL (75-99)
[2019-11-02 17:05] LABS: Glucose,Whole Blood 177 mg/dL (75-99)
[2019-11-02 21:47] LABS: Glucose,Whole Blood 144 mg/dL (75-99)
--- NOTE | 2019-11-02 23:11 | P.PN ---
Progress Note - Text Progress Note Date: 11/02/19 Chief Complaint: Vomiting History of presenting complaint: This is a pleasant 59-year-old patient of Dr. Victoriano Parmar. Has a history of right distal ureter. Nonfunctioning-that was resected and reimplanted. Patient 4 days ago started of with diarrhea. The next day she started off with vomiting. Had fever and chills. No abdominal cramping. Symptoms continued. She also had some right flank pain. Denies any urinary frequency or dysuria. Had fevers. Patient on the day before going to see her mother in the rehab in [place] and several patients there had diarrhea. Patient started on IV fluids and antibiotics in the ER. Feeling weak tired rundown. No blood in the stool. Admitted with acute severe gastroenteritis and acute pyelonephritis. Today-overall feeling better but significant nausea present. Patient has been sipping water. No fever no chills. No flank pain Review of systems: Was done for constitutional, cardiovascular, GI, pulmonary. relevant finding as above Active Medications Acetaminophen (Tylenol Tab) 650 mg PO Q6HR PRN PRN Reason: Mild Pain or Fever > 100.5 Last Admin: 11/01/19 05:46 Dose: 650 mg Documented by: Ciprofloxacin (Cipro) 500 mg PO DAILY [facility] Last Admin: 11/02/19 07:35 Dose: 500 mg Documented by: Enoxaparin Sodium (Lovenox) 40 mg SQ DAILY [facility] Last Admin: 11/02/19 07:37 Dose: 40 mg Documented by: Lactated Ringer's (Lactated Ringers) 1,000 mls @ 125 mls/hr IV .Q8H [facility] Last Admin: 11/02/19 15:18 Dose: 125 mls/hr Documented by: Insulin Aspart (Novolog) 0 unit SQ ACHS [facility]; Protocol Last Admin: 11/02/19 22:12 Dose: 1 unit Documented by: Insulin Aspart (Novolog Mix 70-30 Vial) 12 unit SQ AC-BID [facility] Last Admin: 11/02/19 17:20 Dose: 12 unit Documented by: Insulin Aspart (Novolog Mix 70-30 Vial) 6 unit SQ AC-LUNCH [facility] Last Admin: 11/02/19 12:05 Dose: 6 unit Documented by: Lisinopril (Zestril) 5 mg PO DAILY [facility] Last Admin: 11/02/19 07:36 Dose: 5 mg Documented by: Metformin HCl (Glucophage) 500 mg PO BID [facility] Last Admin: 11/02/19 21:57 Dose: Not Given Documented by: Metronidazole (Flagyl) 500 mg PO TID [facility] Last Admin: 11/02/19 21:56 Dose: 500 mg Documented by: Naloxone HCl (Narcan) 0.2 mg IV Q2M PRN PRN Reason: Opioid Reversal Ondansetron HCl (Zofran) 4 mg IVP Q4HR PRN PRN Reason: Nausea And Vomiting Last Admin: 11/02/19 20:25 Dose: 4 mg Documented by: Physical examination: VITAL SIGNS: Afebrile, 94, 16, 140/89, 98% on room air GENERAL: Sitting up in bed, a bit less tired EYES: Pupils equal. Conjunctiva normal. HEENT: External appearance of nose and ears normal, oral cavity grossly normal. NECK: JVD not raised; masses not palpable. HEART: First and second heart sounds are normal; no edema. LUNGS: Respiratory rate normal; clear to auscultation. ABDOMEN: Soft, nontender, liver spleen not palpable, no masses palpable. No flank tenderness PSYCH: Alert and oriented x3; mood and affect tired. INVESTIGATIONS, reviewed in the clinical context: White count 18 hemoglobin 13.6 potassium 3.2 creatinine 0.5 Previous testing White count 90.4, hemoglobin 40.6, platelets 240, potassium 3.9, bun 16, creatinine 0.54 UA positive for 4+ ketone, leukoesterase, WBC Assessment-: -Acute severe gastroenteritis, now present for 3 days, slow improvement -Acute UTI from possible pyelonephritis with known underlying nephrolithiasis- improving -Chronic nephrolithiasis -History of right distal ureter resection with reimplantation -Leukocytosis -Obesity BMI 35.7 Plan: Discussed with the patient. Told to avoid plain water. Try other liquids. Example lev ar. Educated to try crackers and toast T etc. Patient was reassured. Encouraged to sit up in a chair. Repeat labs in the morning.
[2019-11-03] MEDS: MELATONIN 3 MG TABLET PO SCH ×2 (00:30→20:20)
[2019-11-03] MEDS: LACTATED RINGERS 1,000 ML IV SCH ×3 (00:30→15:29)
[2019-11-03 06:58] LABS: Glucose,Whole Blood 152 mg/dL (75-99)
[2019-11-03] MEDS: INSULIN ASPART (NovoLOG) 100 UNIT/ML VIAL SQ SCH ×4 (07:02→20:24)
[2019-11-03] MEDS: ONDANSETRON 4 MG/2 ML VIAL IVP PRN ×2 (07:02→12:08)
[2019-11-03] MEDS: metroNIDAZOLE 500 MG TAB PO SCH ×3 (07:04→20:20)
[2019-11-03] MEDS: ENOXAPARIN 40 MG/0.4 ML SYRINGE SQ SCH (07:04)
[2019-11-03] MEDS: metFORMIN 500 MG TAB PO SCH ×2 (07:04→20:20)
[2019-11-03] MEDS: CIPROFLOXACIN HCL 500 MG TAB PO SCH ×2 (07:04→20:20)
[2019-11-03] MEDS: INSULN ASP PRT/INSULIN ASPART 100 UNIT/ML 10 ML VIAL SQ SCH ×3 (07:04→17:28)
[2019-11-03] MEDS: LISINOPRIL 5 MG TAB PO SCH (07:04)
[2019-11-03 11:15] LABS: HCT 44.5 % (34.0-46.0); HGB 14.9 gm/dL (11.4-16.0); MCH 29.9 pg (25.0-35.0); MCHC 33.4 g/dL (31.0-37.0); MCV 89.5 fL (80.0-100.0); Mean Platelet Volume 8.1; Platelet Count 247 k/uL (150-450); RBC 4.97 m/uL (3.80-5.40); RDW 13.7 % (11.5-15.5); WBC 17.7 k/uL (3.8-10.6)
[2019-11-03 11:26] LABS: African American GFR (CKD) >90 (>60 ml/min/1.73 sqM); Anion Gap 7 mmol/L; Blood Urea Nitrogen 10 mg/dL (7-17); Calcium 9.1 mg/dL (8.4-10.2); Carbon Dioxide 34 mmol/L (22-30); Chloride 95 mmol/L (98-107); Glucose 148 mg/dL (74-99); Non-African American GFR(CKD) >90 (>60 ml/min/1.73 sqM); Potassium 3.1 mmol/L (3.5-5.1); Sodium 136 mmol/L (137-145)
[2019-11-03] MEDS ORDERED: POTASSIUM CHLORIDE ER 20 MEQ TAB.ER PO STA (11:39)
[2019-11-03 12:07] LABS: Glucose,Whole Blood 122 mg/dL (75-99)
[2019-11-03 17:07] LABS: Glucose,Whole Blood 152 mg/dL (75-99)
[2019-11-03 20:18] LABS: Glucose,Whole Blood 137 mg/dL (75-99)
--- NOTE | 2019-11-03 21:50 | P.PN ---
Progress Note - Text Progress Note Date: 11/03/19 Chief Complaint: Vomiting History of presenting complaint: This is a pleasant 59-year-old patient of Dr. Victoriano Parmar. Has a history of right distal ureter. Nonfunctioning-that was resected and reimplanted. Patient 4 days ago started of with diarrhea. The next day she started off with vomiting. Had fever and chills. No abdominal cramping. Symptoms continued. She also had some right flank pain. Denies any urinary frequency or dysuria. Had fevers. Patient on the day before going to see her mother in the rehab in [place] and several patients there had diarrhea. Patient started on IV fluids and antibiotics in the ER. Feeling weak tired rundown. No blood in the stool. Admitted with acute severe gastroenteritis and acute pyelonephritis. Today-feeling better. Did have one episode of vomiting. Did tolerate a very light diet. Has been out of bed. No fever no chills. Review of systems: Was done for constitutional, cardiovascular, GI, pulmonary. relevant finding as above Active Medications Acetaminophen (Tylenol Tab) 650 mg PO Q6HR PRN PRN Reason: Mild Pain or Fever > 100.5 Last Admin: 11/01/19 05:46 Dose: 650 mg Documented by: Ciprofloxacin (Cipro) 500 mg PO BID [facility] Last Admin: 11/03/19 20:20 Dose: 500 mg Documented by: Enoxaparin Sodium (Lovenox) 40 mg SQ DAILY [facility] Last Admin: 11/03/19 07:04 Dose: 40 mg Documented by: Lactated Ringer's (Lactated Ringers) 1,000 mls @ 125 mls/hr IV .Q8H [facility] Last Admin: 11/03/19 15:29 Dose: 125 mls/hr Documented by: Insulin Aspart (Novolog) 0 unit SQ ACHS [facility]; Protocol Last Admin: 11/03/19 20:24 Dose: 1 unit Documented by: Insulin Aspart (Novolog Mix 70-30 Vial) 12 unit SQ AC-BID [facility] Last Admin: 11/03/19 17:28 Dose: 12 unit Documented by: Insulin Aspart (Novolog Mix 70-30 Vial) 6 unit SQ AC-LUNCH [facility] Last Admin: 11/03/19 12:08 Dose: 6 unit Documented by: Lisinopril (Zestril) 5 mg PO DAILY [facility] Last Admin: 11/03/19 07:04 Dose: 5 mg Documented by: Melatonin (Melatonin) 3 mg PO HS [facility] Last Admin: 11/03/19 20:20 Dose: 3 mg Documented by: Metformin HCl (Glucophage) 500 mg PO BID [facility] Last Admin: 11/03/19 20:20 Dose: 500 mg Documented by: Metronidazole (Flagyl) 500 mg PO TID [facility] Last Admin: 11/03/19 20:20 Dose: 500 mg Documented by: Naloxone HCl (Narcan) 0.2 mg IV Q2M PRN PRN Reason: Opioid Reversal Ondansetron HCl (Zofran) 4 mg IVP Q4HR PRN PRN Reason: Nausea And Vomiting Last Admin: 11/03/19 12:08 Dose: 4 mg Documented by: Physical examination: VITAL SIGNS: 9, 79, 16, blood pressure 164/98, 96% on room air GENERAL: Sitting up in bed, more awake EYES: Pupils equal. Conjunctiva normal. HEENT: External appearance of nose and ears normal, oral cavity grossly normal. NECK: JVD not raised; masses not palpable. HEART: First and second heart sounds are normal; no edema. LUNGS: Respiratory rate normal; clear to auscultation. ABDOMEN: Soft, nontender, liver spleen not palpable, no masses palpable. No flank tenderness PSYCH: Alert and oriented x3; mood and affect tired. INVESTIGATIONS, reviewed in the clinical context: white count 7.7 hemoglobin 14.9 potassium 3.1 creatinine 0.54 Previous testing White count 90.4, hemoglobin 40.6, platelets 240, potassium 3.9, bun 16, crea tinine 0.54 UA positive for 4+ ketone, leukoesterase, WBC Assessment-: -Acute severe gastroenteritis, now present for 3 days, slow improvement -Acute UTI from possible pyelonephritis with known underlying nephrolithiasis- improving -Chronic nephrolithiasis -History of right distal ureter resection with reimplantation -Leukocytosis -Obesity BMI 35.7 Plan: slowly improving. Patient slept well last night. Encouraged to be out of bed and ambulate in the hallway. Advance diet is started. Hopefully home in 24 hours.
[2019-11-04 00:55] VITALS: RESP 20
[2019-11-04] MEDS: LACTATED RINGERS 1,000 ML IV SCH ×2 (03:56→12:40)
[2019-11-04 06:31] VITALS: BP 113/71; PULSE 79; TEMP 98.3
[2019-11-04 07:07] LABS: Glucose,Whole Blood 112 mg/dL (75-99)
[2019-11-04] MEDS: metroNIDAZOLE 500 MG TAB PO SCH (09:06)
[2019-11-04] MEDS: LISINOPRIL 5 MG TAB PO SCH (09:06)
[2019-11-04] MEDS: INSULN ASP PRT/INSULIN ASPART 100 UNIT/ML 10 ML VIAL SQ SCH ×2 (09:06→12:41)
[2019-11-04] MEDS: INSULIN ASPART (NovoLOG) 100 UNIT/ML VIAL SQ SCH ×2 (09:06→12:40)
[2019-11-04] MEDS: ENOXAPARIN 40 MG/0.4 ML SYRINGE SQ SCH (09:06)
[2019-11-04] MEDS: CIPROFLOXACIN HCL 500 MG TAB PO SCH (09:06)
[2019-11-04] MEDS: metFORMIN 500 MG TAB PO SCH (09:06)
[2019-11-04 10:25] LABS: Glucose,Whole Blood 154 mg/dL (75-99)
[2019-11-04 11:37] LABS: Glucose,Whole Blood 154 mg/dL (75-99)
--- NOTE | 2019-11-04 18:30 | P.DS ---
Providers Date of admission: 10/31/19 17:33 Expected date of discharge: 11/04/19 Attending physician: Elvin Obando Primary care physician: Victoriano Jacob [facility] Course: Chief Complaint: Vomiting History of presenting complaint: This is a pleasant 59-year-old patient of Dr. Victoriano Parmar. Has a history of right distal ureter. Nonfunctioning-that was resected and reimplanted. Patient 4 days ago started of with diarrhea. The next day she started off with vomiting. Had fever and chills. No abdominal cramping. Symptoms continued. She also had some right flank pain. Denies any urinary frequency or dysuria. Had fevers. Patient on the day before going to see her mother in the rehab in [place] and several patients there had diarrhea. Patient started on IV fluids and antibiotics in the ER. Feeling weak tired rundown. No blood in the stool. Admitted with acute severe gastroenteritis and acute pyelonephritis. Treated with IV fluids ciprofloxacin Flagyl. Responded well. Today-pain much better. Started on a diet. Up and about. Anxious to go home. Care was discussed with the patient.. Physical examination: VITAL SIGNS: 98.3, 79, 20, blood pressure 130 / 71, 95% on room air GENERAL: Sitting up, comfortable EYES: Pupils equal. Conjunctiva normal. HEENT: External appearance of nose and ears normal, oral cavity grossly normal. NECK: JVD not raised; masses not palpable. HEART: First and second heart sounds are normal; no edema. LUNGS: Respiratory rate normal; clear to auscultation. ABDOMEN: Soft, nontender, liver spleen not palpable, no masses palpable. No flank tenderness PSYCH: Alert and oriented x3; mood and affect tired. INVESTIGATIONS, reviewed in the clinical context: white count 7.7 hemoglobin 14.9 potassium 3.1 creatinine 0.54 Previous testing White count 90.4, hemoglobin 40.6, platelets 240, potassium 3.9, bun 16, creatinine 0.54 UA positive for 4+ ketone, leukoesterase, WBC Assessment-: -Acute severe gastroenteritis, -Acute UTI from possible pyelonephritis with known underlying nephrolithiasis- -Chronic nephrolithiasis -History of right distal ureter resection with reimplantation -Leukocytosis -Obesity BMI 35.7 Disposition: Home Patient Condition at Discharge: Fair Plan - Discharge Summary Discharge Rx Participant: No New Discharge Prescriptions: New Ciprofloxacin HCl [Cipro] 500 mg PO BID #14 tab metroNIDAZOLE [Flagyl] 500 mg PO TID #6 tab Melatonin 3 mg PO HS tablet Insuln Asp Prt/Insulin Aspart [NovoLOG MIX 70-30 VIAL] 6 unit SQ AC-LUNCH vial Insuln Asp Prt/Insulin Aspart [NovoLOG MIX 70-30 VIAL] 12 unit SQ AC-BID vial Metoclopramide HCl [Reglan] 5 mg PO TID #8 tablet Continue Lisinopril [Zestril] 5 mg PO DAILY metFORMIN HCL ER [Glucophage Xr] 500 mg PO BID Insulin NPH Hum/Reg Insulin Hm [NovoLIN 70-30 100 UNIT/ML VIAL] See Protocol SQ AC-TID Discharge Medication List Lisinopril [Zestril] 5 mg PO DAILY 07/18/19 [History] Insulin NPH Hum/Reg Insulin Hm [NovoLIN 70-30 100 UNIT/ML VIAL] See Protocol SQ AC-TID 10/31/19 [History] metFORMIN HCL ER [Glucophage Xr] 500 mg PO BID 10/31/19 [History] Ciprofloxacin HCl [Cipro] 500 mg PO BID #14 tab 11/04/19 [Rx] Insuln Asp Prt/Insulin Aspart [NovoLOG MIX 70-30 VIAL] 6 unit SQ AC-LUNCH vial 11/04/19 [Rx] Insuln Asp Prt/Insulin Aspart [NovoLOG MIX 70-30 VIAL] 12 unit SQ AC-BID vial 11/04/19 [Rx] Melatonin 3 mg PO HS tablet 11/04/19 [Rx] Metoclopramide HCl [Reglan] 5 mg PO TID #8 tablet 11/04/19 [Rx] metroNIDAZOLE [Flagyl] 500 mg PO TID #6 tab 11/04/19 [Rx] Follow up Appointment(s)/Referral(s): Victoriano Jacob DO [Primary Care Provider] - 3 Days (office closed please call thursday) Patient Instructions/Handouts: Gastroenteritis (DC) Discharge Disposition: HOME SELF-CARE
== END 2019-11-04 13:50 | disposition home or self-care (01) | DRG 392 ==
LOC: EC 12:55 → 6NMEDSUR 17:33
PROVIDERS: ADMIT Hospitalist; ATTEND Hospitalist
DX: K52.9 Noninfective gastroenteritis and colitis, unspecified (principal); N10 Acute pyelonephritis; E11.9 Type 2 diabetes mellitus without complications; E86.0 Dehydration; E66.9 Obesity, unspecified; N20.0 Calculus of kidney; M19.90 Unspecified osteoarthritis, unspecified site; Z68.32 Body mass index [BMI] 32.0-32.9, adult; Z79.4 Long term (current) use of insulin; Z79.899 Other long term (current) drug therapy; Z87.891 Personal history of nicotine dependence; Z88.2 Allergy status to sulfonamides; Z98.890 Other specified postprocedural states; Z98.891 History of uterine scar from previous surgery; Z87.442 Personal history of urinary calculi; Z80.49 Family history of malignant neoplasm of other genital organs; Z82.49 Family history of ischemic heart disease and other diseases of the circulatory system
CPT/HCPCS: 36415; 80048; 80053; 81001; 82150; 83690; 85025; 85027; 87040; 96361; 96365; 96375; 96376; 99285

== ENCOUNTER 2020-02-03 08:45 | Emergency (ER) | payer OTHER ==
[2020-02-03] MEDS ORDERED: SODIUM CHLORIDE 0.9% 2,000 ML IV STA (08:59)
[2020-02-03] MEDS ORDERED: ONDANSETRON 4 MG/2 ML VIAL IVP STA (08:59)
--- NOTE | 2020-02-03 09:20 | ED ---
General Adult HPI - General Chief complaint: Nausea/Vomiting/Diarrhea Stated complaint: vomiting Time Seen by Provider: 02/03/20 08:53 Source: patient, RN notes reviewed Mode of arrival: ambulatory Limitations: no limitations - History of Present Illness Initial comments: This a 59-year-old female presents emergency Department chief complaint of nausea vomiting. Patient's been getting sick since Thursday on-and-off. She has had wax and wane right flank pain which she does have a history kidney stones but states it just more of a nagging pain at this time. She states that her nauseous been pretty persistent and worse when she gets dizzy after vomiting. Patient denies any known fevers had some chills. No chest pain no shortness of breath. She does complain of palpitations when she is getting sick with a subside after. Patient denies any dysuria though she has noted some hematuria. Patient denies any medication changes. Patient does have a history of diabetes and which she is on oral medications with insulin when needed. Patient offers no other associated symptoms or complaints. - Related Data Home Medications Medication Instructions Recorded Confirmed Lisinopril [Zestril] 5 mg PO DAILY 07/18/19 02/03/20 Insulin NPH Hum/Reg Insulin Hm See Protocol SQ AC-TID PRN 10/31/19 02/03/20 [NovoLIN 70-30 100 UNIT/ML VIAL] metFORMIN HCL ER [Glucophage Xr] 500 mg PO BID 10/31/19 02/03/20 Previous Rx's Medication Instructions Recorded Cephalexin [Keflex] 500 mg PO Q6HR #40 cap 02/03/20 Ondansetron Odt [Zofran Odt] 4 mg PO Q8HR PRN #10 tab 02/03/20 Allergies Allergy/AdvReac Type Severity Reaction Status Date / Time Sulfa (Sulfonamide Allergy Rash/Hives Verified 02/03/20 09:17 Antibiotics) Review of Systems ROS Statement: Those systems with pertinent positive or pertinent negative responses have been documented in the HPI. ROS Other: All systems not noted in ROS Statement are negative. Past Medical History Past Medical History: Diabetes Mellitus Additional Past Medical History / Comment(s): kidney stones History of Any Multi-Drug Resistant Organisms: None Reported Past Surgical History: Section Additional Past Surgical History / Comment(s): ureter surgery 06/11, lithotripsy Past Anesthesia/Blood Transfusion Reactions: No Reported Reaction Past Psychological History: No Psychological Hx Reported Smoking Status: Former smoker Past Alcohol Use History: Occasional Past Drug Use History: None Reported - Past Family History Sister(s) Family Medical History: Cancer Additional Family Medical History / Comment(s): cervical cancer. Mother Family Medical History: No Reported History Additional Family Medical History / Comment(s): Mother is healthy Father Family Medical History: Congestive Heart Failure (CHF) General Exam Limitations: no limitations General appearance: alert, in no apparent distress Head exam: Present: atraumatic, normocephalic, normal inspection Eye exam: Present: normal appearance, PERRL, EOMI. Absent: scleral icterus, conjunctival injection, periorbital swelling ENT exam: Present: normal exam, normal oropharynx, mucous membranes moist Neck exam: Present: normal inspection, full ROM. Absent: tenderness, meningismus, lymphadenopathy Respiratory exam: Present: normal lung sounds bilaterally. Absent: respiratory distress, wheezes, rales, rhonchi, stridor Cardiovascular Exam: Present: regular rate, normal rhythm, normal heart sounds. Absent: systolic murmur, diastolic murmur, rubs, gallop, clicks GI/Abdominal exam: Present: soft, tenderness (Mild epigastric), normal bowel sounds. Absent: distended, guarding, rebound, rigid Back exam: Absent: CVA tenderness (R), CVA tenderness (L) Neurological exam: Present: alert, oriented X3, CN II-XII intact Skin exam: Present: warm, dry, intact, normal color. Absent: rash Course Vital Signs 02/03/20 08:48 Temperature 98.5 F Pulse Rate 86 Respiratory 18 Rate Blood Pressure 166/96 O2 Sat by Pulse 98 Oximetry Medical Decision Making - Medical Decision Making 59-year-old female presented for right flank pain, nausea vomiting just not feeling well. Patient labs and imaging. Patient has fullness of the right kidney hydronephrosis considered recently passed stone versus infection. Urinalysis reveals evidence of urinary tract infection. This concerning for probable pyelonephritis. Patient was given 2 g Rocephin, 2 L of fluid and antiemetics. She feels greatly improved. Patient is comfortable discharged with close follow-up, or melena backs return for any worsening of symptoms. - Lab Data Result diagrams: 02/03/20 09:26 02/03/20 09:26 Lab Results 02/03/20 02/03/20 02/03/20 Range/Units 09:26 09:26 09:26 WBC 21.7 H (3.8-10.6) k/uL RBC 4.98 (3.80-5.40) m/uL Hgb 15.6 (11.4-16.0) gm/dL Hct 47.3 H (34.0-46.0) % MCV 95.0 (80.0-100.0) fL MCH 31.4 (25.0-35.0) pg MCHC 33.1 (31.0-37.0) g/dL RDW 13.5 (11.5-15.5) % Plt Count 291 (150-450) k/uL Neutrophils % Not Reportable Neutrophils % (Manual) 40 % Lymphocytes % Not Reportable Lymphocytes % (Manual) 59 % Monocytes % Not Reportable Monocytes % (Manual) 2 % Eosinophils % Not Reportable Basophils % Not Reportable Neutrophils # Not Reportable Neutrophils # (Manual) 8.68 H (1.3-7.7) k/uL Lymphocytes # Not Reportable Lymphocytes # (Manual) 12.80 H (1.0-4.8) k/uL Monocytes # Not Reportable Monocytes # (Manual) 0.43 (0-1.0) k/uL Eosinophils # Not Reportable Basophils # Not Reportable Nucleated RBCs 0 (0-0) /100 WBC Differential Comment Manual Slide Review Performed RBC Morphology Normal Sodium 140 (137-145) mmol/L Potassium 3.6 (3.5-5.1) mmol/L Chloride 100 (98-107) mmol/L Carbon Dioxide 30 (22-30) mmol/L Anion Gap 10 mmol/L BUN 16 (7-17) mg/dL Creatinine 0.59 (0.52-1.04) mg/dL Est GFR (CKD-EPI)AfAm >90 (>60 ml/min/1.73 sqM) Est GFR (CKD-EPI)NonAf >90 (>60 ml/min/1.73 sqM) Glucose 181 H (74-99) mg/dL Plasma Lactic Acid Bertram (0.7-2.0) mmol/L Calcium 9.5 (8.4-10.2) mg/dL Total Bilirubin 1.4 H (0.2-1.3) mg/dL AST 23 (14-36) U/L ALT 16 (4-34) U/L Alkaline Phosphatase 52 (38-126) U/L Troponin I (0.000-0.034) ng/mL Total Protein 7.2 (6.3-8.2) g/dL Albumin 4.5 (3.5-5.0) g/dL Amylase 43 (30-110) U/L Lipase 37 (23-300) U/L Urine Color Yellow Urine Appearance Cloudy H (Clear) Urine pH 6.0 (5.0-8.0) Ur Specific [place] 1.026 (1.001-1.035) Urine Protein 1+ H (Negative) Urine Glucose (UA) Negative (Negative) Urine Ketones 1+ H (Negative) Urine Blood Small H (Negative) Urine Nitrite Negative (Negative) Urine Bilirubin Negative (Negative) Urine Urobilinogen 2.0 (<2.0) mg/dL Ur Leukocyte Esterase Large H (Negative) Urine RBC 9 H (0-5) /hpf Urine WBC 91 H (0-5) /hpf Ur Squamous Epith Cells 6 H (0-4) /hpf Urine Bacteria Rare H (None) /hpf Urine Mucus Many H (None) /hpf 02/03/20 02/03/20 Range/Units 09:26 09:26 WBC (3.8-10.6) k/uL RBC (3.80-5.40) m/uL Hgb (11.4-16.0) gm/dL Hct (34.0-46.0) % MCV (80.0-100.0) fL MCH (25.0-35.0) pg MCHC (31.0-37.0) g/dL RDW (11.5-15.5) % Plt Count (150-450) k/uL Neutrophils % Neutrophils % (Manual) % Lymphocytes % Lymphocytes % (Manual) % Monocytes % Monocytes % (Manual) % Eosinophils % Basophils % Neutrophils # Neutrophils # (Manual) (1.3-7.7) k/uL Lymphocytes # Lymphocytes # (Manual) (1.0-4.8) k/uL Monocytes # Monocytes # (Manual) (0-1.0) k/uL Eosinophils # Basophils # Nucleated RBCs (0-0) /100 WBC Differential Comment Manual Slide Review RBC Morphology Sodium (137-145) mmol/L Potassium (3.5-5.1) mmol/L Chloride (98-107) mmol/L Carbon Dioxide (22-30) mmol/L Anion Gap mmol/L BUN (7-17) mg/dL Creatinine (0.52-1.04) mg/dL Est GFR (CKD-EPI)AfAm (>60 ml/min/1.73 sqM) Est GFR (CKD-EPI)NonAf (>60 ml/min/1.73 sqM) Glucose (74-99) mg/dL Plasma Lactic Acid Bertram 1.1 (0.7-2.0) mmol/L Calcium (8.4-10.2) mg/dL Total Bilirubin (0.2-1.3) mg/dL AST (14-36) U/L ALT (4-34) U/L Alkaline Phosphatase (38-126) U/L Troponin I <0.012 (0.000-0.034) ng/mL Total Protein (6.3-8.2) g/dL Albumin (3.5-5.0) g/dL Amylase (30-110) U/L Lipase (23-300) U/L Urine Color Urine Appearance (Clear) Urine pH (5.0-8.0) Ur Specific [place] (1.001-1.035) Urine Protein (Negative) Urine Glucose (UA) (Negative) Urine Ketones (Negative) Urine Blood (Negative) Urine Nitrite (Negative) Urine Bilirubin (Negative) Urine Urobilinogen (<2.0) mg/dL Ur Leukocyte Esterase (Negative) Urine RBC (0-5) /hpf Urine WBC (0-5) /hpf Ur Squamous Epith Cells (0-4) /hpf Urine Bacteria (None) /hpf Urine Mucus (None) /hpf Disposition Clinical Impression: Acute pyelonephritis, Nausea & vomiting Disposition: HOME SELF-CARE Condition: Stable Instructions (If sedation given, give patient instructions): Kidney Infection (ED) Additional Instructions: Please return to the Emergency Department if symptoms worsen or any other concerns. Prescriptions: Cephalexin [Keflex] 500 mg PO Q6HR #40 cap Ondansetron Odt [Zofran Odt] 4 mg PO Q8HR PRN #10 tab PRN Reason: Nausea Is patient prescribed a controlled substance at d/c from ED?: No Referrals: Victoriano Jacob DO [Primary Care Provider] - 1-2 days Time of Disposition: 11:06
[2020-02-03 09:49] LABS: Appearance,Urine Cloudy (Clear); Bacteria,Urine Rare /hpf; Bilirubin,Urine Negative (Negative); Blood,Urine Small (Negative); Color,Urine Yellow; Glucose,Urine (UA) Negative (Negative); HCT 47.3 % (34.0-46.0); HGB 15.6 gm/dL (11.4-16.0); Ketones,Urine 1+ (Negative); Leukocyte Esterase,Urine Large (Negative); MCH 31.4 pg (25.0-35.0); MCHC 33.1 g/dL (31.0-37.0); Mean Platelet Volume 8.1; Mucus,Urine Many /hpf; Nitrite,Urine Negative (Negative); Platelet Count 291 k/uL (150-450); Protein,Urine 1+ (Negative); RBC 4.98 m/uL (3.80-5.40); RBC,Urine 9 /hpf (0-5); RDW 13.5 % (11.5-15.5); Specific Gravity,Urine 1.026 (1.001-1.035); Squamous Epithelial Cell,Urine 6 /hpf (0-4); WBC 21.7 k/uL (3.8-10.6); WBC,Urine 91 /hpf (0-5)
[2020-02-03 09:52] LABS: ALT 16 U/L (4-34); AST 23 U/L (14-36); African American GFR (CKD) >90 (>60 ml/min/1.73 sqM); Albumin 4.5 g/dL (3.5-5.0); Alkaline Phosphatase 52 U/L (38-126); Amylase 43 U/L (30-110); Anion Gap 10 mmol/L; Blood Urea Nitrogen 16 mg/dL (7-17); Calcium 9.5 mg/dL (8.4-10.2); Carbon Dioxide 30 mmol/L (22-30); Chloride 100 mmol/L (98-107); Glucose 181 mg/dL (74-99); Non-African American GFR(CKD) >90 (>60 ml/min/1.73 sqM); Potassium 3.6 mmol/L (3.5-5.1); Sodium 140 mmol/L (137-145); Total Bilirubin 1.4 mg/dL (0.2-1.3); Total Protein 7.2 g/dL (6.3-8.2)
--- NOTE | 2020-02-03 09:56 | XR ---
EXAMINATION TYPE: XR KUB DATE OF EXAM: 02/03/2020 Comparison: 10/29/2019 Clinical History: 59-year-old female abdominal pain Findings: Lung bases are clear. No evidence for free intraperitoneal air. No dilated small bowel or air-fluid levels. Scattered air throughout the colon with minimal stool burden. No definite suspicious calcifications seen. Gentle levoconvex curvature, positional versus scoliosis.. Impression: No evidence for free air or bowel obstruction.
[2020-02-03 10:40] LABS: Monocytes # (M) 0.43 k/uL (0-1.0); Neutrophils # (M) 8.68 k/uL (1.3-7.7); Neutrophils % (M) 40 %; Nucleated Red Blood Cells 0 /100 WBC (0-0); Total Cells Counted 200
--- NOTE | 2020-02-03 10:42 | CT ---
EXAMINATION TYPE: CT abdomen pelvis w con DATE OF EXAM: 02/03/2020 COMPARISON: 05/03/2019 HISTORY: Right flank pain CT DLP: 1552.5 mGycm Automated exposure control for dose reduction was used. CONTRAST: CT scan of the abdomen pelvis is performed with IV Contrast, patient injected with 00 mL of Isovue 30 0. FINDINGS- LUNG BASES- No significant abnormality is appreciated. LIVER/GB-1 cm hypodense lesion involving the dome of the diaphragm left lobe measures 7 Hounsfield un its compatible simple cyst. Gallbladder mildly prominent and there is mild prominence of the extrahep atic common bile duct. No calcification seen.. PANCREAS- No gross abnormality is seen. SPLEEN- No gross abnormality is seen. ADRENALS- No gross abnormality is seen. KIDNEYS/BLADDER-there is mild right hydronephrosis. Mild prominence of the ureter. No definite calcif ication.. BOWEL-bowel gas pattern nonspecific. Normal appendix. LYMPH NODES- No greater than 1cm abdominal or pelvic lymph nodes areappreciated. OSSEOUS STRUCTURES-hypertrophic and degenerative changes of the spine.. OTHER- thickening of the anterior abdominal wall the left with the subcutaneous density may be relat ed to previous surgery or scar correlate clinically. Fat-containing periumbilical hernia. IMPRESSION- 1. Mild right hydronephrosis. No calcification is seen correlate for recently passed stone. Infectiou s etiology also in the differential diagnosis. Correlate with urinalysis. 2. Mild gallbladder distention correlate with ultrasound as clinically warranted.
[2020-02-03] MEDS ORDERED: cefTRIAXone IN SWFI 1,000 MG/10 ML SYRINGE IVP STA (11:03)
[2020-02-03 11:39] VITALS: BP 138/74; PULSE 78; RESP 16; TEMP 97.9
== END 2020-02-03 11:37 | disposition home or self-care (01) ==
LOC: EC 08:45
DX: N10 Acute pyelonephritis (principal); E11.9 Type 2 diabetes mellitus without complications; Z79.4 Long term (current) use of insulin; Z79.899 Other long term (current) drug therapy; Z88.2 Allergy status to sulfonamides; Z87.891 Personal history of nicotine dependence
CPT/HCPCS: 36415; 93005; 80053; 82150; 83605; 83690; 84484; 85025; 81001; 87086; 74018; 74177; 99284; 96374; 96375; 96361 ×2; J2405; J0696; Q9967

== ENCOUNTER → 2020-04-16 | Outpatient (CLI) | payer OTHER ==
[2020-04-16 12:11] LABS: African American GFR (CKD) >90 (>60 ml/min/1.73 sqM); Blood Urea Nitrogen 19 mg/dL (7-17); Non-African American GFR(CKD) >90 (>60 ml/min/1.73 sqM)
--- NOTE | 2020-04-16 21:30 | CT ---
EXAMINATION TYPE: CT urogram wo/w con DATE OF EXAM: 04/16/2020 COMPARISON: 02/03/2020 INDICATION: Frequent UTI DLP: 2485.3 mGycm, Automated exposure control for dose reduction was used. CONTRAST: 100 mL of Isovue 300. Study performed without Oral Contrast TECHNIQUE: Axial images were obtained from above the diaphragm to the pubic rami in the axial plane a t 5 mm thick sections. Reconstructed images are reviewed on the computer in the coronal plane. FINDINGS: Limited CT sections are obtained the lung bases. The lung bases are clear. CT ABDOMEN: Liver: There is a left renal cyst measuring 1.3 cm in 16 Hounsfield units this was present previously . Spleen: Normal Pancreas: Normal Adrenal glands: The adrenal glands are normal. Gallbladder: Normal Kidneys: No masses are evident. There is a mild right hydronephrosis and hydroureter. No cysts are pr esent. Additional sequential images were obtained through the renal collecting systems. Renal collec ting system and ureters otherwise appear unremarkable. Aorta: Normal Inferior vena cava: Normal. CT PELVIS: Loops of bowel within the abdomen and pelvis are normal. There are loops of bowel which are incom pletely distended or lack oral contrast limiting their evaluation. There is mild fecal retention thro ughout the colon. Appendix: Normal as visualized. Urinary bladder: Normal. Genitourinary structures: Uterus and adnexa appear within normal limits Osseous structures: No suspicious lytic or sclerotic lesions. IMPRESSIONS: 1. Mild right hydronephrosis and hydroureter of uncertain etiology. Findings are similar to [facility] of February 11, 2020 2. Mild fecal retention diffusely through the colon
== END | disposition home or self-care (01) ==
LOC: RADCTMAIN 11:30
PROVIDERS: ATTEND Urology
DX: N13.30 Unspecified hydronephrosis (principal); K59.00 Constipation, unspecified; Z88.2 Allergy status to sulfonamides
CPT/HCPCS: 82565; 84520; 74178; 36415; 74400; Q9967

== ENCOUNTER 2020-08-18 18:54 | Observation (INO) | payer OTHER ==
[2020-08-18] MEDS ORDERED: ONDANSETRON 4 MG/2 ML VIAL IVP STA (19:11)
[2020-08-18] MEDS ORDERED: SODIUM CHLORIDE 0.9% 1,000 ML IV STA (19:11)
--- NOTE | 2020-08-18 19:27 | ED ---
Nausea/Vomiting/Diarrhea HPI <Chandler Shelley - Last Filed: 08/18/20 23:55> - General Source: patient Mode of arrival: ambulatory Limitations: no limitations <Chelsie Alford - Last Filed: 08/19/20 02:41> - General Chief complaint: Nausea/Vomiting/Diarrhea Stated complaint: Vomiting Time Seen by Provider: 08/18/20 19:00 - History of Present Illness Initial comments: Patient is a 59-year-old female, with history of diabetes, presenting to the emergency Department with complaints of nausea and vomiting that has been intermittent for the last 10 days. Patient states she started out with having a high fever for the first 2 days but that has since decreased. She still been having low-grade fevers, intermittent nausea with vomiting. Patient states she started feeling better yesterday, was able to eat throughout the day but then yesterday evening and into today she has been nauseous and vomiting again. She states she's been trying to keep pressure levels normal, she does use insulin and oral medication. Patient states she checked it about an hour prior to arrival and it was 201 so she did take 15 units of insulin. Patient states she has not been able to drink a lot of water. Patient stated that she saw a small amount of blood while urinating a few days ago, took one day of an antibiotic she had at home, name unknown. Patient admits to some mild increase in frequency, possible dysuria. No other hematuria. She denies any chest pain, short of breath, cough. She does admit to some left upper quadrant pain that has been also intermittent, she states at this time, the pain is low. She has no further complaints at this time. Upon arrival to the ER, she does have a low-grade fever 99.7, rest of vitals are normal. (Chelsie Alford) - Related Data Home Medications Medication Instructions Recorded Confirmed lisinopriL [Zestril] 5 mg PO DAILY 07/18/19 08/18/20 Insulin NPH Hum/Reg Insulin Hm See Protocol SQ AC-TID 10/31/19 08/18/20 [NovoLIN 70-30 100 UNIT/ML VIAL] Melatonin 5 mg PO HS PRN 08/18/20 08/18/20 metFORMIN HCL 1,000 mg PO BID 08/18/20 08/18/20 Allergies Allergy/AdvReac Type Severity Reaction Status Date / Time Sulfa (Sulfonamide Allergy Rash/Hives Verified 08/18/20 23:23 Antibiotics) Review of Systems ROS Other: All systems not noted in ROS Statement are negative. <ChasitysantanaChandler - Last Filed: 08/18/20 23:55> ROS Other: All systems not noted in ROS Statement are negative. <Chelsie Alford - Last Filed: 08/19/20 02:41> ROS Statement: Those systems with pertinent positive or pertinent negative responses have been documented in the HPI. Past Medical History Past Medical History: Diabetes Mellitus Additional Past Medical History / Comment(s): kidney stones History of Any Multi-Drug Resistant Organisms: None Reported Past Surgical History: Bladder Surgery, Section Additional Past Surgical History / Comment(s): ureter surgery 06/11, lithotripsy Past Anesthesia/Blood Transfusion Reactions: No Reported Reaction Past Psychological History: No Psychological Hx Reported Smoking Status: Never smoker Past Alcohol Use History: Occasional Past Drug Use History: None Reported - Past Family History Sister(s) Family Medical History: Cancer Additional Family Medical History / Comment(s): cervical cancer. Mother Family Medical History: No Reported History Additional Family Medical History / Comment(s): Mother is healthy Father Family Medical History: Congestive Heart Failure (CHF) <Chelsie Alford - Last Filed: 08/19/20 02:41> General Exam Limitations: no limitations <Chelsie Alford - Last Filed: 08/19/20 02:41> - General Exam Comments Initial Comments: GENERAL: Patient is well-developed and well-nourished. Patient is nontoxic and in mild distress. HEAD: Atraumatic, normocephalic. EYES: Pupils equal round and reactive to light, extraocular movements intact, sclera anicteric, conjunctiva are normal. Eyelids were unremarkable. ENT: TMs normal, nares patent, oropharynx clear without exudates. Moist mucous membranes. NECK: Normal range of motion, supple without lymphadenopathy or JVD. LUNGS: Unlabored respirations. Breath sounds clear to auscultation bilaterally and equal. No wheezes rales or rhonchi. HEART: Regular rate and rhythm without murmurs, rubs or gallops. ABDOMEN: Some mild tenderness left-sided abdomen, Soft, normoactive bowel sounds. No guarding, no rebound. No masses appreciated. : Deferred MUSCULOSKELETAL: Normal extremities with adequate strength and normal range of motion, no pitting or edema. No clubbing or cyanosis. NEUROLOGICAL: Patient is alert and oriented x 3. Motor and sensory are also intact. Cranial nerves II through XII grossly intact. Symmetrical smile. Normal speech, normal gait. PSYCH: Normal mood, normal affect. SKIN: Warm, Dry, normal turgor, no rashes or lesions noted. (Chelsie Alford) Course Vital Signs 08/18/20 08/19/20 18:55 00:23 Temperature 99.7 F H 99.0 F Pulse Rate 96 88 Respiratory 20 16 Rate Blood Pressure 144/86 106/62 O2 Sat by Pulse 98 98 Oximetry Medical Decision Making - Lab Data Result diagrams: 08/18/20 19:51 08/18/20 19:51 <Chandler Shelley - Last Filed: 08/18/20 23:55> - Lab Data Result diagrams: 08/18/20 19:51 08/18/20 19:51 <Chelsie lAford - Last Filed: 08/19/20 02:41> - Medical Decision Making I saw this patient in conjunction with the physician educational/development assistant. I performed independent history and physical exam. Agree with case management. (Chandler Shelley) Patient is a 59-year-old female here for nausea and vomiting 10 days. She does have a low-grade temperature upon arrival, rest of vitals are normal. Minimal abdominal pain with palpation. Rest for exam is unremarkable. Patient has elevated white count at 22, she has had a high white counts in the past but none this high. Differential will be reviewed in the morning, (per lab.) Sodium potassium are normal, carbon dioxide is 37 glucose is 197, lactic acid is normal 1.1, lipase is elevated at 439. Urine shows 2+ ketones, 2+ glucose, WBC clumps and bacteria. Acetone is negative, rapid Covid is negative. Patient was given a liter bolus as well as Zofran. Computed tomography scan of the abdomen and pelvis reveals no acute process. Given patient's continued nausea and vomiting, fever and white count did recommend admission, to continue with antiemetics, and fluids. Patient is agreeable with this plan of care. Case discussed with Dr. Quintanilla. Case discussed with Dr. Shelley. (Chelsie Alford) - Lab Data Lab Results 08/18/20 08/18/20 08/18/20 Range/Units 19:51 19:51 19:51 WBC 22.0 H (3.8-10.6) k/uL RBC 5.07 (3.80-5.40) m/uL Hgb 15.5 (11.4-16.0) gm/dL Hct 46.2 H (34.0-46.0) % MCV 91.2 (80.0-100.0) fL MCH 30.5 (25.0-35.0) pg MCHC 33.5 (31.0-37.0) g/dL RDW 13.4 (11.5-15.5) % Plt Count 357 (150-450) k/uL MPV 7.6 Sodium 138 (137-145) mmol/L Potassium 3.6 (3.5-5.1) mmol/L Chloride 95 L (98-107) mmol/L Carbon Dioxide 37 H (22-30) mmol/L Anion Gap 6 mmol/L BUN 19 H (7-17) mg/dL Creatinine 0.68 (0.52-1.04) mg/dL Est GFR (CKD-EPI)AfAm >90 (>60 ml/min/1.73 sqM) Est GFR (CKD-EPI)NonAf >90 (>60 ml/min/1.73 sqM) Glucose 197 H (74-99) mg/dL Plasma Lactic Acid Bertram (0.7-2.0) mmol/L Calcium 9.4 (8.4-10.2) mg/dL Total Bilirubin 0.6 (0.2-1.3) mg/dL AST 19 (14-36) U/L ALT 16 (4-34) U/L Alkaline Phosphatase 64 (38-126) U/L Total Protein 7.2 (6.3-8.2) g/dL Albumin 4.2 (3.5-5.0) g/dL Lipase 439 H (23-300) U/L Urine Color Yellow Urine Appearance Clear (Clear) Urine pH 7.0 (5.0-8.0) Ur Specific [place] 1.020 (1.001-1.035) Urine Protein Trace H (Negative) Urine Glucose (UA) 2+ H (Negative) Urine Ketones 2+ H (Negative) Urine Blood Negative (Negative) Urine Nitrite Negative (Negative) Urine Bilirubin Negative (Negative) Urine Urobilinogen <2.0 (<2.0) mg/dL Ur Leukocyte Esterase Small H (Negative) Urine RBC 2 (0-5) /hpf Urine WBC 16 H (0-5) /hpf Urine WBC Clumps Rare H (None) /hpf Ur Squamous Epith Cells 1 (0-4) /hpf Urine Bacteria Rare H (None) /hpf Hyaline Casts 1 (0-2) /lpf Urine Mucus Rare H (None) /hpf Acetone, Qual Negative (Negative) Coronavirus (PCR) (Not Detectd) 08/18/20 08/18/20 Range/Units 19:51 19:51 WBC (3.8-10.6) k/uL RBC (3.80-5.40) m/uL Hgb (11.4-16.0) gm/dL Hct (34.0-46.0) % MCV (80.0-100.0) fL MCH (25.0-35.0) pg MCHC (31.0-37.0) g/dL RDW (11.5-15.5) % Plt Count (150-450) k/uL MPV Sodium (137-145) mmol/L Potassium (3.5-5.1) mmol/L Chloride (98-107) mmol/L Carbon Dioxide (22-30) mmol/L Anion Gap mmol/L BUN (7-17) mg/dL Creatinine (0.52-1.04) mg/dL Est GFR (CKD-EPI)AfAm (>60 ml/min/1.73 sqM) Est GFR (CKD-EPI)NonAf (>60 ml/min/1.73 sqM) Glucose (74-99) mg/dL Plasma Lactic Acid [place] 1.1 (0.7-2.0) mmol/L Calcium (8.4-10.2) mg/dL Total Bilirubin (0.2-1.3) mg/dL AST (14-36) U/L ALT (4-34) U/L Alkaline Phosphatase (38-126) U/L Total Protein (6.3-8.2) g/dL Albumin (3.5-5.0) g/dL Lipase (23-300) U/L Urine Color Urine Appearance (Clear) Urine pH (5.0-8.0) Ur Specific [place] (1.001-1.035) Urine Protein (Negative) Urine Glucose (UA) (Negative) Urine Ketones (Negative) Urine Blood (Negative) Urine Nitrite (Negative) Urine Bilirubin (Negative) Urine Urobilinogen (<2.0) mg/dL Ur Leukocyte Esterase (Negative) Urine RBC (0-5) /hpf Urine WBC (0-5) /hpf Urine WBC Clumps (None) /hpf Ur Squamous Epith Cells (0-4) /hpf Urine Bacteria (None) /hpf Hyaline Casts (0-2) /lpf Urine Mucus (None) /hpf Acetone, Qual (Negative) Coronavirus (PCR) Not Detected (Not Detectd) Disposition <Chandler Shelley - Last Filed: 08/18/20 23:55> Decision Date: 08/19/20 Decision Time: 00:28 <Chelsie Alford - Last Filed: 08/19/20 02:41> Clinical Impression: Nausea & vomiting, Dehydration, Pancreatitis, Leukocytosis, Febrile Disposition: ADMITTED IP TO THIS [facility] Condition: Stable
[2020-08-18 20:40] LABS: Appearance,Urine Clear (Clear); Bacteria,Urine Rare /hpf; Bilirubin,Urine Negative (Negative); Blood,Urine Negative (Negative); Color,Urine Yellow; Glucose,Urine (UA) 2+ (Negative); Hyaline Casts,Urine 1 /lpf (0-2); Leukocyte Esterase,Urine Small (Negative); Mucus,Urine Rare /hpf; Nitrite,Urine Negative (Negative); Protein,Urine Trace (Negative); RBC,Urine 2 /hpf (0-5); Squamous Epithelial Cell,Urine 1 /hpf (0-4); Urobilinogen,Urine <2.0 mg/dL (<2.0); WBC,Urine 16 /hpf (0-5)
[2020-08-18 20:45] LABS: Ketones,Urine 2+ (Negative)
[2020-08-18 20:56] LABS: ALT 16 U/L (4-34); AST 19 U/L (14-36); African American GFR (CKD) >90 (>60 ml/min/1.73 sqM); Albumin 4.2 g/dL (3.5-5.0); Alkaline Phosphatase 64 U/L (38-126); Anion Gap 6 mmol/L; Blood Urea Nitrogen 19 mg/dL (7-17); Calcium 9.4 mg/dL (8.4-10.2); Carbon Dioxide 37 mmol/L (22-30); Chloride 95 mmol/L (98-107); Glucose 197 mg/dL (74-99); Lipase 439 U/L (23-300); Non-African American GFR(CKD) >90 (>60 ml/min/1.73 sqM); Potassium 3.6 mmol/L (3.5-5.1); Sodium 138 mmol/L (137-145); Total Bilirubin 0.6 mg/dL (0.2-1.3); Total Protein 7.2 g/dL (6.3-8.2)
[2020-08-18 21:29] LABS: Basophils # (A) 0.2 k/uL (0-0.2); Basophils % (A) 1 %; Eosinophils # (A) 0.1 k/uL (0-0.7); Eosinophils % (A) 0 %; HCT 46.2 % (34.0-46.0); HGB 15.5 gm/dL (11.4-16.0); Lymphocytes # (A) 12.7 k/uL (1.0-4.8); Lymphocytes % (A) 58 %; MCH 30.5 pg (25.0-35.0); MCHC 33.5 g/dL (31.0-37.0); MCV 91.2 fL (80.0-100.0); Mean Platelet Volume 7.6; Monocytes # (A) 0.8 k/uL (0-1.0); Monocytes % (A) 4 %; Neutrophils # (A) 7.7 k/uL (1.3-7.7); Neutrophils % (A) 35 %; Platelet Count 357 k/uL (150-450); RBC 5.07 m/uL (3.80-5.40); RDW 13.4 % (11.5-15.5)
--- NOTE | 2020-08-18 23:17 | CT ---
EXAMINATION TYPE: CT abdomen pelvis w con DATE OF EXAM: 08/18/2020 COMPARISON: 04/16/2020 HISTORY: N/V abd pain CT DLP: 1489.4 mGycm Automated exposure control for dose reduction was used. CONTRAST: Performed with IV Contrast, patient injected with 100 mL of Isovue 300. Images obtained from the diaphragm to the floor the pelvis with IV contrast. There is minimal subsegmental atelectasis left lung base. Heart size is normal. There is no pleural e ffusion. There is no pericardial effusion. Liver spleen stomach pancreas gallbladder appear normal. Bile ducts are not dilated. There is no adrenal mass. Kidneys have normal size. There is no retroperitoneal adenopathy. There is mild ectasia of the right ureter but no stone seen. Appendix appears normal. Delayed images show norm al renal excretion. Bladder distends smoothly. There is no inguinal hernia. Uterus is anteverted. There is no free fluid in the pelvis. Lumbar vertebra have normal alignment. There is no compression fracture. There is vacuum disc at L2-3 and L5-S1. Posterior elements are intact. Bony pelvis is intact. Hip joints are intact. I see no bon y destructive process. There is no evidence of a pelvic mass. There is no mesenteric edema. There is no ascites or free air. There is no sign of a bowel obstructio n. IMPRESSION: Normal appendix. No evidence of renal mass or obstruction.
[2020-08-19] MEDS ORDERED: ONDANSETRON 4 MG/2 ML VIAL IVP PRN (00:24)
[2020-08-19] MEDS ORDERED: NALOXONE 0.4 MG/ML 1 ML VIAL IV PRN (00:24)
[2020-08-19] MEDS ORDERED: KETOROLAC 15 MG/ML 1 ML VIAL IVP PRN (00:24)
[2020-08-19] MEDS ORDERED: ACETAMINOPHEN TAB 325 MG TAB PO PRN (00:24)
[2020-08-19] MEDS: SODIUM CHLORIDE 0.9% 1,000 ML IV SCH ×2 (00:58→15:39)
[2020-08-19] MEDS ORDERED: MELATONIN 5 MG TABLET PO PRN (08:31)
[2020-08-19] MEDS: lisinopriL 5 MG TAB PO SCH (09:12)
[2020-08-19] MEDS: metFORMIN 500 MG TAB PO SCH ×2 (09:12→17:24)
[2020-08-19 11:11] LABS: Basophils # (A) 0.1 k/uL (0-0.2); Basophils % (A) 1 %; Eosinophils # (A) 0.1 k/uL (0-0.7); Eosinophils % (A) 1 %; HCT 38.7 % (34.0-46.0); HGB 12.7 gm/dL (11.4-16.0); Lymphocytes % (A) 58 %; MCH 30.6 pg (25.0-35.0); MCHC 32.8 g/dL (31.0-37.0); MCV 93.3 fL (80.0-100.0); Mean Platelet Volume 7.2; Monocytes # (A) 0.5 k/uL (0-1.0); Monocytes % (A) 3 %; Neutrophils % (A) 35 %; Platelet Count 271 k/uL (150-450); RBC 4.15 m/uL (3.80-5.40); RDW 13.6 % (11.5-15.5); WBC 17.1 k/uL (3.8-10.6)
[2020-08-19 11:24] LABS: ALT 12 U/L (4-34); AST 16 U/L (14-36); African American GFR (CKD) >90 (>60 ml/min/1.73 sqM); Albumin 3.1 g/dL (3.5-5.0); Alkaline Phosphatase 42 U/L (38-126); Anion Gap 2 mmol/L; Blood Urea Nitrogen 12 mg/dL (7-17); Calcium 8.2 mg/dL (8.4-10.2); Carbon Dioxide 36 mmol/L (22-30); Chloride 97 mmol/L (98-107); Glucose 251 mg/dL (74-99); Non-African American GFR(CKD) >90 (>60 ml/min/1.73 sqM); Potassium 3.5 mmol/L (3.5-5.1); Sodium 135 mmol/L (137-145); Total Bilirubin 0.5 mg/dL (0.2-1.3); Total Protein 5.5 g/dL (6.3-8.2)
[2020-08-19 11:57] LABS: Glucose,Whole Blood 187 mg/dL (75-99)
[2020-08-19] MEDS: INSULN ASP PRT/INSULIN ASPART 100 UNIT/ML 10 ML VIAL SQ SCH ×2 (12:03→21:11)
[2020-08-19 13:33] VITALS: BMI 29.4
[2020-08-19] MEDS ORDERED: POTASSIUM CHLORIDE ER 20 MEQ TAB.ER PO STA (14:43)
--- NOTE | 2020-08-19 15:12 | P.HPIM ---
History of Present Illness H&P Date: 08/19/20 Chief Complaint: Intermittent abdominal pain with nausea and vomiting This is a 59-year-old female who was seen eval reexamined, patient has been having intermittent abdominal pain for the last 10 days, denies any chest pain, does have some nausea vomiting again intermittent nature came into the hospital for further evaluation patient did have a fever initially but however for last 1 week fever has resolved, she was having problems with generalized weakness appetite has been poor, patient has been somewhat dehydrated, she does have a history of diabetes and takes insulin, currently at the time of evaluation denies any pain denies any vomiting or nausea wishes to go home however her laboratory data suggestive of mild dehydration along with elevated pancreatic enzymes so she will be kept however given that computed tomography scan of the abdominal negative for any acute pancreatitis will hold off any antibiotics urine culture hours pending Review of Systems All systems: negative Past Medical History Past Medical History: Diabetes Mellitus Additional Past Medical History / Comment(s): kidney stones History of Any Multi-Drug Resistant Organisms: None Reported Past Surgical History: Bladder Surgery, Section Additional Past Surgical History / Comment(s): ureter surgery 06/11, lithotripsy Past Anesthesia/Blood Transfusion Reactions: No Reported Reaction Past Psychological History: No Psychological Hx Reported Smoking Status: Never smoker Past Alcohol Use History: Occasional Past Drug Use History: None Reported - Past Family History Sister(s) Family Medical History: Cancer Additional Family Medical History / Comment(s): cervical cancer. Mother Family Medical History: No Reported History Additional Family Medical History / Comment(s): Mother is healthy Father Family Medical History: Congestive Heart Failure (CHF) Medications and Allergies Home Medications Medication Instructions Recorded Confirmed Type lisinopriL [Zestril] 5 mg PO DAILY 07/18/19 08/18/20 History Insulin NPH Hum/Reg Insulin Hm See Protocol SQ AC-TID 10/31/19 08/18/20 History [NovoLIN 70-30 100 UNIT/ML VIAL] Melatonin 5 mg PO HS PRN 08/18/20 08/18/20 History metFORMIN HCL 1,000 mg PO BID 08/18/20 08/18/20 History Allergies Allergy/AdvReac Type Severity Reaction Status Date / Time Sulfa (Sulfonamide Allergy Rash/Hives Verified 08/18/20 23:23 Antibiotics) Physical Exam Vitals: Vital Signs Temp Pulse Pulse Resp BP BP Pulse Ox 08/19/20 09:00 65 18 08/19/20 08:39 99.2 F 65 18 114/47 97 08/19/20 02:00 97.3 F L 66 177/81 97 08/19/20 01:21 97.3 F L 66 177/81 97 08/19/20 00:23 99.0 F 88 16 106/62 98 08/18/20 18:55 99.7 F H 96 20 144/86 98 Intake and Output 08/19/20 08/19/20 08/19/20 06:59 14:59 22:59 Intake Total 600 Balance 600 Intake: Oral 600 Other: Voiding Method Toilet Toilet Weight 91.626 kg 91.626 kg - Constitutional General appearance: average body habitus, cooperative, no acute distress - EENT Eyes: EOMI, PERRLA Ears: bilateral: normal - Neck Neck: normal ROM Carotids: bilateral: upstroke normal Thyroid: bilateral: normal size - Respiratory Respiratory: bilateral: CTA - Cardiovascular Rhythm: regular Heart sounds: normal: S1, S2 - Gastrointestinal General gastrointestinal: normal bowel sounds, soft - Neurologic Neurologic: CNII-XII intact - Musculoskeletal Musculoskeletal: gait normal, generalized weakness, strength equal bilaterally - Psychiatric Psychiatric: A&O x's 3, appropriate affect, intact judgment & insight Results CBC & Chem 7: 08/19/20 10:39 08/19/20 10:39 Labs: Abnormal Lab Results - Last 24 Hours (Table) 08/18/20 08/18/20 08/18/20 Range/Units 19:51 19:51 19:51 WBC 22.0 H (3.8-10.6) k/uL Hct 46.2 H (34.0-46.0) % Lymphocytes # 12.7 H (1.0-4.8) k/uL Sodium (137-145) mmol/L Chloride 95 L (98-107) mmol/L Carbon Dioxide 37 H (22-30) mmol/L BUN 19 H (7-17) mg/dL Glucose 197 H (74-99) mg/dL POC Glucose (mg/dL) (75-99) mg/dL Calcium (8.4-10.2) mg/dL Total Protein (6.3-8.2) g/dL Albumin (3.5-5.0) g/dL Lipase 439 H (23-300) U/L Urine Protein Trace H (Negative) Urine Glucose (UA) 2+ H (Negative) Urine Ketones 2+ H (Negative) Ur Leukocyte Esterase Small H (Negative) Urine WBC 16 H (0-5) /hpf Urine WBC Clumps Rare H (None) /hpf Urine Bacteria Rare H (None) /hpf Urine Mucus Rare H (None) /hpf 08/19/20 08/19/20 08/19/20 Range/Units 10:39 10:39 11:52 WBC 17.1 H (3.8-10.6) k/uL Hct (34.0-46.0) % Lymphocytes # 10.0 H (1.0-4.8) k/uL Sodium 135 L (137-145) mmol/L Chloride 97 L (98-107) mmol/L Carbon Dioxide 36 H (22-30) mmol/L BUN (7-17) mg/dL Glucose 251 H (74-99) mg/dL POC Glucose (mg/dL) 187 H (75-99) mg/dL Calcium 8.2 L (8.4-10.2) mg/dL Total Protein 5.5 L (6.3-8.2) g/dL Albumin 3.1 L (3.5-5.0) g/dL Lipase (23-300) U/L Urine Protein (Negative) Urine Glucose (UA) (Negative) Urine Ketones (Negative) Ur Leukocyte Esterase (Negative) Urine WBC (0-5) /hpf Urine WBC Clumps (None) /hpf Urine Bacteria (None) /hpf Urine Mucus (None) /hpf Microbiology - Last 24 Hours (Table) 08/18/20 19:51 Urine Culture - Preliminary Urine,Voided CT scan - abdomen: report reviewed (Sincerely unremarkable computed tomography scan of the abdominal and pelvis) Thrombosis Risk Factor Assmnt - Choose All That Apply Each Factor Represents 1 point: Age 41-60 years, Obesity (BMI >25) Thrombosis Risk Factor Assessment Total Risk Factor Score: 2 Thrombosis Risk Factor Assessment Level: Low Risk Assessment and Plan Assessment: Acute pancreatitis Dehydration and intravascular volume depletion Hyponatremia Uncontrolled diabetes Leukocytosis due to Sirs-like process UTI Plan: Continue to rehydrate the patient Hold on antibiotics Repeat labs tomorrow Follow-up on urine culture Resume home medications along with insulin Further recommendations pending plan of care as per clinical response of patient Time with Patient: Greater than 30
[2020-08-19 15:30] LABS: Glucose,Whole Blood 121 mg/dL (75-99)
[2020-08-19 17:27] LABS: Glucose,Whole Blood 94 mg/dL (75-99)
[2020-08-20] MEDS: SODIUM CHLORIDE 0.9% 1,000 ML IV SCH (02:15)
[2020-08-20 06:58] LABS: Glucose,Whole Blood 98 mg/dL (75-99)
[2020-08-20 08:04] LABS: HCT 40.6 % (34.0-46.0); HGB 12.9 gm/dL (11.4-16.0); MCH 29.5 pg (25.0-35.0); MCHC 31.7 g/dL (31.0-37.0); Platelet Count 305 k/uL (150-450); RBC 4.36 m/uL (3.80-5.40); RDW 13.8 % (11.5-15.5)
[2020-08-20 08:07] LABS: African American GFR (CKD) >90 (>60 ml/min/1.73 sqM); Anion Gap -1 mmol/L; Blood Urea Nitrogen 8 mg/dL (7-17); Calcium 8.4 mg/dL (8.4-10.2); Carbon Dioxide 35 mmol/L (22-30); Chloride 106 mmol/L (98-107); Glucose 118 mg/dL (74-99); Lipase 61 U/L (23-300); Non-African American GFR(CKD) >90 (>60 ml/min/1.73 sqM); Sodium 140 mmol/L (137-145)
[2020-08-20] MEDS: INSULN ASP PRT/INSULIN ASPART 100 UNIT/ML 10 ML VIAL SQ SCH ×3 (08:09→17:19)
[2020-08-20] MEDS: metFORMIN 500 MG TAB PO SCH ×2 (08:09→17:34)
[2020-08-20] MEDS: lisinopriL 5 MG TAB PO SCH (08:09)
[2020-08-20 10:16] VITALS: RESP 16
[2020-08-20 10:20] LABS: Nucleated Red Blood Cells 0 /100 WBC (0-0)
[2020-08-20 10:26] LABS: Eosinophils # (M) 0.14 k/uL (0-0.7); Lymphocytes # (M) 7.14 k/uL (1.0-4.8); Monocytes # (M) 0.84 k/uL (0-1.0); Neutrophils # (M) 5.88 k/uL (1.3-7.7); Neutrophils % (M) 42 %; Total Cells Counted 200
[2020-08-20 12:08] LABS: Glucose,Whole Blood 176 mg/dL (75-99)
[2020-08-20 15:23] VITALS: BP 107/66; PULSE 83; TEMP 98.3
[2020-08-20 16:51] LABS: Glucose,Whole Blood 137 mg/dL (75-99)
--- NOTE | 2020-08-20 17:47 | P.DS ---
Providers Date of admission: 08/18/20 23:55 Expected date of discharge: 08/20/20 Attending physician: Reg Quintanilla Primary care physician: Victoriano Jacob [facility] Course: 08/20/2020, patient seen eval examined during the rounds labs reviewed medi cations reviewed, appetite has been good patient tolerating by mouth well denies any stomach pain nausea vomiting diarrhea able to ambulate no shortness of breath is present, white cell count continue to come down is 14,000, lipase is normalized, 60, patient will be discharged home later on today with follow-up with primary care provider H&P Date: 08/19/20 Chief Complaint: Intermittent abdominal pain with nausea and vomiting This is a 59-year-old female who was seen eval reexamined, patient has been having intermittent abdominal pain for the last 10 days, denies any chest pain, does have some nausea vomiting again intermittent nature came into the hospital for further evaluation patient did have a fever initially but however for last 1 week fever has resolved, she was having problems with generalized weakness appetite has been poor, patient has been somewhat dehydrated, she does have a history of diabetes and takes insulin, currently at the time of evaluation denies any pain denies any vomiting or nausea wishes to go home however her laboratory data suggestive of mild dehydration along with elevated pancreatic enzymes so she will be kept however given that computed tomography scan of the abdominal negative for any acute pancreatitis will hold off any antibiotics urine culture hours pending Physical Exam Vitals: Vital Signs Temp Pulse Pulse Resp BP BP Pulse Ox 08/19/20 09:00 65 18 08/19/20 08:39 99.2 F 65 18 114/47 97 08/19/20 02:00 97.3 F L 66 177/81 97 08/19/20 01:21 97.3 F L 66 177/81 97 08/19/20 00:23 99.0 F 88 16 106/62 98 08/18/20 18:55 99.7 F H 96 20 144/86 98 Intake and Output 08/19/20 08/19/20 08/19/20 06:59 14:59 22:59 Intake Total 600 Balance 600 Intake: Oral 600 Other: Voiding Method Toilet Toilet Weight 91.626 kg 91.626 kg - Constitutional General appearance: average body habitus, cooperative, no acute distress - EENT Eyes: EOMI, PERRLA Ears: bilateral: normal - Neck Neck: normal ROM Carotids: bilateral: upstroke normal Thyroid: bilateral: normal size - Respiratory Respiratory: bilateral: CTA - Cardiovascular Rhythm: regular Heart sounds: normal: S1, S2 - Gastrointestinal General gastrointestinal: normal bowel sounds, soft - Neurologic Neurologic: CNII-XII intact - Musculoskeletal Musculoskeletal: gait normal, generalized weakness, strength equal bilaterally - Psychiatric Psychiatric: A&O x's 3, appropriate affect, intact judgment & insight CBC & Chem 7: 08/19/20 10:39 08/19/20 10:39 Labs: Abnormal Lab Results - Last 24 Hours (Table) 08/18/20 08/18/20 08/18/20 Range/Units 19:51 19:51 19:51 WBC 22.0 H (3.8-10.6) k/uL Hct 46.2 H (34.0-46.0) % Lymphocytes # 12.7 H (1.0-4.8) k/uL Sodium (137-145) mmol/L Chloride 95 L (98-107) mmol/L Carbon Dioxide 37 H (22-30) mmol/L BUN 19 H (7-17) mg/dL Glucose 197 H (74-99) mg/dL POC Glucose (mg/dL) (75-99) mg/dL Calcium (8.4-10.2) mg/dL Total Protein (6.3-8.2) g/dL Albumin (3.5-5.0) g/dL Lipase 439 H (23-300) U/L Urine Protein Trace H (Negative) Urine Glucose (UA) 2+ H (Negative) Urine Ketones 2+ H (Negative) Ur Leukocyte Esterase Small H (Negative) Urine WBC 16 H (0-5) /hpf Urine WBC Clumps Rare H (None) /hpf Urine Bacteria Rare H (None) /hpf Urine Mucus Rare H (None) /hpf 08/19/20 08/19/20 08/19/20 Range/Units 10:39 10:39 11:52 WBC 17.1 H (3.8-10.6) k/uL Hct (34.0-46.0) % Lymphocytes # 10.0 H (1.0-4.8) k/uL Sodium 135 L (137-145) mmol/L Chloride 97 L (98-107) mmol/L Carbon Dioxide 36 H (22-30) mmol/L BUN (7-17) mg/dL Glucose 251 H (74-99) mg/dL POC Glucose (mg/dL) 187 H (75-99) mg/dL Calcium 8.2 L (8.4-10.2) mg/dL Total Protein 5.5 L (6.3-8.2) g/dL Albumin 3.1 L (3.5-5.0) g/dL Lipase (23-300) U/L Urine Protein (Negative) Urine Glucose (UA) (Negative) Urine Ketones (Negative) Ur Leukocyte Esterase (Negative) Urine WBC (0-5) /hpf Urine WBC Clumps (None) /hpf Urine Bacteria (None) /hpf Urine Mucus (None) /hpf Microbiology - Last 24 Hours (Table) 08/18/20 19:51 Urine Culture - Preliminary Urine,Voided CT scan - abdomen: report reviewed (Sincerely unremarkable computed tomography scan of the abdominal and pelvis) Assessment: Acute pancreatitis Dehydration and intravascular volume depletion Hyponatremia Uncontrolled diabetes Leukocytosis due to Sirs-like process UTI Patient Condition at Discharge: Stable Plan - Discharge Summary New Discharge Prescriptions: Continue lisinopriL [Zestril] 5 mg PO DAILY Insulin NPH Hum/Reg Insulin Hm [NovoLIN 70-30 100 UNIT/ML VIAL] See Protocol SQ AC-TID metFORMIN HCL 1,000 mg PO BID Melatonin 5 mg PO HS PRN PRN Reason: Insomnia Discharge Medication List lisinopriL [Zestril] 5 mg PO DAILY 07/18/19 [History] Insulin NPH Hum/Reg Insulin Hm [NovoLIN 70-30 100 UNIT/ML VIAL] See Protocol SQ AC-TID 10/31/19 [History] Melatonin 5 mg PO HS PRN 08/18/20 [History] metFORMIN HCL 1,000 mg PO BID 08/18/20 [History] Follow up Appointment(s)/Referral(s): Victoriano Jacob DO [Primary Care Provider] - 1-2 days Discharge Disposition: HOME SELF-CARE
== END 2020-08-20 18:07 | disposition home or self-care (01) ==
LOC: EC 18:54 → 1SOBS 23:55
PROVIDERS: ADMIT Internal Medicine Sleep Medicine; ATTEND Internal Medicine Sleep Medicine
DX: N39.0 Urinary tract infection, site not specified (principal); E86.0 Dehydration; Z20.828 Contact with and (suspected) exposure to other viral communicable diseases; D72.828 Other elevated white blood cell count; E11.65 Type 2 diabetes mellitus with hyperglycemia; R53.1 Weakness; E11.9 Type 2 diabetes mellitus without complications; K85.90 Acute pancreatitis without necrosis or infection, unspecified; E87.1 Hypo-osmolality and hyponatremia; Z87.442 Personal history of urinary calculi; Z98.891 History of uterine scar from previous surgery; Z98.890 Other specified postprocedural states; Z80.49 Family history of malignant neoplasm of other genital organs; Z82.49 Family history of ischemic heart disease and other diseases of the circulatory system; Z79.4 Long term (current) use of insulin; Z79.899 Other long term (current) drug therapy; Z88.2 Allergy status to sulfonamides
CPT/HCPCS: 96361 ×2; 96376; 96374; 99285; 36415; 80053 ×2; 80048; 82009; 83605; 83690 ×2; 85025 ×3; 81001; 87086; 87635; 74177; G0378 ×2; J2405 ×2

== ENCOUNTER 2021-11-05 19:50 | Inpatient (IN) | payer MEDICAID ==
[2021-11-05 21:46] LABS: Basophils # (A) 0.1 k/uL (0-0.2); Basophils % (A) 1 %; Eosinophils # (A) 0.1 k/uL (0-0.7); Eosinophils % (A) 0 %; HGB 16.2 gm/dL (11.4-16.0); Lymphocytes # (A) 12.6 k/uL (1.0-4.8); Lymphocytes % (A) 56 %; MCH 31.8 pg (25.0-35.0); MCV 96.3 fL (80.0-100.0); Mean Platelet Volume 8.5; Monocytes # (A) 0.7 k/uL (0-1.0); Monocytes % (A) 3 %; Neutrophils # (A) 8.8 k/uL (1.3-7.7); Neutrophils % (A) 39 %; Platelet Count 268 k/uL (150-450); RBC 5.09 m/uL (3.80-5.40); RDW 13.4 % (11.5-15.5); WBC 22.8 k/uL (3.8-10.6)
[2021-11-05 21:50] LABS: Appearance,Urine Cloudy (Clear); Bacteria,Urine Moderate /hpf; Bilirubin,Urine 1+ (Negative); Blood,Urine Small (Negative); Color,Urine Yellow; Glucose,Urine (UA) 1+ (Negative); Leukocyte Esterase,Urine Moderate (Negative); Mucus,Urine Many /hpf; Nitrite,Urine Negative (Negative); Protein,Urine 2+ (Negative); RBC,Urine 3 /hpf (0-5); Specific Gravity,Urine 1.031 (1.001-1.035); Squamous Epithelial Cell,Urine 6 /hpf (0-4); WBC,Urine 18 /hpf (0-5)
[2021-11-05 22:01] LABS: Ketones,Urine 3+ (Negative)
[2021-11-05 22:20] LABS: ALT 17 U/L (4-34); AST 26 U/L (14-36); African American GFR (CKD) >90 (>60 ml/min/1.73 sqM); Albumin 4.7 g/dL (3.5-5.0); Alkaline Phosphatase 61 U/L (38-126); Anion Gap 13 mmol/L; Blood Urea Nitrogen 24 mg/dL (7-17); Calcium 9.4 mg/dL (8.4-10.2); Carbon Dioxide 29 mmol/L (22-30); Chloride 97 mmol/L (98-107); Glucose 210 mg/dL (74-99); Non-African American GFR(CKD) 83 (>60 ml/min/1.73 sqM); Potassium 3.7 mmol/L (3.5-5.1); Sodium 139 mmol/L (137-145); Total Protein 7.7 g/dL (6.3-8.2)
[2021-11-06] MEDS ORDERED: SODIUM CHLORIDE 0.9% 1,000 ML IV STA (01:02)
[2021-11-06] MEDS ORDERED: ONDANSETRON 4 MG/2 ML VIAL IVP STA (01:02)
--- NOTE | 2021-11-06 01:20 | ED ---
Nausea/Vomiting/Diarrhea HPI - General Chief complaint: Nausea/Vomiting/Diarrhea Stated complaint: vomiting Time Seen by Provider: 11/06/21 01:01 Source: patient, RN notes reviewed Mode of arrival: ambulatory Limitations: no limitations - History of Present Illness Initial comments: This is a pleasant 61-year-old female with a history of diabetes who presents to the emergency department today complaining of multiple episodes of vomiting, she denies any hematemesis or coffee-ground emesis. Patient also complaining of a back ache and upper abdominal discomfort which has been going on since last Thursday. She states that this discomfort has been intermittent. She denies any abdominal pain otherwise. She denies any diarrhea. Patient has had some shaking chills and a low-grade fever. No headache, no changes in vision or hearing, no sore throat or difficulty with speech, no neck pain, no chest pain or shortness of breath, no changes in bowel movements, decreased urination., no numbness or tingling, no extremity pain, no skin rashes or lesions. MD complaint: nausea, vomiting - Related Data Home Medications Medication Instructions Recorded Confirmed lisinopriL [Zestril] 5 mg PO DAILY 07/18/19 08/18/20 Insulin NPH Hum/Reg Insulin Hm See Protocol SQ AC-TID 10/31/19 08/18/20 [NovoLIN 70-30 100 UNIT/ML VIAL] Melatonin 5 mg PO HS PRN 08/18/20 08/18/20 metFORMIN HCL [Glucophage] 1,000 mg PO BID 08/18/20 08/18/20 Allergies Allergy/AdvReac Type Severity Reaction Status Date / Time Sulfa (Sulfonamide Allergy Rash/Hives Verified 11/05/21 21:22 Antibiotics) Review of Systems ROS Statement: Those systems with pertinent positive or pertinent negative responses have been documented in the HPI. ROS Other: All systems not noted in ROS Statement are negative. Past Medical History Past Medical History: Diabetes Mellitus Additional Past Medical History / Comment(s): kidney stones History of Any Multi-Drug Resistant Organisms: None Reported Past Surgical History: Bladder Surgery, Section Additional Past Surgical History / Comment(s): ureter surgery 06/11, lithotripsy Past Anesthesia/Blood Transfusion Reactions: No Reported Reaction Past Psychological History: No Psychological Hx Reported Smoking Status: Never smoker Past Alcohol Use History: Occasional Past Drug Use History: None Reported - Past Family History Sister(s) Family Medical History: Cancer Additional Family Medical History / Comment(s): cervical cancer. Mother Family Medical History: No Reported History Additional Family Medical History / Comment(s): Mother is healthy Father Family Medical History: Congestive Heart Failure (CHF) General Exam - General Exam Comments Initial Comments: Patient appears to be mildly ill but not toxic. Capillary refill is about 3 seconds. No mottling. Cranial nerves II through XII are grossly intact Limitations: no limitations General appearance: alert, in no apparent distress Head exam: Present: atraumatic, normocephalic, normal inspection Eye exam: Present: normal appearance, PERRL, EOMI. Absent: scleral icterus, con junctival injection, periorbital swelling ENT exam: Present: normal exam, normal oropharynx, mucous membranes moist, TM's normal bilaterally, normal external ear exam Neck exam: Present: normal inspection. Absent: tenderness, meningismus, lymphadenopathy Respiratory exam: Present: normal lung sounds bilaterally. Absent: respiratory distress, wheezes, rales, rhonchi, stridor, chest wall tenderness, accessory muscle use Cardiovascular Exam: Present: regular rate, normal rhythm, normal heart sounds. Absent: systolic murmur, diastolic murmur, rubs, gallop, clicks GI/Abdominal exam: Present: soft, normal bowel sounds, other (Capillary refill 3 seconds). Absent: distended, tenderness, guarding, rebound, rigid, organomegaly, mass, bruit, pulsatile mass, hernia Extremities exam: Present: normal inspection, full ROM, normal capillary refill. Absent: tenderness, pedal edema, joint swelling, calf tenderness Back exam: Present: normal inspection. Absent: CVA tenderness (R), CVA tenderness (L) Neurological exam: Present: alert, oriented X3, CN II-XII intact. Absent: altered, normal gait, motor sensory deficit Psychiatric exam: Present: normal affect, normal mood Skin exam: Present: warm, dry, intact, normal color. Absent: rash, cyanosis, erythema, urticaria, vesicles Course Vital Signs 11/05/21 11/06/21 11/06/21 21:23 01:03 01:59 Temperature 99.6 F Pulse Rate 121 H 85 67 Respiratory 20 16 18 Rate Blood Pressure 195/100 154/84 130/70 O2 Sat by Pulse 100 98 100 Oximetry - Reevaluation(s) Reevaluation #1: 11/06/21 02:25 Medical record is reviewed Symptoms are improved here in the emergency department Patient is informed of results and questions answered Patient in no distress Reevaluation #2: 11/06/21 03:14 Medical record is reviewed Symptoms are improved here in the emergency department Patient is informed of results and questions answered Patient in no distress Medical Decision Making - Medical Decision Making Patient was noted to be hypertensive and tachycardic in triage but vital signs had normalized by the time the patient got to the room. Patient appeared mildly ill but not toxic. Patient will need to be admitted for pyelonephritis. Sepsis. - Lab Data Result diagrams: 11/05/21 21:35 11/05/21 21:35 Lab Results 11/05/21 11/05/21 11/05/21 Range/Units 21:35 21:35 21:35 WBC 22.8 H (3.8-10.6) k/uL RBC 5.09 (3.80-5.40) m/uL Hgb 16.2 H (11.4-16.0) gm/dL Hct 49.0 H (34.0-46.0) % MCV 96.3 (80.0-100.0) fL MCH 31.8 (25.0-35.0) pg MCHC 33.0 (31.0-37.0) g/dL RDW 13.4 (11.5-15.5) % Plt Count 268 (150-450) k/uL MPV 8.5 Neutrophils % 39 % Lymphocytes % 56 % Monocytes % 3 % Eosinophils % 0 % Basophils % 1 % Neutrophils # 8.8 H (1.3-7.7) k/uL Lymphocytes # 12.6 H (1.0-4.8) k/uL Monocytes # 0.7 (0-1.0) k/uL Eosinophils # 0.1 (0-0.7) k/uL Basophils # 0.1 (0-0.2) k/uL PT (9.0-12.0) sec INR (<1.2) APTT (22.0-30.0) sec Sodium 139 (137-145) mmol/L Potassium 3.7 (3.5-5.1) mmol/L Chloride 97 L (98-107) mmol/L Carbon Dioxide 29 (22-30) mmol/L Anion Gap 13 mmol/L BUN 24 H (7-17) mg/dL Creatinine 0.79 (0.52-1.04) mg/dL Est GFR (CKD-EPI)AfAm >90 (>60 ml/min/1.73 sqM) Est GFR (CKD-EPI)NonAf 83 (>60 ml/min/1.73 sqM) Glucose 210 H (74-99) mg/dL POC Glucose (mg/dL) (75-99) mg/dL POC Glu Parking Meter Attendant ID Plasma Lactic Acid Bertram (0.7-2.0) mmol/L Calcium 9.4 (8.4-10.2) mg/dL Total Bilirubin 1.0 (0.2-1.3) mg/dL AST 26 (14-36) U/L ALT 17 (4-34) U/L Alkaline Phosphatase 61 (38-126) U/L Troponin I (0.000-0.034) ng/mL Total Protein 7.7 (6.3-8.2) g/dL Albumin 4.7 (3.5-5.0) g/dL Lipase (23-300) U/L Urine Color Yellow Urine Appearance Cloudy H (Clear) Urine pH 6.0 (5.0-8.0) Ur Specific [place] 1.031 (1.001-1.035) Urine Protein 2+ H (Negative) Urine Glucose (UA) 1+ H (Negative) Urine Ketones 3+ H (Negative) Urine Blood Small H (Negative) Urine Nitrite Negative (Negative) Urine Bilirubin 1+ H (Negative) Urine Urobilinogen 2.0 (<2.0) mg/dL Ur Leukocyte Esterase Moderate H (Negative) Urine RBC 3 (0-5) /hpf Urine WBC 18 H (0-5) /hpf Ur Squamous Epith Cells 6 H (0-4) /hpf Urine Bacteria Moderate H (None) /hpf Hyaline Casts (0-2) /lpf Urine Mucus Many H (None) /hpf Coronavirus (PCR) (Not Detectd) Heterophile Antibody (Negative) 11/06/21 11/06/21 11/06/21 Range/Units 01:20 01:30 01:30 WBC (3.8-10.6) k/uL RBC (3.80-5.40) m/uL Hgb (11.4-16.0) gm/dL Hct (34.0-46.0) % MCV (80.0-100.0) fL MCH (25.0-35.0) pg MCHC (31.0-37.0) g/dL RDW (11.5-15.5) % Plt Count (150-450) k/uL MPV Neutrophils % % Lymphocytes % % Monocytes % % Eosinophils % % Basophils % % Neutrophils # (1.3-7.7) k/uL Lymphocytes # (1.0-4.8) k/uL Monocytes # (0-1.0) k/uL Eosinophils # (0-0.7) k/uL Basophils # (0-0.2) k/uL PT (9.0-12.0) sec INR (<1.2) APTT (22.0-30.0) sec Sodium (137-145) mmol/L Potassium (3.5-5.1) mmol/L Chloride (98-107) mmol/L Carbon Dioxide (22-30) mmol/L Anion Gap mmol/L BUN (7-17) mg/dL Creatinine (0.52-1.04) mg/dL Est GFR (CKD-EPI)AfAm (>60 ml/min/1.73 sqM) Est GFR (CKD-EPI)NonAf (>60 ml/min/1.73 sqM) Glucose (74-99) mg/dL POC Glucose (mg/dL) 189 H (75-99) mg/dL POC Glu Parking Meter Attendant ID Sabillon Raphael Plasma Lactic Acid Bertram 1.1 (0.7-2.0) mmol/L Calcium (8.4-10.2) mg/dL Total Bilirubin (0.2-1.3) mg/dL AST (14-36) U/L ALT (4-34) U/L Alkaline Phosphatase (38-126) U/L Troponin I (0.000-0.034) ng/mL Total Protein (6.3-8.2) g/dL Albumin (3.5-5.0) g/dL Lipase 42 (23-300) U/L Urine Color Urine Appearance (Clear) Urine pH (5.0-8.0) Ur Specific [place] (1.001-1.035) Urine Protein (Negative) Urine Glucose (UA) (Negative) Urine Ketones (Negative) Urine Blood (Negative) Urine Nitrite (Negative) Urine Bilirubin (Negative) Urine Urobilinogen (<2.0) mg/dL Ur Leukocyte Esterase (Negative) Urine RBC (0-5) /hpf Urine WBC (0-5) /hpf Ur Squamous Epith Cells (0-4) /hpf Urine Bacteria (None) /hpf Hyaline Casts (0-2) /lpf Urine Mucus (None) /hpf Coronavirus (PCR) (Not Detectd) Heterophile Antibody (Negative) 11/06/21 11/06/21 11/06/21 Range/Units 01:30 01:30 01:30 WBC (3.8-10.6) k/uL RBC (3.80-5.40) m/uL Hgb (11.4-16.0) gm/dL Hct (34.0-46.0) % MCV (80.0-100.0) fL MCH (25.0-35.0) pg MCHC (31.0-37.0) g/dL RDW (11.5-15.5) % Plt Count (150-450) k/uL MPV Neutrophils % % Lymphocytes % % Monocytes % % Eosinophils % % Basophils % % Neutrophils # (1.3-7.7) k/uL Lymphocytes # (1.0-4.8) k/uL Monocytes # (0-1.0) k/uL Eosinophils # (0-0.7) k/uL Basophils # (0-0.2) k/uL PT 11.3 (9.0-12.0) sec INR 1.0 (<1.2) APTT 21.7 L (22.0-30.0) sec Sodium (137-145) mmol/L Potassium (3.5-5.1) mmol/L Chloride (98-107) mmol/L Carbon Dioxide (22-30) mmol/L Anion Gap mmol/L BUN (7-17) mg/dL Creatinine (0.52-1.04) mg/dL Est GFR (CKD-EPI)AfAm (>60 ml/min/1.73 sqM) Est GFR (CKD-EPI)NonAf (>60 ml/min/1.73 sqM) Glucose (74-99) mg/dL POC Glucose (mg/dL) (75-99) mg/dL POC Glu Parking Meter Attendant ID Plasma Lactic Acid Bertram (0.7-2.0) mmol/L Calcium (8.4-10.2) mg/dL Total Bilirubin (0.2-1.3) mg/dL AST (14-36) U/L ALT (4-34) U/L Alkaline Phosphatase (38-126) U/L Troponin I 0.212 H* (0.000-0.034) ng/mL Total Protein (6.3-8.2) g/dL Albumin (3.5-5.0) g/dL Lipase (23-300) U/L Urine Color Urine Appearance (Clear) Urine pH (5.0-8.0) Ur Specific [place] (1.001-1.035) Urine Protein (Negative) Urine Glucose (UA) (Negative) Urine Ketones (Negative) Urine Blood (Negative) Urine Nitrite (Negative) Urine Bilirubin (Negative) Urine Urobilinogen (<2.0) mg/dL Ur Leukocyte Esterase (Negative) Urine RBC (0-5) /hpf Urine WBC (0-5) /hpf Ur Squamous Epith Cells (0-4) /hpf Urine Bacteria (None) /hpf Hyaline Casts (0-2) /lpf Urine Mucus (None) /hpf Coronavirus (PCR) Not Detected (Not Detectd) Heterophile Antibody (Negative) 11/06/21 11/06/21 Range/Units 01:30 02:04 WBC (3.8-10.6) k/uL RBC (3.80-5.40) m/uL Hgb (11.4-16.0) gm/dL Hct (34.0-46.0) % MCV (80.0-100.0) fL MCH (25.0-35.0) pg MCHC (31.0-37.0) g/dL RDW (11.5-15.5) % Plt Count (150-450) k/uL MPV Neutrophils % % Lymphocytes % % Monocytes % % Eosinophils % % Basophils % % Neutrophils # (1.3-7.7) k/uL Lymphocytes # (1.0-4.8) k/uL Monocytes # (0-1.0) k/uL Eosinophils # (0-0.7) k/uL Basophils # (0-0.2) k/uL PT (9.0-12.0) sec INR (<1.2) APTT (22.0-30.0) sec Sodium (137-145) mmol/L Potassium (3.5-5.1) mmol/L Chloride (98-107) mmol/L Carbon Dioxide (22-30) mmol/L Anion Gap mmol/L BUN (7-17) mg/dL Creatinine (0.52-1.04) mg/dL Est GFR (CKD-EPI)AfAm (>60 ml/min/1.73 sqM) Est GFR (CKD-EPI)NonAf (>60 ml/min/1.73 sqM) Glucose (74-99) mg/dL POC Glucose (mg/dL) (75-99) mg/dL POC Glu Parking Meter Attendant ID Plasma Lactic Acid Bertram (0.7-2.0) mmol/L Calcium (8.4-10.2) mg/dL Total Bilirubin (0.2-1.3) mg/dL AST (14-36) U/L ALT (4-34) U/L Alkaline Phosphatase (38-126) U/L Troponin I (0.000-0.034) ng/mL Total Protein (6.3-8.2) g/dL Albumin (3.5-5.0) g/dL Lipase (23-300) U/L Urine Color Yellow Urine Appearance Cloudy H (Clear) Urine pH 6.0 (5.0-8.0) Ur Specific [place] 1.043 H (1.001-1.035) Urine Protein 2+ H (Negative) Urine Glucose (UA) Trace H (Negative) Urine Ketones 3+ H (Negative) Urine Blood Trace H (Negative) Urine Nitrite Negative (Negative) Urine Bilirubin Negative (Negative) Urine Urobilinogen 2.0 (<2.0) mg/dL Ur Leukocyte Esterase Moderate H (Negative) Urine RBC 3 (0-5) /hpf Urine WBC 47 H (0-5) /hpf Ur Squamous Epith Cells 4 (0-4) /hpf Urine Bacteria Moderate H (None) /hpf Hyaline Casts 14 H (0-2) /lpf Urine Mucus Moderate H (None) /hpf Coronavirus (PCR) (Not Detectd) Heterophile Antibody Negative (Negative) - EKG Data -: EKG Interpreted by Me EKG Comments: EKG done at 1:25 AM and read by the ED attending physician reveals sinus rhythm with a rate of 62. Left axis deviation. We have progression. No acute ST or T wave changes. When compared to the previous study from January 2024 no significant changes. Intervals are normal. No Mercurius morphology. Critical Care Time Critical Care Time: Yes Total Critical Care Time: 40 Critical Care Time: Reevaluation of patient. Evaluation of patient's response to treatment. Evaluation of diagnostics, review of old records. Discussion with hospitalist physician. Ordering of interventions. Disposition Clinical Impression: Acute pyelonephritis, Sepsis, Non-STEMI (non-ST elevated myocardial infarction), Abdominal discomfort in left upper quadrant Disposition: ADMITTED IP TO THIS HOSP Condition: Fair Referrals: Olamide Miguel MD [Primary Care Provider] - 1-2 days Time of Disposition: 02:26
[2021-11-06 01:24] LABS: Glucose,Whole Blood 189 mg/dL (75-99)
[2021-11-06] MEDS ORDERED: PIPERACILLIN-TAZOBACTAM 3.375 GM in SODIUM CHLORIDE 0.9% 100 ML IVPB ONE (01:30)
--- NOTE | 2021-11-06 02:16 | CT ---
EXAMINATION TYPE: CT abdomen pelvis w con DATE OF EXAM: 11/06/2021 COMPARISON: 08/18/2020 HISTORY: Mostly upper abdomen/left upper quadrant CT DLP: 1854.3 mGycm Automated exposure control for dose reduction was used. CONTRAST: Performed with IV Contrast, patient injected with 100 mL of Isovue 300. Images obtained from the diaphragm to the floor the pelvis with IV contrast. The lung bases are clear of consolidation. There is no pleural effusion. Heart size is normal. There is no pericardial effusion. Spleen is intact. There is no pancreatic mass. Gallbladder is intact. Birdie er is intact. There is 1.5 cm cyst in the left lobe of the liver. No adverse change. There is no adrenal mass. Kidneys show satisfactory contrast opacification. There is no hydronephrosi s. Delayed images show normal renal excretion. There is no retroperitoneal adenopathy. The bladder di stends smoothly. There is no inguinal hernia. Uterus is anteverted. No pelvic mass seen. No free flui d in the pelvis. Appendix is posterior and lateral and appears normal. There is no mesenteric edema. There is no ascit es or free air. There is no bowel obstruction. There is 2 cm fat-containing umbilical hernia. The lumbar vertebra have normal alignment. There is L2-3 disc space narrowing with spur formation. Th e bony pelvis is intact. Hip joints are intact. IMPRESSION: No evidence of renal stone or obstruction. Normal appendix. No acute abnormality in the abdomen and p aundrea.
--- NOTE | 2021-11-06 02:17 | XR ---
EXAMINATION TYPE: XR chest 2V DATE OF EXAM: 11/06/2021 COMPARISON: NONE HISTORY: Fever and vomiting TECHNIQUE: 2 views FINDINGS: Heart and mediastinum are normal. Lungs are clear of infiltrate. There is no heart failure. There are no hilar masses. Bony thorax is intact. IMPRESSION: No active cardiopulmonary disease.
[2021-11-06 02:20] LABS: Prothrombin Time 11.3 sec (9.0-12.0)
[2021-11-06 02:36] LABS: Appearance,Urine Cloudy (Clear); Bacteria,Urine Moderate /hpf; Bilirubin,Urine Negative (Negative); Blood,Urine Trace (Negative); Color,Urine Yellow; Glucose,Urine (UA) Trace (Negative); Hyaline Casts,Urine 14 /lpf (0-2); Ketones,Urine 3+ (Negative); Leukocyte Esterase,Urine Moderate (Negative); Mucus,Urine Moderate /hpf; Nitrite,Urine Negative (Negative); Protein,Urine 2+ (Negative); RBC,Urine 3 /hpf (0-5); Specific Gravity,Urine 1.043 (1.001-1.035); Squamous Epithelial Cell,Urine 4 /hpf (0-4); WBC,Urine 47 /hpf (0-5)
[2021-11-06] MEDS ORDERED: SODIUM CHLORIDE 0.9% 500 ML 500 ML IV ONE (02:40)
[2021-11-06 02:46] LABS: Partial Thromboplastin Time 21.7 sec (22.0-30.0)
[2021-11-06] MEDS ORDERED: ASPIRIN 81 MG PO STA (03:02)
[2021-11-06] MEDS ORDERED: HEPARIN SODIUM 1,000 UN/ML (10ML VL) IV ONE (03:10)
[2021-11-06] MEDS ORDERED: HEPARIN SODIUM 1,000 UN/ML (10ML VL) IV PRN (03:10)
[2021-11-06] MEDS ORDERED: ACETAMINOPHEN TAB 325 MG TAB PO PRN (03:11)
[2021-11-06] MEDS ORDERED: MORPHINE SULFATE 4 MG/ML SYRINGE IV PRN (03:11)
[2021-11-06] MEDS ORDERED: NALOXONE 0.4 MG/ML 1 ML VIAL IV PRN (03:11)
[2021-11-06] MEDS ORDERED: ONDANSETRON 4 MG/2 ML VIAL IVP PRN (03:11)
[2021-11-06] MEDS ORDERED: HEPARIN SOD,PORK IN 0.45% NACL 25,000 UNIT in 0.45% NACL 1 250ML.BAG IV SCH (03:15)
[2021-11-06] MEDS: SODIUM CHLORIDE 0.9% 1,000 ML IV SCH ×4 (03:32→23:28)
--- NOTE | 2021-11-06 04:20 | P.HPIM ---
History of Present Illness H&P Date: 11/06/21 Patient is a 61-year-old female with a PMH of type II DM and hypertension who presents to the emergency room with complaints of chest discomfort, back pain, chills, nausea, vomiting. Patient reports that her symptoms started this past Thursday. She reports initially developing intermittent nausea with vomiting accompanied by substernal pressure-like discomfort, nonradiating, lasting for about an hour. She reported that the discomfort was 5 out of 10 at maximal intensity, with no alleviating or exacerbating features, and was not associated with shortness of breath but did have occasional palpitations. Patient further denied experiencing any urinary complaints. Denied dysuria, urinary frequency, urgency, or suprapubic discomfort. She further denied any headaches, weakness, numbness, tingling, diarrhea. Denied any prior cardiac history. At time of interview, the patient reports feeling better since her presentation and denied any active complaints. A CT abdomen and pelvis in the emergency room was unremarkable with EKG showing sinus rhythm at 62 bpm with left axis deviation and Q waves in leads V3 and V4 with poor R-wave progression. Laboratory evaluation was remarkable for troponin of 0.12, WBC count 22.8, and a UA consistent with UTI. Review of systems: Pertinent positives and negatives as discussed in HPI, a complete review of systems was performed and all other systems are negative. Physical examination: General: non toxic, no distress, appears at stated age, obese Derm: no unusual rashes/lesions no unusual ecchymoses, warm, dry Head: atraumatic, normocephalic, symmetric Eyes: EOMI, no lid lag, anicteric sclera, pupils equal round reactive to light ENT: Nose and ears atraumatic, no thrush, no pharyngeal erythema Neck: No thyromegaly, no cervical lymphadenopathy, trachea midline, supple Mouth: no lip lesion, mucus membranes moist Cardiovascular: S1S2 reg, no murmur, positive posterior tibial pulse bilateral, no edema, capillary refill less than 2 seconds Lungs: CTA bilateral, no rhonchi, no rales , no accessory muscle use Abdominal: soft, nontender to palpation, no guarding, no appreciable organomegaly, normal bowel sounds, no CVA tenderness noted Ext: no gross muscle atrophy, muscle strength 5 out of 5 in all 4 extremities grossly, no contractures, Neuro: CN II-XI grossly intact, light touch intact all 4 extremities, finger to nose within normal limits, Psych: Alert, oriented, appropriate affect Assessment/plan Sepsis secondary to UTI -Continue with ceftriaxone -IV fluids -Follow cultures Non-ST elevation OK -Heparin infusion -Cardiac monitoring -Trend troponin -Cardiology consult -Continue aspirin Chronic conditions: Temperature DM, hypertension -Check A1c -Insulin sliding scale blood glucose monitoring -Continue the remaining home meds DVT prophylaxis -Heparin infusion The patient is admitted with an anticipated greater than 2 midnight stay for evaluation of NSTEMI CODE STATUS: Full Code Discussed with: Patient Anticipated discharge date: 11/[address]: Home Past Medical History Past Medical History: Diabetes Mellitus Additional Past Medical History / Comment(s): kidney stones History of Any Multi-Drug Resistant Organisms: None Reported Past Surgical History: Bladder Surgery, Section Additional Past Surgical History / Comment(s): ureter surgery 06/11, lithotripsy Past Anesthesia/Blood Transfusion Reactions: No Reported Reaction Past Psychological History: No Psychological Hx Reported Smoking Status: Never smoker Past Alcohol Use History: Occasional Past Drug Use History: None Reported - Past Family History Sister(s) Family Medical History: Cancer Additional Family Medical History / Comment(s): cervical cancer. Mother Family Medical History: No Reported History Additional Family Medical History / Comment(s): Mother is healthy Father Family Medical History: Congestive Heart Failure (CHF) Medications and Allergies Home Medications Medication Instructions Recorded Confirmed Type lisinopriL [Zestril] 5 mg PO DAILY 07/18/19 08/18/20 History Insulin NPH Hum/Reg Insulin Hm See Protocol SQ AC-TID 10/31/19 08/18/20 History [NovoLIN 70-30 100 UNIT/ML VIAL] Melatonin 5 mg PO HS PRN 08/18/20 08/18/20 History metFORMIN HCL [Glucophage] 1,000 mg PO BID 08/18/20 08/18/20 History Allergies Allergy/AdvReac Type Severity Reaction Status Date / Time Sulfa (Sulfonamide Allergy Rash/Hives Verified 11/05/21 21:22 Antibiotics) Physical Exam Vitals: Vital Signs Temp Pulse Resp BP Pulse Ox 11/06/21 03:54 67 18 132/84 95 11/06/21 01:59 67 18 130/70 100 11/06/21 01:03 85 16 154/84 98 03/15/22 21:23 99.6 F 121 H 20 195/100 100 Intake and Output 11/05/21 11/05/21 11/06/21 14:59 22:59 06:59 Other: Weight 104.326 kg Results CBC & Chem 7: 11/05/21 21:35 11/05/21 21:35 Labs: Abnormal Lab Results - Last 24 Hours (Table) 11/05/21 11/05/21 11/05/21 Range/Units 21:35 21:35 21:35 WBC 22.8 H (3.8-10.6) k/uL Hgb 16.2 H (11.4-16.0) gm/dL Hct 49.0 H (34.0-46.0) % Neutrophils # 8.8 H (1.3-7.7) k/uL Lymphocytes # 12.6 H (1.0-4.8) k/uL APTT (22.0-30.0) sec Chloride 97 L (98-107) mmol/L BUN 24 H (7-17) mg/dL Glucose 210 H (74-99) mg/dL POC Glucose (mg/dL) (75-99) mg/dL Troponin I (0.000-0.034) ng/mL Urine Appearance Cloudy H (Clear) Ur Specific [place] (1.001-1.035) Urine Protein 2+ H (Negative) Urine Glucose (UA) 1+ H (Negative) Urine Ketones 3+ H (Negative) Urine Blood Small H (Negative) Urine Bilirubin 1+ H (Negative) Ur Leukocyte Esterase Moderate H (Negative) Urine WBC 18 H (0-5) /hpf Ur Squamous Epith Cells 6 H (0-4) /hpf Urine Bacteria Moderate H (None) /hpf Hyaline Casts (0-2) /lpf Urine Mucus Many H (None) /hpf 11/06/21 11/06/21 11/06/21 Range/Units 01:20 01:30 01:30 WBC (3.8-10.6) k/uL Hgb (11.4-16.0) gm/dL Hct (34.0-46.0) % Neutrophils # (1.3-7.7) k/uL Lymphocytes # (1.0-4.8) k/uL APTT 21.7 L (22.0-30.0) sec Chloride (98-107) mmol/L BUN (7-17) mg/dL Glucose (74-99) mg/dL POC Glucose (mg/dL) 189 H (75-99) mg/dL Troponin I 0.212 H* (0.000-0.034) ng/mL Urine Appearance (Clear) Ur Specific [place] (1.001-1.035) Urine Protein (Negative) Urine Glucose (UA) (Negative) Urine Ketones (Negative) Urine Blood (Negative) Urine Bilirubin (Negative) Ur Leukocyte Esterase (Negative) Urine WBC (0-5) /hpf Ur Squamous Epith Cells (0-4) /hpf Urine Bacteria (None) /hpf Hyaline Casts (0-2) /lpf Urine Mucus (None) /hpf 11/06/21 Range/Units 02:04 WBC (3.8-10.6) k/uL Hgb (11.4-16.0) gm/dL Hct (34.0-46.0) % Neutrophils # (1.3-7.7) k/uL Lymphocytes # (1.0-4.8) k/uL APTT (22.0-30.0) sec Chloride (98-107) mmol/L BUN (7-17) mg/dL Glucose (74-99) mg/dL POC Glucose (mg/dL) (75-99) mg/dL Troponin I (0.000-0.034) ng/mL Urine Appearance Cloudy H (Clear) Ur Specific [place] 1.043 H (1.001-1.035) Urine Protein 2+ H (Negative) Urine Glucose (UA) Trace H (Negative) Urine Ketones 3+ H (Negative) Urine Blood Trace H (Negative) Urine Bilirubin (Negative) Ur Leukocyte Esterase Moderate H (Negative) Urine WBC 47 H (0-5) /hpf Ur Squamous Epith Cells (0-4) /hpf Urine Bacteria Moderate H (None) /hpf Hyaline Casts 14 H (0-2) /lpf Urine Mucus Moderate H (None) /hpf Microbiology - Last 24 Hours (Table) 11/05/21 21:35 Urine Culture - Preliminary Urine,Voided
[2021-11-06 05:37] LABS: Glucose,Whole Blood 189 mg/dL (75-99)
[2021-11-06 06:21] LABS: HCT 39.6 % (34.0-46.0); HGB 13.3 gm/dL (11.4-16.0); MCH 32.4 pg (25.0-35.0); MCHC 33.5 g/dL (31.0-37.0); MCV 96.5 fL (80.0-100.0); Mean Platelet Volume 8.6; Platelet Count 215 k/uL (150-450); RDW 13.4 % (11.5-15.5); WBC 19.2 k/uL (3.8-10.6)
[2021-11-06 06:51] LABS: African American GFR (CKD) >90 (>60 ml/min/1.73 sqM); Anion Gap 5 mmol/L; Blood Urea Nitrogen 22 mg/dL (7-17); Calcium 8.4 mg/dL (8.4-10.2); Carbon Dioxide 32 mmol/L (22-30); Chloride 102 mmol/L (98-107); Glucose 172 mg/dL (74-99); Non-African American GFR(CKD) 87 (>60 ml/min/1.73 sqM); Potassium 3.1 mmol/L (3.5-5.1); Sodium 139 mmol/L (137-145)
[2021-11-06] MEDS: INSULIN ASPART (NovoLOG) 100 UNIT/ML VIAL SQ SCH ×4 (06:58→20:17)
[2021-11-06 08:50] LABS: Glucose,Whole Blood 164 mg/dL (75-99)
[2021-11-06] MEDS ORDERED: PANTOPRAZOLE 40 MG/10 ML VIAL IV SCH (09:00)
[2021-11-06] MEDS ORDERED: Potassium Replacement Protocol 1 EACH MISC MISCELLANE PRN (09:08)
[2021-11-06] MEDS: POTASSIUM CHLORIDE ER 20 MEQ TAB.ER PO SCH (09:29)
[2021-11-06 12:10] LABS: Glucose,Whole Blood 232 mg/dL (75-99)
[2021-11-06] MEDS: lisinopriL 5 MG TAB PO SCH (12:20)
--- NOTE | 2021-11-06 12:32 | P.CRDCN ---
History of Present Illness History of present illness: This is a 61 year old female with past medical history of Type 2 Diabetes. She does not follow with a beef grinder. We have been consulted for elevated troponin. Patient presents with symptoms of nausea and vomiting since Thursday11/01/21. She states Thursday she began to have symptoms of fever, chills, nausea, vomiting and abdominal pain. Her pain is located epigastric region. It is non-radiating, non-exertional. Aggravated by vomiting. She denies exertional chest pain or shortness of breath. She denies any lightheadedness, dizziness, palpitations, syncope or near syncope. Denies any diarrhea or constipation. Denies history of CAD, NC, Stroke, heart failure or hypertension, she was placed on low dose Lisinopril due to history of diabetes. She denies tobacco use. Family history includes Father had an NC in his 70s. She denies having a prior cardiac workup in the past. DIAGNOSTICS EKG reveals sinus rhythm, heart rate 62, left axis deviation, T wave inversion in lead 3, poor R wave progression no acute ST or T-wave abnormalities suggest ischemia. EKG in 01/2020 with similar findings Telemetry tracings indicate sinus mechanism Chest xray no acute cardiopulmonary process CT abdomen and pelvis revealed no evidence of renal stone obstruction, no acute abnormality in the abdomen or pelvis. Laboratory reviewed, troponin 0.21, 0.15, UA positive for UTI, WBC 22.8, hemoglobin 13, platelets 268, sodium 139, potassium 3.1, BUN 22, serum current 0.7, Current home medications include metformin, lisinopril 5 mg daily, rosuvastatin 5 mg nightly, insulin REVIEW OF SYSTEMS At the time of my exam: CONSTITUTIONAL: Denies fever or chills. CARDIOVASCULAR: Denies chest pain, shortness of breath, orthopnea, PND or palpitations. RESPIRATORY: Denies cough. GASTROINTESTINAL: +abdominal pain, Denies diarrhea, Denies constipation, +nausea and vomiting. MUSCULOSKELETAL: Denies myalgias. NEUROLOGIC: Denies numbness, tingling, headacbe or weakness. ENDOCRINE: Denies fatigue, weight change, polydipsia or polyurina. GENITOURINARY: Denies burning, hematuria or urgency with micturation. HEMATOLOGIC: Denies history of anemia or bleeding. PHYSICAL EXAMINATION Blood pressure 133/70, heart rate 53, afebrile, saturation sinus percent on room air CONSTITUTIONAL: No apparent distress. HEENT: Head is normocephalic. Pupils are equal, round. Sclerae anicteric. Mucous membranes of the mouth are moist. No JVD. No carotid bruit. CHEST EXAMINATION: Lungs are clear to auscultation. No chest wall tenderness is noted on palpation or with deep breathing. HEART EXAMINATION: Regular rate and rhythm. S1, S2 heard. No murmurs, gallops or rub. ABDOMEN: Soft, nontender. Positive bowel sounds. EXTREMITIES: 2+ peripheral pulses, no lower extremity edema and no calf tenderness. NEUROLOGIC EXAMINATION: Patient is awake, alert and oriented x3. ASSESSMENT Elevated troponin, not likely indicative of acute coronary syndrome, likely related tachycardia and hypertensive on admission Urinary tract infection Leukocytosis Symptoms of Abdominal pain, nausea, vomiting, chills Type 2 diabetes Hypertension PLAN Obtain 2D echocardiogram and doppler study to assess cardiac structure and function. Stop IV heparin Continue home medications with lisinopril and statin Monitor BP Infectious management per primary Further recommendations based on clinical course Nurse practitioner note has been reviewed by physician. Signing provider agrees with the documented findings, assessment, and plan of care. Past Medical History Past Medical History: Diabetes Mellitus Additional Past Medical History / Comment(s): kidney stones History of Any Multi-Drug Resistant Organisms: None Reported Past Surgical History: Bladder Surgery, Section Additional Past Surgical History / Comment(s): ureter surgery 06/11, lithotripsy Past Anesthesia/Blood Transfusion Reactions: No Reported Reaction Additional Past Anesthesia/Blood Transfusion Reaction / Comment(s): Patient has never received blood products Past Psychological History: No Psychological Hx Reported Smoking Status: Never smoker Past Alcohol Use History: Occasional Past Drug Use History: None Reported - Past Family History Sister(s) Family Medical History: Cancer Additional Family Medical History / Comment(s): cervical cancer. Mother Family Medical History: No Reported History Additional Family Medical History / Comment(s): Mother is healthy Father Family Medical History: Congestive Heart Failure (CHF) Medications and Allergies Home Medications Medication Instructions Recorded Confirmed Type lisinopriL [Zestril] 5 mg PO DAILY 07/18/19 11/06/21 History Insulin NPH Hum/Reg Insulin Hm See Protocol SQ AC-TID PRN 10/31/19 11/06/21 History [NovoLIN 70-30 100 UNIT/ML VIAL] Rosuvastatin Calcium [Crestor] 5 mg PO HS 11/06/21 11/06/21 History metFORMIN HCL [Glucophage] 850 mg PO BID 11/06/21 11/06/21 History Allergies Allergy/AdvReac Type Severity Reaction Status Date / Time Sulfa (Sulfonamide Allergy Rash/Hives Verified 11/06/21 07:10 Antibiotics) Physical Exam Vitals: Vital Signs Temp Pulse Pulse Resp BP BP Pulse Ox 11/06/21 08:00 53 L 16 133/70 96 11/06/21 04:00 98.7 F 56 L 17 130/69 96 11/06/21 03:54 67 18 132/84 95 11/06/21 03:43 98.7 F 56 L 17 130/69 96 11/06/21 01:59 67 18 130/70 100 11/06/21 01:03 85 16 154/84 98 11/05/21 21:23 99.6 F 121 H 20 195/100 100 Intake and Output 11/05/21 11/06/21 11/06/21 22:59 06:59 14:59 Other: Weight 104.326 kg 104.326 kg Results 11/06/21 05:54 11/06/21 05:54 Cardiac Enzymes 11/05/21 11/06/21 11/06/21 Range/Units 21:35 01:30 05:54 AST 26 (14-36) U/L Troponin I 0.212 H* 0.151 H* (0.000-0.034) ng/mL Coagulation 11/06/21 Range/Units 01:30 PT 11.3 (9.0-12.0) sec APTT 21.7 L (22.0-30.0) sec CBC 11/05/21 11/06/21 Range/Units 21:35 05:54 WBC 22.8 H 19.2 H (3.8-10.6) k/uL RBC 5.09 4.10 (3.80-5.40) m/uL Hgb 16.2 H 13.3 (11.4-16.0) gm/dL Hct 49.0 H 39.6 (34.0-46.0) % Plt Count 268 215 (150-450) k/uL Comprehensive Metabolic Panel 11/05/21 11/06/21 Range/Units 21:35 05:54 Sodium 139 139 (137-145) mmol/L Potassium 3.7 3.1 L (3.5-5.1) mmol/L Chloride 97 L 102 (98-107) mmol/L Carbon Dioxide 29 32 H (22-30) mmol/L BUN 24 H 22 H (7-17) mg/dL Creatinine 0.79 0.76 (0.52-1.04) mg/dL Glucose 210 H 172 H (74-99) mg/dL Calcium 9.4 8.4 (8.4-10.2) mg/dL AST 26 (14-36) U/L ALT 17 (4-34) U/L Alkaline Phosphatase 61 (38-126) U/L Total Protein 7.7 (6.3-8.2) g/dL Albumin 4.7 (3.5-5.0) g/dL Current Medications Generic Name Dose Route Start Last Admin Trade Name Freq PRN Reason Stop Dose Admin Acetaminophen 650 mg 11/06/21 03:11 Acetaminophen Tab 325 Mg Tab PO Q6HR PRN Mild Pain or Fever > 100.5 Aspirin 81 mg 11/07/21 09:00 Aspirin 81 Mg PO DAILY LEONARDA Atorvastatin Calcium 80 mg 11/06/21 21:00 Atorvastatin 80 Mg Tab PO HS LEONARDA Sodium Chloride 1,000 mls @ 130 mls/hr 11/06/21 02:45 11/06/21 03:32 Saline 0.9% IV 130 mls/hr .Q7H42M LEONARDA Administration Ceftriaxone Sodium 1 gm/ 50 mls @ 100 mls/hr 11/06/21 06:00 11/06/21 05:56 Sodium Chloride IVPB 100 mls/hr Q24H LEONARDA Administration Protocol Insulin Aspart 0 unit 11/06/21 07:30 11/06/21 06:58 Insulin Aspart (Novolog) 100 Unit/Ml Vial SQ 2 unit ACHS LEONARDA Administration Protocol Morphine Sulfate 4 mg 11/06/21 03:11 Morphine Sulfate 4 Mg/Ml Syringe IV Q4HR PRN Severe Pain Naloxone HCl 0.2 mg 11/06/21 03:11 Naloxone 0.4 Mg/Ml 1 Ml Vial IV Q2M PRN Opioid Reversal Ondansetron HCl 4 mg 11/06/21 03:11 Ondansetron 4 Mg/2 Ml Vial IVP Q8HR PRN Nausea And Vomiting Pantoprazole Sodium 40 mg 11/06/21 09:00 11/06/21 07:54 Pantoprazole 40 Mg/10 Ml Vial IV 40 mg DAILY LEONARDA Administration Intake and Output 11/05/21 11/06/21 11/06/21 22:59 06:59 14:59 Other: Weight 104.326 kg 104.326 kg 11/06/21 05:54 11/06/21 05:54
--- NOTE | 2021-11-06 13:00 | ECHOF ---
Referral Reason:elevated troponin MEASUREMENTS -------- HEIGHT: 175.3 cm WEIGHT: 104.3 kg BP: 130/69 IVSd: 1.4 cm (0.6 - 1.1) LVIDd: 4.4 cm (3.9 - 5.3) LVPWd: 1.4 cm (0.6 - 1.1) EDV(Teich): 89 ml IVSs: 1.5 cm LVIDs: 3.6 cm LVPWs: 1.6 cm %IVS Thck: 8 % ESV(Teich): 53 ml EF(Teich): 41 % %FS: 20 % SV(Teich): 36 ml LA Diam: 3.3 cm (2.7 - 3.8) RVIDd: 2.7 cm (< 3.3) LALs A4C: 5.3 cm LAAs A4C: 17.0 cm LAESV A-L A4C: 46 ml LAESV MOD A4C: 43 ml LALs A2C: 6.2 cm LAAs A2C: 19.9 cm LAESV A-L A2C: 54 ml LAESV MOD A2C: 52 ml LAESV(A-L): 54 ml LAESV Index (A-L): 24.64 ml/m Ao Diam: 2.7 cm (2.0 - 3.7) AV Cusp: 2.0 cm (1.5 - 2.6) EPSS: 0.7 cm MV E Aubrey: 0.73 m/s MV DecT: 287 ms MV Dec Bryan: 2.6 m/s MV A Aubrey: 0.76 m/s MV E/A Ratio: 0.97 MV PHT: 83 ms LVOT Vmax: 1.45 m/s LVOT maxP.37 mmHg AV Vmax: 1.84 m/s AV maxP.48 mmHg AV Vmax: 1.84 m/s AV Vmean: 1.32 m/s AV maxP.48 mmHg AV meanP.60 mmHg AV Env.Ti: 304 ms AV VTI: 40.2 cm TR Vmax: 2.39 m/s TR maxP.87 mmHg RAP: 5.00 mmHg RVSP: 27.87 mmHg MV EF SLOPE: 104.88 mm/s (70 - 150) MV EXCURSION: 21.80 mm (> 18.000) FINDINGS -------- Sinus rhythm. This was a technically good study. The left ventricular size is normal. There is moderate concentric left ventricular hypertrophy. O verall left ventricular systolic function is normal with, an EF between 60 - 65 %. The right ventricle is normal in size. Normal LA size by volume 22+/-6 ml/m2. The right atrium is normal in size. Interatrial and interventricular septum intact. The aortic valve is trileaflet, and appears structurally normal. No aortic stenosis or regurgitation. Mild mitral regurgitation is present. Mild tricuspid regurgitation present. Right ventricular systolic pressure is normal at < 35 mmHg. The pulmonic valve is normal. The aortic root size is normal. Normal inferior vena cava with normal inspiratory collapse consistent with estimated right atrial pre ssure of 5 mmHg. There is no pericardial effusion. CONCLUSIONS -------- 1. The left ventricular size is normal. 2. There is moderate concentric left ventricular hypertrophy. 3. Overall left ventricular systolic function is normal with, an EF between 60 - 65 %. 4. Mild mitral regurgitation is present. 5. Mild tricuspid regurgitation present. 6. There is no pericardial effusion. CHILD SUPPORT OFFICER: Faiza Orlando RDCS
[2021-11-06 16:55] LABS: Glucose,Whole Blood 162 mg/dL (75-99)
[2021-11-06 20:09] LABS: Glucose,Whole Blood 287 mg/dL (75-99)
[2021-11-06] MEDS ORDERED: ATORVASTATIN 80 MG TAB PO SCH (21:00)
[2021-11-06] MEDS ORDERED: ATORVASTATIN 10 MG TAB PO SCH (21:00)
[2021-11-07 02:04] LABS: Glucose,Whole Blood 149 mg/dL (75-99)
[2021-11-07 06:06] LABS: Glucose,Whole Blood 126 mg/dL (75-99)
[2021-11-07] MEDS: INSULIN ASPART (NovoLOG) 100 UNIT/ML VIAL SQ SCH ×2 (06:12→14:52)
[2021-11-07] MEDS: SODIUM CHLORIDE 0.9% 1,000 ML IV SCH (06:17)
[2021-11-07 07:30] LABS: Basophils # (A) 0.1 k/uL (0-0.2); Basophils % (A) 1 %; Eosinophils # (A) 0.3 k/uL (0-0.7); Eosinophils % (A) 2 %; HCT 39.3 % (34.0-46.0); HGB 12.7 gm/dL (11.4-16.0); Lymphocytes # (A) 8.4 k/uL (1.0-4.8); Lymphocytes % (A) 68 %; MCH 31.7 pg (25.0-35.0); MCHC 32.2 g/dL (31.0-37.0); MCV 98.4 fL (80.0-100.0); Mean Platelet Volume 8.3; Monocytes # (A) 0.4 k/uL (0-1.0); Monocytes % (A) 4 %; Neutrophils # (A) 2.8 k/uL (1.3-7.7); Neutrophils % (A) 23 %; Platelet Count 186 k/uL (150-450); RBC 3.99 m/uL (3.80-5.40); RDW 13.9 % (11.5-15.5); WBC 12.3 k/uL (3.8-10.6)
[2021-11-07] MEDS ORDERED: PANTOPRAZOLE 40 MG TABLET PO SCH (07:30)
[2021-11-07 07:47] LABS: INR 1.1 (<1.2); Prothrombin Time 11.8 sec (9.0-12.0)
[2021-11-07 08:04] LABS: African American GFR (CKD) >90 (>60 ml/min/1.73 sqM); Anion Gap 3 mmol/L; Blood Urea Nitrogen 15 mg/dL (7-17); Calcium 7.9 mg/dL (8.4-10.2); Carbon Dioxide 28 mmol/L (22-30); Chloride 109 mmol/L (98-107); Glucose 143 mg/dL (74-99); Non-African American GFR(CKD) 85 (>60 ml/min/1.73 sqM); Potassium 3.7 mmol/L (3.5-5.1); Sodium 140 mmol/L (137-145)
[2021-11-07] MEDS ORDERED: ASPIRIN 81 MG PO SCH (09:00)
[2021-11-07 09:20] VITALS: PULSE 74; RESP 17
[2021-11-07] MEDS: lisinopriL 5 MG TAB PO SCH (09:22)
[2021-11-07 11:59] LABS: Glucose,Whole Blood 202 mg/dL (75-99)
--- NOTE | 2021-11-07 13:13 | P.PN ---
Subjective This is a 61 year old female with past medical history of Type 2 Diabetes. She does not follow with a manufacturing engineering intern. We have been consulted for elevated troponin. Patient presents with symptoms of nausea and vomiting since Thursday11/01/21. She states Thursday she began to have symptoms of fever, chills, nausea, vomiting and abdominal pain. Her pain is located epigastric region. It is non-radiating, non-exertional. Aggravated by vomiting. She denies exertional chest pain or shortness of breath. She denies any lightheadedness, dizziness, palpitations, syncope or near syncope. Denies any diarrhea or constipation. Denies history of CAD, VA, Stroke, heart failure or hypertension, she was placed on low dose Lisinopril due to history of diabetes. She denies tobacco use. Family history includes Father had an VA in his 70s. She denies having a prior cardiac workup in the past. DIAGNOSTICS EKG reveals sinus rhythm, heart rate 62, left axis deviation, T wave inversion in lead 3, poor R wave progression no acute ST or T-wave abnormalities suggest ischemia. EKG in 01/2020 with similar findings Telemetry tracings indicate sinus mechanism Chest xray no acute cardiopulmonary process Laboratory reviewed, troponin 0.21, 0.15, 0.135 11/07/21 Patient seen and examined at bedside, no acute distress. She denies any chest pain or shortness of breath. She is hemodynamically stable.Echocardiogram revealed an EF of 6065%, no significant wall motion abnormalities. PHYSICAL EXAMINATION Blood pressure 114/72, heart rate 74, afebrile, oxygen saturation is 97% on room air CONSTITUTIONAL: No apparent distress. HEENT: Neck supple No JVD. CHEST EXAMINATION: Lungs are clear to auscultation. No chest wall tenderness is noted on palpation or with deep breathing. HEART EXAMINATION: Regular rate and rhythm. S1, S2 heard. No murmurs, gallops or rub. ABDOMEN: Soft, nontender. Positive bowel sounds. EXTREMITIES: 2+ peripheral pulses, no lower extremity edema and no calf tenderness. NEUROLOGIC EXAMINATION: Patient is awake, alert and oriented x3. ASSESSMENT Elevated troponin, not likely indicative of acute coronary syndrome, likely related tachycardia and hypertensive on admission Urinary tract infection Leukocytosis Symptoms of Abdominal pain, nausea, vomiting, chills Type 2 diabetes Hypertension PLAN From cardiology perspective, patient stable, ok to discharge when cleared by primary and other consultants. Continue home medications with lisinopril and statin Nurse practitioner note has been reviewed by physician. Signing provider agrees with the documented findings, assessment, and plan of care. Objective - Vital Signs Vital signs: Vital Signs Temp 98.3 F 11/07/21 08:00 Pulse 74 11/07/21 08:00 Resp 17 11/07/21 08:00 BP 114/72 11/07/21 08:00 Pulse Ox 97 11/07/21 08:00 Intake & Output 11/06/21 11/07/21 11/07/21 18:59 06:59 18:59 Intake Total 1000 1670 Balance 1000 1670 Intake: Intake, IV Titration 1000 1170 Amount Sodium Chloride 0.9% 1, 1170 000 ml @ 130 mls/hr IV . Q7H42M LEONARDA Rx#:[id number] Sodium Chloride 0.9% 1, 1000 000 ml @ 999 mls/hr IV . Q1H1M STA Rx#:[id number] Oral 500 Other: Voiding Method Toilet # Voids 2 - Labs CBC & Chem 7: 11/07/21 07:05 11/07/21 07:05 Labs: Abnormal Lab Results - Last 24 Hours (Table) 11/06/21 11/06/21 11/07/21 Range/Units 16:54 20:08 02:03 WBC (3.8-10.6) k/uL Lymphocytes # (1.0-4.8) k/uL Chloride (98-107) mmol/L Glucose (74-99) mg/dL POC Glucose (mg/dL) 162 H 287 H 149 H (75-99) mg/dL Calcium (8.4-10.2) mg/dL 11/07/21 11/07/21 11/07/21 Range/Units 06:05 07:05 07:05 WBC 12.3 H (3.8-10.6) k/uL Lymphocytes # 8.4 H (1.0-4.8) k/uL Chloride 109 H (98-107) mmol/L Glucose 143 H (74-99) mg/dL POC Glucose (mg/dL) 126 H (75-99) mg/dL Calcium 7.9 L (8.4-10.2) mg/dL 11/07/21 Range/Units 11:57 WBC (3.8-10.6) k/uL Lymphocytes # (1.0-4.8) k/uL Chloride (98-107) mmol/L Glucose (74-99) mg/dL POC Glucose (mg/dL) 202 H (75-99) mg/dL Calcium (8.4-10.2) mg/dL Microbiology - Last 24 Hours (Table) 11/06/21 01:10 Blood Culture - Preliminary Blood No Growth after 24 hours 11/06/21 01:45 Blood Culture - Preliminary Blood No Growth after 24 hours 11/05/21 21:35 Urine Culture - Final Urine,Voided
--- NOTE | 2021-11-07 14:39 | P.DS ---
Providers Date of admission: 11/06/21 02:52 Attending physician: Uday Dejesus MD Consults: 11/06/21 03:11 Consult Physician Urgent Consulting Provider: Mejia Cross Consult Reason/Comments: Non-STEMI Do you want consulting provider notified?: Yes, Notify in am Primary care physician: Olamide Miguel - Discharge Diagnosis(es) (1) Urinary tract infection . Current Visit: No Status: Acute (2) Elevated troponin Current Visit: Yes Status: Acute (3) HTN (hypertension), benign Current Visit: Yes Status: Chronic (4) Dehydration Current Visit: No Status: Acute (5) Type 2 diabetes mellitus Current Visit: No Status: Chronic (6) Pyrexia Current Visit: No Status: Acute Hospital Course: 61-year-old female with past medical history of type 2 diabetes and hypertension was admitted with symptoms of nausea vomiting for 3 days associated with fever and chills and suprapubic pain. She was found to have UTI and also limited to troponins at the time of admission. Her EKG showed nonspecific ST-T changes. Subsequently patient was started on IV antibiotics and IV fluids for UTI and dehydration. Cardiology was also consulted and her troponins were trended. She also underwent echocardiogram which showed ejection fraction of 60-65% with no significant wall motion abnormalities. She continued to do well and improved symptomatically during her stay. Urine cultures did not grow any significant bacteria. She was cleared by cardiology for discharge. Upon discharge, patient will be prescribed Keflex for a duration of 5 days. She has been asked to follow-up with her PCP within a week after discharge. She is clinically and hemodynamically stable and states that she is competent to go home today and follow-up with her PCP if her symptoms do not improve are within a week, whichever comes earlier. Total 35 minutes was spent discharging this patient. Patient Condition at Discharge: Stable Plan - Discharge Summary Discharge Rx Participant: No New Discharge Prescriptions: New Cephalexin [Keflex] 500 mg PO Q8HR 5 Days #15 cap Continue lisinopriL [Zestril] 5 mg PO DAILY metFORMIN HCL [Glucophage] 850 mg PO BID Rosuvastatin Calcium [Crestor] 5 mg PO HS Discontinued Insulin NPH Hum/Reg Insulin Hm [NovoLIN 70-30 100 UNIT/ML VIAL] See Protocol SQ AC-TID PRN PRN Reason: Blood Sugar - High Discharge Medication List lisinopriL [Zestril] 5 mg PO DAILY 07/18/19 [History] Rosuvastatin Calcium [Crestor] 5 mg PO HS 11/06/21 [History] metFORMIN HCL [Glucophage] 850 mg PO BID 11/06/21 [History] Cephalexin [Keflex] 500 mg PO Q8HR 5 Days #15 cap 11/07/21 [Rx] Follow up Appointment(s)/Referral(s): Olamide Miguel MD [Primary Care Provider] - 1 Week Patient Instructions/Handouts: Urinary Tract Infection in Women (GEN) Discharge Disposition: HOME SELF-CARE
[2021-11-07 14:47] VITALS: BP 123/58; TEMP 98.5
--- NOTE | 2021-11-08 13:06 | CDI ---
Documentation Clarification Form Date: 11/08/21 From: Megan Giraldo Admit Date: 11/06/2021 02:52:00 AM Patient Name: Amarilis Chaidez Visit Number: [id number] Discharge Date: 11/07/2021 03:18:00 PM ATTENTION: The Clinical Documentation Specialists (CDI) and [facility] Coding Staff appreciate your assistance in clarifying documentation. Please respond to the clarification below the line at the bottom and electronically sign. The CDI & [facility] Coding staff will review the response and follow-up if needed. Please note: Queries are made part of the Legal Health Record. If you have any questions, please contact the author of this message via ITS. Dr. Hardy Posadas, Sepsis is documented in the ED Note & H&P, but is not noted in subsequent documentation. Clarification is requested. History/Risk Factors: Type II DM, HTN Clinical Indicators: Acute pyelonephritis. WBC 22.8, Neutrophils 8.8, lactic acid 1.1, T 99.6, P 121, R 20, BP 195/100 Treatment: IV fluids, IV Zoysn, IV Rocephin Please clarify if the sepsis is: [ x ] Sepsis confirmed, remains under treatment [ ] Sepsis ruled out [ ] Other condition, please specify [ ] Unable to determine MTDD
== END 2021-11-07 15:18 | disposition home or self-care (01) | DRG 872 ==
LOC: EC 19:50 → 3SCARD 11-06 02:52
PROVIDERS: ADMIT Internal Medicine; ATTEND Internal Medicine
DX: A41.9 Sepsis, unspecified organism (principal); N10 Acute pyelonephritis; I11.0 Hypertensive heart disease with heart failure; I50.9 Heart failure, unspecified; E11.9 Type 2 diabetes mellitus without complications; I10 Essential (primary) hypertension; E86.0 Dehydration; Z79.4 Long term (current) use of insulin; Z20.822 Contact with and (suspected) exposure to COVID-19; I25.10 Atherosclerotic heart disease of native coronary artery without angina pectoris; R77.8 Other specified abnormalities of plasma proteins; Z79.84 Long term (current) use of oral hypoglycemic drugs; Z79.899 Other long term (current) drug therapy; Z87.442 Personal history of urinary calculi; Z86.73 Personal history of transient ischemic attack (TIA), and cerebral infarction without residual deficits; Z98.891 History of uterine scar from previous surgery; Z98.890 Other specified postprocedural states; Z88.2 Allergy status to sulfonamides; Z80.49 Family history of malignant neoplasm of other genital organs; Z82.49 Family history of ischemic heart disease and other diseases of the circulatory system
CPT/HCPCS: 36415; 71046; 74177; 80048; 80053; 81001; 83036; 83605; 83690; 83735; 84484; 85025; 85027; 85610; 85730; 86308; 87040; 87086; 87635; 93005; 93306; 96365; 96366; 96367; 96375; 99291

== ENCOUNTER 2022-04-12 09:52 | Inpatient (IN) | payer MEDICAID ==
[2022-04-12] MEDS ORDERED: ONDANSETRON 4 MG/2 ML VIAL IVP STA (10:17)
[2022-04-12] MEDS ORDERED: SODIUM CHLORIDE 0.9% 2,000 ML IV STA (10:17)
[2022-04-12 10:54] LABS: HCT 52.6 % (34.0-46.0); HGB 15.9 gm/dL (11.4-16.0); MCH 29.3 pg (25.0-35.0); MCHC 30.2 g/dL (31.0-37.0); Mean Platelet Volume 8.2; Platelet Count 275 k/uL (150-450); RBC 5.42 m/uL (3.80-5.40); RDW 13.7 % (11.5-15.5); WBC 25.5 k/uL (3.8-10.6)
[2022-04-12 11:06] LABS: Appearance,Urine Clear (Clear); Bacteria,Urine Rare /hpf; Bilirubin,Urine Negative (Negative); Blood,Urine Negative (Negative); Color,Urine Light Yellow; Glucose,Urine (UA) 4+ (Negative); Leukocyte Esterase,Urine Negative (Negative); Mucus,Urine Rare /hpf; Nitrite,Urine Negative (Negative); PH, Urine 5.5 (5.0-8.0); Protein,Urine 1+ (Negative); RBC,Urine 1 /hpf (0-5); Specific Gravity,Urine 1.031 (1.001-1.035); Squamous Epithelial Cell,Urine 2 /hpf (0-4); Urobilinogen,Urine <2.0 mg/dL (<2.0); WBC,Urine 1 /hpf (0-5)
[2022-04-12 11:07] LABS: ALT 17 U/L (4-34); AST 24 U/L (14-36); African American GFR (CKD) >90 (>60 ml/min/1.73 sqM); Albumin 4.8 g/dL (3.5-5.0); Alkaline Phosphatase 68 U/L (38-126); Amylase 56 U/L (30-110); Anion Gap 20 mmol/L; Blood Urea Nitrogen 20 mg/dL (7-17); Calcium 9.2 mg/dL (8.4-10.2); Carbon Dioxide 18 mmol/L (22-30); Chloride 101 mmol/L (98-107); Glucose 154 mg/dL (74-99); Lipase 48 U/L (23-300); Non-African American GFR(CKD) >90 (>60 ml/min/1.73 sqM); Potassium 4.2 mmol/L (3.5-5.1); Sodium 139 mmol/L (137-145); Total Bilirubin 0.6 mg/dL (0.2-1.3); Total Protein 7.3 g/dL (6.3-8.2)
[2022-04-12 11:11] LABS: Ketones,Urine 4+ (Negative)
--- NOTE | 2022-04-12 12:09 | ED ---
General Adult HPI - General Chief complaint: Nausea/Vomiting/Diarrhea Stated complaint: Vomiting/Racing Heart Time Seen by Provider: 04/12/22 10:04 Source: patient, RN notes reviewed Mode of arrival: ambulatory Limitations: no limitations - History of Present Illness Initial comments: 61-year-old female presents emergency Department chief complaint of possible dehydration, nausea vomiting patient states that she's and Thursday she had increasing vomiting states that she cannot keep anything down. Patient states that she continues to have waves of nausea and no diarrhea no hematemesis or coffee-ground emesis. Patient denies any fever or chills. She states that she is laying down and felt like her heart was racing, fluttering denies any s kipping a beat, denies any chest pain associated with. Vasculature breath. Patient states she is known diabetic states that she 390 minute that she could be dehydrated or possible infection. She denies any localized abdominal pain no dysuria - Related Data Home Medications Medication Instructions Recorded Confirmed lisinopriL [Zestril] 5 mg PO DAILY 07/18/19 11/06/21 Rosuvastatin Calcium [Crestor] 5 mg PO HS 11/06/21 11/06/21 metFORMIN HCL [Glucophage] 850 mg PO BID 11/06/21 11/06/21 Previous Rx's Medication Instructions Recorded Cephalexin [Keflex] 500 mg PO Q8HR 5 Days #15 cap 11/07/21 Allergies Allergy/AdvReac Type Severity Reaction Status Date / Time Sulfa (Sulfonamide Allergy Rash/Hives Verified 04/12/22 10:02 Antibiotics) Review of Systems ROS Statement: Those systems with pertinent positive or pertinent negative responses have been documented in the HPI. ROS Other: All systems not noted in ROS Statement are negative. Past Medical History Past Medical History: Diabetes Mellitus Additional Past Medical History / Comment(s): kidney stones History of Any Multi-Drug Resistant Organisms: None Reported Past Surgical History: Bladder Surgery, Section Additional Past Surgical History / Comment(s): ureter surgery 06/11, lithotripsy Past Anesthesia/Blood Transfusion Reactions: No Reported Reaction Additional Past Anesthesia/Blood Transfusion Reaction / Comment(s): Patient has never received blood products Past Psychological History: No Psychological Hx Reported Smoking Status: Never smoker Past Alcohol Use History: Occasional Past Drug Use History: None Reported - Past Family History Sister(s) Family Medical History: Cancer Additional Family Medical History / Comment(s): cervical cancer. Mother Family Medical History: No Reported History Additional Family Medical History / Comment(s): Mother is healthy Father Family Medical History: Congestive Heart Failure (CHF) General Exam Limitations: no limitations General appearance: alert, in no apparent distress Head exam: Present: atraumatic, normocephalic, normal inspection Eye exam: Present: normal appearance, PERRL, EOMI. Absent: scleral icterus, c onjunctival injection, periorbital swelling ENT exam: Present: normal exam, normal oropharynx, mucous membranes moist, TM's normal bilaterally Neck exam: Present: normal inspection, full ROM. Absent: tenderness, meningismus, lymphadenopathy Respiratory exam: Present: normal lung sounds bilaterally. Absent: respiratory distress, wheezes, rales, rhonchi, stridor Cardiovascular Exam: Present: regular rate, normal rhythm, normal heart sounds. Absent: systolic murmur, diastolic murmur, rubs, gallop, clicks GI/Abdominal exam: Present: soft, normal bowel sounds. Absent: distended, tenderness, guarding, rebound, rigid Back exam: Present: full ROM Neurological exam: Present: alert, oriented X3, CN II-XII intact Skin exam: Present: warm, dry, intact, normal color. Absent: rash Course Vital Signs 04/12/22 10:00 Temperature 98.6 F Pulse Rate 94 Respiratory 20 Rate Blood Pressure 169/82 O2 Sat by Pulse 98 Oximetry Medical Decision Making - Medical Decision Making 61-year-old female presented for nausea vomiting palpitations area patient has elevated troponin at 0.071 she has no current chest pain currently. Patient has had elevated while in the past. Patient has dehydration, considering ascending infection of the urinary tract on CT. Patient was given dose of Rocephin patient blood cultures, repeat troponin, cardiology evaluation - Lab Data Result diagrams: 04/12/22 10:40 04/12/22 10:40 Lab Results 04/12/22 04/12/22 04/12/22 Range/Units 10:40 10:40 10:40 WBC 25.5 H (3.8-10.6) k/uL RBC 5.42 H (3.80-5.40) m/uL Hgb 15.9 (11.4-16.0) gm/dL Hct 52.6 H (34.0-46.0) % MCV 97.0 (80.0-100.0) fL MCH 29.3 (25.0-35.0) pg MCHC 30.2 L (31.0-37.0) g/dL RDW 13.7 (11.5-15.5) % Plt Count 275 (150-450) k/uL MPV 8.2 Neutrophils % (Manual) 48 % Lymphocytes % (Manual) 48 % Monocytes % (Manual) 4 % Other Cells % % Neutrophils # (Manual) 12.24 H (1.3-7.7) k/uL Lymphocytes # (Manual) 12.24 H (1.0-4.8) k/uL Monocytes # (Manual) 1.02 H (0-1.0) k/uL Nucleated RBCs 0 (0-0) /100 WBC Manual Slide Review Performed RBC Morphology Normal Sodium 139 (137-145) mmol/L Potassium 4.2 (3.5-5.1) mmol/L Chloride 101 (98-107) mmol/L Carbon Dioxide 18 L (22-30) mmol/L Anion Gap 20 mmol/L BUN 20 H (7-17) mg/dL Creatinine 0.73 (0.52-1.04) mg/dL Est GFR (CKD-EPI)AfAm >90 (>60 ml/min/1.73 sqM) Est GFR (CKD-EPI)NonAf >90 (>60 ml/min/1.73 sqM) Glucose 154 H (74-99) mg/dL Plasma Lactic Acid Bertram (0.7-2.0) mmol/L Calcium 9.2 (8.4-10.2) mg/dL Total Bilirubin 0.6 (0.2-1.3) mg/dL AST 24 (14-36) U/L ALT 17 (4-34) U/L Alkaline Phosphatase 68 (38-126) U/L Troponin I (0.000-0.034) ng/mL Total Protein 7.3 (6.3-8.2) g/dL Albumin 4.8 (3.5-5.0) g/dL Amylase 56 (30-110) U/L Lipase 48 (23-300) U/L Urine Color Light Yellow Urine Appearance Clear (Clear) Urine pH 5.5 (5.0-8.0) Ur Specific Irving 1.031 (1.001-1.035) Urine Protein 1+ H (Negative) Urine Glucose (UA) 4+ H (Negative) Urine Ketones 4+ H (Negative) Urine Blood Negative (Negative) Urine Nitrite Negative (Negative) Urine Bilirubin Negative (Negative) Urine Urobilinogen <2.0 (<2.0) mg/dL Ur Leukocyte Esterase Negative (Negative) Urine RBC 1 (0-5) /hpf Urine WBC 1 (0-5) /hpf Ur Squamous Epith Cells 2 (0-4) /hpf Urine Bacteria Rare H (None) /hpf Urine Mucus Rare H (None) /hpf 04/12/22 04/12/22 Range/Units 10:40 10:40 WBC (3.8-10.6) k/uL RBC (3.80-5.40) m/uL Hgb (11.4-16.0) gm/dL Hct (34.0-46.0) % MCV (80.0-100.0) fL MCH (25.0-35.0) pg MCHC (31.0-37.0) g/dL RDW (11.5-15.5) % Plt Count (150-450) k/uL MPV Neutrophils % (Manual) % Lymphocytes % (Manual) % Monocytes % (Manual) % Other Cells % % Neutrophils # (Manual) (1.3-7.7) k/uL Lymphocytes # (Manual) (1.0-4.8) k/uL Monocytes # (Manual) (0-1.0) k/uL Nucleated RBCs (0-0) /100 WBC Manual Slide Review RBC Morphology Sodium (137-145) mmol/L Potassium (3.5-5.1) mmol/L Chloride (98-107) mmol/L Carbon Dioxide (22-30) mmol/L Anion Gap mmol/L BUN (7-17) mg/dL Creatinine (0.52-1.04) mg/dL Est GFR (CKD-EPI)AfAm (>60 ml/min/1.73 sqM) Est GFR (CKD-EPI)NonAf (>60 ml/min/1.73 sqM) Glucose (74-99) mg/dL Plasma Lactic Acid Bertram 1.4 (0.7-2.0) mmol/L Calcium (8.4-10.2) mg/dL Total Bilirubin (0.2-1.3) mg/dL AST (14-36) U/L ALT (4-34) U/L Alkaline Phosphatase (38-126) U/L Troponin I 0.071 H* (0.000-0.034) ng/mL Total Protein (6.3-8.2) g/dL Albumin (3.5-5.0) g/dL Amylase (30-110) U/L Lipase (23-300) U/L Urine Color Urine Appearance (Clear) Urine pH (5.0-8.0) Ur Specific Irving (1.001-1.035) Urine Protein (Negative) Urine Glucose (UA) (Negative) Urine Ketones (Negative) Urine Blood (Negative) Urine Nitrite (Negative) Urine Bilirubin (Negative) Urine Urobilinogen (<2.0) mg/dL Ur Leukocyte Esterase (Negative) Urine RBC (0-5) /hpf Urine WBC (0-5) /hpf Ur Squamous Epith Cells (0-4) /hpf Urine Bacteria (None) /hpf Urine Mucus (None) /hpf Disposition Clinical Impression: Metabolic acidosis, Urinary tract infection, Leukocytosis, Dehydration, Elevated troponin Disposition: ADMITTED IP TO THIS HOSP Condition: Fair Referrals: Olamide Miguel MD [Primary Care Provider] - 1-2 days Time of Disposition: 13:11
[2022-04-12 12:10] LABS: Nucleated Red Blood Cells 0 /100 WBC (0-0)
[2022-04-12 12:12] LABS: RBC Morphology Normal
--- NOTE | 2022-04-12 12:19 | CT ---
EXAMINATION TYPE: CT abdomen pelvis w con CT DLP: 1658.9 mGycm, Automated exposure control for dose reduction was used. DATE OF EXAM: 04/12/2022 12:12 PM COMPARISON: CT abdomen pelvis most recent from 11/06/2021 CLINICAL INDICATION:Female, 61 years old with history of Leukocytosis, abdominal pain; Vomiting, raci ng heart TECHNIQUE: Axial CT of the abdomen and pelvis. Sagittal and coronal reformats were created on a QVPN workstation. Contrast used:100 mL of Isovue 300 with IV Contrast, Oral contrast used: without Oral Contrast FINDINGS: LOWER CHEST: Unremarkable ABDOMEN LIVER: Diffusely hypoattenuating parenchyma. GALLBLADDER AND BILE DUCTS: Unremarkable. PANCREAS: Unremarkable. SPLEEN: Unremarkable. ADRENAL GLANDS: Unremarkable. KIDNEYS AND URETERS: Urothelial thickening/hyperemia in the right. No evidence of hydronephrosis or r enal calculus. The ureters are unremarkable. PELVIS BLADDER: Unremarkable REPRODUCTIVE: Unremarkable. ABDOMEN & PELVIS STOMACH AND BOWEL: No evidence of bowel obstruction. PERITONEUM: No evidence of pneumoperitoneum or free fluid. VASCULATURE: No evidence of aortic aneurysm. MUSCULOSKELETAL: No acute osseous abnormalities. Mild disc degeneration changes are present throughou t the thoracolumbar spine. LYMPH NODES: No gross evidence for lymphadenopathy. SOFT TISSUE/ABDOMINAL WALL: Fat filled umbilical hernia measuring 1.7 cm at the neck. IMPRESSION: 1. Mild right collecting system hyperemia/urothelial thickening which may represent ascending infecti on, correlate with urinalysis and clinical symptoms. No other acute finding in the abdomen or pelvis. 2. Colonic diverticulosis. 3. Hepatic steatosis.
[2022-04-12 12:53] LABS: Lymphocytes # (M) 12.24 k/uL (1.0-4.8); Monocytes # (M) 1.02 k/uL (0-1.0); Neutrophils # (M) 12.24 k/uL (1.3-7.7); Neutrophils % (M) 48 %; Total Cells Counted 500
[2022-04-12] MEDS ORDERED: HEPARIN SODIUM 1,000 UN/ML (10ML VL) IV ONE (13:05)
[2022-04-12] MEDS ORDERED: NITROGLYCERIN SL TABS 0.4 MG TAB SUBLINGUAL PRN (13:05)
[2022-04-12] MEDS ORDERED: METOCLOPRAMIDE 5 MG/ML 2 ML VIAL IVP STA (13:11)
[2022-04-12] MEDS: HEPARIN SOD,PORK IN 0.45% NACL 25,000 UNIT in 0.45% NACL 1 250ML.BAG IV SCH (14:42)
[2022-04-12] MEDS ORDERED: NALOXONE 0.4 MG/ML 1 ML VIAL IV PRN (15:49)
[2022-04-12] MEDS ORDERED: SODIUM CHLORIDE 0.9% 1,000 ML IV STA (15:56)
[2022-04-12] MEDS ORDERED: METOCLOPRAMIDE 5 MG/ML 2 ML VIAL IVP PRN (15:57)
[2022-04-12] MEDS ORDERED: ONDANSETRON 4 MG TAB PO PRN (15:57)
--- NOTE | 2022-04-12 16:00 | P.HPIM ---
History of Present Illness H&P Date: 04/12/22 Chief Complaint: palpitations 61-year-old female presents emergency Department chief complaint of intractable nausea and vomiting for the past few days. She had over 20 episodes so far. She is also complaining from heart palpitations. She denied having any chest pain or shortness of breath. No fevers or chills. Denied diarrhea no hematemesis or coffee-ground emesis. No urinary symptoms. Evaluation in the emergency department with computed tomography scan of the abd omen showed mild right ureteral collecting system hyperemia with urothelial thickening and possible ascending infection. Her white count was elevated at 25,000. Troponin was elevated at 0.071. She was started on heparin drip. She was admitted for further evaluation and management. Review of Systems Complete review of system performed, pertinent positives per HPI, Otherwise negative Past Medical History Past Medical History: Diabetes Mellitus Additional Past Medical History / Comment(s): kidney stones History of Any Multi-Drug Resistant Organisms: None Reported Past Surgical History: Bladder Surgery, Section Additional Past Surgical History / Comment(s): ureter surgery 06/11, lithotripsy Past Anesthesia/Blood Transfusion Reactions: No Reported Reaction Additional Past Anesthesia/Blood Transfusion Reaction / Comment(s): Patient has never received blood products Past Psychological History: No Psychological Hx Reported Smoking Status: Never smoker Past Alcohol Use History: Occasional Past Drug Use History: None Reported - Past Family History Sister(s) Family Medical History: Cancer Additional Family Medical History / Comment(s): cervical cancer. Mother Family Medical History: No Reported History Additional Family Medical History / Comment(s): Mother is healthy Father Family Medical History: Congestive Heart Failure (CHF) Medications and Allergies Home Medications Medication Instructions Recorded Confirmed Type lisinopriL [Zestril] 5 mg PO DAILY 07/18/19 04/12/22 History Rosuvastatin Calcium [Crestor] 5 mg PO HS 11/06/21 04/12/22 History metFORMIN HCL [Glucophage] 850 mg PO DIRECTED PRN 11/06/21 04/12/22 History Empagliflozin [Jardiance] 10 mg PO DAILY 04/12/22 04/12/22 History Melatonin 5 mg PO HS 04/12/22 04/12/22 History metFORMIN HCL [Glucophage] 500 mg PO BID 04/12/22 04/12/22 History Allergies Allergy/AdvReac Type Severity Reaction Status Date / Time Sulfa (Sulfonamide Allergy Rash/Hives Verified 04/12/22 13:35 Antibiotics) Physical Exam Vitals: Vital Signs Temp Pulse Resp BP Pulse Ox 04/12/22 10:00 98.6 F 94 20 169/82 98 Intake and Output 04/11/22 04/12/22 04/12/22 22:59 06:59 14:59 Other: Weight 108.862 kg Constitutional: No acute distress, conversant, pleasant Eyes:Anicteric sclerae, moist conjunctiva, no lid-lag, PERRLA, ENMT: Oropharynx clear, no erythema, exudates Neck: Supple, FROM, no masses, or JVD, No carotid bruits, No thyromegaly Lungs: Clear to auscultation, Clear to percussion, Normal respiratory effort, no accessory muscle use Cardiovascular: Heart regular in rate and rhythm, No murmurs, gallops, or rubs, No peripheral edema Abdominal: Soft, Nontender, no guarding, rebound or rigidity, Normoactive bowel sounds, No hepatomegaly, No splenomegaly, No palpable mass Skin: Normal temperature, tone, texture, turgor, no induration, No subcutaneous nodules, No rash, lesions, No ulcers Extremities: No digital cyanosis, No clubbing, Pedal pulses intact and symmetrical, Radial pulses intact and symmetrical, No calf tenderness Psychiatric: Alert and oriented to person, place and time, appropriate affect, intact judgement Neuro: Muscles Strength 5/5 in all 4 extremities, Sensation to light touch grossly present throughout, Cranial nerves II-XII grossly intact, no focal sensory deficits Results CBC & Chem 7: 04/12/22 10:40 04/12/22 10:40 Labs: Abnormal Lab Results - Last 24 Hours (Table) 04/12/22 04/12/22 04/12/22 Range/Units 10:40 10:40 10:40 WBC 25.5 H (3.8-10.6) k/uL RBC 5.42 H (3.80-5.40) m/uL Hct 52.6 H (34.0-46.0) % MCHC 30.2 L (31.0-37.0) g/dL Neutrophils # (Manual) 12.24 H (1.3-7.7) k/uL Lymphocytes # (Manual) 12.24 H (1.0-4.8) k/uL Monocytes # (Manual) 1.02 H (0-1.0) k/uL Carbon Dioxide 18 L (22-30) mmol/L BUN 20 H (7-17) mg/dL Glucose 154 H (74-99) mg/dL Troponin I (0.000-0.034) ng/mL Urine Protein 1+ H (Negative) Urine Glucose (UA) 4+ H (Negative) Urine Ketones 4+ H (Negative) Urine Bacteria Rare H (None) /hpf Urine Mucus Rare H (None) /hpf 04/12/22 04/12/22 Range/Units 10:40 13:16 WBC (3.8-10.6) k/uL RBC (3.80-5.40) m/uL Hct (34.0-46.0) % MCHC (31.0-37.0) g/dL Neutrophils # (Manual) (1.3-7.7) k/uL Lymphocytes # (Manual) (1.0-4.8) k/uL Monocytes # (Manual) (0-1.0) k/uL Carbon Dioxide (22-30) mmol/L BUN (7-17) mg/dL Glucose (74-99) mg/dL Troponin I 0.071 H* 0.073 H* (0.000-0.034) ng/mL Urine Protein (Negative) Urine Glucose (UA) (Negative) Urine Ketones (Negative) Urine Bacteria (None) /hpf Urine Mucus (None) /hpf Assessment and Plan Plan: Intractable nausea and vomiting Zofran and Phenergan Consult GI IV fluids Check right upper quadrant ultrasound to rule out gallbladder disease Elevated troponin Unclear etiology Consult cardiology Cycle Telemetry Heparin drip Diabetes type 2 Hold home medications, start sliding scale insulin Hyperlipidemia Hypertension Stable Resume home meds Admit to inpatient, expected length of stay >2 midnights
--- NOTE | 2022-04-12 16:33 | US ---
EXAMINATION TYPE: US abdomen limited DATE OF EXAM: 04/12/2022 COMPARISON: CT CLINICAL HISTORY: RQU U/s Re vomiting r/o GB disease. Vomiting TECHNIQUE: Multiple sonographic images of the right upper quadrant are obtained. FINDINGS: EXAM MEASUREMENTS: Liver Length: 15.6 cm Gallbladder Wall: 0.3 cm CBD: 0.7 cm Right Kidney: 11.6 x 5.[address] TEAM MEMBER NOTES: Pancreas: 2mm duct visualized, tail obscured by overlying bowel gas Liver: Heterogeneous, difficult to penetrate Gallbladder: Multiple, mobile gallstones, wall thickness upper limits of normal Evidence for sonographic Nguyen's sign: No CBD: Dilated Right Kidney: Lobulated contour, mild hydro IMPRESSION: Multiple gallstones. No dilated ducts. No focal liver defect. No evidence of pancreatic mass.
[2022-04-12] MEDS: INSULIN ASPART (NovoLOG) 100 UNIT/ML VIAL SQ SCH ×2 (19:23→20:07)
[2022-04-12] MEDS ORDERED: cloNIDine HCL 0.2 MG TAB PO PRN (19:57)
[2022-04-12 20:08] LABS: Glucose,Whole Blood 118 mg/dL (70-110)
[2022-04-12] MEDS ORDERED: HEPARIN SODIUM 1,000 UN/ML (10ML VL) IV PRN (20:17)
[2022-04-12] MEDS: ATORVASTATIN 10 MG TAB PO SCH (20:44)
[2022-04-12] MEDS: MELATONIN 5 MG TABLET PO SCH (20:45)
[2022-04-13 06:00] LABS: Glucose,Whole Blood 90 mg/dL (70-110)
[2022-04-13] MEDS: INSULIN ASPART (NovoLOG) 100 UNIT/ML VIAL SQ SCH ×4 (06:26→20:36)
[2022-04-13 08:01] LABS: HCT 48.5 % (34.0-46.0); HGB 14.7 gm/dL (11.4-16.0); Hypochromasia Slight; MCH 29.7 pg (25.0-35.0); MCHC 30.3 g/dL (31.0-37.0); Mean Platelet Volume 8.2; Platelet Count 237 k/uL (150-450); RBC 4.95 m/uL (3.80-5.40); RDW 13.7 % (11.5-15.5); WBC 19.9 k/uL (3.8-10.6)
[2022-04-13 08:19] LABS: ALT 15 U/L (4-34); AST 21 U/L (14-36); African American GFR (CKD) >90 (>60 ml/min/1.73 sqM); Albumin 4.1 g/dL (3.5-5.0); Alkaline Phosphatase 58 U/L (38-126); Anion Gap 13 mmol/L; Blood Urea Nitrogen 15 mg/dL (7-17); Calcium 8.8 mg/dL (8.4-10.2); Carbon Dioxide 19 mmol/L (22-30); Chloride 105 mmol/L (98-107); Glucose 129 mg/dL (74-99); Magnesium 1.9 mg/dL (1.6-2.3); Non-African American GFR(CKD) >90 (>60 ml/min/1.73 sqM); Potassium 3.7 mmol/L (3.5-5.1); Sodium 137 mmol/L (137-145); Total Bilirubin 0.6 mg/dL (0.2-1.3); Total Protein 6.4 g/dL (6.3-8.2)
[2022-04-13 08:48] VITALS: RESP 18
[2022-04-13] MEDS: ASPIRIN 325 MG TAB PO SCH (08:48)
[2022-04-13] MEDS: lisinopriL 5 MG TAB PO SCH (08:48)
[2022-04-13 09:33] LABS: Lymphocytes # (M) 13.13 k/uL (1.0-4.8); Myelocytes % 1 %; Neutrophils # (M) 5.57 k/uL (1.3-7.7); Neutrophils % (M) 28 %; Nucleated Red Blood Cells 0 /100 WBC (0-0); Total Cells Counted 200
--- NOTE | 2022-04-13 10:32 | P.GSCN ---
History of Present Illness Consult date: 04/13/22 Reason for Consult: Right renal pelvic thickening Requesting physician: Noé Jhaveri History of present illness: The patient is a 61-year-old female well known to Dr. Webster. 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 She was subsequently treated f o right-sided pyelonephritis. She was admitted yesterday with intractable hyperemesis and tachycardia. Her symptoms have resolved and she feels fine. She denies dysuria and hematuria. She states that she is treated for UTIs once or twice annually, but the symptom prompting treatment is typically nausea rather than symptoms typically attributable to a UTI. Review of Systems - Constitutional Denies chills, Denies fever - Cardiovascular Denies chest pain - Respiratory Denies dyspnea - Gastrointestinal Reports nausea, Reports vomiting - Genitourinary Genitourinary: Denies dysuria, Denies flank pain, Denies hematuria Past Medical History Past Medical History: Diabetes Mellitus Additional Past Medical History / Comment(s): kidney stones History of Any Multi-Drug Resistant Organisms: None Reported Past Surgical History: Bladder Surgery, Section Additional Past Surgical History / Comment(s): ureter surgery 06/11, lithotripsy Past Anesthesia/Blood Transfusion Reactions: No Reported Reaction Additional Past Anesthesia/Blood Transfusion Reaction / Comm: Patient has never received blood products Smoking Status: Former smoker - Past Family History Sister(s) Family Medical History: Cancer Additional Family Medical History / Comment(s): cervical cancer. Mother Family Medical History: No Reported History Additional Family Medical History / Comment(s): Mother is healthy Father Family Medical History: Congestive Heart Failure (CHF) Medications and Allergies Home Medications Medication Instructions Recorded Confirmed Type lisinopriL [Zestril] 5 mg PO DAILY 07/18/19 04/12/22 History Rosuvastatin Calcium [Crestor] 5 mg PO HS 11/06/21 04/12/22 History metFORMIN HCL [Glucophage] 850 mg PO DIRECTED PRN 11/06/21 04/12/22 History Empagliflozin [Jardiance] 10 mg PO DAILY 04/12/22 04/12/22 History Melatonin 5 mg PO HS 04/12/22 04/12/22 History metFORMIN HCL [Glucophage] 500 mg PO BID 04/12/22 04/12/22 History Allergies Allergy/AdvReac Type Severity Reaction Status Date / Time Sulfa (Sulfonamide Allergy Rash/Hives Verified 04/12/22 13:35 Antibiotics) Surgical - Exam Vital Signs Temp Pulse Resp BP Pulse Ox 98.6 F 94 20 169/82 98 04/12/22 10:00 04/12/22 10:00 04/12/22 10:00 04/12/22 10:00 04/12/22 10:00 - General well developed, well nourished, no distress - Respiratory normal respiratory effort - Abdomen Abdomen: soft, non tender, no guarding, no rigid, no rebound - Psychiatric oriented to time, oriented to person, oriented to place, speech is normal, memory intact Results - Labs 04/13/22 07:45 04/13/22 07:45 Abnormal Lab Results - Last 24 Hours (Table) 04/12/22 04/12/22 04/12/22 Range/Units 10:40 10:40 10:40 WBC 25.5 H (3.8-10.6) k/uL RBC 5.42 H (3.80-5.40) m/uL Hct 52.6 H (34.0-46.0) % MCHC 30.2 L (31.0-37.0) g/dL Neutrophils # (Manual) 12.24 H (1.3-7.7) k/uL Lymphocytes # (Manual) 12.24 H (1.0-4.8) k/uL Monocytes # (Manual) 1.02 H (0-1.0) k/uL APTT (22.0-30.0) sec Carbon Dioxide 18 L (22-30) mmol/L BUN 20 H (7-17) mg/dL Glucose 154 H (74-99) mg/dL POC Glucose (mg/dL) (70-110) mg/dL Troponin I (0.000-0.034) ng/mL Urine Protein 1+ H (Negative) Urine Glucose (UA) 4+ H (Negative) Urine Ketones 4+ H (Negative) Urine Bacteria Rare H (None) /hpf Urine Mucus Rare H (None) /hpf 04/12/22 04/12/22 04/12/22 Range/Units 10:40 13:16 17:23 WBC (3.8-10.6) k/uL RBC (3.80-5.40) m/uL Hct (34.0-46.0) % MCHC (31.0-37.0) g/dL Neutrophils # (Manual) (1.3-7.7) k/uL Lymphocytes # (Manual) (1.0-4.8) k/uL Monocytes # (Manual) (0-1.0) k/uL APTT (22.0-30.0) sec Carbon Dioxide (22-30) mmol/L BUN (7-17) mg/dL Glucose (74-99) mg/dL POC Glucose (mg/dL) (70-110) mg/dL Troponin I 0.071 H* 0.073 H* 0.099 H* (0.000-0.034) ng/mL Urine Protein (Negative) Urine Glucose (UA) (Negative) Urine Ketones (Negative) Urine Bacteria (None) /hpf Urine Mucus (None) /hpf 04/12/22 04/12/22 04/13/22 Range/Units 19:13 20:06 01:15 WBC (3.8-10.6) k/uL RBC (3.80-5.40) m/uL Hct (34.0-46.0) % MCHC (31.0-37.0) g/dL Neutrophils # (Manual) (1.3-7.7) k/uL Lymphocytes # (Manual) (1.0-4.8) k/uL Monocytes # (Manual) (0-1.0) k/uL APTT 33.8 H 95.1 H (22.0-30.0) sec Carbon Dioxide (22-30) mmol/L BUN (7-17) mg/dL Glucose (74-99) mg/dL POC Glucose (mg/dL) 118 H (70-110) mg/dL Troponin I (0.000-0.034) ng/mL Urine Protein (Negative) Urine Glucose (UA) (Negative) Urine Ketones (Negative) Urine Bacteria (None) /hpf Urine Mucus (None) /hpf Diabetes panel 04/12/22 Range/Units 10:40 Sodium 139 (137-145) mmol/L Potassium 4.2 (3.5-5.1) mmol/L Chloride 101 (98-107) mmol/L Carbon Dioxide 18 L (22-30) mmol/L BUN 20 H (7-17) mg/dL Creatinine 0.73 (0.52-1.04) mg/dL Glucose 154 H (74-99) mg/dL Calcium 9.2 (8.4-10.2) mg/dL AST 24 (14-36) U/L ALT 17 (4-34) U/L Alkaline Phosphatase 68 (38-126) U/L Total Protein 7.3 (6.3-8.2) g/dL Albumin 4.8 (3.5-5.0) g/dL Calcium panel 04/12/22 Range/Units 10:40 Calcium 9.2 (8.4-10.2) mg/dL Albumin 4.8 (3.5-5.0) g/dL Pituitary panel 04/12/22 Range/Units 10:40 Sodium 139 (137-145) mmol/L Potassium 4.2 (3.5-5.1) mmol/L Chloride 101 (98-107) mmol/L Carbon Dioxide 18 L (22-30) mmol/L BUN 20 H (7-17) mg/dL Creatinine 0.73 (0.52-1.04) mg/dL Glucose 154 H (74-99) mg/dL Calcium 9.2 (8.4-10.2) mg/dL Adrenal panel 04/12/22 Range/Units 10:40 Sodium 139 (137-145) mmol/L Potassium 4.2 (3.5-5.1) mmol/L Chloride 101 (98-107) mmol/L Carbon Dioxide 18 L (22-30) mmol/L BUN 20 H (7-17) mg/dL Creatinine 0.73 (0.52-1.04) mg/dL Glucose 154 H (74-99) mg/dL Calcium 9.2 (8.4-10.2) mg/dL Total Bilirubin 0.6 (0.2-1.3) mg/dL AST 24 (14-36) U/L ALT 17 (4-34) U/L Alkaline Phosphatase 68 (38-126) U/L Total Protein 7.3 (6.3-8.2) g/dL Albumin 4.8 (3.5-5.0) g/dL - Imaging CT scan - abdomen: report reviewed, image reviewed Assessment and Plan (1) Abnormal x-ray Current Visit: Yes Status: Acute Code(s): R93.89 - ABNORMAL FINDINGS ON DX IMAGING OF OTH BODY STRUCTURES SNOMED Code(s): 907870941 Plan: I have reviewed the patient's CT scan, which shows mild thickening and hyperemia of the right renal pelvis. This is likely the result of long-standing distal ureteral dysfunction. She has never experienced hematuria, and I believe the likelihood that the CT scan findings represent pathology is very low. I have suggested that she could undergo cystoscopy, right retrograde pyelogram, and right ureteroscopy for further evaluation, but after weighing the pros and cons of this he declines any further evaluation. From a urologic standpoint, urinalysis at the time of admission was unremarkable and she is urologically stable for discharge.
[2022-04-13 11:24] LABS: Chol/HDL Ratio 3.99 Ratio
[2022-04-13 11:36] LABS: Glucose,Whole Blood 112 mg/dL (70-110)
--- NOTE | 2022-04-13 13:20 | P.CRDCN ---
History of Present Illness History of present illness: HISTORY OF PRESENTING ILLNESS Patient is pleasant 61-year-old female with history of diabetes mellitus type 2, hypertension, ureteral issues status post urethral surgery and hydronephrosis, family history of CAD, chronic leukocytosis who presents secondary to episode of feeling nauseous, unable to keep food down, feeling her heart racing. She did have somewhat of a previous similar admission in October with mildly elevated troponins. Apparently she did not follow up with any senior electronics design engineer at that time echo showing EF 55-60%. Liver main concerns was that she felt her heart racing and fluttering. She continued to have feeling like her heart was racing quickly "hard" and is slowly improved and she thought the IV fluids may have helped. No significant tachycardia noted on EKG or telemetry. She denies any specific chest pain or pressure. CT abdomen and pelvis was performed secondary to leukocytosis which showed right ureter hyperemia and diverticulosis. An ultrasound showed gall stones however no choledocholithiasis. Blood work shows white blood cell count 25.5, hemoglobin 15.9, creatinine 0.7, troponin 0.07, 0.07, 0.09. EKG shows sinus rhythm, left axis deviation, minimal ST depressions in the lateral leads. REVIEW OF SYSTEMS At the time of my exam: CONSTITUTIONAL: Denies fever or chills. CARDIOVASCULAR: Denies chest pain, shortness of breath, orthopnea, PND, +pal pitations. RESPIRATORY: Denies cough. GASTROINTESTINAL: Denies abdominal pain, diarrhea, constipation, nausea or vomiting. MUSCULOSKELETAL: Denies myalgias. NEUROLOGIC: Denies numbness, tingling or weakness. ENDOCRINE: Denies fatigue, weight change, polydipsia or polyurina. GENITOURINARY: Denies burning, hematuria or urgency with micturation. HEMATOLOGIC: Denies history of anemia or bleeding. PHYSICAL EXAMINATION Vital signs reviewed. CONSTITUTIONAL: No apparent distress. HEENT: Head is normocephalic. Pupils are equal, round. Sclerae anicteric. Mucous membranes of the mouth are moist. No JVD. No carotid bruit. CHEST EXAMINATION: Lungs are clear to auscultation. No chest wall tenderness is noted on palpation or with deep breathing. HEART EXAMINATION: Regular rate and rhythm. S1, S2 heard. +3/6 systolic murmur, no gallops or rub. ABDOMEN: Soft, nontender. Positive bowel sounds. EXTREMITIES: 2+ peripheral pulses, no lower extremity edema and no calf tenderness. NEUROLOGIC EXAMINATION: Patient is awake, alert and oriented x3. ASSESSMENT 1. Non-STEMI, mildly elevated troponins without obvious angina-type symptoms however was feeling more palpitations and some nausea which may be anginal equivalent 2. Systolic murmur, rub or echo not showing significant valvular disease, no VSD 3. Diabetes mellitus type 2 4. Hyperlipidemia 5. Family history of CAD 6. Gallstones, history of ureteral obstruction, hydronephrosis 7. Nausea 8. Leukocytosis PLAN Patient with vague symptoms of nausea as well as feeling her heart racing. No obvious source of nausea and patient with multiple risk factors and has never had stress testing. Previous similar presentation however never followed up with stress test. Discussed recommendations for stress test and we will check stress test tomorrow. Echocardiogram from [facility] did not show significant valvular disease however patient with obvious systolic murmur. Could consider workup for coarctation however does not have uncontrolled high blood pressure. Further recommendations to follow. Past Medical History Past Medical History: Diabetes Mellitus Additional Past Medical History / Comment(s): kidney stones History of Any Multi-Drug Resistant Organisms: None Reported Past Surgical History: Bladder Surgery, Section Additional Past Surgical History / Comment(s): ureter surgery 06/11, lithotripsy Past Anesthesia/Blood Transfusion Reactions: No Reported Reaction Additional Past Anesthesia/Blood Transfusion Reaction / Comment(s): Patient has never received blood products Smoking Status: Former smoker - Past Family History Sister(s) Family Medical History: Cancer Additional Family Medical History / Comment(s): cervical cancer. Mother Family Medical History: No Reported History Additional Family Medical History / Comment(s): Mother is healthy Father Family Medical History: Congestive Heart Failure (CHF) Medications and Allergies Home Medications Medication Instructions Recorded Confirmed Type lisinopriL [Zestril] 5 mg PO DAILY 07/18/19 04/12/22 History Rosuvastatin Calcium [Crestor] 5 mg PO HS 11/06/21 04/12/22 History metFORMIN HCL [Glucophage] 850 mg PO DIRECTED PRN 11/06/21 04/12/22 History Empagliflozin [Jardiance] 10 mg PO DAILY 04/12/22 04/12/22 History Melatonin 5 mg PO HS 04/12/22 04/12/22 History metFORMIN HCL [Glucophage] 500 mg PO BID 04/12/22 04/12/22 History Allergies Allergy/AdvReac Type Severity Reaction Status Date / Time Sulfa (Sulfonamide Allergy Rash/Hives Verified 04/12/22 13:35 Antibiotics) Physical Exam Vitals: Vital Signs Temp Pulse Pulse Resp BP BP Pulse Ox 04/13/22 12:04 68 18 126/74 96 04/13/22 10:14 67 18 04/13/22 08:45 98.6 F 67 18 119/73 96 04/13/22 03:26 98.1 F 96 19 124/65 99 04/12/22 23:26 98.0 F 73 18 98/56 95 04/12/22 20:00 98.0 F 102 H 18 182/96 98 04/12/22 19:23 97.8 F 114 H 18 189/90 97 04/12/22 18:24 98.1 F 93 18 142/85 95 Intake and Output 04/12/22 04/13/22 04/13/22 22:59 06:59 14:59 Intake Total 60.5 80.165 173.545 Balance 60.5 80.165 173.545 Intake: Intake, IV Titration 60.5 80.165 55.545 Amount Heparin Sod,Pork in 0.45% 60.5 80.165 55.545 NaCl 25,000 unit In 0.45 % NaCl 1 250ml.bag @ 9. 186 UNITS/KG/HR 10 mls/hr IV .Q24H [facility] Rx#: [id number] Oral 118 Other: Voiding Method Toilet Toilet Toilet # Voids 1 2 Weight 108.862 kg Results 04/13/22 07:45 04/13/22 07:45 Cardiac Enzymes 04/12/22 04/12/22 04/13/22 Range/Units 13:16 17:23 07:45 AST 21 (14-36) U/L Troponin I 0.073 H* 0.099 H* (0.000-0.034) ng/mL Coagulation 04/12/22 04/12/22 04/13/22 Range/Units 13:16 19:13 01:15 APTT 23.3 33.8 H 95.1 H (22.0-30.0) sec 04/13/22 Range/Units 07:45 APTT 34.9 H (22.0-30.0) sec Lipids 04/13/22 Range/Units 07:45 Triglycerides 162.00 H (0.00-149.00) mg/dL Cholesterol 166.00 (0.00-200.00) mg/dL HDL Cholesterol 41.60 (40.00-60.00) mg/dL Cholesterol/HDL Ratio 3.99 Ratio CBC 04/13/22 Range/Units 07:45 WBC 19.9 H (3.8-10.6) k/uL RBC 4.95 (3.80-5.40) m/uL Hgb 14.7 (11.4-16.0) gm/dL Hct 48.5 H (34.0-46.0) % Plt Count 237 (150-450) k/uL Comprehensive Metabolic Panel 04/13/22 Range/Units 07:45 Sodium 137 (137-145) mmol/L Potassium 3.7 (3.5-5.1) mmol/L Chloride 105 (98-107) mmol/L Carbon Dioxide 19 L (22-30) mmol/L BUN 15 (7-17) mg/dL Creatinine 0.67 (0.52-1.04) mg/dL Glucose 129 H (74-99) mg/dL Calcium 8.8 (8.4-10.2) mg/dL AST 21 (14-36) U/L ALT 15 (4-34) U/L Alkaline Phosphatase 58 (38-126) U/L Total Protein 6.4 (6.3-8.2) g/dL Albumin 4.1 (3.5-5.0) g/dL Current Medications Generic Name Dose Route Start Last Admin Trade Name Freq PRN Reason Stop Dose Admin Aspirin 325 mg 04/13/22 09:00 04/13/22 08:48 Aspirin 325 Mg Tab PO 325 mg DAILY LEONARDA Administration Atorvastatin Calcium 10 mg 04/12/22 21:00 04/12/22 20:44 Atorvastatin 10 Mg Tab PO 10 mg HS LEONARDA Administration Clonidine 0.2 mg 04/12/22 19:57 04/12/22 20:44 Clonidine Hcl 0.2 Mg Tab PO 0.2 mg QID PRN Administration Blood Pressure - High Heparin Sodium (Porcine) 0 unit 04/12/22 20:17 04/12/22 20:45 Heparin Sodium 1,000 Un/Ml (10ml Vl) IV 2,720 unit PER PROTOCOL PRN Administration Low PTT Protocol Heparin Sodium/Sodium Chloride 250 mls @ 10 mls/hr 04/12/22 13:15 04/13/22 09:34 25,000 unit/ Sodium Chloride IV 10.02 units/kg/hr .Q24H LEONARDA 10.911 mls/hr Titration Protocol 9.186 UNITS/KG/HR Insulin Aspart 0 unit 04/12/22 17:30 04/13/22 11:42 Insulin Aspart (Novolog) 100 Unit/Ml Vial SQ Not Given ACHS [facility] Protocol Lisinopril 5 mg 04/13/22 09:00 04/13/22 08:48 Lisinopril 5 Mg Tab PO 5 mg DAILY LEONARDA Administration Melatonin 5 mg 04/12/22 21:00 04/12/22 20:45 Melatonin 5 Mg Tablet PO 5 mg HS LEONARDA Administration Metoclopramide HCl 10 mg 04/12/22 15:57 Metoclopramide 5 Mg/Ml 2 Ml Vial IVP Q6HR PRN Nausea And Vomiting Naloxone HCl 0.2 mg 04/12/22 15:49 Naloxone 0.4 Mg/Ml 1 Ml Vial IV Q2M PRN Opioid Reversal Nitroglycerin 0.4 mg 04/12/22 13:05 Nitroglycerin Sl Tabs 0.4 Mg Tab SUBLINGUAL Q5M PRN Chest Pain Ondansetron HCl 4 mg 04/12/22 15:57 Ondansetron 4 Mg Tab PO Q8HR PRN Nausea And Vomiting Intake and Output 04/12/22 04/13/22 04/13/22 22:59 06:59 14:59 Intake Total 60.5 80.165 173.545 Balance 60.5 80.165 173.545 Intake: Intake, IV Titration 60.5 80.165 55.545 Amount Heparin Sod,Pork in 0.45% 60.5 80.165 55.545 NaCl 25,000 unit In 0.45 % NaCl 1 250ml.bag @ 9. 186 UNITS/KG/HR 10 mls/hr IV .Q24H [facility] Rx#: [id number] Oral 118 Other: Voiding Method Toilet Toilet Toilet # Voids 1 2 Weight 108.862 kg 04/13/22 07:45 04/13/22 07:45
--- NOTE | 2022-04-13 14:05 | P.PN ---
Subjective Progress Note Date: 04/13/22 Principal diagnosis: palpitations Doing well. Still with intermittent palpitations and nausea. No vomiting. No fevers. Objective - Vital Signs Vital signs: Vital Signs Temp 98.6 F 04/13/22 08:45 Pulse 68 04/13/22 13:45 Resp 18 04/13/22 13:45 BP 126/74 04/13/22 12:04 Pulse Ox 96 04/13/22 12:04 FiO2 Intake & Output 04/12/22 04/13/22 04/13/22 18:59 06:59 18:59 Intake Total 140.665 173.545 Balance 140.665 173.545 Weight 108.862 kg 108.862 kg Intake: Intake, IV Titration 140.665 55.545 Amount Heparin Sod,Pork in 0.45% 140.665 55.545 NaCl 25,000 unit In 0.45 % NaCl 1 250ml.bag @ 9. 186 UNITS/KG/HR 10 mls/hr IV .Q24H [facility] Rx#: [id number] Oral 118 Other: Voiding Method Toilet Toilet # Voids 2 - Exam Constitutional: No acute distress, conversant, pleasant Eyes:Anicteric sclerae, moist conjunctiva, no lid-lag, PERRLA, ENMT: Oropharynx clear, no erythema, exudates Neck: Supple, FROM, no masses, or JVD, No carotid bruits, No thyromegaly Lungs: Clear to auscultation, Clear to percussion, Normal respiratory effort, no accessory muscle use Cardiovascular: Heart regular in rate and rhythm, No murmurs, gallops, or rubs, No peripheral edema Abdominal: Soft, Nontender, no guarding, rebound or rigidity, Normoactive bowel sounds, No hepatomegaly, No splenomegaly, No palpable mass Skin: Normal temperature, tone, texture, turgor, no induration, No subcutaneous nodules, No rash, lesions, No ulcers Extremities: No digital cyanosis, No clubbing, Pedal pulses intact and symmetrical, Radial pulses intact and symmetrical, No calf tenderness Psychiatric: Alert and oriented to person, place and time, appropriate affect, intact judgement Neuro: Muscles Strength 5/5 in all 4 extremities, Sensation to light touch grossly present throughout, Cranial nerves II-XII grossly intact, no focal sensory deficits - Labs CBC & Chem 7: 08/21/22 07:45 04/13/22 07:45 Labs: Abnormal Lab Results - Last 24 Hours (Table) 04/12/22 04/12/22 04/12/22 Range/Units 13:16 17:23 19:13 WBC (3.8-10.6) k/uL Hct (34.0-46.0) % MCHC (31.0-37.0) g/dL Lymphocytes # (Manual) (1.0-4.8) k/uL Myelocytes # (Manual) (0) k/uL APTT 33.8 H (22.0-30.0) sec Carbon Dioxide (22-30) mmol/L Glucose (74-99) mg/dL POC Glucose (mg/dL) (70-110) mg/dL Troponin I 0.073 H* 0.099 H* (0.000-0.034) ng/mL Triglycerides (0.00-149.00) mg/dL 04/12/22 04/13/22 04/13/22 Range/Units 20:06 01:15 07:45 WBC 19.9 H (3.8-10.6) k/uL Hct 48.5 H (34.0-46.0) % MCHC 30.3 L (31.0-37.0) g/dL Lymphocytes # (Manual) 13.13 H (1.0-4.8) k/uL Myelocytes # (Manual) 0.20 H (0) k/uL APTT 95.1 H (22.0-30.0) sec Carbon Dioxide (22-30) mmol/L Glucose (74-99) mg/dL POC Glucose (mg/dL) 118 H (70-110) mg/dL Troponin I (0.000-0.034) ng/mL Triglycerides (0.00-149.00) mg/dL 04/13/22 04/13/22 04/13/22 Range/Units 07:45 07:45 11:35 WBC (3.8-10.6) k/uL Hct (34.0-46.0) % MCHC (31.0-37.0) g/dL Lymphocytes # (Manual) (1.0-4.8) k/uL Myelocytes # (Manual) (0) k/uL APTT 34.9 H (22.0-30.0) sec Carbon Dioxide 19 L (22-30) mmol/L Glucose 129 H (74-99) mg/dL POC Glucose (mg/dL) 112 H (70-110) mg/dL Troponin I (0.000-0.034) ng/mL Triglycerides 162.00 H (0.00-149.00) mg/dL Assessment and Plan Plan: Intractable nausea and vomiting Zofran and Phenergan Consult GI and general surgery Us abdomen showing gallstones. 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
[2022-04-13] MEDS: HEPARIN SOD,PORK IN 0.45% NACL 25,000 UNIT in 0.45% NACL 1 250ML.BAG IV SCH (15:01)
--- NOTE | 2022-04-13 15:10 | XR ---
EXAMINATION TYPE: XR chest 2V DATE OF EXAM: 04/13/2022 COMPARISON: 11/06/2021 HISTORY: Chest pain TECHNIQUE: 2 view FINDINGS: There is some blunting of the costophrenic angles. Heart size is normal. There are no hilar masses. There are chest leads. No heart failure. IMPRESSION: Pleural reaction and subsegmental atelectasis at the lung bases which is mostly new camila red to old exam.
[2022-04-13 19:01] LABS: Glucose,Whole Blood 194 mg/dL (70-110)
[2022-04-13 19:55] LABS: Glucose,Whole Blood 182 mg/dL (70-110)
[2022-04-13] MEDS: MELATONIN 5 MG TABLET PO SCH (20:36)
[2022-04-13] MEDS: ATORVASTATIN 10 MG TAB PO SCH (20:36)
[2022-04-14 04:04] VITALS: TEMP 97.7
[2022-04-14] MEDS ORDERED: AMINOPHYLLINE 500 MG/20 ML VIAL IV PRN (06:00)
[2022-04-14] MEDS ORDERED: CAFFEINE CITRATE 60 MG/3 ML VIAL IV PRN (06:00)
[2022-04-14] MEDS ORDERED: REGADENOSON 0.4 MG/5 ML SYRINGE IV PRN (06:00)
[2022-04-14 06:06] LABS: Glucose,Whole Blood 123 mg/dL (70-110)
[2022-04-14] MEDS: INSULIN ASPART (NovoLOG) 100 UNIT/ML VIAL SQ SCH ×2 (06:37→11:58)
[2022-04-14 08:06] LABS: Basophils # (A) 0.1 k/uL (0-0.2); Basophils % (A) 1 %; Eosinophils # (A) 0.2 k/uL (0-0.7); Eosinophils % (A) 1 %; HCT 45.1 % (34.0-46.0); HGB 14.3 gm/dL (11.4-16.0); Lymphocytes # (A) 9.3 k/uL (1.0-4.8); Lymphocytes % (A) 65 %; MCH 30.5 pg (25.0-35.0); MCHC 31.8 g/dL (31.0-37.0); Mean Platelet Volume 8.4; Monocytes # (A) 0.5 k/uL (0-1.0); Monocytes % (A) 4 %; Neutrophils # (A) 3.8 k/uL (1.3-7.7); Neutrophils % (A) 27 %; Platelet Count 204 k/uL (150-450); RDW 13.5 % (11.5-15.5); WBC 14.2 k/uL (3.8-10.6)
[2022-04-14 08:25] LABS: African American GFR (CKD) >90 (>60 ml/min/1.73 sqM); Anion Gap 8 mmol/L; Blood Urea Nitrogen 17 mg/dL (7-17); Calcium 8.6 mg/dL (8.4-10.2); Carbon Dioxide 29 mmol/L (22-30); Chloride 103 mmol/L (98-107); Glucose 119 mg/dL (74-99); Non-African American GFR(CKD) >90 (>60 ml/min/1.73 sqM); Potassium 3.6 mmol/L (3.5-5.1); Sodium 140 mmol/L (137-145)
[2022-04-14 10:13] LABS: RBC Morphology Normal
[2022-04-14] MEDS: lisinopriL 5 MG TAB PO SCH (11:12)
[2022-04-14] MEDS ORDERED: ASPIRIN 81 MG PO SCH (11:15)
[2022-04-14] MEDS: ASPIRIN 325 MG TAB PO SCH (11:18)
[2022-04-14 11:47] LABS: Glucose,Whole Blood 123 mg/dL (70-110)
[2022-04-14 12:10] VITALS: BP 120/60; PULSE 59
--- NOTE | 2022-04-14 12:16 | P.PN ---
Subjective Patient is pleasant 61-year-old female with history of diabetes mellitus type 2, hypertension, ureteral issues status post urethral surgery and hydronephrosis, family history of CAD, chronic leukocytosis. She does not follow with a librarian. We've been asked to see in consultation for elevated troponin. Patient presents secondary to episode of feeling nauseous, unable to keep food down, feeling her heart racing. She did have somewhat of a previous similar admission in October 2021 with mildly elevated troponins. Apparently she did not follow up with any librarian at that time echo showing EF 55-60%. Liver main concerns was that she felt her heart racing and fluttering. She continued to have feeling like her heart was racing quickly "hard" and is slowly improved and she thought the IV fluids may have helped. No significant tachycardia noted on EKG or telemetry. She denies any specific chest pain or pressure. CT abdomen and pelvis was performed secondary to leukocytosis which showed right ureter hyperemia and diverticulosis. An ultrasound showed gall stones however no choledocholithiasis. Blood work shows white blood cell count 25.5, hemoglobin 15.9, creatinine 0.7, troponin 0.07, 0.07, 0.09. EKG shows sinus rhythm, left axis deviation, minimal ST depressions in the lateral leads. 04/14/2022 Patient seen and examined at bedside, no acute distress. She denies any chest pain. Vital signs are stable. Plan for Lexiscan stress test today. PHYSICAL EXAMINATION Vital signs reviewed. CONSTITUTIONAL: No apparent distress. HEENT: Neck Supple. No JVD. CHEST EXAMINATION: Lungs are clear to auscultation. No chest wall tenderness is noted on palpation or with deep breathing. HEART EXAMINATION: Regular rate and rhythm. S1, S2 heard. ABDOMEN: Soft, nontender. Positive bowel sounds. EXTREMITIES: 2+ peripheral pulses, no lower extremity edema and no calf tenderness. NEUROLOGIC EXAMINATION: Patient is awake, alert and oriented x3. ASSESSMENT Non-STEMI, mildly elevated troponins without obvious angina-type symptoms however was feeling more palpitations and some nausea which may be anginal equivalent Diabetes mellitus type 2 Hyperlipidemia Family history of CAD Gallstones, history of ureteral obstruction, hydronephrosis Nausea Leukocytosis PLAN Await Lexiscan stress test results Continue aspirin, statin, lisinopril. If Lexiscan stress test is negative, no further inpatient workup from cardiology perspective and can be considered for discharge. We will consider coronary angiography if Lexiscan is abnormal. Nurse practitioner note has been reviewed by physician. Signing provider agrees with the documented findings, assessment, and plan of care. Objective - Vital Signs Vital signs: Vital Signs Temp 97.7 F 04/14/22 04:00 Pulse 54 L 04/14/22 10:48 Resp 18 04/14/22 10:48 BP 123/57 04/14/22 08:55 Pulse Ox 97 04/14/22 08:55 FiO2 Intake & Output 04/13/22 04/14/22 04/14/22 18:59 06:59 18:59 Intake Total 347.335 358 231.537 Balance 347.335 358 231.537 Intake: Intake, IV Titration 109.335 231.537 Amount Heparin Sod,Pork in 0.45% 109.335 231.537 NaCl 25,000 unit In 0.45 % NaCl 1 250ml.bag @ 9. 186 UNITS/KG/HR 10 mls/hr IV .Q24H [facility] Rx#: [id number] Oral 238 358 Other: Voiding Method Toilet Toilet Toilet # Voids 1 - Labs CBC & Chem 7: 04/14/22 06:55 04/14/22 06:55 Labs: Abnormal Lab Results - Last 24 Hours (Table) 04/13/22 04/13/22 04/13/22 Range/Units 14:09 19:00 19:53 WBC (3.8-10.6) k/uL Lymphocytes # (1.0-4.8) k/uL APTT 41.5 H (22.0-30.0) sec Glucose (74-99) mg/dL POC Glucose (mg/dL) 194 H 182 H (70-110) mg/dL 04/13/22 04/14/22 04/14/22 Range/Units 20:42 06:05 06:55 WBC 14.2 H (3.8-10.6) k/uL Lymphocytes # 9.3 H (1.0-4.8) k/uL APTT 55.3 H (22.0-30.0) sec Glucose (74-99) mg/dL POC Glucose (mg/dL) 123 H (70-110) mg/dL 04/14/22 04/14/2204/14/22 Range/Units 06:55 06:55 11:46 WBC (3.8-10.6) k/uL Lymphocytes # (1.0-4.8) k/uL APTT 80.0 H (22.0-30.0) sec Glucose 119 H (74-99) mg/dL POC Glucose (mg/dL) 123 H (70-110) mg/dL Microbiology - Last 24 Hours (Table) 04/12/22 14:00 Blood Culture - Preliminary Blood No Growth after 24 hours 04/12/22 13:45 Blood Culture - Preliminary Blood No Growth after 24 hours
--- NOTE | 2022-04-14 13:00 | NM ---
EXAMINATION TYPE: NM stress lexiscan cardiolite DATE OF EXAM: 04/14/2022 COMPARISON: NONE HISTORY: Chest pain TECHNIQUE: After the intravenous administration of 10.43 mCi Tc 99m Sestamibi - Cardiolite resting S PECT images acquired 70 minutes post injection. The patient received 0.4mg Lexiscan, 26.1 mCi Tc 99m Sestamibi - Stress images obtained [address] injection FINDINGS: Review of stress and rest SPECT images demonstrates no distinct perfusion abnormality. Gated analysi s shows normal wall motion with an estimated left ventricular ejection fraction of 72 %. IMPRESSION: No scintigraphic evidence for reversible ischemia.
--- NOTE | 2022-04-14 13:15 | CA ---
Lexiscan Nuclear Stress Test Report Name: Amarilis Chaidez Exam Date: 04/14/2022 09:46 Exam Location: [place] Stress Ht (in): 70 Wt (lb): 240 BSA: 2.24 Ordering Phys: Brandt Hughes DO Referring Phys: Shakila,, Technologist: [employer] Age: 61 Gender: F : 1960 Procedure CPT: Indications: Reflex order-Stress test ICD-10 Codes: Patient History: Medications: SEE CHART Meds past 24 hrs: Pretest Chest Pain: STRESS TEST Lexiscan Protocol Exercise Duration (min:sec): 02:[address] Depressions (mm): Angina Score: Hatch Score: Resting HR (bpm): 53 Peak HR (bpm): 98 Resting BP (mmHg): 107 / 78 Peak BP (mmHg): 133 / 67 MPHR: 161 Target HR: 137 % MPHR: 61 METS: 1.0 Total Dose: Peak Dose: Atropine: Double Product: 53645 BP Response: Stress Termination: PROTOCOL COMPLETE Stress Symptoms: NO SYMPTOMS Stress Summary: ECG ANALYSIS Resting ECG: Sinus rhythm. Normal conduction. No arrhythmias. Normal repolarization. Stress ECG: No ECG changes from baseline with Lexiscan infusion. CONCLUSIONS No ECG evidence of ischemia with Lexiscan infusion. Nuclear test results to follow. Dr. Mejia Cross MD (Electronically Signed) Final Date: 14 April 2022 13:15
--- NOTE | 2022-04-14 13:28 | P.DS ---
Providers Date of admission: 04/12/22 13:34 Expected date of discharge: 04/14/22 Attending physician: Noé Jhaveri MD Consults: 04/12/22 13:05 Consult Physician Urgent Consulting Provider: Fam Sands Consult Reason/Comments: elevated trop Do you want consulting provider notified?: Yes 04/12/22 15:50 Consult Physician Routine Consulting Provider: Glen Nguyen Consult Reason/Comments: ureteral abnormality Do you want consulting provider notified?: Yes Consult Physician Routine Consulting Provider: Marii Sánchez Consult Reason/Comments: vomiting Do you want consulting provider notified?: Yes 04/13/22 11:31 Consult Physician Routine Consulting Provider: Greg Vazquez Consult Reason/Comments: gallstones Do you want consulting provider notified?: Yes Primary care physician: [facility] Course: 61-year-old female presents emergency Department chief complaint of intractable nausea and vomiting for the past few days. She had over 20 episodes so far. She is also complaining from heart palpitations. She denied having any chest pain or shortness of breath. No fevers or chills. Denied diarrhea no hematemesis or coffee-ground emesis. No urinary symptoms. Evaluation in the emergency department with computed tomography scan of the abdomen showed mild right ureteral collecting system hyperemia with urothelial thickening and possible ascending infection. Her white count was elevated at 25,000. Troponin was elevated at 0.071. She was started on heparin drip. She was admitted for further evaluation and management. Upon admission patient was evaluated by cardiology service, troponins were cycled to remain flat, she was kept on heparin drip. Today she underwent Lexiscan stress testing which came back negative. Right upper quadrant ultrasound that revealed some issues with gallstones. No gallstones were found in the common bile duct. Her symptoms improved over the hospitalization. WBC count also improved to 14,000 on the day of discharge. No obvious infection was found. Urinalysis and chest x-ray were negative. She is feeling better now, will be discharged home in a stable condition. Time for discharge 35 min Patient Condition at Discharge: Fair Plan - Discharge Summary Discharge Rx Participant: Yes New Discharge Prescriptions: Continue lisinopriL [Zestril] 5 mg PO DAILY metFORMIN HCL [Glucophage] 500 mg PO BID metFORMIN HCL [Glucophage] 850 mg PO DIRECTED PRN PRN Reason: See Comments Rosuvastatin Calcium [Crestor] 5 mg PO HS Melatonin 5 mg PO HS Empagliflozin [Jardiance] 10 mg PO DAILY Discharge Medication List lisinopriL [Zestril] 5 mg PO DAILY 07/18/19 [History] Rosuvastatin Calcium [Crestor] 5 mg PO HS 11/06/21 [History] metFORMIN HCL [Glucophage] 850 mg PO DIRECTED PRN 11/06/21 [History] Empagliflozin [Jardiance] 10 mg PO DAILY 04/12/22 [History] Melatonin 5 mg PO HS 04/12/22 [History] metFORMIN HCL [Glucophage] 500 mg PO BID 04/12/22 [History] Follow up Appointment(s)/Referral(s): Aruna Hay MD [STAFF PHYSICIAN] - 1 Week Marii Sánchez MD [STAFF PHYSICIAN] - 1 Week Olamide Miguel MD [Primary Care Provider] - 1-2 days
--- NOTE | 2022-04-14 14:03 | P.GSCN ---
History of Present Illness Consult date: 04/14/22 History of present illness: CHIEF COMPLAINT: Nausea and vomiting HISTORY OF PRESENT ILLNESS: This is a 61-year-old female who presented to the hospital 2 days ago with complaints of nausea and vomiting. She also felt that her heart had been racing. She reports that she had not been eating well and not taking enough fluids. She had been working outside in the heat. She initially thought that she was dehydrated. However due to the racing heart she came into the hospital for further evaluation. She did have mildly elevated troponin. She was seen evaluated by cardiology. And she underwent a stress test today which was negative. She has a history of diabetes, gastroparesis C- section and bladder surgery. Patient reports her last EGD was in October [address] Atkins. Per patient she found some inflammation in the stomach. Surgical service has been consulted in regards to gallstones. Patient denies any abdominal pain after eating. Patient tolerated lunch today which was a hamburger and fries without any nausea or vomiting or abdominal pain. PAST MEDICAL HISTORY: See list. PAST SURGICAL HISTORY: See list. MEDICATIONS: See list. ALLERGIES: See list. SOCIAL HISTORY: No illicit drug use. REVIEW OF SYSTEMS: CONSTITUTIONAL: Denies fever or chills. HEENT: Denies blurred vision, vision changes, or eye pain. Denies hemoptysis CARDIOVASCULAR: Denies chest pain or pressure. RESPIRATORY: No shortness of breath. GASTROINTESTINAL: See HPI for pertinent findings HEMATOLOGIC: Denies bleeding disorders. GENITOURINARY: Denies any blood in urine or increased urinary frequency. SKIN: Denies pruitis. Denies rash. PHYSICAL EXAM: VITAL SIGNS: Reviewed GENERAL: Well-developed in no acute distress. HEENT: No sclera icterus. Extraocular movements grossly intact. Moist buccal mucosa. Head is atraumatic, normocephalic. No nasal drainage. ABDOMEN: Soft. Nondistended. Nontender. No tenderness in the right upper quadrant with palpation NEUROLOGIC: Alert and oriented. Cranial nerves II through XII grossly intact. LABORATORY DATA: WBC 25.5 down to 14.2 Hgb 14.3 platelets are 204 Sodium is 140 potassium is 3.6 creatinine 0.69 Glucose 123 LFTs are normal Lipase 48 IMAGING: Computed tomography scan abdomen and pelvis mild right collecting system hypernatremia/urethral yellow thickening which may represent ascending infection. No other acute findings in the abdomen or pelvis. Colonic diverticulosis. Hepatic steatosis. Abdominal ultrasound showing multiple gallstones. No dilated ducts. No focal liver defect. No evidence of pancreatic mass. ASSESSMENT: 1. Cholelithiasis noted on abdominal ultrasound. Patient is tolerating diet. Reports no right upper quadrant pain. PLAN: -Patient can be discharge from surgical standpoint when medically cleared -Recommend follow-up outpatient with Dr. Vazquez in 1 week Physician Special Needs Caregiver note has been reviewed by physician. Signing provider agrees with the documented findings, assessment, and plan of care. Past Medical History Past Medical History: Diabetes Mellitus Additional Past Medical History / Comment(s): kidney stones History of Any Multi-Drug Resistant Organisms: None Reported Past Surgical History: Bladder Surgery, Section Additional Past Surgical History / Comment(s): ureter surgery 06/11, lithotripsy Past Anesthesia/Blood Transfusion Reactions: No Reported Reaction Additional Past Anesthesia/Blood Transfusion Reaction / Comm: Patient has never received blood products Smoking Status: Former smoker - Past Family History Sister(s) Family Medical History: Cancer Additional Family Medical History / Comment(s): cervical cancer. Mother Family Medical History: No Reported History Additional Family Medical History / Comment(s): Mother is healthy Father Family Medical History: Congestive Heart Failure (CHF) Medications and Allergies Home Medications Medication Instructions Recorded Confirmed Type lisinopriL [Zestril] 5 mg PO DAILY 07/18/19 04/12/22 History Rosuvastatin Calcium [Crestor] 5 mg PO HS 11/06/21 04/12/22 History metFORMIN HCL [Glucophage] 850 mg PO DIRECTED PRN 11/06/21 04/12/22 History Empagliflozin [Jardiance] 10 mg PO DAILY 04/12/22 04/12/22 History Melatonin 5 mg PO HS 04/12/22 04/12/22 History metFORMIN HCL [Glucophage] 500 mg PO BID 04/12/22 04/12/22 History Allergies Allergy/AdvReac Type Severity Reaction Status Date / Time Sulfa (Sulfonamide Allergy Rash/Hives Verified 04/12/22 13:35 Antibiotics) Surgical - Exam Vital Signs Temp Pulse Resp BP Pulse Ox 98.6 F 94 20 169/82 98 04/12/22 10:00 04/12/22 10:00 04/12/22 10:04/12/22 10:00 04/12/22 10:00 Results - Labs 04/14/22 06:55 04/14/22 06:55 Abnormal Lab Results - Last 24 Hours (Table) 04/13/22 04/13/22 04/13/22 Range/Units 14:09 19:00 19:53 WBC (3.8-10.6) k/uL Lymphocytes # (1.0-4.8) k/uL APTT 41.5 H (22.0-30.0) sec Glucose (74-99) mg/dL POC Glucose (mg/dL) 194 H 182 H (70-110) mg/dL 04/13/22 04/14/22 04/14/22 Range/Units 20:42 06:05 06:55 WBC 14.2 H (3.8-10.6) k/uL Lymphocytes # 9.3 H (1.0-4.8) k/uL APTT 55.3 H (22.0-30.0) sec Glucose (74-99) mg/dL POC Glucose (mg/dL) 123 H (70-110) mg/dL 04/14/22 04/14/22 04/14/22 Range/Units 06:55 06:55 11:46 WBC (3.8-10.6) k/uL Lymphocytes # (1.0-4.8) k/uL APTT 80.0 H (22.0-30.0) sec Glucose 119 H (74-99) mg/dL POC Glucose (mg/dL) 123 H (70-110) mg/dL Microbiology - Last 24 Hours (Table) 04/12/22 14:00 Blood Culture - Preliminary Blood No Growth after 24 hours 04/12/22 13:45 Blood Culture - Preliminary Blood No Growth after 24 hours Diabetes panel 04/14/22 Range/Units 06:55 Sodium 140 (137-145) mmol/L Potassium 3.6 (3.5-5.1) mmol/L Chloride 103 (98-107) mmol/L Carbon Dioxide 29 (22-30) mmol/L BUN 17 (7-17) mg/dL Creatinine 0.69 (0.52-1.04) mg/dL Glucose 119 H (74-99) mg/dL Calcium 8.6 (8.4-10.2) mg/dL Calcium panel 04/14/22 Range/Units 06:55 Calcium 8.6 (8.4-10.2) mg/dL Pituitary panel 04/14/22 Range/Units 06:55 Sodium 140 (137-145) mmol/L Potassium 3.6 (3.5-5.1) mmol/L Chloride 103 (98-107) mmol/L Carbon Dioxide 29 (22-30) mmol/L BUN 17 (7-17) mg/dL Creatinine 0.69 (0.52-1.04) mg/dL Glucose 119 H (74-99) mg/dL Calcium 8.6 (8.4-10.2) mg/dL Adrenal panel 04/14/22 Range/Units 06:55 Sodium 140 (137-145) mmol/L Potassium 3.6 (3.5-5.1) mmol/L Chloride 103 (98-107) mmol/L Carbon Dioxide 29 (22-30) mmol/L BUN 17 (7-17) mg/dL Creatinine 0.69 (0.52-1.04) mg/dL Glucose 119 H (74-99) mg/dL Calcium 8.6 (8.4-10.2) mg/dL
--- NOTE | 2022-04-14 14:20 | P.CONS ---
History of Present Illness - Reason for Consult Consult date: 04/14/22 (No GI unavailable in hospital until today) Nausea and vomiting Requesting physician: Noé Jhaveri - Chief Complaint Heart palpitations, racing heart - History of Present Illness This is a pleasant 61-year-old female who presented to the emergency department 2 days ago with complaints of nausea and vomiting followed by racing heart. She states she had she multiple episodes of nausea and vomiting on and a few times on Thursday. Symptoms improved by Thursday later in the day. She states that her nausea and vomiting occurred after she was gardening and thought that perhaps she was dehydrated and caused it. Thursday and Thursday she started having heart palpitations and racing heart states she could not sleep so she came to the emergency department. Gastroenterology was consulted on 04/12/2022 however there was no gastroenterology available in hospital over the weekend. Today we are seeing the patient for the first time and she states she has not had any further nausea and vomiting. She states that she does have periodic episodes of nausea and vomiting and is actually seeing gastroenterology in the past. She states this has not occurred for quite some time. He did undergo EGD and April [address] Sánchez that showed mild antral gastritis with no evidence of esophagitis or peptic ulcer disease. She does not take regular medication per acid reflux. She denies any nausea at this time, no abdominal pain, fevers or chills. This morning she underwent a stress test which is currently pending. She did have a CT of the abdomen and pelvis as part of her workup in the emergency room that showed mild right collecting system hyperemia /urothelial thickening which may represent ascending infection, correlate with urinalysis and clinical symptoms. No other acute findings in the abdomen or pelvis. Colonic diverticulosis and hepatic steatosis. Patient was noted to have significant elevation in her WBC at 25.5 on admission repeat labs WBC has been trending down and is currently 14 today. Review of Systems REVIEW OF SYSTEMS: CARDIOPULMONARY: No chest pain or shortness of breath. Gastrointestinal: No abdominal pain. No nausea or vomiting since Thursday. Patient states she had multiple episodes every half hour to one hour on and part of Thursday. No hematemesis, coffee-ground emesis. No rectal bleeding, or melena. GENITOURINARY: No dysuria or hematuria. MUSCULOSKELETAL: Reports normal range of motion., Joint pain. SKIN: No rashes. No jaundice. ENDOCRINE: No chills, fevers. No excessive weight gain or loss. No polydipsia or polyuria. PSYCHIATRIC: Unremarkable. NEUROLOGY: No change in mental status. Denies dizziness, headache. ENT: Vision unremarkable. CONSTITUTIONAL: No recent weight loss. No fever, chills, night sweats. Past Medical History Past Medical History: Diabetes Mellitus Additional Past Medical History / Comment(s): kidney stones History of Any Multi-Drug Resistant Organisms: None Reported Past Surgical History: Bladder Surgery, Section Additional Past Surgical History / Comment(s): ureter surgery 06/11, lithotripsy Past Anesthesia/Blood Transfusion Reactions: No Reported Reaction Additional Past Anesthesia/Blood Transfusion Reaction / Comm: Patient has never received blood products Smoking Status: Former smoker - Past Family History Sister(s) Family Medical History: Cancer Additional Family Medical History / Comment(s): cervical cancer. Mother Family Medical History: No Reported History Additional Family Medical History / Comment(s): Mother is healthy Father Family Medical History: Congestive Heart Failure (CHF) Medications and Allergies Home Medications Medication Instructions Recorded Confirmed Type lisinopriL [Zestril] 5 mg PO DAILY 07/18/19 04/12/22 History Rosuvastatin Calcium [Crestor] 5 mg PO HS 11/06/21 04/12/22 History metFORMIN HCL [Glucophage] 850 mg PO DIRECTED PRN 11/06/21 04/12/22 History Empagliflozin [Jardiance] 10 mg PO DAILY 04/12/22 04/12/22 History Melatonin 5 mg PO HS 04/12/22 04/12/22 History metFORMIN HCL [Glucophage] 500 mg PO BID 04/12/22 04/12/22 History Allergies Allergy/AdvReac Type Severity Reaction Status Date / Time Sulfa (Sulfonamide Allergy Rash/Hives Verified 04/12/22 13:35 Antibiotics) Physical Exam Vitals: Vital Signs Temp Pulse Resp BP Pulse Ox 04/14/22 10:48 54 L 18 04/14/22 08:55 54 L 18 123/57 97 04/14/22 04:00 97.7 F 58 L 18 126/60 96 04/14/22 00:00 97.9 F 63 18 115/72 96 04/13/22 20:00 98.1 F 65 18 124/69 95 04/13/22 17:07 65 18 115/74 96 04/13/22 13:45 68 18 04/13/22 12:04 68 18 126/74 96 Intake and Output 04/13/22 04/14/22 04/14/22 22:59 06:59 14:59 Intake Total 358 231.537 Balance 358 231.537 Intake: Intake, IV Titration 231.537 Amount Heparin Sod,Pork in 0.45% 231.537 NaCl 25,000 unit In 0.45 % NaCl 1 250ml.bag @ 9. 186 UNITS/KG/HR 10 mls/hr IV .Q24H LEONARDA Rx#: [id number] Oral 358 Other: Voiding Method Toilet Toilet Toilet # Voids 2 1 General appearance: The patient is alert, oriented, appears in no acute distress. HET: Head is normocephalic and atraumatic. Conjunctiva pink. Sclera anicteric. Neck: Supple without lymphadenopathy. Trachea midline. Heart: S1 S2. Regular rate and rhythm. Lungs: Clear to auscultation. Abdomen: Soft, nontender, nondistended with bowel sounds. No guarding or rigidity. Skin: No rashes. No jaundice. Extremities: Normal skin color and turgor. No pedal edema. Neurological: No focal deficits. Alert and oriented x3. Results CBC & Chem 7: 04/14/22 06:55 04/14/22 06:55 Labs: Abnormal Lab Results - Last 24 Hours (Table) 04/13/22 04/13/22 04/13/22 Range/Units 07:45 11:35 14:09 WBC (3.8-10.6) k/uL Lymphocytes # (1.0-4.8) k/uL APTT 41.5 H (22.0-30.0) sec Glucose (74-99) mg/dL POC Glucose (mg/dL) 112 H (70-110) mg/dL Triglycerides 162.00 H (0.00-149.00) mg/dL 04/13/22 04/13/22 04/13/22 Range/Units 19:00 19:53 20:42 WBC (3.8-10.6) k/uL Lymphocytes # (1.0-4.8) k/uL APTT 55.3 H (22.0-30.0) sec Glucose (74-99) mg/dL POC Glucose (mg/dL) 194 H 182 H (70-110) mg/dL Triglycerides (0.00-149.00) mg/dL 04/14/22 04/14/22 04/14/22 Range/Units 06:05 06:55 06:55 WBC 14.2 H (3.8-10.6) k/uL Lymphocytes # 9.3 H (1.0-4.8) k/uL APTT (22.0-30.0) sec Glucose 119 H (74-99) mg/dL POC Glucose (mg/dL) 123 H (70-110) mg/dL Triglycerides (0.00-149.00) mg/dL 04/14/22 Range/Units 06:55 WBC (3.8-10.6) k/uL Lymphocytes # (1.0-4.8) k/uL APTT 80.0 H (22.0-30.0) sec Glucose (74-99) mg/dL POC Glucose (mg/dL) (70-110) mg/dL Triglycerides (0.00-149.00) mg/dL Microbiology - Last 24 Hours (Table) 04/12/22 14:00 Blood Culture - Preliminary Blood No Growth after 24 hours 04/12/22 13:45 Blood Culture - Preliminary Blood No Growth after [address] scan - abdomen: report reviewed (As stated in HPI) Assessment and Plan (1) Nausea & vomiting Narrative/Plan: Pleasant 61-year-old who came into the emergency department for increasing her who was found to have elevated troponin, non-STEMI. Patient states she had symptoms of nausea and vomiting with multiple episodes of nonbloody emesis imparted Thursday. She states no further nausea or vomiting since however does have a history of periodic symptoms of nausea and vomiting. Last workup she was seen by Dr. Sánchez and had EGD done in April 2019 that showed mild gastritis with no evidence of esophagitis or peptic ulcer disease. Patient likely had some form of gastroenteritis which has resolved. No further workup indicated. She can take anti-emetics as needed. Current Visit: No Status: Acute Code(s): R11.2 - NAUSEA WITH VOMITING, UNSPECIFIED SNOMED Code(s): 92595581 (2) Elevated troponin Current Visit: Yes Status: Acute Code(s): R77.8 - OTHER SPECIFIED AB NORMALITIES OF PLASMA PROTEINS SNOMED Code(s): 202758452 (3) Leukocytosis Current Visit: Yes Status: Acute Code(s): D72.829 - ELEVATED WHITE BLOOD CELL COUNT, UNSPECIFIED SNOMED Code(s): 503702166 (4) Non-STEMI (non-ST elevated myocardial infarction) Current Visit: No Status: Acute Code(s): I21.4 - NON-ST ELEVATION (NSTEMI) MYOCARDIAL INFARCTION SNOMED Code(s): 48771444 (5) Type 2 diabetes mellitus Current Visit: No Status: Chronic Code(s): E11.9 - TYPE 2 DIABETES MELLITUS WITHOUT COMPLICATIONS SNOMED Code(s): 30263675 Plan: 1. Continue symptomatic supportive care 2. Antiemetics as needed 3. No endoscopic workup indicated 4. Continue with recommendations from cardiology 5. Patient to follow-up with Dr. Sánchez as an outpatient if needed Thank you for this consultation, the patient is cleared by gastroenterology for discharge. We will sign off at this time Dr. Sujatha Sánchez I agree with the dictator's note, documented as a scribe by Winnie Jones.
[2022-04-15] MEDS ORDERED: ASPIRIN 81 MG PO SCH (09:00)
--- NOTE | 2022-04-17 09:31 | CDI ---
Documentation Clarification Form Date: 04/17/2022 09:22:00 AM From: Rosa Wisdom Admit Date: 04/12/2022 01:34:00 PM Patient Name: Amarilis Chaidez Visit Number: [id number] Discharge Date: 04/14/2022 03:30:00 PM ATTENTION: The Clinical Documentation Specialists (CDI) and [facility] Coding Staff appreciate your assistance in clarifying documentation. Please respond to the clarification below the line at the bottom and electronically sign. The CDI & [facility] Coding staff will review the response and follow-up if needed. Please note: Queries are made part of the Legal Health Record. If you have any questions, please contact the author of this message via ITS. Dr. Noé Jhaveri Conflicting documentation has been found in the medical record. As attending physician, please provide clarification. Per H&P and D/C summary: Elevated troponin, started on heparin drip Cardiology consult: "Non-STEMI, mildly elevated troponins without obvious angina-type symptoms however was feeling more palpitations and some nausea which may be anginal equivalent History/Risk Factors: elevated troponins, nausea and vomiting, dehydration, hypertension, hyperlipidemia, cardiac murmur Clinical Indicators: troponins: 0.071, 0.073, 0.099 Treatment: heparin drip Please clarify which diagnosis is most appropriate: [ ] Non-STEMI [ ] Acute Type II SD due to other factors [ ] Elevated troponins [ ] Other (please specify) [ ] Unable to determine Elevated troponins MTDD
== END 2022-04-14 15:30 | disposition home or self-care (01) | DRG 392 ==
LOC: EC 09:52 → 3SCARD 13:34
PROVIDERS: ADMIT Internal Medicine; ATTEND Internal Medicine
DX: K52.9 Noninfective gastroenteritis and colitis, unspecified (principal); E87.2 Acidosis; N13.30 Unspecified hydronephrosis; E86.0 Dehydration; R77.8 Other specified abnormalities of plasma proteins; R00.2 Palpitations; K80.20 Calculus of gallbladder without cholecystitis without obstruction; E11.43 Type 2 diabetes mellitus with diabetic autonomic (poly)neuropathy; K31.84 Gastroparesis; E78.5 Hyperlipidemia, unspecified; I10 Essential (primary) hypertension; K57.30 Diverticulosis of large intestine without perforation or abscess without bleeding; K76.0 Fatty (change of) liver, not elsewhere classified; N28.82 Megaloureter; R01.1 Cardiac murmur, unspecified; Z88.2 Allergy status to sulfonamides; Z79.899 Other long term (current) drug therapy; Z87.448 Personal history of other diseases of urinary system; Z98.890 Other specified postprocedural states; Z79.84 Long term (current) use of oral hypoglycemic drugs; Z87.19 Personal history of other diseases of the digestive system; Z87.442 Personal history of urinary calculi; Z87.891 Personal history of nicotine dependence; Z80.49 Family history of malignant neoplasm of other genital organs; Z82.49 Family history of ischemic heart disease and other diseases of the circulatory system
CPT/HCPCS: 36415; 71046; 74177; 76705; 78452; 80048; 80053; 80061; 81001; 82150; 83605; 83690; 83735; 84484; 85025; 85730; 87040; 93005; 93017; 96361; 96365; 96366; 96367; 96375; 99285

== ENCOUNTER → 2022-08-13 | Outpatient (CLI) | payer MEDICAID ==
--- NOTE | 2022-08-13 18:40 | MM ---
Reason for Exam: Screening (asymptomatic). Last mammogram was performed 3 year(s) and 5 month(s) ago. Patient History: Menarche at age 18. First Full-Term at age 40. Late child-bearing (after 30). Postmenopausal. Patient has history of breast feeding. Risk Values: [place]uni 5 year model risk: 1.7%. NCI Lifetime model risk: 9.4%. Prior Study Comparison: 03/22/2019 Bilateral MG 3D screening mammo w/cad, [facility]. Tissue Density: There are scattered fibroglandular densities. Findings: Analyzed By CAD. Pattern appears symmetrical and stable. Scattered benign punctate calcifications are present bilaterally. No suspicious groups of microcalcifications, spiculated or lobular masses, architectural distortion or other secondary signs of malignancy are mammographically apparent. Overall Assessment: Benign, BI-RAD 2 Management: Screening Mammogram of both breasts in 1 year. A negative mammogram report should not preclude additional follow up of suspicious palpable abnormalities. Patient should continue monthly self breast exam. A clinical breast exam by your physician is recommended on an annual basis and results should be correlated with mammographic findings. Electronically signed and approved by: Josh Elder D.O. Radiologis
== END | disposition home or self-care (01) ==
LOC: RADMAMWWP 08:57
PROVIDERS: ATTEND Family Medicine
DX: Z12.31 Encounter for screening mammogram for malignant neoplasm of breast (principal); Z78.0 Asymptomatic menopausal state
CPT/HCPCS: 77063; 77067

== ENCOUNTER 2023-02-09 20:05 | Inpatient (IN) | payer MEDICAID ==
[2023-02-09] MEDS ORDERED: SODIUM CHLORIDE 0.9% 1,000 ML IV STA ×2 (20:42→23:25)
[2023-02-09] MEDS ORDERED: ONDANSETRON 4 MG/2 ML VIAL IVP STA ×2 (20:42→22:58)
[2023-02-09 20:44] LABS: Glucose,Whole Blood 171 mg/dL (70-110)
[2023-02-09] MEDS ORDERED: ACETAMINOPHEN TAB 325 MG TAB PO STA (20:48)
[2023-02-09 21:20] LABS: HCT 48.9 % (34.0-46.0); HGB 15.5 gm/dL (11.4-16.0); MCH 30.7 pg (25.0-35.0); MCHC 31.7 g/dL (31.0-37.0); MCV 96.8 fL (80.0-100.0); Mean Platelet Volume 8.5; Platelet Count 214 k/uL (150-450); RBC 5.06 m/uL (3.80-5.40); RDW 13.5 % (11.5-15.5); WBC 11.5 k/uL (3.8-10.6)
--- NOTE | 2023-02-09 21:23 | XR ---
EXAMINATION TYPE: XR chest 1V portable DATE OF EXAM: 02/09/2023 9:10 PM COMPARISON: Chest radiographs from 04/13/2022 TECHNIQUE: XR chest 1V portable Portable AP radiograph of the chest. CLINICAL INDICATION:Female, 62 years old with history of abdominal pain; FINDINGS: Lungs/Pleura: There is no evidence of pleural effusion, focal consolidation, or pneumothorax. Pulmonary vascularity: Unremarkable. Heart/mediastinum: Cardiomediastinal silhouette is unremarkable. Musculoskeletal: No acute osseous pathology. IMPRESSION: No acute cardiopulmonary disease/process.
[2023-02-09 21:28] LABS: ALT 25 U/L (4-34); AST 34 U/L (14-36); African American GFR (CKD) 79 (>60 ml/min/1.73 sqM); Albumin 5.1 g/dL (3.5-5.0); Alkaline Phosphatase 88 U/L (38-126); Amylase 85 U/L (30-110); Anion Gap 24 mmol/L; Blood Urea Nitrogen 24 mg/dL (7-17); Calcium 9.5 mg/dL (8.4-10.2); Carbon Dioxide 15 mmol/L (22-30); Chloride 102 mmol/L (98-107); Glucose 186 mg/dL (74-99); Lipase 41 U/L (23-300); Non-African American GFR(CKD) 69 (>60 ml/min/1.73 sqM); Potassium 4.4 mmol/L (3.5-5.1); Sodium 141 mmol/L (137-145); Total Bilirubin 0.6 mg/dL (0.2-1.3); Total Protein 8.2 g/dL (6.3-8.2)
[2023-02-09 22:02] LABS: Lymphocytes # (M) 3.91 k/uL (1.0-4.8); Neutrophils # (M) 7.59 k/uL (1.3-7.7); Neutrophils % (M) 66 %; Nucleated Red Blood Cells 0 /100 WBC (0-0); Total Cells Counted 100
[2023-02-09] MEDS ORDERED: INSULIN REGULAR 100 UNIT/ML VIAL (IV) SQ STA (22:58)
[2023-02-09 23:10] LABS: Glucose,Whole Blood 190 mg/dL (70-110)
[2023-02-09] MEDS ORDERED: FAMOTIDINE 20 MG/2 ML VIAL IV STA (23:24)
[2023-02-09] MEDS ORDERED: SODIUM CHLORIDE 0.9% 500 ML 500 ML IV STA (23:25)
[2023-02-09 23:56] LABS: Glucose,Whole Blood 168 mg/dL (70-110)
[2023-02-10 00:37] LABS: Amorphous Sediment,Urine Rare /hpf; Appearance,Urine Clear (Clear); Bacteria,Urine Many /hpf; Bilirubin,Urine Negative (Negative); Blood,Urine Trace (Negative); Budding Yeast,Urine Many /hpf; Color,Urine Light Yellow; Glucose,Urine (UA) 4+ (Negative); Hyaline Casts,Urine 7 /lpf (0-2); Leukocyte Esterase,Urine Negative (Negative); Mucus,Urine Occasional /hpf; Nitrite,Urine Negative (Negative); PH, Urine 5.5 (5.0-8.0); Protein,Urine 1+ (Negative); RBC,Urine 1 /hpf (0-5); Specific Gravity,Urine 1.021 (1.001-1.035); Squamous Epithelial Cell,Urine 1 /hpf (0-4); Urobilinogen,Urine <2.0 mg/dL (<2.0); WBC,Urine 9 /hpf (0-5)
[2023-02-10 00:38] LABS: Ketones,Urine 4+ (Negative)
[2023-02-10] MEDS ORDERED: NALOXONE 0.4 MG/ML 1 ML VIAL IV PRN (00:43)
[2023-02-10] MEDS ORDERED: ONDANSETRON 4 MG/2 ML VIAL IVP PRN (00:43)
[2023-02-10] MEDS ORDERED: MAG HYDROX/AL HYDROX/SIMETH 30 ML CUP PO PRN (00:43)
[2023-02-10] MEDS ORDERED: SODIUM CHLORIDE 0.9% 1,000 ML IV SCH (00:45)
[2023-02-10] MEDS ORDERED: Magnesium Replacement Protocol 1 EACH MISC MISCELLANE PRN (00:54)
[2023-02-10] MEDS ORDERED: Potassium Replacement Protocol 1 EACH MISC MISCELLANE PRN (00:54)
[2023-02-10] MEDS ORDERED: DEXTROSE 50% SYRINGE 50 ML IVP PRN ×2 (00:54)
[2023-02-10] MEDS ORDERED: INSULIN REGULAR 100 UNIT in SODIUM CHLORIDE 0.9% 100 ML IV SCH (01:00)
--- NOTE | 2023-02-10 01:02 | P.HPIM ---
History of Present Illness H&P Date: 02/09/23 The patient is a 62-year-old female with a PMH of type II DM, hypertension, and hyperlipidemia who presents to the emergency room with complaints of nausea and vomiting. Patient reports that she initially had a URI over the past 1 week where she had severe sinus congestion as well as a nonproductive cough. Her symptoms gradually improved and resolved this morning but she then developed severe nausea with multiple episodes of nonbloody nonbilious emesis. She reports that due to her severe URI and subsequent nausea, that she has not been eating or drinking much over the past 4-5 days. She reports continuing to take her medications, including Jardiance and metformin. She denied experiencing fever, chest pain, abdominal pain, diarrhea. Laboratory evaluation in the emergency room revealed leukocytosis of 11.5, CO2 15, anion gap 24, glucose 186, with UA showing 4+ ketones with positive acetone. Chest x-ray was unremarkable. ED documentation reviewed and case discussed with ED provider. Review of systems: Pertinent positives and negatives as discussed in HPI, a complete review of s ystems was performed and all other systems are negative. Physical examination: Vital signs reviewed General: non toxic, no distress, appears at stated age, obese Derm: no unusual rashes/lesions, warm Head: atraumatic, normocephalic, symmetric Eyes: EOMI, no lid lag, anicteric sclera, pupils equal round reactive to light ENT: Nose and ears atraumatic Neck: No cervical lymphadenopathy, trachea midline, supple Mouth: no lip lesion, mucus membranes moist Cardiovascular: S1S2 reg, no murmur, positive dorsalis pedis pulse bilateral, no edema Lungs: CTA bilateral, no rhonchi, no rales, no accessory muscle use Abdominal: soft, nontender to palpation, no guarding Ext: muscle strength 5 out of 5 in all 4 extremities grossly, no gross muscle atrophy, no contractures, Neuro: CN II-XI grossly intact, no gross focal neuro deficits Psych: Alert, oriented, appropriate affect Assessment: Euglycemic DKA in setting of SGLT2 inhibitor use with starvation Leukocytosis, likely secondary to acute stress or dehydration Imaging: Chest x-ray was unremarkable. Data Review: Laboratory evaluation in the emergency room revealed leukocytosis of 11.5, CO2 15, anion gap 24, glucose 186, with UA showing 4+ ketones with positive acetone. Plan: Start patient on insulin infusion along with dextrose infusion 150 ML per hour Monitor glucoses every hour with electrolyte monitoring every 4 hours Hold off on hold SGLT2 inhibitor and metformin use at this time DVT prophylaxis: Heparin subcu The patient is admitted with an anticipated greater than 2 midnight stay for evaluation of euglycemic dka CODE STATUS: Full Code Discussed with: Patient Anticipated discharge place: Home Past Medical History Past Medical History: Diabetes Mellitus Additional Past Medical History / Comment(s): kidney stones History of Any Multi-Drug Resistant Organisms: None Reported Past Surgical History: Bladder Surgery, Section Additional Past Surgical History / Comment(s): ureter surgery 06/11, lithotripsy Past Anesthesia/Blood Transfusion Reactions: No Reported Reaction Additional Past Anesthesia/Blood Transfusion Reaction / Comment(s): Patient has never received blood products Past Psychological History: No Psychological Hx Reported Smoking Status: Former smoker Past Alcohol Use History: Occasional Past Drug Use History: None Reported - Past Family History Sister(s) Family Medical History: Cancer Additional Family Medical History / Comment(s): cervical cancer. Mother Family Medical History: No Reported History Additional Family Medical History / Comment(s): Mother is healthy Father Family Medical History: Congestive Heart Failure (CHF) Medications and Allergies Home Medications Medication Instructions Recorded Confirmed Type lisinopriL [Zestril] 5 mg PO DAILY 07/18/19 04/12/22 History Rosuvastatin Calcium [Crestor] 5 mg PO HS 11/06/21 04/12/22 History metFORMIN HCL [Glucophage] 850 mg PO DIRECTED PRN 11/06/21 04/12/22 History Empagliflozin [Jardiance] 10 mg PO DAILY 04/12/22 04/12/22 History Melatonin 5 mg PO HS 04/12/22 04/12/22 History metFORMIN HCL [Glucophage] 500 mg PO BID 04/12/22 04/12/22 History Allergies Allergy/AdvReac Type Severity Reaction Status Date / Time Sulfa (Sulfonamide Allergy Rash/Hives Verified 02/09/23 20:12 Antibiotics) Physical Exam Vitals: Vital Signs Temp Pulse Resp BP Pulse Ox 02/09/23 22:46 82 16 161/67 100 02/09/23 22:00 98.7 F 02/09/23 21:13 98.8 F 02/09/23 20:08 99.7 F H 103 H 20 160/92 96 Intake and Output 02/09/23 02/09/23 02/10/23 14:59 22:59 06:59 Other: Weight 96.162 kg Results CBC & Chem 7: 02/09/23 20:50 02/09/23 20:50 Labs: Abnormal Lab Results - Last 24 Hours (Table) 02/09/23 02/09/23 02/09/23 Range/Units 20:43 20:50 20:50 WBC 11.5 H (3.8-10.6) k/uL Hct 48.9 H (34.0-46.0) % Carbon Dioxide 15 L (22-30) mmol/L BUN 24 H (7-17) mg/dL Glucose 186 H (74-99) mg/dL POC Glucose (mg/dL) 171 H (70-110) mg/dL Albumin 5.1 H (3.5-5.0) g/dL 02/09/23 Range/Units 23:08 WBC (3.8-10.6) k/uL Hct (34.0-46.0) % Carbon Dioxide (22-30) mmol/L BUN (7-17) mg/dL Glucose (74-99) mg/dL POC Glucose (mg/dL) 190 H (70-110) mg/dL Albumin (3.5-5.0) g/dL
[2023-02-10 01:18] LABS: Glucose,Whole Blood 199 mg/dL (70-110)
[2023-02-10 01:38] LABS: VBG PH 7.19 (7.31-7.41)
[2023-02-10] MEDS: D5-0.45% NACL WITH KCL 20MEQ/L 1,000 ML IV SCH ×2 (02:09→09:28)
[2023-02-10 03:10] LABS: Glucose,Whole Blood 182 mg/dL (70-110)
[2023-02-10 04:14] LABS: Glucose,Whole Blood 173 mg/dL (70-110)
[2023-02-10 04:37] LABS: African American GFR (CKD) >90 (>60 ml/min/1.73 sqM); Anion Gap 17 mmol/L; Blood Urea Nitrogen 22 mg/dL (7-17); Carbon Dioxide 14 mmol/L (22-30); Chloride 110 mmol/L (98-107); Glucose 168 mg/dL (74-99); Non-African American GFR(CKD) >90 (>60 ml/min/1.73 sqM); Potassium 4.3 mmol/L (3.5-5.1); Sodium 141 mmol/L (137-145)
[2023-02-10 05:00] LABS: Glucose,Whole Blood 146 mg/dL (70-110)
[2023-02-10 06:01] LABS: Glucose,Whole Blood 178 mg/dL (70-110)
[2023-02-10 07:02] LABS: Glucose,Whole Blood 156 mg/dL (70-110)
[2023-02-10 08:07] LABS: Glucose,Whole Blood 169 mg/dL (70-110)
[2023-02-10] MEDS: FAMOTIDINE 20 MG TAB PO SCH ×2 (08:25→19:40)
[2023-02-10] MEDS: HEPARIN SODIUM,PORCINE/PF 5,000 UNIT/0.5 ML SYRINGE SQ SCH ×3 (08:25→22:52)
[2023-02-10] MEDS ORDERED: ALBUTEROL NEBULIZED 2.5 MG/3 ML INHALATION PRN (09:07)
[2023-02-10] MEDS ORDERED: FLUTICASONE 50MCG/SPRAY NASAL 16GM EA NOSTRIL PRN (09:07)
[2023-02-10] MEDS ORDERED: LORATADINE 10 MG TAB PO PRN (09:07)
[2023-02-10] MEDS ORDERED: ACETAMINOPHEN TAB 325 MG TAB PO PRN (09:07)
[2023-02-10 09:40] LABS: Glucose,Whole Blood 147 mg/dL (70-110)
[2023-02-10 09:45] LABS: African American GFR (CKD) >90 (>60 ml/min/1.73 sqM); Anion Gap 10 mmol/L; Blood Urea Nitrogen 17 mg/dL (7-17); Carbon Dioxide 18 mmol/L (22-30); Chloride 111 mmol/L (98-107); Glucose 151 mg/dL (74-99); Non-African American GFR(CKD) >90 (>60 ml/min/1.73 sqM); Potassium 4.2 mmol/L (3.5-5.1); Sodium 139 mmol/L (137-145)
[2023-02-10 10:25] LABS: Glucose,Whole Blood 168 mg/dL (70-110)
--- NOTE | 2023-02-10 10:44 | P.PN ---
Subjective Progress Note Date: 02/10/23 Patient is a 62-year-old female with diabetes mellitus type 2 on oral medications only with prior DKA at time of diagnosis, hypertension, and dyslipidemia who presented to the ER complains of nausea and vomiting. Patient had been suffering from a URI for approximately one week prior to admission. On arrival to the ER temperature was 99.7 and pulse was 103, blood pressure was markedly elevated at 160/92 the remainder vital signs within normal limits. Laboratory analysis was remarkable for white blood cell count of 11.5, carbon dioxide of 15, anion gap of 24, BUN of 24, serum acetone was positive. VBG showed a pH of 7.19. Urinalysis showed 4+ ketones and 4+ glucose with 1+ prot ein. She was diagnosed with euglycemic DKA. She was started on D5 half-normal and in insulin infusion. Arrangements were made for admission to the selective care unit. Patient seen and examined at bedside. No chest pain, SOB. Still wtih cough and some nausea and vomiting.TOlerated water and jello, chicken broth was upsetting to her stomach. She reports difficulty with vomiting for mpnths on end after her diagnosis, could consider eval for gastroparesis- she is unsure if she has been evaluated for this in the past. Vital signs reviewed General: nontoxic, no distress, appears at stated age Cardiovascular: S1S2 reg, no murmur, positive posterior tibial pulse bilateral, Lungs: CTA bilateral, no rhonchi, no rales , no accessory muscle use Abdominal: soft, nontender to palpation, no guarding, no appreciable organomegaly Ext: no gross muscle atrophy, no edema b/l lower extremities, no contractures Neuro: CN II-XI grossly intact, no focal neuro deficits Psych: Alert, oriented, appropriate affect Assessment: Euglycemic DKA in the setting of Jardaince use - Last BMP with closed Gap - Levemir 5 units X 1 now, in 30 minutes stop insulin gtt and transition IVF fluids LR at 125 cc/hr - repeat BMP at 1500 - SSI - follow BS q 1 hours X 2 and then ACHS - Home off jardiance could consider Januia. Given that she is a DKA prone Type II diabetic as this is her second instance of DKA. URI - check COVID/RSV/FLU - prn claritin, prn flonse, prn albuterol - CXR without PNA Hypophosphatemia - Replaced with 20 mmol of potassium phos. - repeat in AM Imaging: None new Data Review: Pulse 63, respirations 18, blood pressure 119/57, O2 sat 98% on room air Laboratory analysis remarkable for chloride 111, carbon dioxide 18, anion gap 10, glucose 151, phosphorus 2.2 DVT prophylaxis: Heparin Anticipated discharge date: in 24-[address]: home This dictation was prepared using [employer] voice recognition software. Though every attempt is made to correct errors during dictation some may still exist. Objective - Vital Signs Vital signs: Vital Signs Temp 98.7 F 02/09/23 22:00 Pulse 63 02/10/23 09:52 Resp 18 02/10/23 09:52 BP 119/57 02/10/23 09:52 Pulse Ox 98 02/10/23 09:52 FiO2 Intake & Output 02/09/23 02/10/23 02/10/23 18:59 06:59 18:59 Intake Total 15.458 10.724 Output Total 925 Balance -909.542 10.724 Weight 96.162 kg Intake: Intake, IV Titration 15.458 10.724 Amount Insulin Regular 100 unit 15.458 10.724 In Sodium Chloride 0.9% 100 ml @ 0.1 UNITS/KG/HR 9.712 mls/hr IV .[id number] [facility], [facility] Rx#:[id number] Output: Urine 550 Emesis 375 - Labs CBC & Chem 7: 02/09/23 20:50 02/10/23 09:15 Labs: Abnormal Lab Results - Last 24 Hours (Table) 02/09/23 02/09/23 02/09/23 Range/Units 20:43 20:50 20:50 WBC 11.5 H (3.8-10.6) k/uL Hct 48.9 H (34.0-46.0) % VBG pH (7.31-7.41) VBG HCO3 (24-28) mmol/L Chloride (98-107) mmol/L Carbon Dioxide 15 L (22-30) mmol/L BUN 24 H (7-17) mg/dL Glucose 186 H (74-99) mg/dL POC Glucose (mg/dL) 171 H (70-110) mg/dL Phosphorus (2.5-4.5) mg/dL Albumin 5.1 H (3.5-5.0) g/dL Urine Protein (Negative) Urine Glucose (UA) (Negative) Urine Ketones (Negative) Urine Blood (Negative) Urine WBC (0-5) /hpf Amorphous Sediment (None) /hpf Urine Bacteria (None) /hpf Hyaline Casts (0-2) /lpf Urine Mucus (None) /hpf Urine Yeast (Budding) (None) /hpf 02/09/23 02/09/23 02/09/23 Range/Units 22:51 23:08 23:55 WBC (3.8-10.6) k/uL Hct (34.0-46.0) % VBG pH (7.31-7.41) VBG HCO3 (24-28) mmol/L Chloride (98-107) mmol/L Carbon Dioxide (22-30) mmol/L BUN (7-17) mg/dL Glucose (74-99) mg/dL POC Glucose (mg/dL) 190 H 168 H (70-110) mg/dL Phosphorus (2.5-4.5) mg/dL Albumin (3.5-5.0) g/dL Urine Protein 1+ H (Negative) Urine Glucose (UA) 4+ H (Negative) Urine Ketones 4+ H (Negative) Urine Blood Trace H (Negative) Urine WBC 9 H (0-5) /hpf Amorphous Sediment Rare H (None) /hpf Urine Bacteria Many H (None) /hpf Hyaline Casts 7 H (0-2) /lpf Urine Mucus Occasional H (None) /hpf Urine Yeast (Budding) Many H (None) /hpf 02/10/23 02/10/23 02/10/23 Range/Units 00:54 01:17 03:09 WBC (3.8-10.6) k/uL Hct (34.0-46.0) % VBG pH 7.19 L* (7.31-7.41) VBG HCO3 14 L (24-28) mmol/L Chloride (98-107) mmol/L Carbon Dioxide (22-30) mmol/L BUN (7-17) mg/dL Glucose (74-99) mg/dL POC Glucose (mg/dL) 199 H 182 H (70-110) mg/dL Phosphorus (2.5-4.5) mg/dL Albumin (3.5-5.0) g/dL Urine Protein (Negative) Urine Glucose (UA) (Negative) Urine Ketones (Negative) Urine Blood (Negative) Urine WBC (0-5) /hpf Amorphous Sediment (None) /hpf Urine Bacteria (None) /hpf Hyaline Casts (0-2) /lpf Urine Mucus (None) /hpf Urine Yeast (Budding) (None) /hpf 02/10/23 02/10/23 02/10/23 Range/Units 04:12 04:15 04:58 WBC (3.8-10.6) k/uL Hct (34.0-46.0) % VBG pH (7.31-7.41) VBG HCO3 (24-28) mmol/L Chloride 110 H (98-107) mmol/L Carbon Dioxide 14 L (22-30) mmol/L BUN 22 H (7-17) mg/dL Glucose 168 H (74-99) mg/dL POC Glucose (mg/dL) 173 H 146 H (70-110) mg/dL Phosphorus (2.5-4.5) mg/dL Albumin (3.5-5.0) g/dL Urine Protein (Negative) Urine Glucose (UA) (Negative) Urine Ketones (Negative) Urine Blood (Negative) Urine WBC (0-5) /hpf Amorphous Sediment (None) /hpf Urine Bacteria (None) /hpf Hyaline Casts (0-2) /lpf Urine Mucus (None) /hpf Urine Yeast (Budding) (None) /hpf 02/10/23 02/10/23 02/10/23 Range/Units 06:00 07:01 08:06 WBC (3.8-10.6) k/uL Hct (34.0-46.0) % VBG pH (7.31-7.41) VBG HCO3 (24-28) mmol/L Chloride (98-107) mmol/L Carbon Dioxide (22-30) mmol/L BUN (7-17) mg/dL Glucose (74-99) mg/dL POC Glucose (mg/dL) 178 H 156 H 169 H (70-110) mg/dL Phosphorus (2.5-4.5) mg/dL Albumin (3.5-5.0) g/dL Urine Protein (Negative) Urine Glucose (UA) (Negative) Urine Ketones (Negative) Urine Blood (Negative) Urine WBC (0-5) /hpf Amorphous Sediment (None) /hpf Urine Bacteria (None) /hpf Hyaline Casts (0-2) /lpf Urine Mucus (None) /hpf Urine Yeast (Budding) (None) /hpf 02/10/23 02/10/23 02/10/23 Range/Units 09:15 09:15 09:38 WBC (3.8-10.6) k/uL Hct (34.0-46.0) % VBG pH (7.31-7.41) VBG HCO3 (24-28) mmol/L Chloride 111 H (98-107) mmol/L Carbon Dioxide 18 L (22-30) mmol/L BUN (7-17) mg/dL Glucose 151 H (74-99) mg/dL POC Glucose (mg/dL) 147 H (70-110) mg/dL Phosphorus 2.2 L (2.5-4.5) mg/dL Albumin (3.5-5.0) g/dL Urine Protein (Negative) Urine Glucose (UA) (Negative) Urine Ketones (Negative) Urine Blood (Negative) Urine WBC (0-5) /hpf Amorphous Sediment (None) /hpf Urine Bacteria (None) /hpf Hyaline Casts (0-2) /lpf Urine Mucus (None) /hpf Urine Yeast (Budding) (None) /hpf 02/10/23 Range/Units 10:24 WBC (3.8-10.6) k/uL Hct (34.0-46.0) % VBG pH (7.31-7.41) VBG HCO3 (24-28) mmol/L Chloride (98-107) mmol/L Carbon Dioxide (22-30) mmol/L BUN (7-17) mg/dL Glucose (74-99) mg/dL POC Glucose (mg/dL) 168 H (70-110) mg/dL Phosphorus (2.5-4.5) mg/dL Albumin (3.5-5.0) g/dL Urine Protein (Negative) Urine Glucose (UA) (Negative) Urine Ketones (Negative) Urine Blood (Negative) Urine WBC (0-5) /hpf Amorphous Sediment (None) /hpf Urine Bacteria (None) /hpf Hyaline Casts (0-2) /lpf Urine Mucus (None) /hpf Urine Yeast (Budding) (None) /hpf
[2023-02-10 11:14] LABS: Glucose,Whole Blood 150 mg/dL (70-110)
[2023-02-10] MEDS: INSULIN DETEMIR (LEVEMIR) 100 UNIT/ML SYR SQ SCH (11:50)
[2023-02-10 12:20] LABS: Glucose,Whole Blood 173 mg/dL (70-110)
[2023-02-10] MEDS: INSULIN ASPART (NovoLOG) 100 UNIT/ML VIAL SQ SCH ×3 (12:32→20:25)
[2023-02-10] MEDS: LACTATED RINGERS 1,000 ML IV SCH ×2 (12:35→17:43)
[2023-02-10] MEDS: POTASSIUM PHOSPHATE 10 MMOL in SODIUM CHLORIDE 0.9% 250 ML IV SCH ×2 (12:44→14:34)
[2023-02-10 13:26] LABS: African American GFR (CKD) >90 (>60 ml/min/1.73 sqM); Anion Gap 11 mmol/L; Blood Urea Nitrogen 17 mg/dL (7-17); Calcium 8.3 mg/dL (8.4-10.2); Carbon Dioxide 18 mmol/L (22-30); Chloride 108 mmol/L (98-107); Glucose 159 mg/dL (74-99); Non-African American GFR(CKD) >90 (>60 ml/min/1.73 sqM); Potassium 4.4 mmol/L (3.5-5.1); Sodium 137 mmol/L (137-145)
[2023-02-10 17:13] LABS: Glucose,Whole Blood 117 mg/dL (70-110)
[2023-02-10] MEDS ORDERED: guaiFENesin 600 MG TABLET.ER PO PRN (18:12)
[2023-02-10] MEDS: ATORVASTATIN 10 MG TAB PO SCH (19:40)
[2023-02-10 20:23] LABS: Glucose,Whole Blood 113 mg/dL (70-110)
[2023-02-10] MEDS: MELATONIN 5 MG TABLET PO PRN (22:52)
[2023-02-11] MEDS: LACTATED RINGERS 1,000 ML IV SCH ×2 (07:02→14:54)
[2023-02-11] MEDS: INSULIN ASPART (NovoLOG) 100 UNIT/ML VIAL SQ SCH ×4 (07:02→20:19)
[2023-02-11 07:05] LABS: Glucose,Whole Blood 138 mg/dL (70-110)
[2023-02-11] MEDS: INSULIN DETEMIR (LEVEMIR) 100 UNIT/ML SYR SQ SCH (07:05)
[2023-02-11 07:57] LABS: HCT 46.3 % (34.0-46.0); HGB 14.7 gm/dL (11.4-16.0); MCH 30.8 pg (25.0-35.0); MCHC 31.9 g/dL (31.0-37.0); MCV 96.5 fL (80.0-100.0); Mean Platelet Volume 8.2; Platelet Count 189 k/uL (150-450); RBC 4.79 m/uL (3.80-5.40); RDW 13.4 % (11.5-15.5); WBC 12.8 k/uL (3.8-10.6)
[2023-02-11] MEDS: lisinopriL 5 MG TAB PO SCH (08:27)
[2023-02-11] MEDS: HEPARIN SODIUM,PORCINE/PF 5,000 UNIT/0.5 ML SYRINGE SQ SCH (08:27)
[2023-02-11] MEDS: FAMOTIDINE 20 MG TAB PO SCH ×2 (08:27→20:33)
[2023-02-11 08:32] LABS: African American GFR (CKD) >90 (>60 ml/min/1.73 sqM); Anion Gap 13 mmol/L; Blood Urea Nitrogen 13 mg/dL (7-17); Calcium 8.8 mg/dL (8.4-10.2); Carbon Dioxide 19 mmol/L (22-30); Chloride 105 mmol/L (98-107); Glucose 152 mg/dL (74-99); Non-African American GFR(CKD) >90 (>60 ml/min/1.73 sqM); Sodium 137 mmol/L (137-145)
[2023-02-11 08:33] LABS: Potassium 4.4 mmol/L (3.5-5.1)
[2023-02-11] MEDS ORDERED: NITROGLYCERIN SL TABS 0.4 MG TAB SUBLINGUAL PRN (08:52)
--- NOTE | 2023-02-11 09:26 | XR ---
EXAMINATION TYPE: XR chest 1V portable DATE OF EXAM: 02/11/2023 COMPARISON: 02/09/2023 HISTORY: Chest pain TECHNIQUE: Single frontal view of the chest is obtained. FINDINGS: There is a basilar subsegmental consolidation. No overt failure. No pneumothorax or pleura l effusion.. The cardiac silhouette size is within normal limits. The osseous structures are intac t. IMPRESSION: Basilar atelectasis favored over early pneumonia correlate clinically.
[2023-02-11] MEDS ORDERED: HEPARIN SODIUM 1,000 UN/ML (10ML VL) IV PRN (10:23)
[2023-02-11] MEDS ORDERED: HEPARIN SODIUM 1,000 UN/ML (10ML VL) IV ONE (10:23)
[2023-02-11] MEDS ORDERED: ASPIRIN 325 MG TAB PO STA (10:37)
--- NOTE | 2023-02-11 10:42 | P.PN ---
Subjective Progress Note Date: 02/11/23 (2949) Patient is a 62-year-old female with diabetes mellitus type 2 on oral medications only with prior DKA at time of diagnosis, hypertension, and dyslipidemia who presented to the ER complains of nausea and vomiting. Patient had been suffering from a URI for approximately one week prior to admission. On arrival to the ER temperature was 99.7 and pulse was 103, blood pressure was m arkedly elevated at 160/92 the remainder vital signs within normal limits. Laboratory analysis was remarkable for white blood cell count of 11.5, carbon dioxide of 15, anion gap of 24, BUN of 24, serum acetone was positive. VBG showed a pH of 7.19. Urinalysis showed 4+ ketones and 4+ glucose with 1+ protein. She was diagnosed with euglycemic DKA. She was started on D5 half- normal and in insulin infusion. Arrangements were made for admission to the selective care unit. Her anion gap normalized. She was transitioned off the insulin drip and started on Levemir and sliding scale insulin. Her fluids were transitioned to lactated Ringer's. Patient seen and examined at bedside. She complains of epigastric pain radiating around her ribs and into her back. She just does not feel well. Re dness of breath is better than yesterday and she feels less congested. She denies any lightheadedness, dizziness, diaphoresis, and numbness or tingling. She denies any active nausea or vomiting. She states she vomited last night but has had no vomiting this morning and tolerated Jell-O and oatmeal. Vital signs reviewed General: ill appearing, mild distress due to pain, appears at stated age Cardiovascular: S1S2 reg, no murmur, positive posterior tibial pulse bilateral, Lungs: Course bs bilateral, no rhonchi, no rales , no accessory muscle use Abdominal: soft, nontender to palpation, no guarding, no appreciable organomegaly Ext: no gross muscle atrophy, no edema b/l lower extremities, no contractures Neuro: CN II-XI grossly intact, no focal neuro deficits Psych: Alert, oriented, appropriate affect Assessment/Plan: Chest pain Hypertensive urgency - d/w nursing EKG now, and then nitro, if nitor ineffective will consider GI cocktail, stat troponin, repeat CXR - follow BP closely Euglycemic DKA in the setting of Jardaince use, DKA resolved - Levemir 5 units daily, SSI - follow BS - Home off jardiance could consider Alyse. Given that she is a DKA prone Type II diabetic as this is her second instance of DKA. URI - COVID/RSV/FLU- negative - add augmentin given increasing WBC - prn claritin, prn flonse, prn albuterol - CXR without PNA Hypophosphatemia - Replaced with 20 mmol of potassium phos. - repeat tomorrow Imaging: None new Data Review: Laboratory analysis reviewed. WBC 12.8, bicarb 19, glucose 152 DVT prophylaxis: Heparin Anticipated discharge date: Pending Clinical Course Anticipated discharge place: Pending Clinical Course This dictation was prepared using [employer] voice recognition software. Though every attempt is made to correct errors during dictation some may still exist. Objective - Vital Signs Vital signs: Vital Signs Temp 97.3 F L 02/11/23 08:00 Pulse 66 02/11/23 08:00 Resp 17 02/11/23 08:00 BP 210/93 02/11/23 08:00 Pulse Ox 96 02/11/23 08:00 FiO2 Intake & Output 02/10/23 02/11/23 02/11/23 18:59 06:59 18:59 Intake Total 10.724 1000 Output Total 1000 Balance -383.909 9229 Intake: Intake, IV Titration 10.724 1000 Amount Insulin Regular 100 unit 10.724 In Sodium Chloride 0.9% 100 ml @ 0.1 UNITS/KG/HR 9.712 mls/hr IV .[id number] [facility] Rx#:[id number] Lactated Ringers 1,000 ml 1000 @ 125 mls/hr IV .Q8H [facility] Rx#:[id number] Output: Urine 1000 Other: Voiding Method Toilet # Voids 1 - Labs CBC & Chem 7: 02/11/23 07:26 02/11/23 07:26 Labs: Abnormal Lab Results - Last 24 Hours (Table) 02/10/23 02/10/23 02/10/23 Range/Units 09:15 11:12 12:19 WBC (3.8-10.6) k/uL Hct (34.0-46.0) % Chloride (98-107) mmol/L Carbon Dioxide (22-30) mmol/L Glucose (74-99) mg/dL POC Glucose (mg/dL) 150 H 173 H (70-110) mg/dL Hemoglobin A1c 6.7 H (<=6.0) % Calcium (8.4-10.2) mg/dL Troponin I (0.000-0.034) ng/mL 02/10/23 02/10/23 02/10/23 Range/Units 12:54 17:01 20:22 WBC (3.8-10.6) k/uL Hct (34.0-46.0) % Chloride 108 H (98-107) mmol/L Carbon Dioxide 18 L (22-30) mmol/L Glucose 159 H (74-99) mg/dL POC Glucose (mg/dL) 117 H 113 H (70-110) mg/dL Hemoglobin A1c (<=6.0) % Calcium 8.3 L (8.4-10.2) mg/dL Troponin I (0.000-0.034) ng/mL 02/11/23 02/11/23 02/11/23 Range/Units 07:02 07:26 07:26 WBC 12.8 H (3.8-10.6) k/uL Hct 46.3 H (34.0-46.0) % Chloride (98-107) mmol/L Carbon Dioxide 19 L (22-30) mmol/L Glucose 152 H (74-99) mg/dL POC Glucose (mg/dL) 138 H (70-110) mg/dL Hemoglobin A1c (<=6.0) % Calcium (8.4-10.2) mg/dL Troponin I (0.000-0.034) ng/mL 02/11/23 Range/Units 07:26 WBC (3.8-10.6) k/uL Hct (34.0-46.0) % Chloride (98-107) mmol/L Carbon Dioxide (22-30) mmol/L Glucose (74-99) mg/dL POC Glucose (mg/dL) (70-110) mg/dL Hemoglobin A1c (<=6.0) % Calcium (8.4-10.2) mg/dL Troponin I 0.116 H* (0.000-0.034) ng/mL
[2023-02-11] MEDS: HEPARIN SOD,PORK IN 0.45% NACL 25,000 UNIT in 0.45% NACL 1 250ML.BAG IV SCH (11:05)
[2023-02-11 11:59] LABS: Glucose,Whole Blood 126 mg/dL (70-110)
[2023-02-11] MEDS: AMOXIC-POT CLAV 875-125MG 1 EACH TAB PO SCH ×2 (12:12→20:33)
[2023-02-11] MEDS ORDERED: hydrALAZINE HCL 20 MG/ML 1 ML VIAL IVP STA (13:29)
[2023-02-11] MEDS ORDERED: METOPROLOL TARTRATE 25 MG TAB PO SCH (13:30)
[2023-02-11 13:53] VITALS: BMI 31.3
[2023-02-11] MEDS: NITROGLYCERIN OINT 1 INCH/GM PACKET TOPICAL SCH ×3 (14:57→23:18)
[2023-02-11 16:43] LABS: Glucose,Whole Blood 129 mg/dL (70-110)
[2023-02-11 19:48] LABS: Glucose,Whole Blood 146 mg/dL (70-110)
[2023-02-11] MEDS: ATORVASTATIN 10 MG TAB PO SCH (20:33)
[2023-02-11 23:13] LABS: Glucose,Whole Blood 124 mg/dL (70-110)
[2023-02-11] MEDS: MELATONIN 5 MG TABLET PO PRN (23:19)
[2023-02-12] MEDS: NITROGLYCERIN OINT 1 INCH/GM PACKET TOPICAL SCH (05:49)
[2023-02-12] MEDS: LACTATED RINGERS 1,000 ML IV SCH (05:50)
[2023-02-12] MEDS: INSULIN ASPART (NovoLOG) 100 UNIT/ML VIAL SQ SCH ×4 (05:52→20:33)
[2023-02-12 05:54] LABS: Glucose,Whole Blood 128 mg/dL (70-110)
[2023-02-12 08:09] LABS: Glucose,Whole Blood 156 mg/dL (70-110)
[2023-02-12] MEDS: ASPIRIN 81 MG PO SCH (08:20)
[2023-02-12] MEDS: lisinopriL 5 MG TAB PO SCH (08:20)
[2023-02-12] MEDS: FAMOTIDINE 20 MG TAB PO SCH ×2 (08:20→20:33)
[2023-02-12] MEDS: AMOXIC-POT CLAV 875-125MG 1 EACH TAB PO SCH ×2 (08:22→20:33)
[2023-02-12] MEDS: HEPARIN SOD,PORK IN 0.45% NACL 25,000 UNIT in 0.45% NACL 1 250ML.BAG IV SCH (08:24)
[2023-02-12] MEDS ORDERED: lisinopriL 5 MG TAB PO STA (08:57)
[2023-02-12 09:26] LABS: HCT 47.3 % (34.0-46.0); HGB 15.2 gm/dL (11.4-16.0); MCH 29.8 pg (25.0-35.0); MCHC 32.2 g/dL (31.0-37.0); MCV 92.7 fL (80.0-100.0); Mean Platelet Volume 9.3; Platelet Count 195 k/uL (150-450); RDW 13.6 % (11.5-15.5); WBC 13.8 k/uL (3.8-10.6)
[2023-02-12] MEDS: INSULIN DETEMIR (LEVEMIR) 100 UNIT/ML SYR SQ SCH (09:28)
[2023-02-12] MEDS: carvediloL 6.25 MG TAB PO SCH ×2 (09:29→16:43)
[2023-02-12 09:34] LABS: African American GFR (CKD) >90 (>60 ml/min/1.73 sqM); Anion Gap 13 mmol/L; Blood Urea Nitrogen 10 mg/dL (7-17); Calcium 8.7 mg/dL (8.4-10.2); Carbon Dioxide 21 mmol/L (22-30); Chloride 104 mmol/L (98-107); Glucose 161 mg/dL (74-99); Non-African American GFR(CKD) >90 (>60 ml/min/1.73 sqM); Potassium 3.7 mmol/L (3.5-5.1); Sodium 138 mmol/L (137-145)
[2023-02-12 09:50] LABS: INR 1.1 (<1.2); Partial Thromboplastin Time 49.7 sec (22.0-30.0); Prothrombin Time 11.9 sec (9.0-12.0)
--- NOTE | 2023-02-12 10:51 | P.CRDCN ---
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 She has a past medical history of hypertension, hyperlipid emia, diabetes mellitus type 2. Patient states that she had epigastric pain yesterday along with congestion to her head and chest. She came into the hospital and found to be in DKA and started on the DKA protocol. Patient also had some chest congestion and chest discomfort mostly in the epigastric area went through to the back. Troponins came back elevated and this is consult was requested. Echocardiogram has been completed and report is pending EKG sinus rhythm Chest x-ray: WBC 13.8, hemoglobin 15.2, platelet count 195. Initial blood gases venous: PH 7.19, pCO2 38, bicarb 14. Electrolytes are normal. CO2 is 21. Blood sugar 161. Troponins 0.116, 0.141, 0.15. Acetone positive. Influenza A, influenza B, RSV, Covid 19 not detected. Home cardiac medications: Lisinopril 5 mg daily, Crestor 5 mg at bedtime Review Of Systems: At the time of my evaluation: Constitutional: No fever, no chills. No weakness, fatigue or lethargy. EENT: No headache. No dizziness. Lungs: No shortness of breath, cough, no sputum production. No wheezing. Cardiovascular: No chest pain, no lower extremity edema. No palpitations. No paroxysmal nocturnal dyspnea. No orthopnea. No lightheadedness or dizziness. No syncopal episodes. Abdominal: No abdominal pain. No nausea, vomiting. No diarrhea. No constipation. No bloody or tarry stools. Genitourinary: No dysuria.. No urinary retention. Musculoskeletal: No myalgias. No muscle weakness, no frequent falls. No back pain. No neck pain. Integumentary: No wounds. No rash. No unusual bruising. Neurologic: No aphasia. No facial droop. No change in mentation. No head injury. No headache. Physical examination: Gen: This is a 62-year-old female. She is resting but appears to be comfortable. VS: reviewed HEENT: Head is atraumatic, normocephalic. Pupils equal, round. Sclerae is anicteric. NECK: Supple. No JVD. . LUNGS: Clear to auscultation. No wheezes or rhonchi. No intercostal retractions. HEART: Regular rate and rhythm. No murmur. ABDOMEN: Soft No tenderness. EXTREMITIES: No pedal edema. No calf tenderness. NEUROLOGICAL: Patient is awake, alert and oriented x3. Assessment: Elevated troponins, troponin leak secondary to DKA DKA Severe metabolic acidosis Cough/bronchitis Diabetes mellitus type 2 Hyperlipidemia Hypertension Plan: Continue heparin drip another 24 hours Increase lisinopril to 10 mg daily and add Coreg 6.25 mg twice daily Increase statin to 40 mg daily and at time of discharge Crestor can be increased to 20 mg daily Obtain 2-D echocardiogram and Doppler report Further recommendations to follow based upon clinical course Thank you kindly for this consultation. Nurse practitioner note has been reviewed, I agree with documented findings and plan of care. Patient was seen and examined. Past Medical History Past Medical History: Diabetes Mellitus Additional Past Medical History / Comment(s): kidney stones History of Any Multi-Drug Resistant Organisms: None Reported Past Surgical History: Bladder Surgery, Section Additional Past Surgical History / Comment(s): ureter surgery 06/11, lithotripsy Past Anesthesia/Blood Transfusion Reactions: No Reported Reaction Additional Past Anesthesia/Blood Transfusion Reaction / Comment(s): Patient has never received blood products Past Psychological History: No Psychological Hx Reported Additional Psychological History / Comment(s): Pt resides with her adult brady. She is independent. Smoking Status: Former smoker Past Alcohol Use History: Occasional Additional Past Alcohol Use History / Comment(s): Pt started smoking in 1974 and quit in 1982. Past Drug Use History: None Reported Additional Drug Use History / Comment(s): . - Past Family History Sister(s) Family Medical History: Cancer Additional Family Medical History / Comment(s): cervical cancer. Mother Family Medical History: No Reported History Additional Family Medical History / Comment(s): Mother is healthy Father Family Medical History: Congestive Heart Failure (CHF) Medications and Allergies Home Medications Medication Instructions Recorded Confirmed Type lisinopriL [Zestril] 5 mg PO DAILY 07/18/19 02/10/23 History Rosuvastatin Calcium [Crestor] 5 mg PO HS 11/06/21 02/10/23 History Melatonin 5 mg PO HS PRN 04/12/22 02/10/23 History Empagliflozin [Jardiance] 25 mg PO DAILY 02/10/23 02/10/23 History Ondansetron Odt [Zofran Odt] 8 mg PO Q8H PRN 02/10/23 02/10/23 History metFORMIN HCL ER [Glucophage XR] 500 mg PO DAILY 02/10/23 02/10/23 History Allergies Allergy/AdvReac Type Severity Reaction Status Date / Time Sulfa (Sulfonamide Allergy Rash/Hives Verified 02/10/23 09:06 Antibiotics) Physical Exam Vitals: Vital Signs Temp Pulse Pulse Resp BP Pulse Ox 02/12/23 04:00 98.0 F 66 18 143/69 95 02/12/23 02:00 82 18 02/11/23 23:21 98.1 F 82 18 144/66 97 02/11/23 20:25 82 18 161/81 98 02/11/23 20:16 80 02/11/23 20:05 84 02/11/23 20:00 82 18 02/11/23 19:41 99.3 F 85 18 180/77 96 02/11/23 16:00 98.2 F 91 17 128/61 96 02/11/23 12:00 97.4 F L 58 L 18 184/79 96 Intake and Output 02/11/23 02/12/23 02/12/23 22:59 06:59 14:59 Intake Total 50 213.188 Balance 50 213.188 Intake: Intake, IV Titration 50 213.188 Amount Heparin Sod,Pork in 0.45% 213.188 NaCl 25,000 unit In 0.45 % NaCl 1 250ml.bag @ 10.4 UNITS/KG/HR 10.001 mls/ hr IV .Q24H [facility] Rx#: [id number] Lactated Ringers 1,000 ml 50 @ 50 mls/hr IV .Q20H [facility] Rx#:[id number] Other: Voiding Method Toilet Toilet # Voids 1 2 Results 02/12/23 08:23 02/12/23 08:23 Cardiac Enzymes 02/11/23 02/11/23 02/11/23 Range/Units 07:26 10:36 13:03 Troponin I 0.116 H* 0.141 H* 0.150 H* (0.000-0.034) ng/mL Coagulation 02/11/23 02/11/23 Range/Units 10:36 17:17 APTT 25.5 74.2 H (22.0-30.0) sec Current Medications Generic Name Dose Route Start Last Admin Trade Name Freq PRN Reason Stop Dose Admin Acetaminophen 650 mg 02/10/23 09:07 02/10/23 09:18 Acetaminophen Tab 325 Mg Tab PO 650 mg Q6HR PRN Administration Fever and/ or Pain Al Hydroxide/Mg Hydroxide 15 ml 02/10/23 00:43 Mag Hydrox/Al Hydrox/Simeth 30 Ml Cup PO Q6HR PRN Indigestion Albuterol Sulfate 2.5 mg 02/10/23 09:07 02/11/23 20:05 Albuterol Nebulized 2.5 Mg/3 Ml INHALATION 2.5 mg RT-QID PRN Administration Shortness Of Breath Or Wheezing Amoxicillin/Clavulanate Potassium 1 each 02/11/23 09:00 02/12/23 08:22 Amoxic-Pot Clav 875-125mg 1 Each Tab PO 1 each Q12HR [facility] Administration Protocol Aspirin 81 mg 02/12/23 09:00 02/12/23 08:20 Aspirin 81 Mg PO 81 mg DAILY [facility] Administration Atorvastatin Calcium 10 mg 02/10/23 21:00 02/11/23 20:33 Atorvastatin 10 Mg Tab PO 10 mg HS [facility] Administration Dextrose/Water 25 ml 02/10/23 00:54 Dextrose 50% Syringe 50 Ml IVP PER PROTOCOL PRN Hypoglycemia Protocol Dextrose/Water 50 ml 02/10/23 00:54 Dextrose 50% Syringe 50 Ml IVP PER PROTOCOL PRN Hypoglycemia Protocol Famotidine 20 mg 02/10/23 09:00 02/12/23 08:20 Famotidine 20 Mg Tab PO 20 mg BID [facility] Administration Fluticasone Propionate 2 spray 02/10/23 09:07 02/10/23 19:40 Fluticasone 50mcg/[place] Nasal 16gm EA NOSTRIL 2 spray DAILY PRN Administration Allergy Symptoms Guaifenesin 600 mg 02/10/23 18:12 02/10/23 19:40 Guaifenesin 600 Mg Tablet.Er PO 600 mg Q12HR PRN Administration Congestion Heparin Sodium (Porcine) 0 unit 02/11/23 10:23 Heparin Sodium 1,000 Un/Ml (10ml Vl) IV PER PROTOCOL PRN Low PTT Protocol Lactated Ringer's 1,000 mls @ 50 mls/hr 02/10/23 10:30 02/12/23 05:50 Lactated Ringers IV 50 mls/hr .Q20H [facility] Administration Heparin Sodium/Sodium Chloride 250 mls @ 10.001 mls/hr 02/11/23 10:30 02/12/23 08:24 25,000 unit/ Sodium Chloride IV 10.4 units/kg/hr .Q24H [facility] 10.001 mls/hr Administration Protocol 10.4 UNITS/KG/HR Insulin Aspart 0 unit 02/10/23 12:30 02/12/23 05:52 Insulin Aspart (Novolog) 100 Unit/Ml Vial SQ Not Given ACHS [facility] Protocol Insulin Detemir 5 unit 02/10/23 11:00 02/11/23 07:05 Insulin Detemir (Levemir) 100 Unit/Ml Syr SQ 5 unit DAILY@0700 [facility] Administration Lisinopril 5 mg 02/11/23 09:00 02/12/23 08:20 Lisinopril 5 Mg Tab PO 5 mg DAILY [facility] Administration Loratadine 10 mg 02/10/23 09:07 Loratadine 10 Mg Tab PO DAILY PRN Allergy Symptoms Melatonin 5 mg 02/10/23 09:07 02/11/23 23:19 Melatonin 5 Mg Tablet PO 5 mg HS PRN Administration Insomnia Miscellaneous Information 1 each 02/10/23 00:54 Magnesium Replacement Protocol 1 Each Misc MISCELLANE DAILY PRN Per Protocol Protocol Miscellaneous Information 1 each 02/10/23 00:54 Potassium Replacement Protocol 1 Each Misc MISCELLANE DAILY PRN Per Protocol Naloxone HCl 0.2 mg 02/10/23 00:43 Naloxone 0.4 Mg/Ml 1 Ml Vial IV Q2M PRN Opioid Reversal Nitroglycerin 0.4 mg 02/11/23 08:52 02/11/23 10:42 Nitroglycerin Sl Tabs 0.4 Mg Tab SUBLINGUAL 0.4 mg Q5M PRN Administration Chest Pain Nitroglycerin 0.5 inch 02/11/23 13:45 02/12/23 05:49 Nitroglycerin Oint 1 Inch/Gm Packet TOPICAL 0.5 inch Q6HR [facility] Administration Ondansetron HCl 4 mg 02/10/23 00:43 02/11/23 08:27 Ondansetron 4 Mg/2 Ml Vial IVP 4 mg Q8HR PRN Administration Nausea And Vomiting Intake and Output 02/11/23 02/12/23 02/12/23 22:59 06:59 14:59 Intake Total 50 213.188 Balance 50 213.188 Intake: Intake, IV Titration 50 213.188 Amount Heparin Sod,Pork in 0.45% 213.188 NaCl 25,000 unit In 0.45 % NaCl 1 250ml.bag @ 10.4 UNITS/KG/HR 10.001 mls/ hr IV .Q24H [facility] Rx#: [id number] Lactated Ringers 1,000 ml 50 @ 50 mls/hr IV .Q20H [facility] Rx#:[id number] Other: Voiding Method Toilet Toilet # Voids 1 2 02/11/23 07:26 02/11/23 07:26
[2023-02-12 12:09] LABS: Glucose,Whole Blood 153 mg/dL (70-110)
--- NOTE | 2023-02-12 12:16 | CA ---
Transthoracic Echo Report Name: Amarilis Chaidez Age: 62 Gender: F : 1960 Exam Date: 02/11/2023 13:43 Exam Location: [facility] Ht (in): 69 Wt (lb): 212 Ordering Physician: Arline Branham DO Attending/Referring Phys: [id number], Yonas Tip Cementer Leni Mart [facility] Procedure CPT: Indications: nstemi Cardiac Hx: Technical Quality: Fair Contrast 1: Total Dose (mL): Contrast 2: Total Dose (mL): MEASUREMENTS (Male / Female) Normal Values 2D ECHO LV Diastolic Diameter PLAX 4.4 cm 4.2 - 5.9 / 3.9 - 5.3 cm LV Systolic Diameter PLAX 2.8 cm IVS Diastolic Thickness 0.8 cm 0.6 - 1.0 / 0.6 - 0.9 cm LVPW Diastolic Thickness 1.1 cm 0.6 - 1.0 / 0.6 - 0.9 cm LV Relative Wall Thickness 0.4 LVOT Diameter 2.0 cm M-MODE Aortic Root Diameter MM 2.4 cm LA Systolic Diameter MM 4.0 cm LA Ao Ratio MM 1.7 AV Cusp Separation MM 1.4 cm DOPPLER AV Peak Velocity 191.3 cm/s AV Peak Gradient 14.6 mmHg AV Mean Velocity 128.3 cm/s AV Mean Gradient 7.5 mmHg AV Velocity Time Integral 44.0 cm LVOT Peak Velocity 132.3 cm/s LVOT Peak Gradient 7.0 mmHg LVOT Velocity Time Integral 30.7 cm LVOT Stroke Volume 96.4 cm??? LVOT Stroke Volume Index 45.5 ml/m??? LVOT Cardiac Index 2463.1 cm???/min???m??? AV Area Cont Eq vti 2.2 cm??? AV Area Cont Eq pk 2.2 cm??? Mitral E Point Velocity 126.9 cm/s Mitral A Point Velocity 88.2 cm/s Mitral E to A Ratio 1.4 MV Deceleration Time 112.1 ms LV E' Lateral Velocity 11.5 cm/s Mitral E to LV E' Lateral Ratio 11.0 LV E' Septal Velocity 9.5 cm/s Mitral E to LV E' Septal Ratio 13.3 TR Peak Velocity 342.0 cm/s TR Peak Gradient 46.8 mmHg Right Atrial Pressure 8.0 mmHg Pulmonary Artery Systolic Pressu 54.8 mmHg Right Ventricular Systolic Press 54.8 mmHg FINDINGS Left Ventricle Normal Left ventricular size, systolic function with no obvious regional wall motion abnormalities. Mildly increased posterior wall thickness.left ventricular ejection fraction is estimated at 55-60%. Right Ventricle Mild right ventricular dilatation. Moderate pulmonary hypertension. Right Atrium Normal right atrial size. Left Atrium Normal left atrial size. Mitral Valve Structurally normal mitral valve. Mild-moderate mitral regurgitation. Aortic Valve Trileaflet aortic valve. No aortic valve stenosis or regurgitation. Tricuspid Valve Structurally normal tricuspid valve. Mild tricuspid regurgitation. Pulmonic Valve Structurally normal pulmonic valve. Mild pulmonic regurgitation. Pericardium No pericardial effusion. Aorta Normal size aortic root and proximal ascending aorta. CONCLUSIONS Left ventricular ejection fraction 55-60% RVSP 54 Mild right ventricular dilation I'll to moderate mitral regurgitation Mild tricuspid regurgitation No pericardial effusion Previewed by: Dr. Brandt Hughes DO (Electronically Signed) Final Date: 12 February 2023 12:15
[2023-02-12 13:12] LABS: Lymphocytes # (M) 7.31 k/uL (1.0-4.8); Monocytes # (M) 0.14 k/uL (0-1.0); Neutrophils # (M) 6.35 k/uL (1.3-7.7); Neutrophils % (M) 46 %; Nucleated Red Blood Cells 0 /100 WBC (0-0); Total Cells Counted 100
--- NOTE | 2023-02-12 13:41 | P.PN ---
Subjective Progress Note Date: 02/12/23 Patient is a 62-year-old female with diabetes mellitus type 2 on oral medications only with prior DKA at time of diagnosis, hypertension, and dyslipidemia who presented to the ER complains of nausea and vomiting. Patient had been suffering from a URI for approximately one week prior to admission. On arrival to the ER temperature was 99.7 and pulse was 103, blood pressure was markedly elevated at 160/92 the remainder vital signs within normal limits. Laboratory analysis was remarkable for white blood cell count of 11.5, carbon dioxide of 15, anion gap of 24, BUN of 24, serum acetone was positive. VBG showed a pH of 7.19. Urinalysis showed 4+ ketones and 4+ glucose with 1+ prot ein. She was diagnosed with euglycemic DKA. She was started on D5 half-normal and in insulin infusion. Arrangements were made for admission to the selective care unit. Her anion gap normalized. She was transitioned off the insulin drip and started on Levemir and sliding scale insulin. Her fluids were transitioned to lactated Ringer's. Patient seen and examined at bedside. She had one additional episode of vomiting last night, but this seemed to be related to coughing and she thinks it was sputum production. She denies any lightheadedness or dizziness. She continues to have some epigastric discomfort. Vital signs reviewed General:non toxic, no distress, appears at stated age Cardiovascular: S1S2 reg, no murmur, positive posterior tibial pulse bilateral, Lungs: Course bs bilateral, no rhonchi, no rales , no accessory muscle use Abdominal: soft, nontender to palpation, no guarding, no appreciable organomegaly Ext: no gross muscle atrophy, no edema b/l lower extremities, no contractures Neuro: CN II-XI grossly intact, no focal neuro deficits Psych: Alert, oriented, appropriate affect Assessment/Plan: Type II NSTEMI, likely due elevated BP and DKA Hypertensive urgency - Cardiology consultation note reviewed: Continue with heparin drip for another 24 hours. Increase lisinopril, initiate Coreg, await echocardiogram -Lisinopril 10 mg daily, Coreg 6.25 mg twice daily -Follow blood pressures Euglycemic DKA in the setting of Jardaince use, DKA resolved - Levemir 5 units daily, SSI - follow BS - Home off jardiance could consider Alyse. Given that she is a DKA prone Type II diabetic as this is her second instance of DKA. URI - COVID/RSV/FLU- negative - Continue with Augmentin [id number] mg twice daily day #2 - prn claritin, prn flonse, prn albuterol - Repeat chest x-ray in a.m. Hypophosphatemia - Replaced with 20 mmol of potassium phos. - repeat tomorrow Imaging: Echocardiogram reviewed: Left ventricular ejection fraction 55-60%, RVSP 54 with mild right ventricular dilatation, mild to moderate mitral regurgitation, mild tricuspid regurgitation Chest x-ray from 02/11/23: Bilateral rectal atelectasis favored over early pneumonia Data Review: Vital signs reviewed temperature 90.8, pulse 66, respirations 18, blood pressure 143/69 Labs reviewed unremarkable for white blood cell count of 13.8, carbon dioxide of 21, blood glucose of 161, PTT 49.7 DVT prophylaxis: Heparin Anticipated discharge date: in 24-[address]: Pending Clinical Course This dictation was prepared using [employer] voice recognition software. Though every attempt is made to correct errors during dictation some may still exist. Objective - Vital Signs Vital signs: Vital Signs Temp 98.0 F 02/12/23 12:00 Pulse 71 02/12/23 12:00 Resp 14 02/12/23 12:00 BP 177/81 02/12/23 12:00 Pulse Ox 95 02/12/23 12:00 FiO2 Intake & Output 02/11/23 02/12/23 02/12/23 18:59 06:59 18:59 Intake Total 330 50 213.188 Balance 330 50 213.188 Weight 96.162 kg Intake: Intake, IV Titration 330 50 213.188 Amount Heparin Sod,Pork in 0.45% 30 213.188 NaCl 25,000 unit In 0.45 % NaCl 1 250ml.bag @ 10.4 UNITS/KG/HR 10.001 mls/ hr IV .Q24H LEONARDA Rx#: [id number] Lactated Ringers 1,000 ml 300 50 @ 50 mls/hr IV .Q20H LEONARDA Rx#:[id number] Other: Voiding Method Toilet Toilet Toilet # Voids 1 2 - Labs CBC & Chem 7: 02/12/23 08:23 02/12/23 08:23 Labs: Abnormal Lab Results - Last 24 Hours (Table) 02/11/23 02/11/23 02/11/23 Range/Units 13:03 16:41 17:17 WBC (3.8-10.6) k/uL Hct (34.0-46.0) % Lymphocytes # (Manual) (1.0-4.8) k/uL APTT 74.2 H (22.0-30.0) sec Carbon Dioxide (22-30) mmol/L Glucose (74-99) mg/dL POC Glucose (mg/dL) 129 H (70-110) mg/dL Troponin I 0.150 H* (0.000-0.034) ng/mL 02/11/23 02/11/23 02/12/23 Range/Units 19:47 23:12 05:52 WBC (3.8-10.6) k/uL Hct (34.0-46.0) % Lymphocytes # (Manual) (1.0-4.8) k/uL APTT (22.0-30.0) sec Carbon Dioxide (22-30) mmol/L Glucose (74-99) mg/dL POC Glucose (mg/dL) 146 H 124 H 128 H (70-110) mg/dL Troponin I (0.000-0.034) ng/mL 02/12/23 02/12/23 02/12/23 Range/Units 08:07 08:23 08:23 WBC 13.8 H (3.8-10.6) k/uL Hct 47.3 H (34.0-46.0) % Lymphocytes # (Manual) 7.31 H (1.0-4.8) k/uL APTT 49.7 H (22.0-30.0) sec Carbon Dioxide (22-30) mmol/L Glucose (74-99) mg/dL POC Glucose (mg/dL) 156 H (70-110) mg/dL Troponin I (0.000-0.034) ng/mL 02/12/23 02/12/23 Range/Units 08:23 12:07 WBC (3.8-10.6) k/uL Hct (34.0-46.0) % Lymphocytes # (Manual) (1.0-4.8) k/uL APTT (22.0-30.0) sec Carbon Dioxide 21 L (22-30) mmol/L Glucose 161 H (74-99) mg/dL POC Glucose (mg/dL) 153 H (70-110) mg/dL Troponin I (0.000-0.034) ng/mL
[2023-02-12] MEDS ORDERED: MAG HYDROX/AL HYDROX/SIMETH 30 ML, HYOSCYAMINE ELIXIR 10 ML PO ONE ×2 (14:00)
[2023-02-12] MEDS ORDERED: hydrALAZINE HCL 20 MG/ML 1 ML VIAL IVP STA (16:52)
[2023-02-12 16:53] LABS: Glucose,Whole Blood 139 mg/dL (70-110)
[2023-02-12] MEDS ORDERED: FUROSEMIDE 10 MG/ML 2 ML VIAL IV ONE (17:57)
[2023-02-12 20:24] LABS: Glucose,Whole Blood 150 mg/dL (70-110)
[2023-02-12] MEDS ORDERED: ATORVASTATIN 40 MG TAB PO SCH (21:00)
[2023-02-13] MEDS: LACTATED RINGERS 1,000 ML IV SCH (02:36)
[2023-02-13 06:29] LABS: Glucose,Whole Blood 161 mg/dL (70-110)
[2023-02-13] MEDS: INSULIN ASPART (NovoLOG) 100 UNIT/ML VIAL SQ SCH (06:30)
[2023-02-13] MEDS: carvediloL 6.25 MG TAB PO SCH (06:30)
[2023-02-13 07:39] LABS: HCT 46.7 % (34.0-46.0); HGB 15.2 gm/dL (11.4-16.0); MCH 30.4 pg (25.0-35.0); MCHC 32.5 g/dL (31.0-37.0); MCV 93.5 fL (80.0-100.0); Platelet Count 187 k/uL (150-450); RDW 13.3 % (11.5-15.5); WBC 11.8 k/uL (3.8-10.6)
[2023-02-13 07:41] VITALS: TEMP 98.6
[2023-02-13 07:58] LABS: African American GFR (CKD) >90 (>60 ml/min/1.73 sqM); Anion Gap 9 mmol/L; Blood Urea Nitrogen 12 mg/dL (7-17); Calcium 8.6 mg/dL (8.4-10.2); Carbon Dioxide 30 mmol/L (22-30); Chloride 98 mmol/L (98-107); Glucose 172 mg/dL (74-99); Non-African American GFR(CKD) >90 (>60 ml/min/1.73 sqM); Phosphorus 2.4 mg/dL (2.5-4.5); Potassium 3.2 mmol/L (3.5-5.1); Sodium 137 mmol/L (137-145)
[2023-02-13] MEDS ORDERED: POTASSIUM CHLORIDE ER 20 MEQ TAB.ER PO STA (08:12)
[2023-02-13] MEDS: AMOXIC-POT CLAV 875-125MG 1 EACH TAB PO SCH (08:22)
[2023-02-13] MEDS: ASPIRIN 81 MG PO SCH (08:22)
[2023-02-13] MEDS: FAMOTIDINE 20 MG TAB PO SCH (08:22)
--- NOTE | 2023-02-13 08:32 | XR ---
EXAMINATION TYPE: XR chest 1V portable DATE OF EXAM: 02/13/2023 COMPARISON: 02/11/2023 HISTORY: Follow-up pneumonia TECHNIQUE: Single frontal view of the chest is obtained. FINDINGS: There is a basilar subsegmental consolidation. No overt failure. No pneumothorax or pleura l effusion.. The cardiac silhouette size is within normal limits. The osseous structures are intact. Arthropathy of the shoulders. IMPRESSION: Stable left basilar atelectasis favored over pneumonia
[2023-02-13] MEDS: HEPARIN SOD,PORK IN 0.45% NACL 25,000 UNIT in 0.45% NACL 1 250ML.BAG IV SCH (08:35)
[2023-02-13] MEDS ORDERED: lisinopriL 10 MG TAB PO SCH (09:00)
[2023-02-13] MEDS ORDERED: carvediloL 6.25 MG TAB PO STA (09:18)
[2023-02-13] MEDS: INSULIN DETEMIR (LEVEMIR) 100 UNIT/ML SYR SQ SCH (09:37)
--- NOTE | 2023-02-13 11:17 | P.PN ---
Subjective Progress Note Date: 02/13/23 History of present illness: This is a 62-year-old female with no previous cardiac history, does not follow with a vocational trainer. She has a past medical history of hypertension, hyperlipidemia, diabetes mellitus type 2. Patient states that she had epigastric pain yesterday along with congestion to her head and chest. She came into the hospital and found to be in DKA and started on the DKA protocol. Isaias wood also had some chest congestion and chest discomfort mostly in the epigastric area went through to the back. Troponins came back elevated and this is consult was requested. Echocardiogram has been completed and report is pending EKG sinus rhythm Chest x-ray: WBC 13.8, hemoglobin 15.2, platelet count 195. Initial blood gases venous: PH 7.19, pCO2 38, bicarb 14. Electrolytes are normal. CO2 is 21. Blood sugar 161. Troponins 0.116, 0.141, 0.15. Acetone positive. Influenza A, influenza B, RSV, Covid 19 not detected. Home cardiac medications: Lisinopril 5 mg daily, Crestor 5 mg at bedtime 02/13 Patient continues to be hypertensive despite medication changes made yesterday and she received an dose of IV Lasix 20 mg yesterday afternoon ordered by attending. Potassium this morning is 3.2. Which has been replaced. She is on a heparin drip which we will discontinue today. She states that she feels her coughing is significantly worse today and mostly from laying in bed. Patient encouraged to ambulate and get out of bed. Chest x-ray reveals stable left basilar atelectasis favored over pneumonia. Echocardiogram reveals EF of 55-60%, RVSP 54, mild right ventricular dilation, I'll to moderate mitral regurgitation, mild tricuspid regurgitation. Physical examination: Gen: This is a 62-year-old female. She is resting and appears to be comfortable. VS: reviewed HEENT: Head is atraumatic, normocephalic. Pupils equal, round. Sclerae is anicteric. NECK: Supple. No JVD. . LUNGS: Clear to auscultation. No wheezes or rhonchi. No intercostal retractions. HEART: Regular rate and rhythm. No murmur. ABDOMEN: Soft No tenderness. EXTREMITIES: No pedal edema. No calf tenderness. NEUROLOGICAL: Patient is awake, alert and oriented x3. Assessment: Elevated troponins, troponin leak secondary to DKA DKA Severe metabolic acidosis Cough/bronchitis Diabetes mellitus type 2 Hyperlipidemia Hypertension Plan: Discontinue heparin drip Continue increased dose of lisinopril Increase Coreg to 12.5 mg twice daily Increase statin to 40 mg daily and at time of discharge Crestor can be increased to 20 mg daily The patient for another 24 hours. No plan for any cardiac intervention at this time. She may follow-up in the office for possible stress testing. She will need diabetes well-controlled as well as resolution of her bronchitis. Further recommendations to follow based upon clinical course Nurse practitioner note has been reviewed, I agree with documented findings and plan of care. Patient was seen and examined. Objective - Vital Signs Vital signs: Vital Signs Temp 98.6 F 02/13/23 07:35 Pulse 88 02/13/23 07:35 Resp 14 02/13/23 07:35 BP 135/86 02/13/23 07:35 Pulse Ox 95 02/13/23 07:35 FiO2 Intake & Output 02/12/23 02/13/23 02/13/23 18:59 06:59 18:59 Intake Total 1993.188 241.858 Balance 1992.188 241.858 Weight 96.162 kg 95.4 kg Intake: Intake, IV Titration 613.188 241.858 Amount Heparin Sod,Pork in 0.45% 213.188 241.858 NaCl 25,000 unit In 0.45 % NaCl 1 250ml.bag @ 10.4 UNITS/KG/HR 10.001 mls/ hr IV .Q24H LEONARDA Rx#: [id number] Lactated Ringers 1,000 ml 400 @ 50 mls/hr IV .Q20H LEONARDA Rx#:[id number] Oral 1380 Other: Voiding Method Toilet Toilet # Voids 4 - Labs CBC & Chem 7: 02/13/23 07:14 02/13/23 07:14 Labs: Abnormal Lab Results - Last 24 Hours (Table) 02/12/23 02/12/23 02/12/23 Range/Units 08:23 08:23 08:23 WBC 13.8 H (3.8-10.6) k/uL Hct 47.3 H (34.0-46.0) % Lymphocytes # (Manual) 7.31 H (1.0-4.8) k/uL APTT 49.7 H (22.0-30.0) sec Potassium (3.5-5.1) mmol/L Carbon Dioxide 21 L (22-30) mmol/L Glucose 161 H (74-99) mg/dL POC Glucose (mg/dL) (70-110) mg/dL Phosphorus (2.5-4.5) mg/dL 02/12/23 02/12/23 02/12/23 Range/Units 12:07 16:51 20:23 WBC (3.8-10.6) k/uL Hct (34.0-46.0) % Lymphocytes # (Manual) (1.0-4.8) k/uL APTT (22.0-30.0) sec Potassium (3.5-5.1) mmol/L Carbon Dioxide (22-30) mmol/L Glucose (74-99) mg/dL POC Glucose (mg/dL) 153 H 139 H 150 H (70-110) mg/dL Phosphorus (2.5-4.5) mg/dL 02/13/23 02/13/23 02/13/23 Range/Units 06:28 07:14 07:14 WBC 11.8 H (3.8-10.6) k/uL Hct 46.7 H (34.0-46.0) % Lymphocytes # (Manual) (1.0-4.8) k/uL APTT 41.4 H (22.0-30.0) sec Potassium (3.5-5.1) mmol/L Carbon Dioxide (22-30) mmol/L Glucose (74-99) mg/dL POC Glucose (mg/dL) 161 H (70-110) mg/dL Phosphorus (2.5-4.5) mg/dL 02/13/23 Range/Units 07:14 WBC (3.8-10.6) k/uL Hct (34.0-46.0) % Lymphocytes # (Manual) (1.0-4.8) k/uL APTT (22.0-30.0) sec Potassium 3.2 L (3.5-5.1) mmol/L Carbon Dioxide (22-30) mmol/L Glucose 172 H (74-99) mg/dL POC Glucose (mg/dL) (70-110) mg/dL Phosphorus 2.4 L (2.5-4.5) mg/dL
[2023-02-13 11:42] LABS: Glucose,Whole Blood 193 mg/dL (70-110)
[2023-02-13 11:45] VITALS: BP 113/75; PULSE 93; RESP 17
--- NOTE | 2023-02-13 13:56 | P.DS ---
Providers Date of admission: 02/10/23 00:43 Expected date of discharge: 02/13/23 Attending physician: Uday Dejesus MD Consults: 02/11/23 10:44 Consult Physician Routine Consulting Provider: Juan R Hightower Consult Reason/Comments: NSTEMI Do you want consulting provider notified?: Yes Primary care physician: BIRGIT Hare Hospital Course: Discharge Diagnosis: Type II NSTEMI, likely due elevated BP and DKA Hypertensive urgency Euglycemic DKA in the setting of Jardaince use, DKA resolved URI Hypophosphatemia Hypokalemia Hospital Course: Patient is a 62-year-old female with diabetes mellitus type 2 on oral medications only with prior DKA at time of diagnosis, hypertension, and dyslipidemia who presented to the ER complains of nausea and vomiting. Patient had been suffering from a URI for approximately one week prior to admission. On arrival to the ER temperature was 99.7 and pulse was 103, blood pressure was markedly elevated at 160/92 the remainder vital signs within normal limits. Laboratory analysis was remarkable for white blood cell count of 11.5, carbon dioxide of 15, anion gap of 24, BUN of 24, serum acetone was positive. VBG showed a pH of 7.19. Urinalysis showed 4+ ketones and 4+ glucose with 1+ protein. She was diagnosed with euglycemic DKA. She was started on D5 half- normal and in insulin infusion. Arrangements were made for admission to the selective care unit. Her anion gap normalized. She was transitioned off the insulin drip and started on Levemir and sliding scale insulin. Her fluids were transitioned to lactated Ringer's. Her acidosis slowly improved. She developed extremely high blood pressures with systolics in the 200s. He then started having some chest pain with radiation to her back. Troponin was mildly positive. Cardiology was consulted. She underwent an echocardiogram which showed a preserved ejection fraction with mildly elevated RVSP at mild to moderate mitral regurgitation. Her medications were adjusted and her blood pressure improved. Cardiology preferred to defer ischemic evaluation to the outpatient setting given her upper respiratory tract infection. With improved blood pressures and resolution of her euglycemic DKA she was determined stable for discharge. Follow-up: off jardiance due to its risk of euglycemia DKA and transition to Januvai, continue metfromin. She will need outpatient ischemic evaluation and will follow [facility] Dr. Diaz in 2 week, Follow with Olamide Moore in 1 week. Additional new medications are lisinopril increased to 10 mg dialy, coreg 12.5 twice dialy, and crestor increased to 20 mg daily. She will complete 2 more days of augmentin. She was discharge home in stable condition. Patient seen and examined at bedside. Doing well. No additional nausea and vomiting. Coughing is stable. She feels as though she go home. No additional chest pain. Vital signs reviewed and stable. General: nontoxic, no distress, appears at stated age Cardiovascular: S1S2 reg, no murmur, positive posterior tibial pulse bilateral, Lungs: CTA bilateral, no rhonchi, no rales , no accessory muscle use Abdominal: soft, nontender to palpation, no guarding, no appreciable organomegaly Ext: no gross muscle atrophy, no edema b/l lower extremities, no contractures Neuro: CN II-XI grossly intact, no focal neuro deficits Psych: Alert, oriented, appropriate affect A total of 45 minutes of time were spent preparing this complex discharge summary. Patient was discharged on 02/13/23. This dictation was prepared using [employer] voice recognition software. Though every attempt is made to correct errors during dictation some may still exist. Plan - Discharge Summary Discharge Rx Participant: Yes New Discharge Prescriptions: New carvediloL [Coreg*] 12.5 mg PO BID-W/MEALS #60 tab Fluticasone Nasal [place] [Flonase Nasal [place]] 2 spray EA NOSTRIL DAILY PRN ml PRN Reason: Allergy Symptoms sitaGLIPtin [Januvia] 100 mg PO DAILY #30 tab guaiFENesin [Mucinex] 600 mg PO Q12HR PRN tab PRN Reason: Congestion lisinopriL [Zestril] 10 mg PO DAILY #30 tab Rosuvastatin [Crestor] 20 mg PO DAILY #30 tablet Amoxic-Pot Clav 875-125Mg [Augmentin 875-125] 1 each PO Q12HR #5 tab Loratadine [Claritin] 10 mg PO DAILY PRN tab PRN Reason: Allergy Symptoms Continue metFORMIN HCL ER [Glucophage XR] 500 mg PO DAILY Melatonin 5 mg PO HS PRN PRN Reason: Insomnia Ondansetron Odt [Zofran ODT] 8 mg PO Q8H PRN PRN Reason: Nausea And Vomiting Discontinued lisinopriL [Zestril] 5 mg PO DAILY Rosuvastatin Calcium [Crestor] 5 mg PO HS Empagliflozin [Jardiance] 25 mg PO DAILY Discharge Medication List Melatonin 5 mg PO HS PRN 04/12/22 [History] Ondansetron Odt [Zofran ODT] 8 mg PO Q8H PRN 02/10/23 [History] metFORMIN HCL ER [Glucophage XR] 500 mg PO DAILY 02/10/23 [History] Amoxic-Pot Clav 875-125Mg [Augmentin 875-125] 1 each PO Q12HR #5 tab 02/13/23 [Rx] Fluticasone Nasal [place] [Flonase Nasal [place]] 2 spray EA NOSTRIL DAILY PRN ml 02/13/23 [Rx] Loratadine [Claritin] 10 mg PO DAILY PRN tab 02/13/23 [Rx] Rosuvastatin [Crestor] 20 mg PO DAILY #30 tablet 02/13/23 [Rx] carvediloL [Coreg*] 12.5 mg PO BID-W/MEALS #60 tab 02/13/23 [Rx] guaiFENesin [Mucinex] 600 mg PO Q12HR PRN tab 02/13/23 [Rx] lisinopriL [Zestril] 10 mg PO DAILY #30 tab 02/13/23 [Rx] sitaGLIPtin [Januvia] 100 mg PO DAILY #30 tab 02/13/23 [Rx] Follow up Appointment(s)/Referral(s): Juan R Hightower MD [STAFF PHYSICIAN] - 2 Weeks Olamide Moore NPC [Primary Care Provider] - 1 Week (please call the office Thursday to set up your appointment) Patient Instructions/Handouts: Diabetic Ketoacidosis (GEN), Hypertension (DC) Activity/Diet/Wound Care/Special Instructions: Activity: as tolerated Diet: Carb consistent, heart healthy Special Instructions: Consider Gastric Emptying study for gastroparesis Check Blood pressure daily Follow bs once daily Discharge Disposition: HOME SELF-CARE
[2023-02-13] MEDS ORDERED: carvediloL 12.5 MG TAB PO SCH (17:30)
== END 2023-02-13 15:34 | disposition home or self-care (01) | DRG 637 ==
LOC: EC 20:05 → 3SCARD 02-10 00:43
PROVIDERS: ADMIT Internal Medicine; ATTEND Internal Medicine
DX: E11.10 Type 2 diabetes mellitus with ketoacidosis without coma (principal); I21.A1 Myocardial infarction type 2; J98.11 Atelectasis; E78.5 Hyperlipidemia, unspecified; E83.39 Other disorders of phosphorus metabolism; E86.0 Dehydration; E87.6 Hypokalemia; I10 Essential (primary) hypertension; I16.0 Hypertensive urgency; I34.0 Nonrheumatic mitral (valve) insufficiency; Z20.822 Contact with and (suspected) exposure to COVID-19; K31.84 Gastroparesis; J40 Bronchitis, not specified as acute or chronic; T73.0XXA Starvation, initial encounter; D72.829 Elevated white blood cell count, unspecified; Z79.4 Long term (current) use of insulin; Z79.84 Long term (current) use of oral hypoglycemic drugs; Z79.899 Other long term (current) drug therapy; Z82.49 Family history of ischemic heart disease and other diseases of the circulatory system; Z87.442 Personal history of urinary calculi; Z87.891 Personal history of nicotine dependence; Z88.2 Allergy status to sulfonamides
CPT/HCPCS: 36415; 71045; 80048; 80051; 80053; 81001; 82009; 82150; 82565; 82803; 82947; 83036; 83605; 83690; 84100; 84484; 84520; 85025; 85027; 85610; 85730; 87636; 93005; 93306; 94640